=== PATIENT | female | born 1945 | race Caucasian/White ===

== ENCOUNTER → 2016-08-13 | Outpatient (CLI) | payer OTHER ==
[~2016-08-13] MED LIST: AMT50 PO; ASCO10003 PO; ASPI325T39 PO; CALC600T9 PO; CEPH500C2 PO; CHOL2000 PO; CYAN100020 PO; DICY1TAB25 PO; DIPH25CA65 PO; EAR GTTS OTB; ERGO1TAB12 PO; FERR325T5 PO; GABA-113 PO; IMD/2 PO; KFL/250 PO; KFLS0.51 PO; KFLS250100 PO; LACT1CAP6 PO; LEVO75TA5 PO; LORA-741 PO; METO25TA56 PO; METO50TA16 PO; METO50TA7 PO; MULT-506 PO; NIFE60TA57 PO; NITR-5 PO; OCTR100I IM; ONDA4TAB65 PO; OXYC15TA89 PO; OXYC1TAB3 PO; PRLSR20 PO; SERT-234 PO; SERT50TA PO; SNDI IM; VITAMIN D2 PO; benadryl PO
[2016-08-13 17:57] LABS: BASO % 0.5 %; BASO ABS # 0.04 K/uL (0-0.2); COMPLETE YES; EOS % 6.4 %; HEMATOCRIT 31.3 % (37-47); IG% 1.3 %; LYMPH % 17.8 %; LYMPH ABS # 1.51 K/uL (1.2-3.4); MEAN CELL VOLUME 92.6 fL (80-100); MEAN CORPUSCULAR HEMOGLOBIN 29.6 pg (25-34); MEAN CORPUSCULAR HGB CONC 31.9 g/dl (32-36); MEAN PLATELET VOLUME 9.2 fL (7.4-10.4); MONO % 8.3 %; NEUT % 65.7 %; PLATELET COUNT 225 K/uL (130-400); RED BLOOD COUNT 3.38 M/uL (4.2-5.4); WHITE BLOOD COUNT 8.46 K/uL (4.8-10.8)
== END | disposition home or self-care (01) ==
LOC: C.LAB 16:07
PROVIDERS: ATTEND Internal Medicine
DX: R53.83 Other fatigue (principal); R42 Dizziness and giddiness

== ENCOUNTER → 2016-09-08 | Outpatient (CLI) | payer OTHER ==
--- NOTE | 2016-09-08 20:33 | DIAGNOSTIC IMAGING REPORT ---
UPPER GI SERIES AND SMALL BOWEL FOLLOW-THROUGH TO INCLUDE THE COLON CLINICAL HISTORY: Persistent diarrhea, nausea, vomiting and cramping. History of colorectal cancer. COMPARISON STUDY: CT of the abdomen and pelvis August 30, 2014, bowel series April 20, 2015. FLUOROSCOPY TIME: 1.9 minutes. TECHNIQUE: An upper GI series was performed followed by small bowel follow-through. In addition, contrast was followed through the colon until reaching the descending end colostomy. FINDINGS: Esophageal motility was normal. No esophageal mass or stricture was identified. No hiatal hernia was identified. Moderate gastroesophageal reflux was elicited. Gastric fold pattern was normal. An IVC filter was incidentally noted. No reflux was elicited. Duodenum was unremarkable. The position of the ligament of Treitz was normal. Note was made of a diverticulum of the third portion of the duodenum. Several right renal calculi were noted on the video library assistant KUB. The caliber of the jejunum and ileum were normal. There was no evidence for a small bowel obstruction. Contrast reached the ascending colon in 145 minutes. A right-sided colonic anastomosis was noted. The colon is dilated at this level as shown on prior CT. There was no evidence for an obstruction. The majority of the small bowel appears to be present. Contrast reached the descending end colostomy 7 1/2 hours into the procedure. There is moderate colonic shortening due to prior surgery. IMPRESSION: 1. No evidence for a bowel obstruction. 2. Moderate gastroesophageal reflux. 3. Postsurgical findings involving the colon, as described above. Moderate shortening of the colon due to prior resection. Contrast reached the descending colostomy in 7 1/2 hours. 4. Majority of the small bowel appears to be present. Electronically signed by: Kodi Bowens M.D. 09/08/2016 8:32 PM Dictated Date/Time: 09/08/2016 4:28 PM
== END | disposition home or self-care (01) ==
LOC: C.RAD 08:11
PROVIDERS: ATTEND Internal Medicine
DX: R19.7 Diarrhea, unspecified (principal); K21.9 Gastro-esophageal reflux disease without esophagitis

== ENCOUNTER → 2016-09-13 | Outpatient (CLI) | payer OTHER | END | disposition home or self-care (01) | LOC: C.LAB 09:56 | PROVIDERS: ATTEND Internal Medicine | DX: D64.9 Anemia, unspecified (principal) ==

== ENCOUNTER → 2016-09-14 | Outpatient (CLI) | payer OTHER | END | disposition home or self-care (01) | LOC: C.LABSPEC 12:29 | PROVIDERS: ATTEND Internal Medicine | DX: N39.0 Urinary tract infection, site not specified (principal) ==

== ENCOUNTER → 2016-09-30 | Outpatient (CLI) | payer OTHER | END | disposition home or self-care (01) | LOC: C.LAB 09:52 | PROVIDERS: ATTEND Internal Medicine | DX: N39.0 Urinary tract infection, site not specified (principal) ==

== ENCOUNTER 2016-11-06 16:30 | Emergency (ER) | payer OTHER ==
[~2016-11-06] VITALS: Ht 161.3 cm; Wt 61.2 kg
[~2016-11-06 16:30] MED LIST changes: -CEPH500C2 PO; -CHOL2000 PO; -DIPH25CA65 PO; -EAR GTTS OTB; -ERGO1TAB12 PO; -KFL/250 PO; -KFLS0.51 PO; -LEVO75TA5 PO; -METO50TA16 PO; -METO50TA7 PO; -NITR-5 PO; -OXYC1TAB3 PO; -SERT-234 PO; -SNDI IM
[2016-11-06 16:34] VITALS: TEMP 36.5; Ht 161.3 cm; Wt 61.2 kg
--- NOTE | 2016-11-06 17:05 | EMERGENCY ROOM VISIT NOTE ---
History Report prepared by Natividad: Sarah Marcos Under the Supervision of: Dr. Deep Dewitt M.D. First contact with patient: 16:40 Chief Complaint: DIZZY Stated Complaint: DIZZY History of Present Illness The patient is a 70 year old female who presents to the Emergency Room with complaints of worsening dizziness starting [employer]. The patient states that the dizziness feels like pressure in her head and has been stumbling due to the dizziness but states it is not room spinning dizziness. She states has not taken any medications for it. The patient states that along with the dizziness she states that she has had right ear discomfort after showering. The patient states that she also has an ileal conduit and a colostomy bag and that it puts pressure on her abdomen and causes her to feel like she always needs to urinate. The patient states that she suffers from chronic UTI symptoms and is currently having rectal and vaginal discharge. She states that urinating is not painful but uncomfortable. She states that she has been having worsening chills but states that she does get fluids and that causes her to have chills, but states that she has had more chills than normal. The patient states that she is also having shooting abdominal pain but states that it is not new for her. She states that she has also been having worsening neuropathy in her legs bilaterally causing her to be unable to sleep and her PCP has given her oxycodone to take for the pain but states she has only taken 1 oxycodone in the last 6 weeks. The patient denies taking any blood thinners. 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 Review of Systems All systems have been listed, reviewed, and are negative other than those previously mentioned. Please see Additional Medical History Sheet. Past Medical & Surgical Medical Problems: (1) Acute renal failure (2) Anxiety (3) Appendectomy (4) Asthma (5) Back pain (6) cancer surgery (7) Carcinoid tumor of the cecum (8) Cardiac catheterization (9) Cholecystectomy (10) Chronic renal disease (11) Clostridium difficile colitis (12) Colectomy (13) Colorectal cancer (14) Colostomy (15) Dizziness (16) Dizziness (17) Dizziness (18) Esophagitis (19) HTN (hypertension) (20) Hyperlipidemia (21) Hypomagnesemia (22) Hypothyroidism (23) Hysterectomy (24) Ileal conduit (25) Orthostasis (26) Physical deconditioning (27) Pyelonephritis (28) Renal failure (29) Sepsis (30) SIRS (systemic inflammatory response syndrome) (31) Sprain, lumbosacral (32) UTI (lower urinary tract infection) (33) UTI (lower urinary tract infection) (34) UTI (urinary tract infection) (35) Weakness Family History Bowel disease MOTHER Cancer FH: heart disease FATHER Gallbladder disease Hypertension Social History Smoking Status: Never Smoker Alcohol Use: occasionally Drug Use: none Marital Status: Housing Status: lives with family Occupation Status: retired Current/Historical Medications Scheduled Amitriptyline Hcl (Elavil), 25 MG PO HS Ascorbic Acid (Vitamin C), 1 TAB PO QAM Aspirin (Aspirin Ec), 325 MG PO QAM Calcium Carbonate-Vitamin D (Calcium + D), 1 TAB PO QAM Cephalexin Monohydrate (Keflex Susp), 10 ML PO TID Cholecalciferol (Vitamin D3), Unknown Dose PO DAILY Cyanocobalamin (Vitamin B12), 1 TAB PO QAM Dicyclomine HCl (Dicyclomine HCl), 1 TAB PO TID Ferrous Sulfate (Ferrous Sulfate), 1 TAB PO QAM Gabapentin (Neurontin), 300 MG PO BID Gabapentin (Neurontin), 2 CAP PO QPM Lactobacillus (Probiotic), 2 CAP PO QAM Metoprolol Tartrate (Lopressor) (Lopressor), 25 MG PO BID Multivitamin (Multivitamin), 1 TAB PO QAM Nifedipine Ext Rel (Procardia Xl Ext Rel), 60 MG PO QPM Octreotide Acetate (Octreotide Acetate), 1 DOSE IM [id number] Omeprazole (Prilosec), 20 MG PO BID Oxycodone Hcl (Oxycontin), 1 TAB PO Q12 Sertraline (Zoloft), 100 MG PO QPM Scheduled PRN Loperamide Hcl (Imodium), 4 MG PO Q6H PRN for Diarrhea Lorazepam (Ativan), 0.5 MG PO TID PRN for Anxiety Ondansetron Hcl (Zofran), 4 MG PO PRN PRN for Nausea or Vomiting Allergies Coded Allergies: Ciprofloxacin (Verified Allergy, Intermediate, RASH, 11/06/16) Homatropine (Verified Allergy, Intermediate, RASH, 11/06/16) Hydrocodone (Verified Allergy, Intermediate, RASH, 11/06/16) Metronidazole (Verified Allergy, Intermediate, RASH, 11/06/16) Piperacillin (Verified Allergy, Intermediate, RASH, 11/06/16) Sulfa Antibiotics (Verified Allergy, Intermediate, RASH, 11/06/16) Tazobactam (Verified Allergy, Intermediate, RASH, 11/06/16) Vancomycin (Verified Allergy, Intermediate, HIVES, 11/06/16) Levofloxacin (Verified Allergy, Unknown, unknown, 11/06/16) Statins (Verified Allergy, Unknown, LIPITOR AND PRAVASTATIN, 11/06/16) Physical Exam Vital Signs Date Time Temp Pulse Resp B/P Pulse Ox O2 Delivery O2 Flow Rate FiO2 11/06/16 19:27 62 14 157/73 98 11/06/16 19:04 62 14 157/73 98 Room Air 11/06/16 17:23 95 Room Air 11/06/16 17:09 63 124/88 70 128/74 68 127/74 11/06/16 17:08 16 100 Room Air 11/06/16 17:03 59 11/06/16 16:34 36.5 69 16 114/73 98 Room Air Physical Exam GENERAL: Patient awake, alert, oriented x 3. Patient follows commands. Patient does not appear toxic. Patient is adequately hydrated and well- nourished. SKIN: No erythema, pallor, cyanosis or rash HEENT: Normal head, pupils equal, reactive to light and accommodation. Ears increase serum impaction bilaterally. Oral cavity and posterior pharynx appear normal. Neck: Without adenopathy, no neck vein distention. LUNGS: Clear to auscultation. No wheezes, no rales, no rhonchi. HEART: No murmurs. No gallops. No rubs ABDOMEN: No masses, no rebound, no hepatomegaly or splenomegaly. EXTREMITIES: No signs of trauma. No pedal or pretibial edema. No calf or thigh tenderness. NEUROLOGIC: Cranial nerves II-XII within normal limits. No gross motor sensory function deficits. Medical Decision & Procedures ER Provider Diagnostic Interpretation: X ray results are stated below per my interpretation and the radiologist's interpretation. CHEST 2 VIEWS ROUTINE HISTORY: dizzy lightheaded COMPARISON: Chest 04/22/2016. FINDINGS: The heart is normal in size. No pleural effusions. No pneumothorax. No focal lung consolidations to suggest pneumonia. No evidence for pulmonary edema. Right jugular Port-A-Cath terminates in the proximal SVC. There is an IVC filter noted. IMPRESSION: No significant change compared to the prior study. No acute process. Electronically signed by: Deshawn Alvarez M.D. 11/06/2016 5:49 PM Dictated Date/Time: 11/06/2016 5:47 PM Laboratory Results 11/06/16 17:09 Red Blood Count 3.31, Mean Corpuscular Volume 94.0, Mean Corpuscular Hemoglobin 29.9, Mean Corpuscular Hemoglobin Concent 31.8, Mean Platelet Volume 8.7, Neutrophils (%) (Auto) 63.7, Lymphocytes (%) (Auto) 22.5, Monocytes (%) (Auto) 6.7, Eosinophils (%) (Auto) 5.5, Basophils (%) (Auto) 0.6, Neutrophils # (Auto) 5.19, Lymphocytes # (Auto) 1.84, Monocytes # (Auto) 0.55, Eosinophils # (Auto) 0.45, Basophils # (Auto) 0.05 11/06/16 17:09 Test 11/06/16 17:09 11/06/16 17:20 White Blood Count 8.16 K/uL (4.8-10.8) Red Blood Count 3.31 M/uL (4.2-5.4) Hemoglobin 9.9 g/dL (12.0-16.0) Hematocrit 31.1 % (37-47) Mean Corpuscular Volume 94.0 fL (80-100) Mean Corpuscular Hemoglobin 29.9 pg (25-34) Mean Corpuscular Hemoglobin Concent 31.8 g/dl (32-36) Platelet Count 214 K/uL (130-400) Mean Platelet Volume 8.7 fL (7.4-10.4) Neutrophils (%) (Auto) 63.7 % Lymphocytes (%) (Auto) 22.5 % Monocytes (%) (Auto) 6.7 % Eosinophils (%) (Auto) 5.5 % Basophils (%) (Auto) 0.6 % Neutrophils # (Auto) 5.19 K/uL (1.4-6.5) Lymphocytes # (Auto) 1.84 K/uL (1.2-3.4) Monocytes # (Auto) 0.55 K/uL (0.11-0.59) Eosinophils # (Auto) 0.45 K/uL (0-0.5) Basophils # (Auto) 0.05 K/uL (0-0.2) RDW Standard Deviation 57.4 fL (36.4-46.3) RDW Coefficient of Variation 16.6 % (11.5-14.5) Immature Granulocyte % (Auto) 1.0 % Immature Granulocyte # (Auto) 0.08 K/uL (0.00-0.02) Anion Gap 9.0 mmol/L (3-11) Est Creatinine Clear Calc Drug Dose 19.0 ml/min Estimated GFR () 24.0 Estimated GFR (Non- 20.7 BUN/Creatinine Ratio 12.4 (10-20) Calcium Level 6.9 mg/dl (8.5-10.1) Total Bilirubin 0.2 mg/dl (0.2-1) Aspartate Amino Transf (AST/SGOT) 14 U/L (15-37) Alanine Aminotransferase (ALT/SGPT) 17 U/L (12-78) Alkaline Phosphatase 134 U/L (45-117) Troponin I < 0.015 ng/ml (0-0.045) Total Protein 6.3 gm/dl (6.4-8.2) Albumin 3.2 gm/dl (3.4-5.0) Globulin 3.1 gm/dl (2.5-4.0) Albumin/Globulin Ratio 1.0 (0.9-2) Urine Color YELLOW Urine Appearance TURBID (CLEAR) Urine pH 6.5 (4.5-7.5) Urine Specific [place] 1.010 (1.000-1.030) Urine Protein TRACE (NEG) Urine Glucose (UA) NEG (NEG) Urine Ketones NEG (NEG) Urine Occult Blood 1+ (NEG) Urine Nitrite NEG (NEG) Urine Bilirubin NEG (NEG) Urine Urobilinogen NEG (NEG) Urine Leukocyte Esterase LARGE (NEG) Urine WBC (Auto) >30 /hpf (0-5) Urine RBC (Auto) 5-10 /hpf (0-4) Urine Hyaline Casts (Auto) 1-5 /lpf (0-5) Urine Epithelial Cells (Auto) 0-5 /lpf (0-5) Urine Bacteria (Auto) 4+ (NEG) Laboratory results as stated above per my review. Medications Administered Medications (Trade) Dose Ordered Sig/Heather Route Start Time Stop Time Status Last Admin Dose Admin Heparin Sodium (Porcine) (Heparin 100 Unit/ml 5ml Flush) 5 ml STK-MED ONCE .ROUTE 11/06/16 19:15 11/06/16 19:16 DC 11/06/16 19:17 5 ML ECG Indication: other (dizziness) Rate (beats per minute): 61 Rhythm: normal sinus Findings: no acute ischemic change, no ectopy ED Course 1640: Past medical records reviewed. The patient was evaluated in room C4. A complete history and physical examination was performed. 1858: Upon reevaluation, the patient appeared to have improvement of her symptoms. I discussed today's findings with her and her . She verbalized agreement of the treatment plan. The nurse got the patient up and she was able to ambulate and states she feels well enough to go home. The patient was discharged home. Medical Decision Nurses notes reviewed. Medical history sheet reviewed. Differential diagnosis includes but is not limited to: diabetic neuropathy, metabolic disorder, Labyrinthitis, Vestibular Neuritis, benign positional vertigo, meniere's, orthostasis and dehydration . 70-year-old female with intermittent dizziness. Multiple labs, urinalysis, EKG were obtained. Please see above. The patient chronically has white cells and bacteria in her urine. The urinalysis obtained from a ileal conduit. Urine culture is pending. Patient also has a colostomy. Patient is chronically anemic. She also has renal insufficiency. These numbers do not appear to be significantly different. He will await culture results prior to treatment of the urine. The patient is not orthostatic and she had passed an ambulatory trial without difficulty. Impression Primary Impression: Dizziness Scribe Attestation The scribe's documentation has been prepared under my direction and personally reviewed by me in its entirety. I confirm that the note above accurately reflects all work, treatment, procedures, and medical decision making performed by me. Departure Information Dispostion Home / Self-Care Referrals Joe Ramsey M.D. (PCP) Forms HOME CARE DOCUMENTATION FORM, IMPORTANT VISIT INFORMATION Patient Instructions My [facility] Additional Instructions Continue all of your current medications as prescribed. Await results of your urine culture prior to any additional treatment
[2016-11-06 17:23] VITALS: O2SAT 95
[2016-11-06 17:23] LABS: BASO % 0.6 %; BASO ABS # 0.05 K/uL (0-0.2); COMPLETE YES; EOS % 5.5 %; HEMATOCRIT 31.1 % (37-47); LYMPH % 22.5 %; LYMPH ABS # 1.84 K/uL (1.2-3.4); MEAN CORPUSCULAR HEMOGLOBIN 29.9 pg (25-34); MEAN CORPUSCULAR HGB CONC 31.8 g/dl (32-36); MEAN PLATELET VOLUME 8.7 fL (7.4-10.4); MONO % 6.7 %; NEUT % 63.7 %; PLATELET COUNT 214 K/uL (130-400); RED BLOOD COUNT 3.31 M/uL (4.2-5.4); WHITE BLOOD COUNT 8.16 K/uL (4.8-10.8)
[2016-11-06] MEDS ORDERED: DIPH25CA65 PO (17:32)
[2016-11-06] MEDS ORDERED: SNDI IM (17:32)
[2016-11-06] MEDS ORDERED: ERGO1TAB12 PO (17:32)
[2016-11-06 17:34] LABS: URINE APPEARANCE TURBID (CLEAR); URINE BILIRUBIN NEG (NEG); URINE COLOR YELLOW; URINE EPITHELIAL CELL AUTO 0-5 /lpf (0-5); URINE NITRITE NEG (NEG); URINE PH 6.5 (4.5-7.5); UROBILINOGEN NEG (NEG); ZZURINE CULT IF INDIC CATH YES
[2016-11-06 17:35] LABS: MANUAL MICROSCOPIC REQUIRED? NO; REVIEW REQ? NO
[2016-11-06 17:40] LABS: ALT/SGPT 17 U/L (12-78); AST/SGOT 14 U/L (15-37); BLOOD UREA NITROGEN 28 mg/dl (7-18); BUN/CREATININE RATIO 12.4 (10-20); CALCIUM 6.9 mg/dl (8.5-10.1); CARBON DIOXIDE 21 mmol/L (21-32); CHLORIDE 112 mmol/L (98-107); GLUCOSE 118 mg/dl (70-99); POTASSIUM 5.1 mmol/L (3.5-5.1); SODIUM 142 mmol/L (136-145)
[2016-11-06 17:45] LABS: ALKALINE PHOSPHATASE 134 U/L (45-117)
[2016-11-06] MEDS ORDERED: SERT-234 PO (17:48)
[2016-11-06] MEDS ORDERED: CHOL2000 PO (17:48)
--- NOTE | 2016-11-06 17:50 | DIAGNOSTIC IMAGING REPORT ---
CHEST 2 VIEWS ROUTINE HISTORY: dizzy lightheaded COMPARISON: Chest 04/22/2016. FINDINGS: The heart is normal in size. No pleural effusions. No pneumothorax. No focal lung consolidations to suggest pneumonia. No evidence for pulmonary edema. Right jugular Port-A-Cath terminates in the proximal SVC. There is an IVC filter noted. IMPRESSION: No significant change compared to the prior study. No acute process. Electronically signed by: Deshawn Alvarez M.D. 11/06/2016 5:49 PM Dictated Date/Time: 11/06/2016 5:47 PM
[2016-11-06 19:27] VITALS: BP 157/73; PULSE 62; O2SAT 98
--- NOTE | 2016-11-08 13:05 | Pharmacy Progress Note ---
ED Pharmacist Culture FollowUp Date of Service: November 08, 2016. Patient was seen in the ER for c/o dizziness, R ear discomfort and "shooting" abdominal pain on 11/06/16. A urine cx was collected that day and today has finalized and is growing Klebsiella pneumoniae. The patient does have a h/o carcinoid tumor of cecum as well as h/o ileal conduit. UA from that day: turbid, > 30 WBC, 0-5 epis, large LE, 4+ bacteria, - Nitrate. She was not discharged w/ abx therapy. Given her h/o ileal conduit and h/o pyuria and bacteruria on multiple prior UA' s her case is complicated. She had c/o chronic urinary symptoms at her ER visit (uncomfortable urination). She also has multiple abx allergies should treatment be required. Could this be colonization vs infection? If treatment would be necessary a cephalosporin is a possible option (she has tolerated cephs in the past per medical record). Reviewed the case w/ Dr Robertson and the decision was made to contact her PCP with these cx results and discuss further need for action. I notified RN at Dr Alonso's office (this patient's PCP) of these culture results and she stated the cx would be printed for Dr Alonso to review and they would f/u with patient. No further action required at this time from ER standpoint.
[2016-11-29] MEDS ORDERED: EAR GTTS OTB (10:13)
[2016-12-07] MEDS ORDERED: OXYC1TAB3 PO (08:22)
[2017-01-06] MEDS ORDERED: LEVO75TA5 PO (10:11)
[2017-01-31] MEDS ORDERED: NITR-5 PO (10:08)
[2017-02-21] MEDS ORDERED: KFLS0.51 PO (09:59)
[2017-03-15] MEDS ORDERED: KFL/250 PO (10:03)
[2017-03-28] MEDS ORDERED: NITR-5 PO (09:57)
[2017-04-04] MEDS ORDERED: METO50TA16 PO (07:59)
[2017-04-04] MEDS ORDERED: CEPH500C2 PO (07:59)
[2017-04-07] MEDS ORDERED: METO50TA7 PO (10:26)
[2017-04-14] MEDS ORDERED: KFL/250 PO (10:04)
== END 2016-11-06 19:28 | disposition home or self-care (01) ==
LOC: C.EDB 16:32 → C.EDC 19:28
DX: R42 Dizziness and giddiness (principal); J45.909 Unspecified asthma, uncomplicated; F41.9 Anxiety disorder, unspecified; D3A.021 Benign carcinoid tumor of the cecum; N28.9 Disorder of kidney and ureter, unspecified; I10 Essential (primary) hypertension; E78.5 Hyperlipidemia, unspecified; E83.42 Hypomagnesemia; E03.9 Hypothyroidism, unspecified; R65.10 Systemic inflammatory response syndrome (SIRS) of non-infectious origin without acute organ dysfunction; Z82.49 Family history of ischemic heart disease and other diseases of the circulatory system; Z79.82 Long term (current) use of aspirin

== ENCOUNTER → 2016-11-23 | Outpatient (CLI) | payer OTHER ==
[~2016-11-23] MED LIST changes: +CEPH500C2 PO; +CHOL2000 PO; +EAR GTTS OTB; +KFL/250 PO; +KFLS0.51 PO; +LEVO75TA5 PO; +METO50TA16 PO; +METO50TA7 PO; +NITR-5 PO; -OCTR100I IM; +OXYC1TAB3 PO; +SERT-234 PO; -SERT50TA PO; +SNDI IM; -VITAMIN D2 PO; -benadryl PO
--- NOTE | 2016-11-23 14:01 | DIAGNOSTIC IMAGING REPORT ---
RIGHT HAND MIN 3 VIEWS CLINICAL HISTORY: RIGHT HAND PAIN Right pain COMPARISON: None. DISCUSSION: Considerable degenerative change of the distal interphalangeal joints. This is most prominent involving the second third and fifth distal interphalangeal joints. Mild degenerative change of the proximal interphalangeal joints as well as the osseous structures of the wrist. There is no evidence for soft tissue swelling. IMPRESSION: Considerable degenerative change primarily the distal interphalangeal joints. Electronically signed by: Martin Ledezma M.D. 11/23/2016 2:00 PM Dictated Date/Time: 11/23/2016 1:56 PM
== END | disposition home or self-care (01) ==
LOC: C.RDSM 14:00
PROVIDERS: ATTEND Physician Assistant
DX: M79.641 Pain in right hand (principal)

== ENCOUNTER → 2016-11-30 | Outpatient (CLI) | payer OTHER | END | disposition home or self-care (01) | LOC: C.LABSPEC 17:35 | PROVIDERS: ATTEND Internal Medicine | DX: N39.0 Urinary tract infection, site not specified (principal) ==

== ENCOUNTER → 2016-12-31 | Outpatient (CLI) | payer OTHER ==
[~2016-12-31] MED LIST changes: -OXYC15TA89 PO
[2016-12-31 18:10] LABS: ALKALINE PHOSPHATASE 164 U/L (45-117); ALT/SGPT 17 U/L (12-78); AST/SGOT 15 U/L (15-37); BLOOD UREA NITROGEN 30 mg/dl (7-18); BUN/CREATININE RATIO 11.8 (10-20); CALCIUM 7.4 mg/dl (8.5-10.1); CARBON DIOXIDE 19 mmol/L (21-32); CHLORIDE 112 mmol/L (98-107); GLUCOSE 100 mg/dl (70-99); MAGNESIUM 2.4 mg/dl (1.8-2.4); POTASSIUM 4.8 mmol/L (3.5-5.1); SODIUM 140 mmol/L (136-145)
[2016-12-31 18:25] LABS: HEMATOCRIT 31.8 % (37-47); MEAN CELL VOLUME 94.4 fL (80-100); MEAN CORPUSCULAR HGB CONC 31.8 g/dl (32-36); MEAN PLATELET VOLUME 9.2 fL (7.4-10.4); PLATELET COUNT 248 K/uL (130-400); RED BLOOD COUNT 3.37 M/uL (4.2-5.4); WHITE BLOOD COUNT 8.23 K/uL (4.8-10.8)
[2016-12-31 18:26] LABS: BASO % 0.4 %; BASO ABS # 0.03 K/uL (0-0.2); COMPLETE YES; EOS % 3.5 %; IG% 0.7 %; LYMPH % 16.5 %; LYMPH ABS # 1.36 K/uL (1.2-3.4); MONO % 9.1 %; NEUT % 69.8 %
== END | disposition home or self-care (01) ==
LOC: C.LABSPEC 14:15
PROVIDERS: ATTEND Internal Medicine
DX: R41.0 Disorientation, unspecified (principal); R19.7 Diarrhea, unspecified

== ENCOUNTER → 2017-01-06 | Outpatient (CLI) | payer OTHER | END | disposition home or self-care (01) | LOC: C.LAB 09:44 | PROVIDERS: ATTEND Internal Medicine | DX: N39.0 Urinary tract infection, site not specified (principal); N12 Tubulo-interstitial nephritis, not specified as acute or chronic; F41.9 Anxiety disorder, unspecified; Z79.82 Long term (current) use of aspirin; Z79.899 Other long term (current) drug therapy; E86.0 Dehydration; E87.2 Acidosis; D64.9 Anemia, unspecified; Z85.048 Personal history of other malignant neoplasm of rectum, rectosigmoid junction, and anus; G47.00 Insomnia, unspecified; Z83.79 Family history of other diseases of the digestive system; Z80.9 Family history of malignant neoplasm, unspecified; Z82.49 Family history of ischemic heart disease and other diseases of the circulatory system; R53.83 Other fatigue; E83.42 Hypomagnesemia; R19.7 Diarrhea, unspecified; N64.89 Other specified disorders of breast; R53.1 Weakness; E78.5 Hyperlipidemia, unspecified; E03.9 Hypothyroidism, unspecified; K90.0 Celiac disease; Z85.038 Personal history of other malignant neoplasm of large intestine; N18.9 Chronic kidney disease, unspecified; J45.909 Unspecified asthma, uncomplicated; I12.9 Hypertensive chronic kidney disease with stage 1 through stage 4 chronic kidney disease, or unspecified chronic kidney disease ==

== ENCOUNTER 2017-01-25 16:37 | Emergency (ER) | payer OTHER ==
[~2017-01-25] VITALS: Ht 160 cm; Wt 62.0 kg
[~2017-01-25 16:37] MED LIST changes: -CEPH500C2 PO; -KFL/250 PO; -KFLS0.51 PO; -KFLS250100 PO; -METO50TA16 PO; -METO50TA7 PO; -NITR-5 PO
[2017-01-25 16:40] VITALS: TEMP 36.5; Ht 160 cm; Wt 62.0 kg
[2017-01-25] MEDS ORDERED: SODIUM CHLORIDE 0.9% 1000ML 1,000 ML IV STA (16:59)
[2017-01-25] MEDS ORDERED: ONDANSETRON INJ 2 MG/ML 2 ML VIAL IV STA (17:23)
[2017-01-25] MEDS ORDERED: FENTANYL CITRATE INJ 50 MCG/1 ML 2 ML VIAL IV STA (17:23)
[2017-01-25 17:34] LABS: BASO % 0.8 %; BASO ABS # 0.06 K/uL (0-0.2); COMPLETE YES; EOS % 4.9 %; HEMATOCRIT 32.2 % (37-47); IG% 0.9 %; LYMPH % 19.2 %; LYMPH ABS # 1.44 K/uL (1.2-3.4); MEAN CELL VOLUME 94.2 fL (80-100); MEAN CORPUSCULAR HEMOGLOBIN 28.7 pg (25-34); MEAN CORPUSCULAR HGB CONC 30.4 g/dl (32-36); MONO % 9.1 %; NEUT % 65.1 %; PLATELET COUNT 235 K/uL (130-400); RED BLOOD COUNT 3.42 M/uL (4.2-5.4)
[2017-01-25 17:54] LABS: CALCIUM 7.3 mg/dl (8.5-10.1); CREATININE 2.5 mg/dl (0.60-1.20); POTASSIUM 5.1 mmol/L (3.5-5.1)
--- NOTE | 2017-01-25 18:08 | DIAGNOSTIC IMAGING REPORT ---
CT OF THE ABDOMEN AND PELVIS WITHOUT CONTRAST CLINICAL HISTORY: Left upper quadrant pain, nausea, history of pancreatitis, renal insufficiency. COMPARISON STUDY: CT of the abdomen and pelvis March 24, 2015, abdominal series April 20, 2015 and upper GI series and small bowel follow-through September 08, 2016. TECHNIQUE: Axial images of the abdomen and pelvis were obtained without IV contrast. Images were reviewed in the axial, sagittal, and coronal planes. FINDINGS: Evaluation of the abdomen and pelvis is suboptimal on this unenhanced exam. Mild biliary ductal dilatation is unchanged since earlier exams and likely related to prior cholecystectomy. An IVC filter is in place. Extensive postsurgical findings within the abdomen and pelvis are noted, including a cystectomy with ileal conduit. There is moderate right and severe left hydronephrosis which has increased since exam March 24, 2015 but has been shown on earlier studies. A 6 mm right renal calculus is noted. There is moderate right and marked left renal cortical thinning. There is no peripancreatic infiltration. Unenhanced images of the spleen, adrenal glands are unremarkable. There is pancreatic glandular atrophy. There is evidence for a left colon resection. There is a left lower quadrant descending colostomy. note is made of a moderate amount of poorly formed stool within the colon. Mild colonic distention is noted without evidence for an obstruction. Presacral infiltration is unchanged and likely postsurgical. No pneumatosis, free air or portal venous gas is present. There are no suspicious osseous lesions. A few minimally enlarged left inguinal lymph nodes are noted. These measure up to 1.1 cm in short axis diameter. IMPRESSION: 1. Extensive postsurgical findings within the abdomen and pelvis, including a left colon resection with descending colostomy. Moderate amount of poorly formed stool within the colon. Mild small and large bowel dilatation. No transition point identified to strongly suggest a bowel obstruction although a partial bowel obstruction would be difficult to exclude on this exam. 2. Status post cystectomy with ileal conduit. Moderate right and severe left hydronephrosis which is increased when compared to prior CT. This is nonspecific but may be related to the ileal conduit. 6 mm nonobstructing right renal calculus. No ureteral calculi. 3. Suboptimal evaluation of the abdomen and pelvis given the lack of IV and oral contrast. 4. A few mildly enlarged left inguinal lymph nodes. These are likely benign but a follow-up CT in 6 months to ensure stability is recommended. Electronically signed by: Kodi Bowens M.D. 01/25/2017 6:07 PM Dictated Date/Time: 01/25/2017 5:45 PM
[2017-01-25 19:04] LABS: URINE APPEARANCE CLOUDY (CLEAR); URINE BILIRUBIN NEG (NEG); URINE COLOR YELLOW; URINE EPITHELIAL CELL AUTO 0-5 /lpf (0-5); URINE NITRITE NEG (NEG); URINE PH 6.5 (4.5-7.5); URINE SPECIFIC GRAVITY 1.009 (1.000-1.030); UROBILINOGEN NEG (NEG); ZZURINE CULT IF INDIC CATH YES
[2017-01-25 19:07] LABS: MANUAL MICROSCOPIC REQUIRED? NO; REVIEW REQ? NO
--- NOTE | 2017-01-25 20:54 | EMERGENCY ROOM VISIT NOTE ---
History First contact with patient: 16:47 Chief Complaint: NAUSEA Stated Complaint: PAIN, NAUSEA, DIZZINESS Nursing Triage Summary: pt to the ED with c/o pain near her ostomy and nausea, and feels similar to previous pancreatic "attack" History of Present Illness The patient is a 71 year old female who presents to the Emergency Room with complaints of abdominal pain, nausea and dizziness which started today. The patient states that she has a history of a colostomy secondary to complications of colorectal cancer. She also has an ileal conduit and stoma. The patient states that she has been nauseous, dizzy, and has had pain in her left upper abdomen over the past day. The pain in the abdomen radiates into the back. She does have a history of pancreatitis and feels this may be similar. She has had a normal output of stool. She does report her urine looks slightly cloudy, but she does have a history of frequent urinary tract infections and finished a course of Keflex 2 days ago. The patient rates her overall discomfort a 7/10. She denies any fevers/chills, vomiting, blood in the stools, chest pain or shortness of breath. Review of Systems A complete 10 point review of systems was reviewed with the patient with pertinent positives and negatives as per history of present illness. All else were negative. Past Medical/Surgical History Medical Problems: (1) Acute renal failure (2) Anxiety (3) Appendectomy (4) Asthma (5) Back pain (6) cancer surgery (7) Carcinoid tumor of the cecum (8) Cardiac catheterization (9) Cholecystectomy (10) Chronic renal disease (11) Clostridium difficile colitis (12) Colectomy (13) Colorectal cancer (14) Colostomy (15) Dizziness (16) Dizziness (17) Dizziness (18) Esophagitis (19) HTN (hypertension) (20) Hyperlipidemia (21) Hypomagnesemia (22) Hypothyroidism (23) Hysterectomy (24) Ileal conduit (25) Orthostasis (26) Physical deconditioning (27) Pyelonephritis (28) Renal failure (29) Sepsis (30) SIRS (systemic inflammatory response syndrome) (31) Sprain, lumbosacral (32) UTI (lower urinary tract infection) (33) UTI (lower urinary tract infection) (34) UTI (urinary tract infection) (35) Weakness Family History Bowel disease MOTHER Cancer FH: heart disease FATHER Gallbladder disease Hypertension Social History Smoking Status: Never Smoker Alcohol Use: occasionally Drug Use: none Marital Status: Housing Status: lives with family Occupation Status: retired Current/Historical Medications Scheduled Amitriptyline Hcl (Elavil), 25 MG PO HS Ascorbic Acid (Vitamin C), 1 TAB PO QAM Aspirin (Aspirin Ec), 325 MG PO QAM Calcium Carbonate-Vitamin D (Calcium + D), 1 TAB PO QAM Cholecalciferol (Vitamin D3), Unknown Dose PO DAILY Cyanocobalamin (Vitamin B12), 1 TAB PO QAM Dicyclomine HCl (Dicyclomine HCl), 1 TAB PO TID Ferrous Sulfate (Ferrous Sulfate), 1 TAB PO QAM Gabapentin (Neurontin), 300 MG PO BID Gabapentin (Neurontin), 2 CAP PO QPM Lactobacillus (Probiotic), 1 CAP PO BID Levothyroxine Sodium (Levothyroxine Sodium), 1 TAB PO DAILY Metoprolol Tartrate (Lopressor) (Lopressor), 25 MG PO DAILY Multivitamin (Multivitamin), 1 TAB PO QAM Nifedipine Ext Rel (Procardia Xl Ext Rel), 60 MG PO QPM Octreotide Acetate (Octreotide Acetate), 1 DOSE IM [id number] Omeprazole (Prilosec), 20 MG PO BID Sertraline (Zoloft), 100 MG PO QPM Scheduled PRN Loperamide Hcl (Imodium), 4 MG PO Q6H PRN for Diarrhea Lorazepam (Ativan), 0.5 MG PO TID PRN for Anxiety Ondansetron Hcl (Zofran), 4 MG PO PRN PRN for Nausea or Vomiting Oxycodone Immediate Rel Tab (Roxicodone Ir), 5 MG PO Q4H PRN for Severe Pain Allergies Coded Allergies: Ciprofloxacin (Verified Allergy, Intermediate, RASH, 01/24/17) Homatropine (Verified Allergy, Intermediate, RASH, 01/24/17) Hydrocodone (Verified Allergy, Intermediate, RASH, 01/24/17) Metronidazole (Verified Allergy, Intermediate, RASH, 01/24/17) Piperacillin (Verified Allergy, Intermediate, RASH, 01/24/17) Sulfa Antibiotics (Verified Allergy, Intermediate, RASH, 01/24/17) Tazobactam (Verified Allergy, Intermediate, RASH, 01/24/17) Vancomycin (Verified Allergy, Intermediate, HIVES, 01/24/17) Levofloxacin (Verified Allergy, Unknown, unknown, 01/24/17) Statins (Verified Allergy, Unknown, LIPITOR AND PRAVASTATIN, 01/24/17) Physical Exam Vital Signs Date Time Temp Pulse Resp B/P (MAP) Pulse Ox O2 Delivery O2 Flow Rate FiO2 01/25/17 20:59 64 18 157/87 98 Room Air 01/25/17 19:00 62 18 124/66 99 Room Air 01/25/17 17:34 67 18 123/63 97 Room Air 01/25/17 16:40 36.5 74 18 117/68 97 Physical Exam VITALS: Vitals are noted on the nurse's note and reviewed by myself. Vital signs stable. GENERAL: This is a 71-year-old female, in no acute distress, nondiaphoretic, well-developed well-nourished. EARS: External auditory canals clear, tympanic membranes pearly petit without erythema or effusion bilaterally. EYES: Pupils equal round and reactive to light and accommodation. MOUTH: Mucous membranes moist. NECK: Supple without nuchal rigidity. HEART: Regular rate and rhythm without murmurs gallops or rubs. LUNGS: Clear to auscultation bilaterally without wheezes, rales or rhonchi. ABDOMEN: There is a colostomy bag present in the left upper quadrant. There is tenderness in the area surrounding the colostomy bag. There is no drainage or redness suggestive of infection. There is no guarding or rebound tenderness. NEURO: Patient was alert and oriented to person place and time. Medical Decision & Procedures ER Provider Diagnostic Interpretation: CT OF THE ABDOMEN AND PELVIS WITHOUT CONTRAST FINDINGS: Evaluation of the abdomen and pelvis is suboptimal on this unenhanced exam. Mild biliary ductal dilatation is unchanged since earlier exams and likely related to prior cholecystectomy. An IVC filter is in place. Extensive postsurgical findings within the abdomen and pelvis are noted, including a cystectomy with ileal conduit. There is moderate right and severe left hydronephrosis which has increased since exam March 24, 2015 but has been shown on earlier studies. A 6 mm right renal calculus is noted. There is moderate right and marked left renal cortical thinning. There is no peripancreatic infiltration. Unenhanced images of the spleen, adrenal glands are unremarkable. There is pancreatic glandular atrophy. There is evidence for a left colon resection. There is a left lower quadrant descending colostomy. note is made of a moderate amount of poorly formed stool within the colon. Mild colonic distention is noted without evidence for an obstruction. Presacral infiltration is unchanged and likely postsurgical. No pneumatosis, free air or portal venous gas is present. There are no suspicious osseous lesions. A few minimally enlarged left inguinal lymph nodes are noted. These measure up to 1.1 cm in short axis diameter. IMPRESSION: 1. Extensive postsurgical findings within the abdomen and pelvis, including a left colon resection with descending colostomy. Moderate amount of poorly formed stool within the colon. Mild small and large bowel dilatation. No transition point identified to strongly suggest a bowel obstruction although a partial bowel obstruction would be difficult to exclude on this exam. 2. Status post cystectomy with ileal conduit. Moderate right and severe left hydronephrosis which is increased when compared to prior CT. This is nonspecific but may be related to the ileal conduit. 6 mm nonobstructing right renal calculus. No ureteral calculi. 3. Suboptimal evaluation of the abdomen and pelvis given the lack of IV and oral contrast. 4. A few mildly enlarged left inguinal lymph nodes. These are likely benign but a follow-up CT in 6 months to ensure stability is recommended. Laboratory Results 01/25/17 17:16 Red Blood Count 3.42, Mean Corpuscular Volume 94.2, Mean Corpuscular Hemoglobin 28.7, Mean Corpuscular Hemoglobin Concent 30.4, Mean Platelet Volume 9.0, Neutrophils (%) (Auto) 65.1, Lymphocytes (%) (Auto) 19.2, Monocytes (%) (Auto) 9.1, Eosinophils (%) (Auto) 4.9, Basophils (%) (Auto) 0.8, Neutrophils # (Auto) 4.88, Lymphocytes # (Auto) 1.44, Monocytes # (Auto) 0.68, Eosinophils # (Auto) 0.37, Basophils # (Auto) 0.06 01/25/17 17:16 Test 01/25/17 17:16 01/25/17 18:56 White Blood Count 7.50 K/uL (4.8-10.8) Red Blood Count 3.42 M/uL (4.2-5.4) Hemoglobin 9.8 g/dL (12.0-16.0) Hematocrit 32.2 % (37-47) Mean Corpuscular Volume 94.2 fL (80-100) Mean Corpuscular Hemoglobin 28.7 pg (25-34) Mean Corpuscular Hemoglobin Concent 30.4 g/dl (32-36) Platelet Count 235 K/uL (130-400) Mean Platelet Volume 9.0 fL (7.4-10.4) Neutrophils (%) (Auto) 65.1 % Lymphocytes (%) (Auto) 19.2 % Monocytes (%) (Auto) 9.1 % Eosinophils (%) (Auto) 4.9 % Basophils (%) (Auto) 0.8 % Neutrophils # (Auto) 4.88 K/uL (1.4-6.5) Lymphocytes # (Auto) 1.44 K/uL (1.2-3.4) Monocytes # (Auto) 0.68 K/uL (0.11-0.59) Eosinophils # (Auto) 0.37 K/uL (0-0.5) Basophils # (Auto) 0.06 K/uL (0-0.2) RDW Standard Deviation 57.8 fL (36.4-46.3) RDW Coefficient of Variation 16.8 % (11.5-14.5) Immature Granulocyte % (Auto) 0.9 % Immature Granulocyte # (Auto) 0.07 K/uL (0.00-0.02) Anion Gap 7.0 mmol/L (3-11) Est Creatinine Clear Calc Drug Dose 16.8 ml/min Estimated GFR () 21.5 Estimated GFR (Non- 18.6 BUN/Creatinine Ratio 11.0 (10-20) Calcium Level 7.3 mg/dl (8.5-10.1) Total Bilirubin 0.2 mg/dl (0.2-1) Aspartate Amino Transf (AST/SGOT) 11 U/L (15-37) Alanine Aminotransferase (ALT/SGPT) 14 U/L (12-78) Alkaline Phosphatase 153 U/L (45-117) Total Protein 6.5 gm/dl (6.4-8.2) Albumin 3.3 gm/dl (3.4-5.0) Globulin 3.2 gm/dl (2.5-4.0) Albumin/Globulin Ratio 1.0 (0.9-2) Lipase 77 U/L (73-393) Urine Color YELLOW Urine Appearance CLOUDY (CLEAR) Urine pH 6.5 (4.5-7.5) Urine Specific Odonnell 1.009 (1.000-1.030) Urine Protein TRACE (NEG) Urine Glucose (UA) NEG (NEG) Urine Ketones NEG (NEG) Urine Occult Blood 1+ (NEG) Urine Nitrite NEG (NEG) Urine Bilirubin NEG (NEG) Urine Urobilinogen NEG (NEG) Urine Leukocyte Esterase LARGE (NEG) Urine WBC (Auto) >30 /hpf (0-5) Urine RBC (Auto) 0-4 /hpf (0-4) Urine Hyaline Casts (Auto) 0 /lpf (0-5) Urine Epithelial Cells (Auto) 0-5 /lpf (0-5) Urine Bacteria (Auto) 3+ (NEG) Medications Administered Medications (Trade) Dose Ordered Sig/Heather Route Start Time Stop Time Status Last Admin Dose Admin Sodium Chloride 1,000 ml @ 999 mls/hr Q1H1M STAT IV 01/25/17 16:59 01/25/17 17:59 DC 01/25/17 17:14 999 MLS/HR Fentanyl Citrate (Fentanyl Inj) 50 mcg NOW STAT IV 01/25/17 17:23 01/25/17 17:24 DC 01/25/17 17:30 50 MCG Ondansetron HCl (Zofran Inj) 4 mg NOW STAT IV 01/25/17 17:23 01/25/17 17:24 DC 01/25/17 17:29 4 MG Heparin Sodium (Porcine) (Heparin 100 Unit/ml 5ml Flush) 5 ml STK-MED ONCE .ROUTE 01/25/17 20:53 01/25/17 20:54 DC 01/25/17 20:55 5 ML ED Course The patient was evaluated as above. Labs were drawn and IV access was obtained. Patient was medicated with fentanyl and Zofran. CT of the abdomen and pelvis was performed and read by radiology as above. Case was discussed with Dr. Alonso. The patient will be discharged home. Discharge instructions were reviewed with the patient. The patient verbalized understanding of my assessment and treatment plan and was discharged home in good condition. Medical Decision Differential diagnosis includes bowel obstruction, pancreatitis, ostomy infection, ischemic colitis, urinary tract infection, among others. The patient is a 71-year-old female who presents today complaining of abdominal discomfort. Labs revealed no leukocytosis. Labs are otherwise at the patient' s baseline, with a stable anemia and elevated creatinine. Urinalysis did show 3 + bacteria, but given the patient's ileal conduit I do not feel this is very reliable and will await the culture results. CT showed no obvious acute findings, but could not fully rule out a partial small bowel obstruction. For this reason, case was discussed with the patient's primary care provider Dr. Alonso. We discussed the workup today and he felt that as long as the patient was feeling well, she could be discharged home to follow-up with him in the office tomorrow. I discussed this with the patient, and she did prefer to be discharged home. She was instructed to return here if she has any worsening or new/concerning symptoms. Based on the patient's presentation and work up, I feel the patient is stable for outpatient treatment. The patient was educated to return to the emergency department for any worsening of their current condition or new/concerning symptoms. She will follow up with her PCP. Medication reconciliation: I attest that I have personally reviewed the patient 's current medication list. Blood Pressure Screening: Patient was found to have a slightly elevated blood pressure due to circumstances. I do not believe that the patient requires hypertension monitoring. Impression Primary Impression: LUQ abdominal pain Departure Information Dispostion Home / Self-Care Condition GOOD Referrals Joe Ramsey M.D. (PCP) Forms HOME CARE DOCUMENTATION FORM, IMPORTANT VISIT INFORMATION Patient Instructions My [facility] Additional Instructions Follow-up with Dr. Bon Mckeon tomorrow for a recheck. Return to the emergency department with any fevers, vomiting, or any other worsening or new/concerning symptoms.
--- NOTE | 2017-01-25 20:57 | EMERGENCY ROOM VISIT NOTE ---
ED Visit Note First contact with patient: 16:47 The patient was seen and examined with Lily Cordova PA-C. I agree with the history, physical and findings. Please see the note for disposition and details. Patient is doing relatively well. She feels comfortable with going home and will contact her primary physician's office tomorrow. Lily contacted Dr. Alonso and he feels comfortable with the plan as well. Patient agrees to return to the emergency department if she worsens in any way. I gave my usual and customary discussion regarding this issue.
[2017-01-25 20:59] VITALS: BP 157/87; PULSE 64; O2SAT 98
--- NOTE | 2017-01-28 11:38 | Pharmacy Progress Note ---
ED Pharmacist Culture FollowUp Date of Service: Jan 28, 2017. Patient urine cx (cath urine specimen) from 01/25/17 is growing enterobacter cloacae > 100,000CFU/mL. The patient does have a h/o of ileal conduit and stoma. She does have a h/o frequent UTI's. She was not treated for UTI on day of presentation to ER as she was afebrile, no leukocytosis or neutrophilia were present, and there is a good possibility that the patient has asymptomatic bacteruria. She was to f/u with Dr Alonso after discharge. I did contact Dr Alonso's office today to notify of the urine cx findings. I faxed the culture results to the office ([phone]) per their request. No further action required at this from ER.
[2017-01-31] MEDS ORDERED: NITR-5 PO (10:08)
[2017-02-21] MEDS ORDERED: KFLS0.51 PO (09:59)
[2017-03-15] MEDS ORDERED: KFL/250 PO (10:03)
[2017-03-28] MEDS ORDERED: NITR-5 PO (09:57)
[2017-04-04] MEDS ORDERED: METO50TA16 PO (07:59)
[2017-04-04] MEDS ORDERED: CEPH500C2 PO (07:59)
[2017-04-07] MEDS ORDERED: METO50TA7 PO (10:26)
[2017-04-14] MEDS ORDERED: KFL/250 PO (10:04)
== END 2017-01-25 21:00 | disposition home or self-care (01) ==
LOC: C.EDB 16:39 → C.EDA 21:00
DX: R10.12 Left upper quadrant pain (principal); R11.0 Nausea; R42 Dizziness and giddiness; Z93.3 Colostomy status; Z93.2 Ileostomy status; Z85.048 Personal history of other malignant neoplasm of rectum, rectosigmoid junction, and anus; I10 Essential (primary) hypertension; E03.9 Hypothyroidism, unspecified; Z79.899 Other long term (current) drug therapy

== ENCOUNTER → 2017-02-14 | Outpatient (CLI) | payer OTHER ==
[~2017-02-14] MED LIST changes: +CEPH500C2 PO; -EAR GTTS OTB; +KFL/250 PO; +KFLS0.51 PO; +METO50TA16 PO; +METO50TA7 PO; +NITR-5 PO
== END | disposition home or self-care (01) ==
LOC: C.LABSPEC 17:30
PROVIDERS: ATTEND Internal Medicine
DX: N39.0 Urinary tract infection, site not specified (principal)

== ENCOUNTER 2017-03-30 04:33 | Inpatient (IN) | payer OTHER ==
[~2017-03-30] VITALS: Ht 160 cm; Wt 61.0 kg
[~2017-03-30 04:33] MED LIST changes: -CEPH500C2 PO; -KFL/250 PO; -KFLS0.51 PO; -METO50TA16 PO; -METO50TA7 PO
[2017-03-30] MEDS ORDERED: HYDROmorphone INJ 1 MG/ML SYR IV STA (04:44)
[2017-03-30] MEDS ORDERED: ONDANSETRON INJ 2 MG/ML 2 ML VIAL IV STA (04:44)
[2017-03-30] MEDS ORDERED: SODIUM CHLORIDE 0.9% 1000ML 1,000 ML IV STA (04:44)
[2017-03-30 05:07] LABS: BASO % 0.3 %; BASO ABS # 0.04 K/uL (0-0.2); COMPLETE YES; EOS % 2.5 %; HEMATOCRIT 35.2 % (37-47); IG% 0.7 %; LYMPH % 10.4 %; LYMPH ABS # 1.23 K/uL (1.2-3.4); MEAN CELL VOLUME 93.4 fL (80-100); MEAN CORPUSCULAR HEMOGLOBIN 28.6 pg (25-34); MEAN CORPUSCULAR HGB CONC 30.7 g/dl (32-36); MEAN PLATELET VOLUME 9.4 fL (7.4-10.4); MONO % 5.9 %; NEUT % 80.2 %; PLATELET COUNT 215 K/uL (130-400); RED BLOOD COUNT 3.77 M/uL (4.2-5.4); WHITE BLOOD COUNT 11.79 K/uL (4.8-10.8)
[2017-03-30] MEDS ORDERED: FENTANYL CITRATE INJ 50 MCG/1 ML 2 ML VIAL IV STA ×2 (05:13→05:54)
[2017-03-30 05:25] LABS: ALT/SGPT 13 U/L (12-78); AST/SGOT 14 U/L (15-37); BLOOD UREA NITROGEN 34 mg/dl (7-18); CALCIUM 7.1 mg/dl (8.5-10.1); CARBON DIOXIDE 21 mmol/L (21-32); CHLORIDE 111 mmol/L (98-107); GLUCOSE 120 mg/dl (70-99); POTASSIUM 4.4 mmol/L (3.5-5.1); SODIUM 140 mmol/L (136-145)
[2017-03-30 05:28] LABS: ALKALINE PHOSPHATASE 154 U/L (45-117)
[2017-03-30 05:35] LABS: URINE APPEARANCE CLOUDY (CLEAR); URINE BILIRUBIN NEG (NEG); URINE COLOR YELLOW; URINE NITRITE POS (NEG); URINE SPECIFIC GRAVITY 1.012 (1.000-1.030); UROBILINOGEN NEG (NEG); ZZUR CULT IF INDIC CLEAN CATCH YES
[2017-03-30 05:47] LABS: MANUAL MICROSCOPIC REQUIRED? NO; REVIEW REQ? NO
[2017-03-30] MEDS ORDERED: CEFEPIME IV 2,000 MG in DEXTROSE 5% 100ML 100 ML IV STA (06:26)
--- NOTE | 2017-03-30 06:41 | EMERGENCY ROOM VISIT NOTE ---
History Report prepared by Ayeibsoraya: Dany Blanca Under the Supervision of: Dr. Theo Grider M.D. First contact with patient: 04:41 Chief Complaint: ABDOMINAL PAIN Stated Complaint: ABD PAIN - COLOSTOMY BAG History of Present Illness The patient is a 71 year old female who presents to the Emergency Room with complaints of persistent diffuse abdominal pain beginning five hours ago. She has a history of pancreatitis and states that her current pain feels similar to her previous pancreatitis. She has a colostomy in place s/p cancer. The patient also complains of nausea. She denies any vomiting. Source of History: patient Onset: Five hours ago Position: abdomen (diffuse) Timing: other (persistent) Associated Symptoms: + nausea, No vomiting Review of Systems See HPI for pertinent positives & negatives. A total of 10 systems reviewed and were otherwise negative. Past Medical & Surgical Medical Problems: (1) Acute renal failure (2) Anxiety (3) Appendectomy (4) Asthma (5) Back pain (6) cancer surgery (7) Carcinoid tumor of the cecum (8) Cardiac catheterization (9) Cholecystectomy (10) Chronic renal disease (11) Clostridium difficile colitis (12) Colectomy (13) Colorectal cancer (14) Colostomy (15) Dizziness (16) Dizziness (17) Dizziness (18) Esophagitis (19) HTN (hypertension) (20) Hyperlipidemia (21) Hypomagnesemia (22) Hypothyroidism (23) Hysterectomy (24) Ileal conduit (25) Orthostasis (26) Physical deconditioning (27) Pyelonephritis (28) Renal failure (29) Sepsis (30) SIRS (systemic inflammatory response syndrome) (31) Sprain, lumbosacral (32) UTI (lower urinary tract infection) (33) UTI (lower urinary tract infection) (34) UTI (urinary tract infection) (35) Weakness Family History Bowel disease MOTHER Cancer FH: heart disease FATHER Gallbladder disease Hypertension Social History Smoking Status: Never Smoker Alcohol Use: occasionally Drug Use: none Marital Status: Housing Status: lives with family Occupation Status: retired Current/Historical Medications Scheduled Amitriptyline Hcl (Elavil), 25 MG PO HS Ascorbic Acid (Vitamin C), 1 TAB PO QAM Aspirin (Aspirin Ec), 325 MG PO QAM Calcium Carbonate-Vitamin D (Calcium + D), 1 TAB PO QAM Cholecalciferol (Vitamin D3), Unknown Dose PO DAILY Cyanocobalamin (Vitamin B12), 1 TAB PO QAM Dicyclomine HCl (Dicyclomine HCl), 1 TAB PO TID Ferrous Sulfate (Ferrous Sulfate), 1 TAB PO QAM Gabapentin (Neurontin), 300 MG PO BID Gabapentin (Neurontin), 2 CAP PO QPM Lactobacillus (Probiotic), 1 CAP PO BID Levothyroxine Sodium (Levothyroxine Sodium), 1 TAB PO DAILY Metoprolol Tartrate (Lopressor) (Lopressor), 25 MG PO DAILY Multivitamin (Multivitamin), 1 TAB PO QAM Nifedipine Ext Rel (Procardia Xl Ext Rel), 60 MG PO QPM Nitrofurantoin Monohyd Macrocr (Macrobid), 75 MG PO BID Nitrofurantoin Monohyd Macrocr (Macrobid), 100 MG PO DAILY Octreotide Acetate (Octreotide Acetate), 1 DOSE IM [id number] Omeprazole (Prilosec), 20 MG PO BID Sertraline (Zoloft), 100 MG PO QPM Scheduled PRN Loperamide Hcl (Imodium), 4 MG PO Q6H PRN for Diarrhea Lorazepam (Ativan), 0.5 MG PO TID PRN for Anxiety Ondansetron Hcl (Zofran), 4 MG PO PRN PRN for Nausea or Vomiting Oxycodone Immediate Rel Tab (Roxicodone Ir), 5 MG PO Q4H PRN for Severe Pain Allergies Coded Allergies: Ciprofloxacin (Verified Allergy, Intermediate, RASH, 03/28/17) Homatropine (Verified Allergy, Intermediate, RASH, 03/28/17) Hydrocodone (Verified Allergy, Intermediate, RASH, 03/28/17) Metronidazole (Verified Allergy, Intermediate, RASH, 03/28/17) Piperacillin (Verified Allergy, Intermediate, RASH, 03/28/17) Sulfa Antibiotics (Verified Allergy, Intermediate, RASH, 03/28/17) Tazobactam (Verified Allergy, Intermediate, RASH, 03/28/17) Vancomycin (Verified Allergy, Intermediate, HIVES, 03/28/17) Levofloxacin (Verified Allergy, Unknown, unknown, 03/28/17) Statins (Verified Allergy, Unknown, LIPITOR AND PRAVASTATIN, 03/28/17) Physical Exam Vital Signs Date Time Temp Pulse Resp B/P (MAP) Pulse Ox O2 Delivery O2 Flow Rate FiO2 03/30/17 05:44 76 18 167/85 96 Room Air 03/30/17 04:37 36.4 80 20 188/96 98 Room Air Physical Exam GENERAL: Patient is uncomfortable appearing and in moderate distress. Appears dehydrated. HEENT: No acute trauma, normocephalic atraumatic, mucous membranes moist, no nasal congestion, no scleral icterus. NECK: No stridor, no adenopathy, no meningismus, trachea is midline. LUNGS: No dyspnea. Clear to auscultation and equal bilaterally. No wheeze, no rhonchi. HEART: Regular rate and rhythm. No murmurs, rubs, gallops appreciated. ABDOMEN: Epigastric tenderness to palpation. Ostomy in lower abdomen with normal stool. Urostomy in the right lower abdomen. BACK: No midline tenderness, no CVA tenderness EXTREMITIES: Normal motion all extremities, no cyanosis, no edema. NEUROLOGIC: Alert and oriented, no acute motor or sensory deficits, no focal weakness, cranial nerves grossly intact. SKIN: No rash, no jaundice, no diaphoresis. Medical Decision & Procedures ER Provider Diagnostic Interpretation: See Stat-Rad Report: In short - moderate partial small bowel obstruction with reported bilateral hydroureteronephrosis. Laboratory Results 03/30/17 05:00 Red Blood Count 3.77, Mean Corpuscular Volume 93.4, Mean Corpuscular Hemoglobin 28.6, Mean Corpuscular Hemoglobin Concent 30.7, Mean Platelet Volume 9.4, Neutrophils (%) (Auto) 80.2, Lymphocytes (%) (Auto) 10.4, Monocytes (%) (Auto) 5.9, Eosinophils (%) (Auto) 2.5, Basophils (%) (Auto) 0.3, Neutrophils # (Auto) 9.44, Lymphocytes # (Auto) 1.23, Monocytes # (Auto) 0.70, Eosinophils # (Auto) 0.30, Basophils # (Auto) 0.04 03/30/17 05:00 Test 03/30/17 05:00 03/30/17 05:03 03/30/17 05:05 White Blood Count 11.79 K/uL (4.8-10.8) Red Blood Count 3.77 M/uL (4.2-5.4) Hemoglobin 10.8 g/dL (12.0-16.0) Hematocrit 35.2 % (37-47) Mean Corpuscular Volume 93.4 fL (80-100) Mean Corpuscular Hemoglobin 28.6 pg (25-34) Mean Corpuscular Hemoglobin Concent 30.7 g/dl (32-36) Platelet Count 215 K/uL (130-400) Mean Platelet Volume 9.4 fL (7.4-10.4) Neutrophils (%) (Auto) 80.2 % Lymphocytes (%) (Auto) 10.4 % Monocytes (%) (Auto) 5.9 % Eosinophils (%) (Auto) 2.5 % Basophils (%) (Auto) 0.3 % Neutrophils # (Auto) 9.44 K/uL (1.4-6.5) Lymphocytes # (Auto) 1.23 K/uL (1.2-3.4) Monocytes # (Auto) 0.70 K/uL (0.11-0.59) Eosinophils # (Auto) 0.30 K/uL (0-0.5) Basophils # (Auto) 0.04 K/uL (0-0.2) RDW Standard Deviation 56.3 fL (36.4-46.3) RDW Coefficient of Variation 16.6 % (11.5-14.5) Immature Granulocyte % (Auto) 0.7 % Immature Granulocyte # (Auto) 0.08 K/uL (0.00-0.02) Anion Gap 8.0 mmol/L (3-11) Est Creatinine Clear Calc Drug Dose 13.6 ml/min Estimated GFR () 16.6 Estimated GFR (Non- 14.3 BUN/Creatinine Ratio 11.0 (10-20) Calcium Level 7.1 mg/dl (8.5-10.1) Total Bilirubin 0.2 mg/dl (0.2-1) Direct Bilirubin < 0.1 mg/dl (0-0.2) Aspartate Amino Transf (AST/SGOT) 14 U/L (15-37) Alanine Aminotransferase (ALT/SGPT) 13 U/L (12-78) Alkaline Phosphatase 154 U/L (45-117) Total Protein 6.9 gm/dl (6.4-8.2) Albumin 3.4 gm/dl (3.4-5.0) Lipase 69 U/L (73-393) Bedside Lactic Acid Venous 1.84 mmol/L (0.90-1.70) Urine Color YELLOW Urine Appearance CLOUDY (CLEAR) Urine pH 6.0 (4.5-7.5) Urine Specific [place] 1.012 (1.000-1.030) Urine Protein TRACE (NEG) Urine Glucose (UA) NEG (NEG) Urine Ketones NEG (NEG) Urine Occult Blood TRACE (NEG) Urine Nitrite POS (NEG) Urine Bilirubin NEG (NEG) Urine Urobilinogen NEG (NEG) Urine Leukocyte Esterase LARGE (NEG) Urine WBC (Auto) >30 /hpf (0-5) Urine RBC (Auto) 5-10 /hpf (0-4) Urine Hyaline Casts (Auto) 1-5 /lpf (0-5) Urine Epithelial Cells (Auto) 5-10 /lpf (0-5) Urine Bacteria (Auto) 3+ (NEG) Laboratory results as reviewed by me. Medications Administered Medications (Trade) Dose Ordered Sig/Heather Route Start Time Stop Time Status Last Admin Dose Admin Sodium Chloride 1,000 ml @ 999 mls/hr Q1H1M STAT IV 03/30/17 04:44 03/30/17 05:44 DC 03/30/17 05:02 999 MLS/HR Hydromorphone HCl (Dilaudid Inj) 1 mg NOW STAT IV 03/30/17 04:44 03/30/17 04:46 DC 03/30/17 05:03 1 MG Ondansetron HCl (Zofran Inj) 4 mg NOW STAT IV 03/30/17 04:44 03/30/17 04:46 DC 03/30/17 05:03 4 MG Fentanyl Citrate (Fentanyl Inj) 100 mcg NOW STAT IV 03/30/17 05:13 03/30/17 05:14 DC 03/30/17 05:18 100 MCG Fentanyl Citrate (Fentanyl Inj) 50 mcg NOW STAT IV 03/30/17 05:54 03/30/17 05:55 DC 03/30/17 05:59 50 MCG Heparin Sodium (Porcine) (Heparin 100 Unit/ml 5ml Flush) 5 ml STK-MED ONCE .ROUTE 03/30/17 05:58 03/30/17 05:59 DC 03/30/17 06:04 5 ML Cefepime HCl 2000 mg/Dextrose 122.6 ml @ 200 mls/hr NOW STAT IV 03/30/17 06:26 03/30/17 07:02 DC 03/30/17 06:53 200 MLS/HR ED Course 0441: The patient was evaluated in room A3. A complete history and physical exam was performed. 0444: Ordered Zofran Inj 4 mg IV, Dilaudid Inj 1 mg IV, Sodium Chloride 1000 ml @ 999 mls/hr IV. Medical Decision Differential: Obstruction, Ischemia, Pancreatitis, Renal Colic, Bowel Obstruction, amongst other pathologies entertained. 71 yr old female with diffuse abdominal pain radiating to back. Long history of abdominal issues s/p extensive surgeries. Arrives quite uncomfortable and requiring multiple rounds IV narcotics to get pain under control, though to point where mild hypoxia requiring NC O2. Mild Lactic acid elevation with renal function stable, and other labs unremarkable. UA is consistent with infection that she is currently being treated for with macrobid. Given amount of pain I felt no choice but to do CT which reveals moderate partial SBO which I am not convinced of as similar to previous CT and there is no vomiting and there is normal amount stool in ostomy. Bilateral hydronephrosis which patient states is being monitored by physician in [place]. I reviewed case with Dr Bon Mckeon who will come evaluate patient further. Medication Reconcilliation Current Medication List: was personally reviewed by me Blood Pressure Screening Patient's blood pressure: Elevated blood pressure Blood pressure disposition: Referred to PCP Impression Primary Impression: Partial small bowel obstruction Additional Impressions: Intractable abdominal pain Urinary tract infection Scribe Attestation The scribe's documentation has been prepared under my direction and personally reviewed by me in its entirety. I confirm that the note above accurately reflects all work, treatment, procedures, and medical decision making performed by me. Departure Information Referrals Joe Ramsey M.D. (PCP) Patient Instructions [facility] Problem Qualifiers
--- NOTE | 2017-03-30 07:04 | DIAGNOSTIC IMAGING REPORT ---
ABD/PELVIS WITHOUT FOR STONE CT DOSE: 622.35 mGy.cm HISTORY: Pain obstruction TECHNIQUE: Multiaxial CT images of the abdomen and pelvis were performed without the use of intravenous and oral contrast according to the standard department stone protocol. A dose lowering technique was utilized adhering to the principles of ALARA. COMPARISON STUDY: 01/25/2017 FINDINGS: Mild dependent bibasilar atelectasis. Operative changes consistent with a prior cystectomy and ileal conduit, as well as descending colostomy are again noted. Bilateral hydronephrosis most likely a postoperative basis again is stable. Nonobstructing right renal calcification is unaltered. There is an inferior vena caval filter. No significant adenopathy at the current time. Small bowel is distended. Exact etiology is not entirely clear although adhesions would be the diagnosis of exclusion. There is no evidence for colonic distention. IMPRESSION: 1. Postoperative changes consistent with a descending colostomy as well as a prior ileal conduit. 2. Stable bilateral renal hydronephrosis presumably on a postoperative basis. This is stable from the prior study. 3. Nonobstructing right renal calcification unchanged. 4. Findings suggesting partial distal small bowel obstruction most likely on the basis of post procedural adhesions The above report was generated using voice recognition software. It may contain grammatical, syntax or spelling errors. Electronically signed by: Martin Ledezma M.D. 03/30/2017 7:03 AM Dictated Date/Time: 03/30/2017 6:56 AM
[2017-03-30 08:00] VITALS: O2SAT 99; Ht 160 cm; Wt 61.0 kg
[2017-03-30] MEDS: MoRPHine SULFATE 4 MG/ML 1 ML CARP\\VIAL IV PRN ×5 (08:04→19:11)
[2017-03-30 08:25] VITALS: BP 164/82; PULSE 74; TEMP 36.6; O2SAT 100
[2017-03-30] MEDS ORDERED: PNEUMOCOCCAL POLYSACCHARIDES 25 MCG/0.5 ML VIAL/SYR IM. ONE (09:30)
[2017-03-30] MEDS ORDERED: PNEUMOCOCCAL ADMINISTRATION CHARGE ONE (09:30)
[2017-03-30] MEDS: LEVOTHYROXINE 75 MCG TAB PO SCH (12:11)
[2017-03-30] MEDS: METOPROLOL TARTRATE 25 MG TAB PO SCH (12:11)
[2017-03-30] MEDS: SODIUM CHLORIDE 0.9% 1000ML 1,000 ML IV SCH ×2 (12:12→15:50)
[2017-03-30 14:53] VITALS: BP 195/79; PULSE 68; TEMP 36.5; O2SAT 100
[2017-03-30 16:21] VITALS: BP 182/78
[2017-03-30] MEDS: HydrALAZINE HCL 20 MG/ML VIAL IV. PRN (16:22)
[2017-03-30 16:35] VITALS: O2SAT 100
[2017-03-30 17:00] VITALS: BP 138/75
[2017-03-30 17:11] LABS: BASO % 0.2 %; BASO ABS # 0.02 K/uL (0-0.2); COMPLETE YES; EOS % 1.8 %; HEMATOCRIT 32.7 % (37-47); IG% 0.4 %; LYMPH % 10.5 %; LYMPH ABS # 0.94 K/uL (1.2-3.4); MEAN CELL VOLUME 93.4 fL (80-100); MEAN CORPUSCULAR HEMOGLOBIN 29.1 pg (25-34); MEAN CORPUSCULAR HGB CONC 31.2 g/dl (32-36); MEAN PLATELET VOLUME 9.1 fL (7.4-10.4); MONO % 6.6 %; NEUT % 80.5 %; PLATELET COUNT 183 K/uL (130-400); WHITE BLOOD COUNT 8.94 K/uL (4.8-10.8)
[2017-03-30] MEDS: ONDANSETRON INJ 8 MG in DEXTROSE 5% 50ML 50 ML IV PRN (17:19)
[2017-03-30 17:28] LABS: CREATININE 2.4 mg/dl (0.60-1.20); POTASSIUM 4.5 mmol/L (3.5-5.1)
[2017-03-30] MEDS: SERTRALINE HCL 100 MG TAB PO SCH (20:43)
--- NOTE | 2017-03-30 22:03 | History and Physical ---
History & Physical Date of Service Mar 30, 2017. History & Physical ADMISSION DATE: 03/30/2017 CHIEF COMPLAINT: 71-year-old female admitted through the emergency room with severe abdominal pain and suspected small bowel obstruction. PRESENT ILLNESS: Patient with a very complex medical history. Back in 1983 she was diagnosed with colon cancer. She underwent preoperative radiation therapy. She had a temporary colostomy which was subsequently reversed. She was having extensive diarrhea. She had multiple complications related to that. In 2011 she underwent surgery to have a colostomy done because of the problem with the diarrhea and subsequent complications. Unfortunately she had severe complications after her surgery. She had bowel perforation. Also she had accidental damage to her ureter. Postoperatively he multiple complications developed. She was septic. Eventually she was transferred to [facility]. She had extensive surgery. She ended up with her permanent colostomy. Also because of the urinary complications she required an ileal conduit. She has severe high output in her colostomy. She gets dehydrated very easy. For many years right now she has been getting IV fluid in the medical treatment unit up to 3 times a week. Now her schedule is twice a week with each trip to the medical treatment unit she received 2 L of sodium chloride 0.9% solution and also supplemental magnesium sulfate. Patient has had recurrent problem with recurrent urinary tract infections. One of the surgeries and the procedure that was done at [facility] who was in sensation no formal living in the bladder at full strength. Her urinary bladder is no longer functional. Unfortunately she continues to have recurrent urinary tract infections. Earlier this month she was referred to Dr. Malick Rosario with that [facility] in [facility]. Additional testing planned in the near future. Patient presented with severe lower abdominal pain. She had no fever. She has noted decrease in her colostomy output. No vomiting. Did not notice any blood in her colostomy. She was seen in the emergency room. CT scan of the abdomen and pelvis were done without contrast. Multiple m is noted but all of them seem to be chronic. She had dilated bowel loops. She also had bilateral hydronephrosis. Her urine if it was abnormal consistent with urinary tract infection. Patient was admitted for further treatment. PAST MEDICAL HISTORY: * appendectomy in 1956 * Cholecystectomy in 1968 * Hysterectomy in 1973 * In 1983 she was diagnosed with colon cancer. She received preoperative radiation. Had a temporary colostomy. Developed severe diarrhea. In 2011 she had a colostomy but that's when she developed the most serious complications which we are dealing with up to this point. * Chronic kidney disease stage III * Peripheral neuropathy etiology undetermined * Arterial hypertension SOCIAL HISTORY: * she is . Has 2 children. No smoking. Very rare alcoholic drink. About 2 cups of coffee per day. She is retired. 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 FAMILY HISTORY: her mother at age 59. She fell down and had a broken hip. Subsequently she had bowel resection. Not really sure why. She may have had cancer. her father age 53 of heart disease. She had 3 brothers all at age 56, 55 and 80 all of heart disease. ALLERGIES: her allergy list is quite extensive. It not really sure what is true allergy and what is intolerance. CURRENT MEDICATIONS: All as noted on her home medication list REVIEW OF SYSTEMS: she feels chronically tired. This has been very stressful for her. She has to come to the medical treatment unit twice a week for IV fluid administration. She has had recurrent problem with had a period recurrent problem with dizziness. No earache no sore throat. No neck pain. No chest pain no shortness of breath. She does have chronic abdominal pain at times very severe. Nausea at times. No vomiting. Chronically liquid stool in her colostomy. Recurrent urinary tract infections. Denies any back pain. She does have pain in her legs related to her neuropathy. PHYSICAL EXAMINATION: GENERAL : Well developed. Well nourished. No acute distress.chronically ill. Her weight is 61 kg, height 160.02 centimeters, BMI 23.8. VITAL SIGNS : Blood Pressure : 188/96, pulse 80, respiration 20, temperature 36.4, oxygen saturation 98% on room air. SKIN : Warm and dry. No rash. HEENT :She was glasses. Has upper dentures. No mucosal abnormalities. NECK : Supple. No adenopathy. No thyromegaly. No JVD. Normal carotid pulses. No carotid bruit. CHEST : Normal. She has been A-port in place HEART: Regular heart sounds without any murmur rub or gallop. PMI not displaced. LUNGS: Clear. Normal breath sounds. ABDOMEN: Diffuse tenderness. No guarding. No rebound. Positive bowel sounds. Colostomy in place. Ileal conduit in place. BACK: No spine or CVA tenderness. EXTREMITIES : No edema clubbing or cyanosis. complaining of tenderness in both lower legs and feet. Good peripheral pulses. NEUROLOGICAL EXAMINATION: She is alert and oriented. She does have peripheral neuropathy. LABORATORY TEST: WBC count 11,709 8, hemoglobin 10.8, hematocrit 35.2, platelet count 215,000. Sodium 140, potassium 4.4, chloride 111, CO2 21, BUN 34, creatinine 3.1, glucose 120, calcium 7.1, magnesium 2.2, total bilirubin 0.2, AST 14, ALT 13, alkaline phosphatase 154, total protein 6.9, albumin 3.4, lipase 69. Urinalysis showed evidence of urinary tract infection ASSESSMENT: * partial small bowel obstruction * Recurrent urinary tract infection * Permanent colostomy * Ileal conduit * chronic kidney disease * Arterial hypertension * Chronic diarrhea * Peripheral neuropathy * bilateral hydronephrosis * Chronic dilatation of the small bowel loops PLAN: patient was admitted to a medical bed. Resuscitation level I. Laboratory tests were ordered. She was started on IV fluids. IV Zofran. IV morphine sulfate. IV cefepime. Urine culture was sent. The findings on her CT scan of the abdomen and pelvis are more consistent with chronic changes. She was started on clear liquid diet. Conservative treatment. Will monitor her condition. Gradually increase her activity. Gradually advance her diet as tolerated.
[2017-03-31 00:01] VITALS: BP 133/74; PULSE 75; TEMP 37.1; O2SAT 96
[2017-03-31] MEDS: SODIUM CHLORIDE 0.9% 1000ML 1,000 ML IV SCH ×3 (00:35→15:40)
[2017-03-31] MEDS: MoRPHine SULFATE 4 MG/ML 1 ML CARP\\VIAL IV PRN ×2 (00:44→05:57)
[2017-03-31 05:45] LABS: BASO % 0.2 %; BASO ABS # 0.02 K/uL (0-0.2); COMPLETE YES; EOS % 1.4 %; HEMATOCRIT 33.9 % (37-47); IG% 0.5 %; LYMPH % 10.3 %; LYMPH ABS # 0.84 K/uL (1.2-3.4); MEAN CELL VOLUME 94.7 fL (80-100); MEAN CORPUSCULAR HEMOGLOBIN 28.2 pg (25-34); MEAN CORPUSCULAR HGB CONC 29.8 g/dl (32-36); NEUT % 79.6 %; PLATELET COUNT 197 K/uL (130-400); RED BLOOD COUNT 3.58 M/uL (4.2-5.4); WHITE BLOOD COUNT 8.13 K/uL (4.8-10.8)
[2017-03-31] MEDS: LEVOTHYROXINE 75 MCG TAB PO SCH (05:52)
[2017-03-31 06:15] LABS: BUN/CREATININE RATIO 12.6 (10-20); CALCIUM 6.8 mg/dl (8.5-10.1); CREATININE 2.3 mg/dl (0.60-1.20); POTASSIUM 4.7 mmol/L (3.5-5.1)
[2017-03-31 06:24] LABS: ALB/GLOB RATIO 0.9 (0.9-2)
[2017-03-31 07:18] VITALS: BP 133/71; PULSE 101; TEMP 37.3; O2SAT 94
[2017-03-31] MEDS: CEFEPIME IV 1,000 MG in DEXTROSE 5% 100ML 100 ML IV SCH (07:25)
--- NOTE | 2017-03-31 08:00 | Clinical Documentation Query ---
QUERY 1 OF [address] LASHANDA ANDERSEN, In your clinical opinion is this patient being managed for: ( ) UTI due to ileal conduit (x ) Not Agree ( ) Other explanation of clinical findings (Please Explain) ( ) Unable to determine (Please Define) ( ) Need to Discuss The medical record reflects the following clinical findings, treatment, and risk factors. Clinical Indicators: 71 yo female presenting with a partial bowel obstruction and UTI. Pt has an ileal conduit and a history of recurrent UTI's. Treatment: IV fluids, IV cefepime, UA cx is still pending Risk Factors: ileal conduit QUERY 2 OF 3 In your clinical opinion is this patient being managed for: ( x ) Acute kidney failure ( ) Not Agree ( ) Other explanation of clinical findings (Please Explain) ( ) Unable to determine (Please Define) ( ) Need to Discuss The medical record reflects the following clinical findings, treatment, and risk factors. Clinical Indicators: Presented with BUN 34, Cr 3.10. Pt has a known history for becoming easily dehydrated and routinely receives IV hydration in the [facility]. BUN/Cr has trended down to 29/2.30. Treatment:1L NSS bolus then continuous, monitor CMP Risk Factors: UTI, bowel obstruction, hx of colostomy/ileal conduit, dehydration QUERY 3 OF 3 In your clinical opinion is this patient being managed for: ( x ) Chronic kidney disease, stage 4 ( ) Chronic kidney disease, stage 5 ( ) Not Agree ( ) Other explanation of clinical findings (Please Explain) ( ) Unable to determine (Please Define) ( ) Need to Discuss The medical record reflects the following clinical findings, treatment, and risk factors. Clinical Indicators: H/P indicates pt with CKD. Review of historical GFR showed range of 13.3-20.7 Treatment: monitor PRP's/CMP's, treat acute episodes, chronic hydration therapy Risk Factors:age, HTN, chronic colostomy and ileal conduit, dehydration Documenting the stage of CKD will improve data integrity and will help clarify vague terms such as "renal insufficiency" or "chronic renal failure." The stages of CKD according to the [employer] are as follows: Stage I: GFR >90 Stage II: GFR 60-89 Stage III: GFR 30-59 Stage IV: GFR 15-29 Stage V: GFR <15 Please clarify and document your clinical opinion in the progress notes and discharge summary. Terms such as "probable", "suspected", "likely", "questionable", "possible", or "still to be ruled out" are acceptable. IF IN AGREEMENT, YOU MUST DOCUMENT ABOVE DIAGNOSTIC STATEMENT IN DAILY PROGRESS NOTES AND DISCHARGE SUMMARY. This document is not part of the patient's record. Thank You, Minerva Hoover, RN [phone]
[2017-03-31] MEDS: METOPROLOL TARTRATE 25 MG TAB PO SCH (09:16)
[2017-03-31 15:06] VITALS: BP 146/71; PULSE 80; TEMP 37.2; O2SAT 97
--- NOTE | 2017-03-31 17:59 | Progress Note ---
Progress Note Date of Service Mar 31, 2017. Progress Note 71-year-old female admitted through the emergency room with multiple problems including small bowel obstruction, urinary tract infection which has been recurring. She has a very complex surgical history. She has a colostomy and an ileal conduit. She is also treated for arterial hypertension, chronic kidney disease, chronic diarrhea, peripheral neuropathy, known bilateral hydronephrosis, requiring IV fluid administration in the medical treatment unit twice a week. She has no fever. No changes. Over the course of the day her condition improved. She had significant output in her colostomy. She still complains of abdominal pain but to a much lesser degree. She is not requiring pain medications as regularly. EXAMINATION : GENERAL: Well-developed. No distress VITAL SIGNS: Blood pressure 133/71, pulse 101, respirations 16, temperature 37.3 , oxygen saturation 94% on room air. SKIN: Warm and dry. No rash. HEENT: No mucosal abnormalities NECK: Nontender. No JVD. No adenopathy. HEART: Regular heart sounds with 2/6 systolic murmur LUNGS: Clear ABDOMEN: Soft slight tenderness in the left side of her abdomen. No guarding or rebound. BACK: No spinal tenderness EXTREMITIES: Decreased edema LABORATORY TESTS : WBC count 8130, hemoglobin 10.1, hematocrit 33.9, platelet count 1 97,000. Sodium 143, potassium 4.7, chloride 117, CO2 19, fever and 29, creatinine 2.3, glucose 106, calcium 6.8, magnesium 2.0, AST up to 309, AST up to 138, alkaline phosphatase increased to 320, total protein 5.6, albumin 2.7 Urine culture is growing gram-negative bacilli. Identification and sensitivity pending ASSESSMENT : * Partial small bowel obstruction * Chronic dehydration * Chronic diarrhea * Recurrent urinary tract infection * Bilateral hydronephrosis * Ileal conduit * Colostomy * Arterial hypertension * Abnormal liver enzymes PLAN : * As noted due to her output in her colostomy has markedly improved today. * Continue IV fluid * Continue IV cefepime * Decide on her antibiotic treatment based on her urine culture * Encouraged ambulation * We will monitor her liver chemistries. She has had a cholecystectomy in the past. Her CT scan of the abdomen which was done on admission did not really show any significant liver abnormalities.
[2017-03-31] MEDS: SERTRALINE HCL 100 MG TAB PO SCH (20:53)
[2017-03-31 23:57] VITALS: BP 182/81; PULSE 87; TEMP 37; O2SAT 96
[2017-04-01] VITALS (9 sets, daily range): BP systolic 144–193; BP diastolic 71–81; PULSE 76–93; TEMP 36.9–37.4; O2SAT 95–97
[2017-04-01] MEDS: HydrALAZINE HCL 20 MG/ML VIAL IV. PRN ×4 (00:05→21:50)
[2017-04-01] MEDS: ONDANSETRON INJ 8 MG in DEXTROSE 5% 50ML 50 ML IV PRN (00:51)
[2017-04-01] MEDS: LEVOTHYROXINE 75 MCG TAB PO SCH (05:34)
[2017-04-01] MEDS: CEFEPIME IV 1,000 MG in DEXTROSE 5% 100ML 100 ML IV SCH (06:18)
[2017-04-01 06:48] LABS: BASO % 0.2 %; BASO ABS # 0.02 K/uL (0-0.2); COMPLETE YES; EOS % 2.3 %; HEMATOCRIT 30.9 % (37-47); IG% 1.3 %; LYMPH % 9.8 %; LYMPH ABS # 0.82 K/uL (1.2-3.4); MEAN CELL VOLUME 94.2 fL (80-100); MEAN CORPUSCULAR HGB CONC 30.7 g/dl (32-36); MEAN PLATELET VOLUME 9.3 fL (7.4-10.4); MONO % 5.8 %; NEUT % 80.6 %; PLATELET COUNT 177 K/uL (130-400); RED BLOOD COUNT 3.28 M/uL (4.2-5.4); WHITE BLOOD COUNT 8.34 K/uL (4.8-10.8)
[2017-04-01 07:23] LABS: ALB/GLOB RATIO 0.9 (0.9-2); BUN/CREATININE RATIO 10.8 (10-20); CALCIUM 7.1 mg/dl (8.5-10.1); MAGNESIUM 1.7 mg/dl (1.8-2.4); POTASSIUM 3.7 mmol/L (3.5-5.1)
[2017-04-01] MEDS: SODIUM CHLORIDE 0.9% 1000ML 1,000 ML IV SCH ×4 (08:05→23:35)
[2017-04-01] MEDS: METOPROLOL TARTRATE 25 MG TAB PO SCH (08:06)
--- NOTE | 2017-04-01 16:36 | Progress Note ---
Progress Note Date of Service Apr 01, 2017. Progress Note 71-year-old female admitted with partial small bowel obstruction and recurrent urinary tract infection. She has had an extensive surgical history. Initially had surgery for colon cancer preceded by radiation therapy. Complication with radiation colitis. Subsequently attempt for colostomy. Multiple surgical complications. Bowel perforation. 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 Required multiple additional procedures. She does have a colostomy and an ileal conduit. Patient was admitted. Cultures were done. She was started on cefepime. Her condition is improving. She has had large output in her colostomy. She remains without any fever or any chills. No headache. No chest pain or shortness of breath. She does have chronic abdominal pain. No nausea no vomiting. She does have chronic liquid stool. Her urine culture did grow Klebsiella which is sensitive to cefepime. EXAMINATION: She is well-developed in no distress Vital signs: Blood pressure 156/71, pulse 93, respirations 16, temperature 37.2 , oxygen saturation 97% on room air Skin is warm and dry. No rash. HEENT: She was glasses. No mucosal abnormalities. Neck is supple without lymph node or thyroid enlargement. No JVD. Heart regular heart sounds. Lungs are clear. Abdomen is soft. Slight tenderness. No guarding no rebound. Functioning colostomy. Ileal conduit in place. Extremities: No edema clubbing or cyanosis. She does have peripheral neuropathy. LABORATORY TESTS: WBC count 8340, hemoglobin 9.5, hematocrit 30.9, platelet count 177,000. Sodium 146, potassium 3.7, chloride 119, CO2 18, BUN 22, creatinine 2.0, glucose 107, calcium 7.1, magnesium 1.7, total bilirubin 0.3, AST was 67 ALT 157 , alkaline phosphatase 420, total protein 5.6, albumin 2.6. ASSESSMENT: * Partial small bowel obstruction. Spontaneous resolution * Urinary tract infection * Chronic diarrhea * Chronic dehydration requiring administration of IV fluid in the medical treatment unit twice a week. * Arterial hypertension PLAN: * Will give her magnesium supplement * Continue IV fluid * Continue IV cefepime * Encourage ambulation * Advanced her diet
[2017-04-01] MEDS: MAGNESIUM SULFATE 1GM / D5W 1 GM in PREMIXED IN D5W 100 ML IV SCH ×2 (17:35→19:03)
[2017-04-01] MEDS ORDERED: DiphenhydrAMINE INJ 25 MG in SYRINGE 0 ML IV ONE (20:45)
[2017-04-01] MEDS ORDERED: DiphenhydrAMINE HCL 50 MG/ML VIAL IV STA (21:05)
[2017-04-01] MEDS: SERTRALINE HCL 100 MG TAB PO SCH (21:50)
[2017-04-02] VITALS (9 sets, daily range): BP systolic 147–195; BP diastolic 68–87; PULSE 74–120; TEMP 36.6–37.4; O2SAT 92–100
[2017-04-02] MEDS: MoRPHine SULFATE 4 MG/ML 1 ML CARP\\VIAL IV PRN ×2 (03:01→04:36)
[2017-04-02] MEDS: HydrALAZINE HCL 20 MG/ML VIAL IV. PRN ×3 (04:13→23:36)
[2017-04-02] MEDS ORDERED: NURSING VERBAL MED ORDER ONE (05:15)
[2017-04-02] MEDS ORDERED: LORAZEPAM INJ 0.5 MG in SYRINGE 0.75 ML IV STA (05:20)
[2017-04-02] MEDS ORDERED: MoRPHine SULFATE 2 MG/ML CARP IV STA (05:21)
[2017-04-02] MEDS: LEVOTHYROXINE 75 MCG TAB PO SCH (05:53)
[2017-04-02 06:28] LABS: BASO % 0.3 %; BASO ABS # 0.03 K/uL (0-0.2); COMPLETE YES; EOS % 2.1 %; HEMATOCRIT 31.2 % (37-47); IG% 0.5 %; LYMPH % 10.4 %; LYMPH ABS # 0.98 K/uL (1.2-3.4); MEAN CELL VOLUME 92.6 fL (80-100); MEAN CORPUSCULAR HEMOGLOBIN 29.7 pg (25-34); MEAN CORPUSCULAR HGB CONC 32.1 g/dl (32-36); MEAN PLATELET VOLUME 9.5 fL (7.4-10.4); MONO % 6.9 %; NEUT % 79.8 %; PLATELET COUNT 191 K/uL (130-400); RED BLOOD COUNT 3.37 M/uL (4.2-5.4); WHITE BLOOD COUNT 9.38 K/uL (4.8-10.8)
[2017-04-02] MEDS: CEFEPIME IV 1,000 MG in DEXTROSE 5% 100ML 100 ML IV SCH (06:46)
[2017-04-02 07:06] LABS: BUN/CREATININE RATIO 10.8 (10-20); CALCIUM 7.5 mg/dl (8.5-10.1); CREATININE 1.6 mg/dl (0.60-1.20); MAGNESIUM 2.2 mg/dl (1.8-2.4); POTASSIUM 3.2 mmol/L (3.5-5.1)
[2017-04-02 07:08] LABS: ALB/GLOB RATIO 0.9 (0.9-2)
[2017-04-02] MEDS: SODIUM CHLORIDE 0.9% 1000ML 1,000 ML IV SCH (08:08)
[2017-04-02] MEDS ORDERED: POTASSIUM CHLR 20 MEQ / WTR 20 MEQ in PREMIXED WATER 100 ML IV ONE (09:00)
--- NOTE | 2017-04-02 09:54 | DIAGNOSTIC IMAGING REPORT ---
HEAD CT NONCONTRAST CT DOSE: 537.48 mGy.cm HISTORY: MENTAL STATUS CHANGES TECHNIQUE: Multiaxial CT images of the head were performed without the use of intravenous contrast. Automated exposure control was utilized for this study. A dose lowering technique was utilized adhering to the principles of ALARA. Comparison: Head CT 04/22/2016. Findings: The paranasal sinuses and mastoid air cells are clear. The calvarium and skull base are intact. There is no mass, hematoma, midline shift, acute infarct. White matter hypodensity is nonspecific but suggestive of microvascular ischemic change. The ventricles and sulci demonstrate mild age-related involutional changes. Impression: No significant change compared to the prior study. No acute intracranial abnormality. Electronically signed by: Deshawn Alvarez M.D. 04/02/2017 9:52 AM Dictated Date/Time: 04/02/2017 9:47 AM
[2017-04-02] MEDS: SODIUM CHLOR 0.45% + 20MEQ KCL 1,000 ML IV SCH ×2 (10:05→19:07)
[2017-04-02] MEDS: METOPROLOL TARTRATE 25 MG TAB PO SCH (10:06)
[2017-04-02] MEDS ORDERED: ACETAMINOPHEN IV 650 MG in EMPTY BAG 0 ML IV PRN (10:30)
[2017-04-02] MEDS ORDERED: SODIUM CHLORIDE 0.65% NA SOLN 45 ML (OCEAN) PRN (11:00)
[2017-04-02] MEDS: POTASSIUM CHLR 10 MEQ / WTR 10 MEQ in PREMIXED WATER 100 ML IV SCH ×2 (11:09→12:30)
--- NOTE | 2017-04-02 18:03 | Progress Note ---
Progress Note Date of Service Apr 02, 2017. Progress Note 71-year-old female admitted with partial small bowel obstruction and recurrent urinary tract infection. 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 To alleviate the complications from her chronic diarrhea her colostomy was established but unfortunately that resulted in multiple surgical complications that required further interventions. She now has a permanent colostomy. She also has an ileal conduit. She has had problem with recurrent urinary tract infection documented on multiple locations. Patient was admitted. Cultures were done. She was started on cefepime. Her urine culture did grow Klebsiella. It is sensitive to cefepime. Her small bowel obstruction resolving spontaneously with conservative treatment. She has significant output through her colostomy. During the night last night she had a problem with itching all over. She was given IV Benadryl. Early this morning her blood pressure was elevated. She received IV hydralazine. She also was given one dose of lorazepam 0.5 mg intravenously. Subsequently the patient became quite lethargic. She was not responding. There was no evidence of any deficit. Because of her mental status changes a CT scan of the head was done without contrast. No abnormalities were noted. Suddenly her mental status improved. She was communicative. She was sitting in bed. Her family was at bedside. EXAMINATION: she is well developed. No distress.she is back to her mental status baseline. vital signs: Blood pressure 156/76, pulse 96, respiration 14, temperature 37.4, oxygen saturation 100% on 2 L oxygen by nasal cannula Skin is warm and dry. No rash HEENT no mucosal abnormalities Neck is supple without lymph node enlargement. No JVD. Heart regular heart sounds with 2/6 systolic murmur Lungs are clear Abdomen is soft. No significant tenderness. No guarding. Her colostomy is functional. No problem with her ileal conduit. Back no spinal tenderness Extremities no edema clubbing or cyanosis. Neurological examination: She is back to her baseline mental status which is normal. No evidence of any deficit. LABORATORY TESTS: WBC count 9380, hemoglobin 10, hematocrit 31.2, platelet count 191,000. sodium 145, potassium 3.2, chloride 116, CO2 19, BUN 17, creatinine 1.6, glucose 126, calcium 7.5, magnesium 2.2, total bilirubin 0.2, AST 61, ALT 108, alkaline phosphatase 343, total protein 5.8, albumin 2.8. CT scan of the head without contrast showed no evidence of any significant abnormalities ASSESSMENT: * partial small bowel obstruction * Recurrent urinary tract infection * Hypokalemia * Arterial hypertension * Mental status changes. Could be related to the combination of Benadryl and lorazepam. All are now resolved. PLAN: * potassium supplementation * I did change her IV fluid to 0.45% sodium chloride with 20 mEq of potassium chloride per liter * Discontinued her morphine * Discontinued her Benadryl * Would not administer Ambien and lorazepam * IV Tylenol for pain
[2017-04-02] MEDS: SERTRALINE HCL 100 MG TAB PO SCH (21:56)
[2017-04-03] VITALS (13 sets, daily range): BP systolic 150–204; BP diastolic 65–94; PULSE 70–99; TEMP 36.6–37.4; O2SAT 95–98
[2017-04-03] MEDS: SODIUM CHLOR 0.45% + 20MEQ KCL 1,000 ML IV SCH ×2 (04:58→14:48)
[2017-04-03 05:47] LABS: BASO % 0.4 %; BASO ABS # 0.03 K/uL (0-0.2); COMPLETE YES; EOS % 4.2 %; HEMATOCRIT 31.8 % (37-47); IG% 0.4 %; LYMPH % 17.2 %; LYMPH ABS # 1.24 K/uL (1.2-3.4); MEAN CELL VOLUME 94.1 fL (80-100); MEAN CORPUSCULAR HEMOGLOBIN 28.4 pg (25-34); MEAN CORPUSCULAR HGB CONC 30.2 g/dl (32-36); MEAN PLATELET VOLUME 9.4 fL (7.4-10.4); MONO % 7.5 %; NEUT % 70.3 %; PLATELET COUNT 209 K/uL (130-400); RED BLOOD COUNT 3.38 M/uL (4.2-5.4); WHITE BLOOD COUNT 7.22 K/uL (4.8-10.8)
[2017-04-03] MEDS: LEVOTHYROXINE 75 MCG TAB PO SCH (05:47)
[2017-04-03] MEDS: CEFEPIME IV 1,000 MG in DEXTROSE 5% 100ML 100 ML IV SCH (06:00)
[2017-04-03 06:21] LABS: ALB/GLOB RATIO 0.9 (0.9-2); BUN/CREATININE RATIO 9.4 (10-20); CALCIUM 7.8 mg/dl (8.5-10.1); CREATININE 1.7 mg/dl (0.60-1.20); MAGNESIUM 1.9 mg/dl (1.8-2.4); POTASSIUM 3.9 mmol/L (3.5-5.1)
[2017-04-03] MEDS: METOPROLOL TARTRATE 25 MG TAB PO SCH (07:49)
[2017-04-03] MEDS: HydrALAZINE HCL 20 MG/ML VIAL IV. PRN ×3 (09:13→18:58)
[2017-04-03] MEDS ORDERED: ALUMINUM/MAGNESIUM/SIMETH (MAALOX MAX) 30 ML UDC PO STA (09:25)
[2017-04-03] MEDS ORDERED: ALUMINUM/MAGNESIUM/SIMETH (MAALOX MAX) 30 ML UDC PO PRN (09:30)
--- NOTE | 2017-04-03 09:59 | Progress Note ---
Progress Note Date of Service Apr 03, 2017. Progress Note 71-year-old female admitted with multiple problems including: * Partial small bowel obstruction * Urinary tract infection * Chronic diarrhea * Chronic dehydration * Arterial hypertension * Complex surgical history. She has a colostomy and an ileal conduit Her small bowel obstruction resolved. She is having good output in her colostomy bag. Her urine culture grew Klebsiella. She is on IV cefepime. Yesterday morning she had an episode of altered mental status but these all resolved and she is back to her baseline. She did have a CT scan of the head which was completely unremarkable. Today she is complaining of recurrent itching. Mostly related to skin dryness. No rash noted. No headache or dizziness. No chest pain no shortness of breath. No abdominal pain. Complaining of nausea and heartburn. No vomiting. No pain in her back or extremities EXAMINATION : GENERAL: Well-developed. No distress. VITAL SIGNS: 183/78, pulse 99, respiration 18, temperature 37.2, oxygen saturation 96% on room air SKIN: No evidence of any rash HEENT: Wears glasses. NECK: Supple. Nontender. No JVD. HEART: Regular heart sounds. LUNGS: Clear. ABDOMEN: Soft nontender. Colostomy in place. Ileal conduit in place BACK: No tenderness EXTREMITIES: No edema clubbing or cyanosis LABORATORY TESTS : WBC count 7220, hemoglobin 9.6, hematocrit 31.8, platelet count 20 9000. Sodium 142, potassium 3.9, chloride 114, CO2 18, BUNs 16, creatinine 1.7, glucose 105, calcium 7.8, magnesium 1.9, total bilirubin 0.3, AST 27, AST 73, alkaline phosphatase 296, total protein 5.8, albumin 2.8. ASSESSMENT : * Partial small bowel obstruction * Recurrent urinary tract infection * Arterial hypertension * Colostomy * Ileal conduit PLAN : * Her metoprolol tartrate was increased * Procardia XL was added * Atarax for her itching * Mylanta for heartburn * Continue other medications * Encourage ambulation
[2017-04-03] MEDS ORDERED: NIFEdipine 30 MG CR TAB PO ONE (10:00)
[2017-04-03] MEDS ORDERED: METOPROLOL TARTRATE 50 MG TAB PO ONE (10:00)
[2017-04-03] MEDS: hydrOXYzine HCL 10 MG TAB PO PRN ×3 (10:46→18:55)
[2017-04-03] MEDS ORDERED: NURSING VERBAL MED ORDER ONE (12:00)
[2017-04-03] MEDS ORDERED: METHYLPREDNISOLONE 80 MG in SYRINGE 0 ML IV ONE (13:00)
[2017-04-03] MEDS: ONDANSETRON INJ 8 MG in DEXTROSE 5% 50ML 50 ML IV PRN (13:35)
[2017-04-03] MEDS ORDERED: LORAZEPAM 0.5 MG TAB SL STA (20:15)
[2017-04-03] MEDS ORDERED: DiphenhydrAMINE INJ 12.5 MG in SYRINGE 0 ML IV PRN (20:15)
[2017-04-03] MEDS ORDERED: LORAZEPAM 0.5 MG TAB SL PRN (20:15)
[2017-04-03] MEDS: SERTRALINE HCL 100 MG TAB PO SCH (20:43)
[2017-04-03] MEDS ORDERED: DiphenhydrAMINE HCL 50 MG/ML VIAL IV PRN (20:45)
[2017-04-03] MEDS: METHYLPREDNISOLONE IV 40 MG in SYRINGE 0 ML IV SCH (20:54)
[2017-04-03] MEDS: METOPROLOL TARTRATE 50 MG TAB PO SCH (21:18)
[2017-04-04] MEDS: SODIUM CHLOR 0.45% + 20MEQ KCL 1,000 ML IV SCH (00:48)
[2017-04-04] MEDS: METHYLPREDNISOLONE IV 40 MG in SYRINGE 0 ML IV SCH ×2 (02:41→08:43)
[2017-04-04 05:25] LABS: COMPLETE YES; HEMATOCRIT 31.1 % (37-47); IG% 0.2 %; LYMPH ABS # 0.48 K/uL (1.2-3.4); MEAN CORPUSCULAR HEMOGLOBIN 28.7 pg (25-34); MEAN CORPUSCULAR HGB CONC 31.2 g/dl (32-36); MEAN PLATELET VOLUME 9.6 fL (7.4-10.4); MONO % 0.8 %; PLATELET COUNT 211 K/uL (130-400); RED BLOOD COUNT 3.38 M/uL (4.2-5.4); WHITE BLOOD COUNT 4.81 K/uL (4.8-10.8)
[2017-04-04 05:51] LABS: BUN/CREATININE RATIO 12.9 (10-20); CALCIUM 8.1 mg/dl (8.5-10.1); CREATININE 1.5 mg/dl (0.60-1.20); MAGNESIUM 1.9 mg/dl (1.8-2.4); POTASSIUM 4.4 mmol/L (3.5-5.1)
[2017-04-04] MEDS: CEFEPIME IV 1,000 MG in DEXTROSE 5% 100ML 100 ML IV SCH (06:30)
[2017-04-04] MEDS: LEVOTHYROXINE 75 MCG TAB PO SCH (06:31)
[2017-04-04 07:12] VITALS: BP_SYST 189; BP_SYST 191; BP_DIAS 79; BP_DIAS 84; PULSE 85; TEMP 37.2; O2SAT 96
[2017-04-04] MEDS: METOPROLOL TARTRATE 50 MG TAB PO SCH (07:58)
[2017-04-04] MEDS ORDERED: CEPH500C2 PO (07:59)
[2017-04-04] MEDS ORDERED: METO50TA16 PO (07:59)
--- NOTE | 2017-04-04 08:02 | Discharge Instructions ---
Discharge Instructions Date of Service Apr 04, 2017. Admission Reason for Admission: Sbo, Uti Discharge Discharge Diagnosis / Problem: partial small bowel obstruction, recurrent urinary tract infection Discharge Goals Goal(s): Decrease discomfort, Improve function, Increase independence, Improve disease control, Improve nutritional status Activity Recommendations Activity Limitations: resume your previous activity . Instructions / Follow-Up Instructions / Follow-Up Dr Alonso in one week Continue IV fluid in [facility] as scheduled Current Hospital Diet Patient's current hospital diet: Regular Diet Discharge Diet Recommended Diet: Regular Diet Pending Studies Studies pending at discharge: no Medical Emergencies . Who to Call and When: Medical Emergencies: If at any time you feel your situation is an emergency, please call 911 immediately. . Non-Emergent Contact Non-Emergency issues call your: Primary Care Provider . . "Provider Documentation" section prepared by Joe Alonso. . VTE Core Measure Inpt VTE Proph given/why not?: Treatment not indicated
[2017-04-04] MEDS ORDERED: NIFEdipine 30 MG CR TAB PO SCH (09:00)
[2017-04-04 09:46] VITALS: BP 189/79; PULSE 85; TEMP 37.2; O2SAT 96
--- NOTE | 2017-04-04 21:10 | Progress Note ---
Progress Note Date of Service Apr 04, 2017. Progress Note 71-year-old female admitted with partial small bowel obstruction and recurrent urinary tract infection. Her urine culture did grow Klebsiella. She was treated with cefepime. She has multiple antibiotic allergies. Her small bowel obstruction resolved spontaneously. Patient has a very complex surgical history. She has had multiple interventions and complications. She does have a permanent colostomy and also an ileal conduit. She did not have any recurrent fever. Her blood pressure was frequently elevated during her hospitalization. She is very anxious. During her hospitalization she also had recurrent itching. But she had no rash. She denied any headache. No dizziness. No chest pain no shortness of breath. Her abdominal pain resolved. No nausea no vomiting. She does have chronic diarrhea. Denies any pain in her back or extremities. No ankle edema. EXAMINATION: GENERAL : Well developed. Well nourished. No acute distress. VITAL SIGNS : Blood Pressure : 189/79, pulse 85, respiration 18, temperature 37.2, oxygen saturation 96% on room air SKIN : Warm and dry. No rash. HEENT :No mucosal abnormalities NECK : Supple. No adenopathy. No thyromegaly. No JVD. HEART: Regular heart sounds LUNGS: Clear. Normal breath sounds. ABDOMEN: Soft nontender. No organomegaly or masses. Good bowel sounds.Colostomy in place. Ileal conduit in place. EXTREMITIES: No edema. LABORATORY TESTS: WBC count 4810, hemoglobin 9.7, hematocrit 31.1, platelet count 211,000. sodium 139, potassium 4.4, chloride 110, CO2 21, BUN 19, creatinine 1.5, glucose 131, calcium 8.1, magnesium 1.4, total bilirubin 0.4, AST 19, ALT 57, alkaline phosphatase 271, total protein 6.3, albumin 3.1. ASSESSMENT: * partial small bowel obstruction * Recurrent urinary tract infection * Arterial hypertension * Ileal conduit * Permanent colostomy * Chronic diarrhea * Chronic dehydration requiring administration of IV fluid twice a week * chronic kidney disease. Her creatinine has markedly improved with the hydration during her hospitalization. It is down to 1.5. PLAN: * she was switched to Keflex 250 mg 3 times a day * Continue oral medications * she was discharged today * Followup in the office in one week * Will monitor her blood pressure and adjust her medications * She does have a urology followup with Dr. Rosario for further evaluation of the bilateral hydronephrosis and recurrent urinary tract infections * She will continue receiving IV fluid in the medical treatment unit
[2017-04-07] MEDS ORDERED: METO50TA7 PO (10:26)
[2017-04-14] MEDS ORDERED: KFL/250 PO (10:04)
--- NOTE | 2017-04-17 17:34 | Discharge Summary ---
Discharge Summary Date of Service Apr 17, 2017. Discharge Summary ADMISSION DATE: 03/30/2017 DISCHARGE DATE: 04/04/2017 DISCHARGE DIAGNOSES: * partial small bowel obstruction * recurrent urinary tract infection * Bilateral hydronephrosis * Chronic kidney disease * Arterial hypertension * Chronic diarrhea * Chronic dehydration requiring administration of IV fluid twice a week in the medical treatment unit * Permanent colostomy * Ileal conduit * Peripheral neuropathy * Chronic dilatation of the small bowel * Transient mental status changes with spontaneous resolution DISCHARGE MEDICATIONS: * Cephalexin 250 mg 3 times a day for 15 days * Metoprolol tartrate 50 mg twice a day * Amitriptyline 25 mg daily at bedtime * Ascorbic acid 1000 mg daily * aspirin 325 mg daily * Calcium with vitamin D one tablet daily * vitamin D3 8 one capsule daily * B12 vitamin 1000 mcg daily * Dicyclomine 20 mg 3 times a day * Ferrous sulfate 325 mg daily * Gabapentin 600 mg in the evening and 300 mg twice a day * Probiotic one capsule twice a day * Levothyroxine 75 mcg daily * Imodium 2 mg she takes 2 capsules every 6 hours as needed * Lorazepam 0.5 mg 3 times a day as needed * Multivitamin one daily * Nifedipine extended release 60 mg daily * Omeprazole 20 mg twice daily * Zofran 4 mg as needed for nausea * Sertraline 100 mg daily * Oxycodone IR 5 mg every 4 hours as needed for severe pain * Octreotide acetate one injection every 3 weeks 71-year-old female admitted through the emergency room with severe abdominal pain and suspected partial small bowel obstruction. Patient with an extensive surgical history E. She has a permanent colostomy. Has an ileal conduit. She has chronic diarrhea. Chronic dilatation of her small intestine. Chronic dehydration. Requiring IV fluid administration twice a week in the medical treatment unit. She presented to the emergency room with severe abdominal pain. She had no fever. She noted decrease in her colostomy output. No vomiting. CT scan of the abdomen and pelvis done in the emergency room without contrast. She had evidence of bilateral hydronephrosis. She was also noted to have dilated bowel loops consistent with partial small bowel obstruction. Patient was admitted for further treatment. PAST MEDICAL HISTORY, SOCIAL HISTORY, FAMILY HISTORY: As noted on admission history and physical ALLERGIES:her allergy list is quite extensive as noted in her record. ADMISSION MEDICATIONS: As noted on the home medication list PHYSICAL EXAMINATION AND LABORATORY TESTS ARE NOTED ON ADMISSION HITORY AND PHYSICAL HOSPITAL COURSE: patient was admitted to a medical bed. Resuscitation level I. All her laboratory tests were ordered. started on IV fluid, IV Zofran, IV morphine sulfate. Urine culture was sent. She was started on cefepime. She was given a liquid diet. Patient continued to have abdominal pain. Required medication. She was tolerating a clear liquid diet. Her colostomy output started to increase. She was continued on IV fluid. Laboratory tests were monitored. Her renal function improved with hydration. Her creatinine came down gradually to 1.5. She does have chronic anemia related to her chronic illness and chronic kidney disease. On 04/02/2017 she presented with mental status changes. All her laboratory tests were unremarkable for any specific cause. CT scan of the head was done and showed no significant abnormality. She was back to her mental status normal level shortly after that episode without any residual consequences. Her condition improved. She was tolerating her diet which was progressed. She was ambulating. Her urine culture did grow Klebsiella pneumonia. Patient was discharged home. Medications as noted above. She is in the process of undergoing urological evaluation by Dr. Rosario in [place]. Will followup in the office in one week.
--- NOTE | 2017-04-19 12:42 | EDITING REQUIRED CODING QUERY ---
CODING QUERY To promote full compliance with coding requirements relating to patient care, provider participation is requested in all cases of health information coder uncertainty. Please assist us with the question(s) below: Coding Question(s): Please clarify below, in your clinical opinion. ( ) the recurring UTI is a complication of surgery or ileal conduit (x ) the recurring UTI is Not a complication of surgery or ileal conduit Physician's Response(s): Thank you Bobbi Johnson Principal Diagnosis: "_that condition established after study, to be chiefly responsible for occasioning the admission of the patient to the hospital for care." Co-Existing Principal Diagnosis: "_when two or more diagnoses equally meet the criteria for principal diagnosis as determined by the circumstances of admission, diagnostic work up, and/or therapy provided, and the Alphabetic Index, Tabular List, or another coding guideline does not provide sequencing direction, any one of the diagnoses may be sequenced first." "When the physician has documented what appears to be a current diagnosis in the body of the record, but has not included the diagnosis in the final diagnostic statement, the physician should be asked whether the diagnosis should be added." (Source [facility]oding [facility] 2 QTR90. p3-4)
== END 2017-04-04 10:11 | disposition home or self-care (01) | DRG 389 ==
LOC: C.EDB 04:34 → C.MSW 07:52 → EDBEDREQ 07:56 → ENRESERV 08:02
PROVIDERS: ADMIT Internal Medicine; ATTEND Internal Medicine
DX: K56.60 Unspecified intestinal obstruction (principal); N39.0 Urinary tract infection, site not specified; N13.30 Unspecified hydronephrosis; B96.1 Klebsiella pneumoniae [K. pneumoniae] as the cause of diseases classified elsewhere; K52.9 Noninfective gastroenteritis and colitis, unspecified; E87.6 Hypokalemia; E86.0 Dehydration; L29.9 Pruritus, unspecified; G62.9 Polyneuropathy, unspecified; J45.909 Unspecified asthma, uncomplicated; E03.9 Hypothyroidism, unspecified; F41.9 Anxiety disorder, unspecified; Z79.899 Other long term (current) drug therapy; Z79.82 Long term (current) use of aspirin; Z93.6 Other artificial openings of urinary tract status; Z93.3 Colostomy status; Z87.19 Personal history of other diseases of the digestive system; Z87.440 Personal history of urinary (tract) infections; Z85.030 Personal history of malignant carcinoid tumor of large intestine; Z82.49 Family history of ischemic heart disease and other diseases of the circulatory system; Z83.79 Family history of other diseases of the digestive system

== ENCOUNTER → 2017-07-26 | Outpatient (CLI) | payer OTHER ==
[~2017-07-26] MED LIST changes: +CEPH500C2 PO; -METO25TA56 PO; +METO50TA16 PO; +METO50TA7 PO; -NITR-5 PO
== END | disposition home or self-care (01) ==
LOC: C.LABSPEC 14:52
PROVIDERS: ATTEND Internal Medicine
DX: N39.0 Urinary tract infection, site not specified (principal)

== ENCOUNTER → 2017-08-11 | Outpatient (CLI) | payer OTHER ==
[~2017-08-11] MED LIST changes: -METO50TA7 PO
== END | disposition home or self-care (01) ==
LOC: C.LAB 10:57
PROVIDERS: ATTEND Internal Medicine
DX: N39.0 Urinary tract infection, site not specified (principal)

== ENCOUNTER 2017-09-26 10:28 | Emergency (ER) | payer OTHER ==
[~2017-09-26] VITALS: Ht 160 cm; Wt 62.0 kg
[~2017-09-26 10:28] MED LIST changes: -CEPH500C2 PO
[2017-09-26 10:30] VITALS: TEMP 36.6; Ht 160 cm; Wt 62.0 kg
[2017-09-26 11:57] LABS: BASO % 0.3 %; BASO ABS # 0.03 K/uL (0-0.2); EOS % 2.8 %; EOS ABS # 0.32 K/uL (0-0.5); HEMATOCRIT 27.9 % (37-47); HEMOGLOBIN 8.9 g/dL (12.0-16.0); IG# 0.13 K/uL (0.00-0.02); LYMPH % 8.3 %; LYMPH ABS # 0.95 K/uL (1.2-3.4); MEAN CELL VOLUME 91.5 fL (80-100); MEAN CORPUSCULAR HEMOGLOBIN 29.2 pg (25-34); MEAN CORPUSCULAR HGB CONC 31.9 g/dl (32-36); MEAN PLATELET VOLUME 9.1 fL (7.4-10.4); MONO % 8.3 %; MONO ABS # 0.95 K/uL (0.11-0.59); NEUT % 79.2 %; NEUT ABS # 9.01 K/uL (1.4-6.5); PLATELET COUNT 236 K/uL (130-400); RED CELL DISTRIBUTION WIDTH CV 17.2 % (11.5-14.5); RED CELL DISTRIBUTION WIDTH SD 57.2 fL (36.4-46.3); WHITE BLOOD COUNT 11.39 K/uL (4.8-10.8)
[2017-09-26 12:11] LABS: CALCIUM 7.2 mg/dl (8.5-10.1); CREATININE 2.97 mg/dl (0.60-1.20); POTASSIUM 4.4 mmol/L (3.5-5.1)
--- NOTE | 2017-09-26 12:28 | DIAGNOSTIC IMAGING REPORT ---
L VENOUS DOPP LOWER EXT UNILAT CLINICAL HISTORY: 71 years-old Female presenting with lle pain . TECHNIQUE: Real-time grayscale and color and spectral Doppler ultrasound imaging of the veins of the left lower extremity was performed. Compression and augmentation were also utilized. COMPARISON: 07/26/2006. FINDINGS: Left: Common femoral vein: Patent. Greater saphenous vein: Patent. Deep femoral vein: Patent. Femoral vein: Patent. Popliteal vein: Patent. Calf veins: Patent. Other: None. IMPRESSION: No evidence of deep venous thrombosis. Electronically signed by: Jose Ordonez M.D. 09/26/2017 12:27 PM Dictated Date/Time: 09/26/2017 12:26 PM
[2017-09-26] MEDS ORDERED: SODIUM CHLORIDE 0.9% 1000ML 2,000 ML IV STA (12:45)
[2017-09-26] MEDS ORDERED: MAGNESIUM SULFATE 1GM / D5W 1 GM BAG IV STA (12:52)
[2017-09-26] MEDS ORDERED: CEPH-571 PO (13:56)
[2017-09-26] MEDS ORDERED: CEPHALEXIN MONOHYDRATE 250 MG CAP PO ONE (14:00)
[2017-09-26 15:21] VITALS: BP 137/85; PULSE 76; O2SAT 96
--- NOTE | 2017-09-26 17:40 | EMERGENCY ROOM VISIT NOTE ---
History Report prepared by Natividad: Katy Lee Under the Supervision of: Dr. Layo Fox D.O. First contact with patient: 11:30 Chief Complaint: CARDIAC ASSESSMENT Stated Complaint: SWELLING IN LEFT FOOT, LEG PAIN Nursing Triage Summary: pt arrives [facility] pt reports I have a green field filter in on R side . but has noticed swelling and increased pain in LLE pt also reports pain in L Arm that radiates up into L neck denies increased sob or cp History of Present Illness The patient is a 71 year old female who presents to the Emergency Room with complaints of persistent LLE pain starting 3 days ago. She presented to the [facility] to received 2 L normal saline. As she normally does due to her high output from her ostomy. At that time she was referred up as she was having a report of slurred speech. Patient notes that when her mouth becomes very dry she has a difficult time talking. The agrees and notes that she had absolutely no slurred speech. She denied any weakness or numbness in any of her extremities. She also denied any chest pain or shortness of breath adamantly. She denies any other complaints including left arm pain as well. The patient noticed that the swelling in her left leg increased 3 days ago. She has noticed her leg is warm to touch. She reports some nausea. She denies any chest pain, SOB, vomiting, diarrhea, slurred speech, back pain, numbness, or weakness. The patient has an IVC filter. She is currently on aspirin, but no other blood thinners. The patient has a colostomy and ileal conduit. She had a stent placed in ileal conduit 4 days ago for a history of recurrent UTI. She has a history of peripheral neuropathy. Source of History: patient Onset: 3 days ago Position: leg (left) Quality: other (swelling, pain) Timing: other (persistent) Associated Symptoms: + nausea, No chest pain, No SOB, No vomiting, No back pain, No diarrhea, No weakness, No numbness Review of Systems See HPI for pertinent positives & negatives. A total of 10 systems reviewed and were otherwise negative. Past Medical & Surgical Medical Problems: (1) Acute renal failure (2) Anxiety (3) Appendectomy (4) Asthma (5) Back pain (6) cancer surgery (7) Carcinoid tumor of the cecum (8) Cardiac catheterization (9) Cholecystectomy (10) Chronic renal disease (11) Clostridium difficile colitis (12) Colectomy (13) Colorectal cancer (14) Colostomy (15) Dizziness (16) Dizziness (17) Dizziness (18) Esophagitis (19) HTN (hypertension) (20) Hyperlipidemia (21) Hypomagnesemia (22) Hypothyroidism (23) Hysterectomy (24) Ileal conduit (25) Orthostasis (26) Physical deconditioning (27) Pyelonephritis (28) Renal failure (29) SBO, UTI (30) Sepsis (31) SIRS (systemic inflammatory response syndrome) (32) Sprain, lumbosacral (33) UTI (lower urinary tract infection) (34) UTI (lower urinary tract infection) (35) UTI (urinary tract infection) (36) Weakness Family History Bowel disease MOTHER Cancer FH: heart disease FATHER Gallbladder disease Hypertension Social History Smoking Status: Never Smoker Alcohol Use: occasionally Drug Use: none Marital Status: Housing Status: lives with family Occupation Status: retired Current/Historical Medications Scheduled Amitriptyline Hcl (Elavil), 25 MG PO HS Ascorbic Acid (Vitamin C), 1,000 MG PO QAM Aspirin (Aspirin Ec), 325 MG PO QAM Calcium Carbonate-Vitamin D (Calcium + D), 1 TAB PO QAM Cephalexin (Keflex), 1 CAP PO TID Cholecalciferol (Vitamin D3), Unknown Dose PO DAILY Cyanocobalamin (Vitamin B12), 1 TAB PO QAM Dicyclomine HCl (Dicyclomine HCl), 20 MG PO TID Ferrous Sulfate (Ferrous Sulfate), 325 MG PO QAM Gabapentin (Neurontin), 300 MG PO BID Lactobacillus (Probiotic), 1 CAP PO BID Levothyroxine Sodium (Levothyroxine Sodium), 75 MCG PO DAILY Metoprolol Tartrate (Lopressor) (Lopressor), 50 MG PO BID Multivitamin (Multivitamin), 1 TAB PO QAM Nifedipine Ext Rel (Procardia Xl Ext Rel), 60 MG PO QPM Omeprazole (Prilosec), 20 MG PO BID Sertraline (Zoloft), 100 MG PO QPM Scheduled PRN Loperamide Hcl (Imodium), 4 MG PO Q6H PRN for Diarrhea Ondansetron Hcl (Zofran), 4 MG PO PRN PRN for Nausea or Vomiting Oxycodone Immediate Rel Tab (Roxicodone Ir), 5 MG PO Q4H PRN for Severe Pain Allergies Coded Allergies: Ciprofloxacin (Verified Allergy, Intermediate, RASH, 09/26/17) Homatropine (Verified Allergy, Intermediate, RASH, 09/26/17) Hydrocodone (Verified Allergy, Intermediate, RASH, 09/26/17) Metronidazole (Verified Allergy, Intermediate, RASH, 09/26/17) Piperacillin (Verified Allergy, Intermediate, RASH, 09/26/17) Sulfa Antibiotics (Verified Allergy, Intermediate, RASH, 09/26/17) Tazobactam (Verified Allergy, Intermediate, RASH, 09/26/17) Vancomycin (Verified Allergy, Intermediate, HIVES, 09/26/17) Levofloxacin (Verified Allergy, Unknown, unknown, 09/26/17) Nitrofurantoin (Unverified Allergy, Unknown, .., 09/26/17) Statins (Verified Allergy, Unknown, LIPITOR AND PRAVASTATIN, 09/26/17) Physical Exam Vital Signs Date Time Temp Pulse Resp B/P (MAP) Pulse Ox O2 Delivery O2 Flow Rate FiO2 09/26/17 15:21 76 14 137/85 96 Room Air 09/26/17 13:18 70 09/26/17 13:08 74 20 133/84 09/26/17 11:38 Room Air 09/26/17 11:03 72 09/26/17 10:30 36.6 76 18 145/79 95 Room Air Physical Exam GENERAL: Sitting up in bed, alert, well appearing, well nourished, no distress, non-toxic EYE EXAM: normal conjunctiva. PERRL and EOM's intact. OROPHARYNX: no exudate, no erythema, lips, buccal mucosa, and tongue normal and mucous membranes are moist NECK: supple, no nuchal rigidity, no adenopathy, non-tender LUNGS: Clear to auscultation. Normal chest wall mechanics HEART: no murmurs, S1 normal and S2 normal ABDOMEN: abdomen soft, non-tender, normo-active bowel sounds, no masses, no rebound or guarding. Ostomy in LLQ, urostomy in RLQ with yellow urine. BACK: Back is symmetrical on inspection and there is no deformity, no midline tenderness, no CVA tenderness. SKIN: no rashes and no bruising UPPER EXTREMITIES: upper extremities are grossly normal. LOWER EXTREMITIES: No pitting edema. Erythema on the left lateral foot. She has a small abrasion on the right medial foot just posterior to the ankle. NEURO EXAM: Normal sensorium, cranial nerves II-XII intact, normal speech, no weakness of arms, no weakness of legs. No drift. Finger to nose intact. Gross sensation intact. Medical Decision & Procedures ER Provider Diagnostic Interpretation: Radiology results as stated below per my review and the radiologist's interpretation: L VENOUS DOPP LOWER EXT UNILAT CLINICAL HISTORY: 71 years-old Female presenting with lle pain . TECHNIQUE: Real-time grayscale and color and spectral Doppler ultrasound imaging of the veins of the left lower extremity was performed. Compression and augmentation were also utilized. COMPARISON: 07/26/2006. FINDINGS: Left: Common femoral vein: Patent. Greater saphenous vein: Patent. Deep femoral vein: Patent. Femoral vein: Patent. Popliteal vein: Patent. Calf veins: Patent. Other: None. IMPRESSION: No evidence of deep venous thrombosis. Electronically signed by: Jose Ordonez M.D. 09/26/2017 12:27 PM Dictated Date/Time: 09/26/2017 12:26 PM Laboratory Results 09/26/17 11:20 Red Blood Count 3.05, Mean Corpuscular Volume 91.5, Mean Corpuscular Hemoglobin 29.2, Mean Corpuscular Hemoglobin Concent 31.9, Mean Platelet Volume 9.1, Neutrophils (%) (Auto) 79.2, Lymphocytes (%) (Auto) 8.3, Monocytes (%) (Auto) 8.3, Eosinophils (%) (Auto) 2.8, Basophils (%) (Auto) 0.3, Neutrophils # (Auto) 9.01, Lymphocytes # (Auto) 0.95, Monocytes # (Auto) 0.95, Eosinophils # (Auto) 0.32, Basophils # (Auto) 0.03 09/26/17 11:20 Test 09/26/17 11:20 White Blood Count 11.39 K/uL (4.8-10.8) Red Blood Count 3.05 M/uL (4.2-5.4) Hemoglobin 8.9 g/dL (12.0-16.0) Hematocrit 27.9 % (37-47) Mean Corpuscular Volume 91.5 fL (80-100) Mean Corpuscular Hemoglobin 29.2 pg (25-34) Mean Corpuscular Hemoglobin Concent 31.9 g/dl (32-36) Platelet Count 236 K/uL (130-400) Mean Platelet Volume 9.1 fL (7.4-10.4) Neutrophils (%) (Auto) 79.2 % Lymphocytes (%) (Auto) 8.3 % Monocytes (%) (Auto) 8.3 % Eosinophils (%) (Auto) 2.8 % Basophils (%) (Auto) 0.3 % Neutrophils # (Auto) 9.01 K/uL (1.4-6.5) Lymphocytes # (Auto) 0.95 K/uL (1.2-3.4) Monocytes # (Auto) 0.95 K/uL (0.11-0.59) Eosinophils # (Auto) 0.32 K/uL (0-0.5) Basophils # (Auto) 0.03 K/uL (0-0.2) RDW Standard Deviation 57.2 fL (36.4-46.3) RDW Coefficient of Variation 17.2 % (11.5-14.5) Immature Granulocyte % (Auto) 1.1 % Immature Granulocyte # (Auto) 0.13 K/uL (0.00-0.02) Echinocytes 1+ Prothrombin Time 10.7 SECONDS (9.0-12.0) Prothromb Time International Ratio 1.0 (0.9-1.1) Anion Gap 13.0 mmol/L (3-11) Est Creatinine Clear Calc Drug Dose 14.2 ml/min Estimated GFR () 17.5 Estimated GFR (Non- 15.1 BUN/Creatinine Ratio 13.3 (10-20) Calcium Level 7.2 mg/dl (8.5-10.1) Laboratory results per my review. Medications Administered Medications (Trade) Dose Ordered Sig/Heather Route Start Time Stop Time Status Last Admin Dose Admin Sodium Chloride 2,000 ml @ 999 mls/hr Q2H1M STAT IV 09/26/17 12:45 09/26/17 14:45 DC 09/26/17 13:05 999 MLS/HR Magnesium Sulfate (Magnesium Sulfate) 1 gm NOW STAT IV 09/26/17 12:52 09/26/17 12:53 DC 09/26/17 13:06 1 GM Cephalexin Monohydrate (Keflex Cap) 500 mg NOW ONCE PO 09/26/17 14:00 09/26/17 14:01 DC 09/26/17 14:09 500 MG ECG Per My Interpretation Indication: other (leg swelling) Rate (beats per minute): 73 Rhythm: sinus rhythm Findings: T-wave inversion (aVL), no ectopy, other (normal axis) Comparison ECG Date: 06-Nov-2016 Change: no significant change ED Course ED COURSE: Vital signs were reviewed and showed normal vitals. The patients medical record was reviewed The above diagnostic studies were performed and reviewed. ED treatments and interventions as stated above. 1133: The patient was evaluated in room C9. A complete history and physical examination was performed. 1245: NSS 2000 ml @ 999 mls/hr IV. 1250: I reevaluated the patient. I updated her on the results. She is getting fluids. 1252: Magnesium Sulfate 1 gm IV. 1352: Upon reevaluation, the patient is feeling fine. I discussed my findings with the patient and she understands and agrees with the treatment plan. Based on the patients age, coexisting illnesses, exam and lab findings the decision to treat as an outpatient was made. The patient remained stable while under my care. The patient appeared well at the time of discharge. 1400: Keflex Cap 500 mg PO. Medical Decision Differential diagnosis: Etiologies such as DVT, musculoskeletal, infection, joint effusion, trauma, lymphedema, idiopathic, CHF, as well as others were entertained. Patient is a 71-year-old female who presents the ER per report for possible slurred speech and a stroke. Patient adamantly denies this and notes that her speech intermittently gets dry due to dehydration. CBC shows a chronic anemia at 9. Mild leukocytosis at 11. BMP with a CO2 of 14 and creatinine 2.9. This is consistent with her previous bicarbs. She normally runs around 15. Creatinine is slightly above baseline at 2.5. Duplex of the left lower extremity was performed and unremarkable. No DVT. She does have a fair amount of erythema on her left lateral ankle. I discussed my findings with her PCP who knows her well. He is agreeable with following her up as an outpatient. Patient was placed on Keflex due to a likely cellulitis. EKG was unchanged from previous. Patient was updated at bedside. She had absolutely no other complaints and denied everything else. She was discharged to follow-up with PCP as an outpatient. Discussed with Pt concerning signs and symptoms to watch out for. Pt was instructed to follow up with their PCP and discussed with the patient their option to return to the ED at anytime for persistent or worsening symptoms. The appropriate anticipatory guidance and out-patient management, including indications for return to the emergency department, were explained at length to the patient and understood. Medication Reconcilliation Current Medication List: was personally reviewed by me Blood Pressure Screening Patient's blood pressure: Normal blood pressure Blood pressure disposition: Did not require urgent referral Impression Primary Impression: Dehydration Additional Impressions: Anemia CKD (chronic kidney disease) Scribe Attestation The scribe's documentation has been prepared under my direction and personally reviewed by me in its entirety. I confirm that the note above accurately reflects all work, treatment, procedures, and medical decision making performed by me. Departure Information Dispostion Home / Self-Care Prescriptions Cephalexin (KEFLEX) 500 Mg Cap 1 CAP PO TID for 10 Days, #30 CAP Prov: Layo Fox, DO 09/26/17 Referrals Joe Ramsey M.D. (PCP) Forms IMPORTANT VISIT INFORMATION Patient Instructions Cellulitis - [facility], Leg Low Back Pain Poss Causes, My [facility] Additional Instructions Please follow up with your primary care doctor with in the next 24 hours. Any worsening of your symptoms, please return to the ED immediately. This includes any fevers greater than 100.4, worsening pain, chest pain, shortness breath, persistent nausea, vomiting, unable to eat or drink, or any other concerning signs or symptoms from your standpoint. Please take antibiotics as prescribed. Please follow-up with your PCP in 24 hours. Problem Qualifiers Additional Impressions: Anemia Anemia type: unspecified type Qualified Codes: D64.9 - Anemia, unspecified CKD (chronic kidney disease) Chronic kidney disease stage: unspecified stage Qualified Codes: N18.9 - Chronic kidney disease, unspecified
== END 2017-09-26 15:35 | disposition home or self-care (01) ==
LOC: C.EDB 10:29 → C.EDC 15:35
DX: E86.0 Dehydration (principal); D64.9 Anemia, unspecified; N18.9 Chronic kidney disease, unspecified; D72.829 Elevated white blood cell count, unspecified; R11.0 Nausea; J45.909 Unspecified asthma, uncomplicated; I12.9 Hypertensive chronic kidney disease with stage 1 through stage 4 chronic kidney disease, or unspecified chronic kidney disease; E03.9 Hypothyroidism, unspecified; E78.5 Hyperlipidemia, unspecified; F41.9 Anxiety disorder, unspecified; Z93.3 Colostomy status; Z79.82 Long term (current) use of aspirin; Z88.8 Allergy status to other drugs, medicaments and biological substances; Z88.1 Allergy status to other antibiotic agents; Z88.2 Allergy status to sulfonamides; Z88.6 Allergy status to analgesic agent; Z83.79 Family history of other diseases of the digestive system; Z82.49 Family history of ischemic heart disease and other diseases of the circulatory system

== ENCOUNTER → 2017-10-05 | Outpatient (CLI) | payer OTHER ==
[~2017-10-05] MED LIST changes: +CEPH-571 PO; +ERGO500037 PO; +KFL/250 PO; -LORA-741 PO; -SNDI IM
--- NOTE | 2017-10-05 14:13 | DIAGNOSTIC IMAGING REPORT ---
L FOOT MIN 3 VIEWS CLINICAL HISTORY: LEFT FOOT PAIN COMPARISON: None. DISCUSSION: There is a Lisfranc subluxation at the level of the tarsometatarsal joints with lateral subluxation of the second metatarsal with respect to the middle cuneiform of approximate 6.7 mm. There is fragmentation and erosive change involving the first tarsal metatarsal joint. Arthritic changes are present the level the first metatarsal phalangeal joint. There are also suspected small erosions at the level of the third tarsometatarsal joint. There is marked joint space narrowing at the level the second metatarsal phalangeal joint There is dorsal soft tissue swelling. IMPRESSION: 1. 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 Erosive changes the level the first tarsal metatarsal joint with mild fragmentation. There is also a middle cuneiform erosion. 3. Joint space narrowing at the level of the first and second metatarsal phalangeal joints Electronically signed by: Memo Baig M.D. 10/05/2017 2:11 PM Dictated Date/Time: 10/05/2017 2:08 PM
== END | disposition home or self-care (01) ==
LOC: C.RDSM 13:52
PROVIDERS: ATTEND Physician Assistant
DX: R60.0 Localized edema (principal); L03.90 Cellulitis, unspecified; G57.90 Unspecified mononeuropathy of unspecified lower limb; M13.841 Other specified arthritis, right hand; M65.30 Trigger finger, unspecified finger

== ENCOUNTER → 2017-10-06 | Outpatient (CLI) | payer OTHER ==
[2017-10-06 11:32] LABS: BASO % 0.5 %; BASO ABS # 0.05 K/uL (0-0.2); EOS % 3.8 %; EOS ABS # 0.38 K/uL (0-0.5); HEMATOCRIT 30.5 % (37-47); HEMOGLOBIN 9.6 g/dL (12.0-16.0); IG# 0.13 K/uL (0.00-0.02); LYMPH % 10.3 %; LYMPH ABS # 1.02 K/uL (1.2-3.4); MEAN CORPUSCULAR HEMOGLOBIN 28.7 pg (25-34); MEAN CORPUSCULAR HGB CONC 31.5 g/dl (32-36); MEAN PLATELET VOLUME 8.7 fL (7.4-10.4); NEUT % 78.1 %; NEUT ABS # 7.74 K/uL (1.4-6.5); PLATELET COUNT 365 K/uL (130-400); RED CELL DISTRIBUTION WIDTH CV 17.2 % (11.5-14.5); RED CELL DISTRIBUTION WIDTH SD 57.2 fL (36.4-46.3); WHITE BLOOD COUNT 9.92 K/uL (4.8-10.8)
[2017-10-06 11:42] LABS: BLOOD UREA NITROGEN 29 mg/dl (7-18); CALCIUM 8.1 mg/dl (8.5-10.1); CARBON DIOXIDE 18 mmol/L (21-32); CREATININE 2.32 mg/dl (0.60-1.20); GLUCOSE 96 mg/dl (70-99); POTASSIUM 4.9 mmol/L (3.5-5.1); SODIUM 141 mmol/L (136-145)
== END | disposition home or self-care (01) ==
LOC: C.LAB 09:18
PROVIDERS: ATTEND Physician Assistant
DX: R60.0 Localized edema (principal); L03.90 Cellulitis, unspecified; G57.90 Unspecified mononeuropathy of unspecified lower limb; M13.841 Other specified arthritis, right hand; M65.30 Trigger finger, unspecified finger

== ENCOUNTER → 2017-10-10 | Outpatient (CLI) | payer OTHER ==
[~2017-10-10] MED LIST changes: -CEPH-571 PO
--- NOTE | 2017-10-10 19:35 | DIAGNOSTIC IMAGING REPORT ---
MRI OF THE LEFT FOREFOOT AND MIDFOOT WITHOUT CONTRAST CLINICAL HISTORY: Left foot edema, pain and cellulitis. Evaluate for neuropathic arthropathy. COMPARISON STUDY: Left foot radiograph October 05, 2017. TECHNIQUE: Utilizing a 1.5 Zora magnet and dedicated coil, multiplanar, multi echo imaging of the left midfoot and forefoot was performed without intravenous contrast. FINDINGS: A marker was placed along the dorsal aspect of the left first metatarsophalangeal joint. There is moderate joint space narrowing with osteophytosis and subchondral signal abnormality consistent with osteoarthritis. A second marker placed along the dorsal aspect of the tarsometatarsal joints. There is moderate subcutaneous edema. Note is made of lateral subluxation of the base of the second metatarsal with respect to the intermediate cuneiform as shown on radiographs. There is marked abnormality at the tarsometatarsal joints with associated marrow signal abnormality within the first through fifth metatarsals that extends to the distal shaft. There is also marrow signal abnormality within the cuneiform bones and the cuboid. Bone resorption is noted. There is moderate osteoarthritis of the tibiotalar joint which is partially imaged on this examination. There is moderate osteoarthritis of the left second metatarsophalangeal joint. IMPRESSION: 1. Markedly abnormal appearance of the tarsometatarsal joints with a Lisfranc subluxation at the level of the left second tarsometatarsal joint, significant marrow edema, bony resorption and joint destruction, as described above. The findings suggest a neuropathic arthropathy. Superimposed osteomyelitis cannot be excluded by MRI and correlation with clinical evidence for an infectious process is recommended. 2. 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 3. Moderate dorsal subcutaneous edema of the left midfoot. Electronically signed by: Kodi Bowens M.D. 10/10/2017 7:34 PM Dictated Date/Time: 10/10/2017 5:54 PM
== END | disposition home or self-care (01) ==
LOC: C.MRIBC 15:59
PROVIDERS: ATTEND Physician Assistant
DX: R60.0 Localized edema (principal); L03.90 Cellulitis, unspecified; G57.90 Unspecified mononeuropathy of unspecified lower limb; M13.841 Other specified arthritis, right hand; M65.30 Trigger finger, unspecified finger

== ENCOUNTER → 2017-11-02 | Outpatient (CLI) | payer OTHER | END | disposition home or self-care (01) | LOC: C.RDSM 10:23 | PROVIDERS: ATTEND Podiatrist | DX: M79.672 Pain in left foot (principal) ==

== ENCOUNTER 2017-12-03 16:56 | Emergency (ER) | payer OTHER ==
[~2017-12-03] VITALS: Ht 160 cm; Wt 63.1 kg
[~2017-12-03 16:56] MED LIST changes: -ERGO500037 PO; +VITAMIN D PO
[2017-12-03 17:00] VITALS: TEMP 36.3; Ht 160 cm; Wt 63.1 kg
[2017-12-03] MEDS ORDERED: hydrOXYzine HCL 25 MG TAB PO STA (17:14)
[2017-12-03] MEDS ORDERED: FAMOTIDINE 20 MG TAB PO ONE (17:15)
--- NOTE | 2017-12-03 17:27 | EMERGENCY ROOM VISIT NOTE ---
History Report prepared by Natividad: Zunilda Rojas Under the Supervision of: Dr. Alvino Teresa M.D. First contact with patient: 17:04 Chief Complaint: ALLERGIC REACTION Stated Complaint: REACTION TO MED History of Present Illness The patient is a 72 year old white female with a past medical history of an ileal conduit, anemia, anxiety, CKE, colorectal CA, S/P right colostomy, hypertension, and hyperlipidemia, who presents to the ED with a cc of an allergic reaction beginning last night. Positive rashes and itchiness. Negative shortness of breath, nausea, and vomiting. The patient reports that 2 days ago she had swelling below her ear so she went to see her PCP yesterday and was placed on Cephalexin. She states that she is allergic to many antibiotics and believes that she is having an allergic reaction to the Cephalexin. She denies any changes in lotions, perfumes, or trying new food. She also denies recent tick bites. Source of History: patient Onset: last night Position: other (generalized) Quality: other (allergic reaction ) Associated Symptoms: + rash, No SOB, No nausea, No vomiting Note: additional symptom: itchiness Review of Systems See HPI for pertinent positives and negatives. A total of ten systems were reviewed and were otherwise negative. Past Medical & Surgical Medical Problems: (1) Acute renal failure (2) Anxiety (3) Appendectomy (4) Asthma (5) Back pain (6) cancer surgery (7) Carcinoid tumor of the cecum (8) Cardiac catheterization (9) Cholecystectomy (10) Chronic renal disease (11) Clostridium difficile colitis (12) Colectomy (13) Colorectal cancer (14) Colostomy (15) Dizziness (16) Dizziness (17) Dizziness (18) Esophagitis (19) HTN (hypertension) (20) Hyperlipidemia (21) Hypomagnesemia (22) Hypothyroidism (23) Hysterectomy (24) Ileal conduit (25) Orthostasis (26) Physical deconditioning (27) Pyelonephritis (28) Renal failure (29) SBO, UTI (30) Sepsis (31) SIRS (systemic inflammatory response syndrome) (32) Sprain, lumbosacral (33) UTI (lower urinary tract infection) (34) UTI (lower urinary tract infection) (35) UTI (urinary tract infection) (36) Weakness Family History Bowel disease MOTHER Cancer FH: heart disease FATHER Gallbladder disease Hypertension Social History Smoking Status: Never Smoker Alcohol Use: occasionally Drug Use: none Marital Status: Housing Status: lives with family Occupation Status: retired Current/Historical Medications Scheduled Amitriptyline Hcl (Elavil), 25 MG PO HS Ascorbic Acid (Vitamin C), 1,000 MG PO QAM Aspirin (Aspirin Ec), 325 MG PO QAM Calcium Carbonate-Vitamin D (Calcium + D), 1 TAB PO QAM Cephalexin Monohydrate (Keflex), 250 MG PO BID Cholecalciferol (Vitamin D3), 6,000 UNITS PO DAILY Cyanocobalamin (Vitamin B12), 1 TAB PO QAM Dicyclomine HCl (Dicyclomine HCl), 20 MG PO TID Famotidine (Pepcid), 1 DOSE PO UD Ferrous Sulfate (Ferrous Sulfate), 325 MG PO QAM Gabapentin (Neurontin), 300 MG PO BID Levothyroxine Sodium (Levothyroxine Sodium), 75 MCG PO DAILY Metoprolol Tartrate (Lopressor) (Lopressor), 50 MG PO BID Multivitamin (Multivitamin), 1 TAB PO QAM Nifedipine Ext Rel (Procardia Xl Ext Rel), 60 MG PO QAM Omeprazole (Prilosec), 20 MG PO BID Prednisone (Prednisone), 50 MG PO DAILY Sertraline (Zoloft), 50 MG PO DAILY Scheduled PRN Loperamide Hcl (Imodium), 4 MG PO Q6H PRN for Diarrhea Lorazepam (Ativan), 0.5 MG PO TID PRN for PRN Ondansetron Hcl (Zofran), 4 MG PO PRN PRN for Nausea or Vomiting Oxycodone/Acetaminophen 5MG/325MG (Percocet 5MG/325MG), 1 TABLET PO Q12 PRN for Pain Allergies Coded Allergies: Ciprofloxacin (Verified Allergy, Intermediate, RASH, 12/03/17) Homatropine (Verified Allergy, Intermediate, RASH, 12/03/17) Hydrocodone (Verified Allergy, Intermediate, RASH, 12/03/17) Metronidazole (Verified Allergy, Intermediate, RASH, 12/03/17) Piperacillin (Verified Allergy, Intermediate, RASH, 12/03/17) Sulfa Antibiotics (Verified Allergy, Intermediate, RASH, 12/03/17) Tazobactam (Verified Allergy, Intermediate, RASH, 12/03/17) Vancomycin (Verified Allergy, Intermediate, HIVES, 12/03/17) Levofloxacin (Verified Allergy, Unknown, unknown, 12/03/17) Nitrofurantoin (Unverified Allergy, Unknown, .., 12/03/17) Statins (Verified Allergy, Unknown, LIPITOR AND PRAVASTATIN, 12/03/17) Cephalexin (Unverified Adverse Reaction, Severe, RASH,ITCHING,HIVES, ) Physical Exam Vital Signs Date Time Temp Pulse Resp B/P (MAP) Pulse Ox O2 Delivery O2 Flow Rate FiO2 12/03/17 18:23 69 20 120/61 99 Room Air 12/03/17 17:09 Room Air 12/03/17 17:00 36.3 70 20 136/77 97 Room Air Physical Exam GENERAL: Awake, alert, well-appearing, NAD HENT: Normocephalic, atraumatic. EYES: Normal conjunctiva. Sclera non-icteric. PERRL. No anisocoria. NECK: Supple. No nuchal rigidity. FROM. No stridor. RESPIRATORY: CTAB, no rhonchi, wheezing, crackles CARDIAC: RRR, no MRG ABDOMEN: Soft, NTND, BS+ Colostomy with brown stool on left abdomen and an ostomy with yellow urine in suprapubic area. MSK: No chest wall TTP, no LE edema. Left lower extremity had walking boot. NEURO: GCS 15, CN 2-12 intact, moves all 4s on command SKIN: Multiple areas of urticaria. Blanched and pruritic. No jaundice noted. Medical Decision & Procedures Medications Administered Medications (Trade) Dose Ordered Sig/Heather Route Start Time Stop Time Status Last Admin Dose Admin Famotidine (Pepcid Tab) 20 mg NOW ONCE PO 12/03/17 17:15 12/03/17 17:17 DC 12/03/17 17:22 20 MG Prednisone (PredniSONE TAB) 50 mg NOW STAT PO 12/03/17 17:14 12/03/17 17:17 DC 12/03/17 17:22 50 MG Hydroxyzine HCl (Vistaril Tab) 25 mg NOW STAT PO 12/03/17 17:14 12/03/17 17:17 DC 12/03/17 17:22 25 MG ED Course 170: The patient was evaluated in room A9B. A complete history and physical exam was performed. 1754: I reevaluated the patient and she is feeling better. Discussed discharge instructions: She verbalized understanding and agreement. The patient is ready for discharge. Medical Decision Nursing notes reviewed. Ancillary studies and prior records reviewed. The patient is a 72 year old white female with a past medical history of an ileal conduit, anemia, anxiety, CKE, colorectal CA, S/P right colostomy, hypertension, and hyperlipidemia, who presents to the ED with a cc of an allergic reaction beginning last night. Differential diagnosis: Etiologies such as allergic reaction, anaphylaxis, urticaria, Savage-Ariel syndrome, toxic epidermal necrolysis, erythema multiforme, cellulitis, as well as others were entertained. Patient was seen and evaluated the bedside. Patient was noting that she was taking some cephalexin and did develop a rash today. Patient did take one dose last evening. Patient denies any throat swelling, shortness of breath, wheezing , GI upset, diarrhea. On exam the patient is not stridulous and has a clear posterior pharynx. The patient does have some blanching erythema consistent with urticaria. Patient denies any other recent changes in diet, creams, detergents, or exposures. Patient also denies any recent tick bites. Patient was given some medications. Patient did feel improved. Patient's itching was mildly improved. She had been taking Keflex for some possible sialoadenitis. She states that it was much improved and she has been using hard candies and warm compresses. Patient was told she may try a second dose of the Keflex if she pre-medicates prior. However, if the patient has persistent or worsening symptoms she should stop this immediately. Patient was also told that she may consider just stopping the medication as her symptoms have hurt sialoadenitis have improved greatly and she could just continue the warm compresses as well as the hard candies. The patient was given further counseling instruction and other remedies to help with any skin itchiness. Patient was deemed suitable for outpatient follow-up and treatment at this time. Patient was given strict follow-up, discharge, and return precautions. All questions were answered. Patient was deemed suitable for outpatient follow- up at this time. Patient agreed with the plan of care and was safely discharged home. Medication Reconcilliation Current Medication List: was personally reviewed by me Blood Pressure Screening Patient's blood pressure: Normal blood pressure Impression Primary Impression: Urticaria Additional Impression: Allergic reaction Scribe Attestation The scribe's documentation has been prepared under my direction and personally reviewed by me in its entirety. I confirm that the note above accurately reflects all work, treatment, procedures, and medical decision making performed by me. Departure Information Dispostion Home / Self-Care Prescriptions Prednisone (PREDNISONE) 50 Mg Tab 50 MG PO DAILY for 4 Days, #4 TAB Prov: Alvino Teresa M.D. 12/03/17 Referrals No Doctor, Assigned (PCP) Forms HOME CARE DOCUMENTATION FORM, IMPORTANT VISIT INFORMATION Patient Instructions ED Allergic Reaction General Other, ED Urticaria, My [facility] Additional Instructions Please return to the emergency department if you have worsening or recurrent symptoms not amenable to at-home treatment. Please call for a follow-up appointment with her primary care physician. Please take your medications as prescribed. If you have other concerns and/or complaints please feel free to also call your primary care physician's office or return the ED for further evaluation, management, and treatment. Take your medications as prescribed. If taking an antibiotic consider taking a probiotic and/or eating yogurt, but at the least, please take with food as it can cause upset stomach. You may consider Benadryl or Cortaid cream. Please do not use the cortisone based cream for more than 2 days at a time as this may cause some skin thinning. You may also consider calamine lotion. You may also consider oatmeal baths. Please also consider only bathing once daily and making sure that your water is not very hot as washing too frequently and/or using very hot water may also cause some skin dryness and worsening itchiness. Please consider using creams as opposed to lotions as the lotions typically have alcohols which may also further worsen skin dryness and itchiness. Please take your steroids preferably in the morning and with food as they may cause some upset stomach and cause you to be very awake and alert. You have been examined and treated today on an emergency basis only. This is not a substitute for, or an effort to provide, complete comprehensive medical care. It is impossible to recognize and treat all injuries or illnesses in a single emergency department visit. It is therefore important that you follow up closely with [facility], your PCP, and/or your specialist(s). Call as soon as possible for an appointment. Thank you for your time and consideration. I look forward to speaking with you again soon. Please don't hesitate to call us if you have any questions. Problem Qualifiers
[2017-12-03] MEDS ORDERED: PRED50TA PO (18:06)
[2017-12-03] MEDS ORDERED: HYDR25CA PO (18:06)
[2017-12-03 18:23] VITALS: BP 120/61; PULSE 69; O2SAT 99
[2017-12-03] MEDS ORDERED: SERT50TA PO (18:26)
[2017-12-03] MEDS ORDERED: OXYC-57 PO (18:26)
[2017-12-03] MEDS ORDERED: LORA-741 PO (18:26)
[2017-12-03] MEDS ORDERED: CHOL1TAB12 PO (18:26)
[2017-12-03] MEDS ORDERED: FAMO20TA11 PO (18:26)
== END 2017-12-03 18:23 | disposition home or self-care (01) ==
LOC: C.EDB 16:58 → C.EDA 18:23
DX: L50.0 Allergic urticaria (principal); D64.9 Anemia, unspecified; F41.9 Anxiety disorder, unspecified; Z85.038 Personal history of other malignant neoplasm of large intestine; Z93.3 Colostomy status; E78.5 Hyperlipidemia, unspecified; J45.909 Unspecified asthma, uncomplicated; Z90.49 Acquired absence of other specified parts of digestive tract; N18.9 Chronic kidney disease, unspecified; I12.9 Hypertensive chronic kidney disease with stage 1 through stage 4 chronic kidney disease, or unspecified chronic kidney disease; E03.9 Hypothyroidism, unspecified; Z90.710 Acquired absence of both cervix and uterus; Z87.440 Personal history of urinary (tract) infections; Z80.9 Family history of malignant neoplasm, unspecified; Z82.49 Family history of ischemic heart disease and other diseases of the circulatory system; Z83.79 Family history of other diseases of the digestive system; Z79.82 Long term (current) use of aspirin; Z79.899 Other long term (current) drug therapy; Z88.1 Allergy status to other antibiotic agents; Z88.2 Allergy status to sulfonamides; Z88.8 Allergy status to other drugs, medicaments and biological substances

== ENCOUNTER 2018-01-25 11:32 | Inpatient (IN) | payer OTHER ==
[~2018-01-25] VITALS: Ht 160 cm; Wt 65.5 kg
[~2018-01-25 11:32] MED LIST changes: +CEFU1TAB36 PO; +CHOL1TAB12 PO; -CHOL2000 PO; +FAMO20TA11 PO; -KFL/250 PO; -LACT1CAP6 PO; +LORA-741 PO; +OXYC-57 PO; -OXYC1TAB3 PO; -SERT-234 PO; +SERT50TA PO; -VITAMIN D PO
[2018-01-25] MEDS ORDERED: ONDANSETRON INJ 2 MG/ML 2 ML VIAL IV STA (12:08)
[2018-01-25] MEDS ORDERED: SODIUM CHLORIDE 0.9% 1000ML 1,000 ML IV STA (12:08)
--- NOTE | 2018-01-25 12:38 | DIAGNOSTIC IMAGING REPORT ---
CHEST ONE VIEW PORTABLE CLINICAL HISTORY: EVALUATE ALTERED MENTAL STATUS/WEAKNESS COMPARISON STUDY: Chest radiograph November 06, 2016. FINDINGS: A right internal jugular [id number] remains in place. No pneumothorax or pleural effusion is noted. There is no consolidation. Minimal left basilar opacity favors atelectasis. Pulmonary vascularity is normal. Cardiomediastinal silhouette is unremarkable. IMPRESSION: No acute cardiopulmonary findings. Electronically signed by: Kodi Bowens M.D. 01/25/2018 12:36 PM Dictated Date/Time: 01/25/2018 12:35 PM
[2018-01-25 13:08] LABS: BASO % 0.5 %; BASO ABS # 0.04 K/uL (0-0.2); EOS % 4.1 %; EOS ABS # 0.33 K/uL (0-0.5); HEMATOCRIT 28.8 % (37-47); HEMOGLOBIN 9.1 g/dL (12.0-16.0); IG# 0.08 K/uL (0.00-0.02); LYMPH ABS # 0.96 K/uL (1.2-3.4); MEAN CELL VOLUME 91.4 fL (80-100); MEAN CORPUSCULAR HEMOGLOBIN 28.9 pg (25-34); MEAN CORPUSCULAR HGB CONC 31.6 g/dl (32-36); MEAN PLATELET VOLUME 8.8 fL (7.4-10.4); MONO ABS # 0.56 K/uL (0.11-0.59); NEUT % 75.4 %; NEUT ABS # 6.06 K/uL (1.4-6.5); PLATELET COUNT 208 K/uL (130-400); RED CELL DISTRIBUTION WIDTH CV 17.6 % (11.5-14.5); RED CELL DISTRIBUTION WIDTH SD 59.2 fL (36.4-46.3); WHITE BLOOD COUNT 8.03 K/uL (4.8-10.8)
[2018-01-25 13:36] LABS: ALBUMIN 2.8 gm/dl (3.4-5.0); ALKALINE PHOSPHATASE 114 U/L (45-117); ALT/SGPT 9 U/L (12-78); AST/SGOT 7 U/L (15-37); BLOOD UREA NITROGEN 36 mg/dl (7-18); CARBON DIOXIDE 12 mmol/L (21-32); CREATININE 2.37 mg/dl (0.60-1.20); GLUCOSE 200 mg/dl (70-99); LIPASE 283 U/L (73-393); POTASSIUM 4.5 mmol/L (3.5-5.1); SODIUM 142 mmol/L (136-145); TOTAL PROTEIN 5.9 gm/dl (6.4-8.2)
[2018-01-25] MEDS ORDERED: MISCCAP80 PO (13:56)
[2018-01-25] MEDS ORDERED: METO50TA16 PO (13:59)
[2018-01-25] MEDS ORDERED: ACET-1256 PO (14:00)
[2018-01-25] MEDS ORDERED: ERTAPENEM 1 GM ADDVIAL IV ONE (14:45)
--- NOTE | 2018-01-25 14:54 | EMERGENCY ROOM VISIT NOTE ---
History Report prepared by Natividad: Dona Velez Under the Supervision of: Dr. Gustavo Guerrero D.O. First contact with patient: 11:56 Chief Complaint: DIZZY Stated Complaint: DIZZY, WEAK, URINE IS RUST COLORED History of Present Illness The patient is a 72 year old female who presents to the Emergency Room with complaints of worsening dizziness starting a week ago. The patient states that she has ongoing UTIs. She states that she has stents placed to prevent infections. She reports that she is on Cefuroxime prescribed by Dr. Estelle Cohn. She states that she has been on it for 6 days, but did not take it this morning. She notes that today she still has hematuria and her urine is rust colored. She currently rates her pain as a 3/10 in severity. The patient complains of fatigue, weakness, vaginal discharge, nausea, and abdominal pain. She notes that she feels bloated. The patient denies vomiting, chest pain and shortness of breath. Source of History: patient Onset: a week ago Symptom Intensity: 3/10 Quality: other (dizziness) Timing: worsening Associated Symptoms: + nausea, + abdominal pain, + urinary symptoms ( hematuria, rust colored urine), + fatigue, No chest pain, No SOB, No vomiting Note: The patient complains of vaginal discharge. Review of Systems See HPI for pertinent positives & negatives. A total of 10 systems reviewed and were otherwise negative. Past Medical & Surgical Medical Problems: (1) Acute renal failure (2) Anxiety (3) Appendectomy (4) Asthma (5) Back pain (6) cancer surgery (7) Carcinoid tumor of the cecum (8) Cardiac catheterization (9) Cholecystectomy (10) Chronic renal disease (11) Clostridium difficile colitis (12) Colectomy (13) Colorectal cancer (14) Colostomy (15) Dizziness (16) Dizziness (17) Dizziness (18) Esophagitis (19) History of colon cancer (20) HTN (hypertension) (21) Hyperlipidemia (22) Hypomagnesemia (23) Hypothyroidism (24) Hysterectomy (25) Ileal conduit (26) Ileostomy present (27) Orthostasis (28) Physical deconditioning (29) Pyelonephritis (30) Renal failure (31) SBO, UTI (32) Sepsis (33) SIRS (systemic inflammatory response syndrome) (34) Sprain, lumbosacral (35) UTI (lower urinary tract infection) (36) UTI (lower urinary tract infection) (37) UTI (urinary tract infection) (38) Weakness Surgical Problems: (1) H/O: hysterectomy (2) History of cholecystectomy (3) S/P appendectomy Family History Bowel disease MOTHER Cancer FH: heart disease FATHER Gallbladder disease Hypertension Social History Smoking Status: Never Smoker Alcohol Use: occasionally Drug Use: none Marital Status: Housing Status: lives with family Occupation Status: retired Current/Historical Medications Scheduled Acetaminophen (Tylenol), 1,000 MG PO Q6H Amitriptyline Hcl (Elavil), 25 MG PO HS Ascorbic Acid (Vitamin C), 1,000 MG PO QAM Aspirin (Aspirin Ec), 325 MG PO QAM Calcium Carbonate-Vitamin D (Calcium + D), 1 TAB PO QAM Cefuroxime Axetil (Cefuroxime Axetil), 1 TAB PO BID Cholecalciferol (Vitamin D3), 6,000 UNITS PO DAILY Cyanocobalamin (Vitamin B12), 1 TAB PO QAM Dicyclomine HCl (Dicyclomine HCl), 20 MG PO TID Ferrous Sulfate (Ferrous Sulfate), 325 MG PO QAM Gabapentin (Neurontin), 300 MG PO BID Levothyroxine Sodium (Levothyroxine Sodium), 75 MCG PO QAM Metoprolol Tartrate (Lopressor) (Lopressor), 50 MG PO BID Multivitamin (Multivitamin), 1 TAB PO QAM Nifedipine Ext Rel (Procardia Xl Ext Rel), 60 MG PO QAM Omeprazole (Prilosec), 20 MG PO BID Probiotic Product (Probiotic), 1 CAP PO BID Sertraline (Zoloft), 50 MG PO QAM Scheduled PRN Loperamide Hcl (Imodium), 4 MG PO Q6H PRN for Diarrhea Lorazepam (Ativan), 0.5 MG PO TID PRN for PRN Oxycodone/Acetaminophen 5MG/325MG (Percocet 5MG/325MG), 1 TABLET PO Q12 PRN for Pain Allergies Coded Allergies: Ciprofloxacin (Verified Allergy, Intermediate, RASH, 01/25/18) Homatropine (Verified Allergy, Intermediate, RASH, 01/25/18) Hydrocodone (Verified Allergy, Intermediate, RASH, 01/25/18) Metronidazole (Verified Allergy, Intermediate, RASH, 01/25/18) Piperacillin (Verified Allergy, Intermediate, RASH, 01/25/18) Sulfa Antibiotics (Verified Allergy, Intermediate, RASH, 01/25/18) Tazobactam (Verified Allergy, Intermediate, RASH, 01/25/18) Vancomycin (Verified Allergy, Intermediate, HIVES, 01/25/18) Levofloxacin (Verified Allergy, Unknown, unknown, 01/25/18) Nitrofurantoin (Verified Allergy, Unknown, .., 01/25/18) Statins (Verified Allergy, Unknown, LIPITOR AND PRAVASTATIN, 01/25/18) Cephalexin (Verified Adverse Reaction, Severe, RASH,ITCHING,HIVES, 01/25/18 ) Physical Exam Vital Signs Date Time Temp Pulse Resp B/P (MAP) Pulse Ox O2 Delivery O2 Flow Rate FiO2 01/25/18 15:24 66 178/71 100 Room Air 01/25/18 13:53 65 12 147/67 99 Room Air 01/25/18 12:29 Room Air 01/25/18 12:29 Room Air 01/25/18 12:13 70 01/25/18 11:49 36.4 70 20 141/66 99 Room Air Physical Exam GENERAL: Patient is awake, alert, and in no acute distress. Patient is resting comfortably and showing no signs of anxiety EYES: The conjunctivae are clear. The pupils are round and reactive. EARS, NOSE, MOUTH AND THROAT: The nose is without any evidence of any deformity. Mucous membranes are moist. Tongue is midline NECK: The neck is nontender and supple. RESPIRATORY: Normal respiratory effort is noted. There is no evidence of wheezing rhonchi or rales to auscultation. CARDIOVASCULAR: Regular rate and rhythm noted. Possible murmur suggested on auscultation. GASTROINTESTINAL: The abdomen is mildly distended, but soft. No guarding or rigidity appreciated. Urine bag noted in the RLQ which appears to have clear urine. There was an ostomy bag in the LLQ with liquid brown stool. MUSCULOSKELETAL/EXTREMITIES: There is no evidence of gross deformity. Full range of motion is noted in the hips and shoulders. SKIN: There is no obvious evidence of any rash. There are no petechiae, pallor or cyanosis noted. NEUROLOGIC: Patient is awake alert and oriented x3. Medical Decision & Procedures ER Provider Diagnostic Interpretation: Radiology results as stated below per my review and radiologist interpretation: CHEST ONE VIEW PORTABLE CLINICAL HISTORY: EVALUATE ALTERED MENTAL STATUS/WEAKNESS COMPARISON STUDY: Chest radiograph November 06, 2016. FINDINGS: A right internal jugular [id number] remains in place. No pneumothorax or pleural effusion is noted. There is no consolidation. Minimal left basilar opacity favors atelectasis. Pulmonary vascularity is normal. Cardiomediastinal silhouette is unremarkable. IMPRESSION: No acute cardiopulmonary findings. Electronically signed by: Kodi Bowens M.D. 01/25/2018 12:36 PM Dictated Date/Time: 01/25/2018 12:35 PM Laboratory Results 01/25/18 12:50 Red Blood Count 3.15, Mean Corpuscular Volume 91.4, Mean Corpuscular Hemoglobin 28.9, Mean Corpuscular Hemoglobin Concent 31.6, Mean Platelet Volume 8.8, Neutrophils (%) (Auto) 75.4, Lymphocytes (%) (Auto) 12.0, Monocytes (%) (Auto) 7.0, Eosinophils (%) (Auto) 4.1, Basophils (%) (Auto) 0.5, Neutrophils # (Auto) 6.06, Lymphocytes # (Auto) 0.96, Monocytes # (Auto) 0.56, Eosinophils # (Auto) 0.33, Basophils # (Auto) 0.04 01/25/18 12:50 Test 01/25/18 12:50 01/25/18 13:00 White Blood Count 8.03 K/uL (4.8-10.8) Red Blood Count 3.15 M/uL (4.2-5.4) Hemoglobin 9.1 g/dL (12.0-16.0) Hematocrit 28.8 % (37-47) Mean Corpuscular Volume 91.4 fL (80-100) Mean Corpuscular Hemoglobin 28.9 pg (25-34) Mean Corpuscular Hemoglobin Concent 31.6 g/dl (32-36) Platelet Count 208 K/uL (130-400) Mean Platelet Volume 8.8 fL (7.4-10.4) Neutrophils (%) (Auto) 75.4 % Lymphocytes (%) (Auto) 12.0 % Monocytes (%) (Auto) 7.0 % Eosinophils (%) (Auto) 4.1 % Basophils (%) (Auto) 0.5 % Neutrophils # (Auto) 6.06 K/uL (1.4-6.5) Lymphocytes # (Auto) 0.96 K/uL (1.2-3.4) Monocytes # (Auto) 0.56 K/uL (0.11-0.59) Eosinophils # (Auto) 0.33 K/uL (0-0.5) Basophils # (Auto) 0.04 K/uL (0-0.2) RDW Standard Deviation 59.2 fL (36.4-46.3) RDW Coefficient of Variation 17.6 % (11.5-14.5) Immature Granulocyte % (Auto) 1.0 % Immature Granulocyte # (Auto) 0.08 K/uL (0.00-0.02) Prothrombin Time 10.2 SECONDS (9.0-12.0) Prothromb Time International Ratio 1.0 (0.9-1.1) Activated Partial Thromboplast Time 46.0 SECONDS (21.0-31.0) Partial Thromboplastin Ratio 1.8 Anion Gap 10.0 mmol/L (3-11) Est Creatinine Clear Calc Drug Dose 19.0 ml/min Estimated GFR () 22.8 Estimated GFR (Non- 19.7 BUN/Creatinine Ratio 15.1 (10-20) Calcium Level 7.0 mg/dl (8.5-10.1) Magnesium Level 2.2 mg/dl (1.8-2.4) Total Bilirubin 0.2 mg/dl (0.2-1) Direct Bilirubin < 0.1 mg/dl (0-0.2) Aspartate Amino Transf (AST/SGOT) 7 U/L (15-37) Alanine Aminotransferase (ALT/SGPT) 9 U/L (12-78) Alkaline Phosphatase 114 U/L (45-117) Total Creatine Kinase 33 U/L (26-192) Creatine Kinase MB 2.0 ng/ml (0.5-3.6) Creatine Kinase MB Ratio 6.1 (0-3.0) Troponin I < 0.015 ng/ml (0-0.045) Total Protein 5.9 gm/dl (6.4-8.2) Albumin 2.8 gm/dl (3.4-5.0) Lipase 283 U/L (73-393) Thyroid Stimulating Hormone (TSH) 2.650 uIu/ml (0.300-4.500) Urine Color ORANGE Urine Appearance TURBID (CLEAR) Urine pH 6.5 (4.5-7.5) Urine Specific [place] 1.013 (1.000-1.030) Urine Protein 2+ (NEG) Urine Glucose (UA) NEG (NEG) Urine Ketones NEG (NEG) Urine Occult Blood 3+ (NEG) Urine Nitrite POS (NEG) Urine Bilirubin NEG (NEG) Urine Urobilinogen NEG (NEG) Urine Leukocyte Esterase LARGE (NEG) Urine WBC (Auto) >30 /hpf (0-5) Urine RBC (Auto) >30 /hpf (0-4) Urine Hyaline Casts (Auto) 0 /lpf (0-5) Urine Epithelial Cells (Auto) 5-10 /lpf (0-5) Urine Bacteria (Auto) 3+ (NEG) Urine Yeast (Auto) (NONE PRSENT) Laboratory results per my review. Medications Administered Medications (Trade) Dose Ordered Sig/Heather Route Start Time Stop Time Status Last Admin Dose Admin Ondansetron HCl (Zofran Inj) 4 mg NOW STAT IV 01/25/18 12:08 01/25/18 12:11 DC 01/25/18 13:48 4 MG Sodium Chloride 1,000 ml @ 999 mls/hr Q1H1M STAT IV 01/25/18 12:08 01/25/18 13:08 DC 01/25/18 13:47 999 MLS/HR Ertapenem (Invanz Iv) 1 gm ONE ONCE IV 01/25/18 14:45 01/25/18 14:46 DC 01/25/18 15:18 1 GM Ertapenem 1 gm/ Sodium Chloride 50 ml @ 100 mls/hr UD IV 01/25/18 15:00 01/25/18 17:07 DC 01/25/18 15:18 100 MLS/HR Sodium Chloride 1,000 ml @ 75 mls/hr [id number] IV 01/25/18 16:00 02/24/18 15:59 01/25/18 17:10 75 MLS/HR ECG Per My Interpretation Indication: weakness Rate (beats per minute): 65 Findings: no ectopy, other (hilateral T wave abnormalities noted) Comparison ECG Date: 09/26/2017 Change: no significant change ED Course 1206: The patient was evaluated in room A10. A complete history and physical examination were performed. 1208: Ordered NSS 1000 ml @ 999 mls/hr IV, Zofran Inj 4 mg IV. 1432: I reevaluated the patient and she is resting comfortably. I discussed the results and treatment plan with her. She verbalized agreement of the treatment plan. 1434: I discussed the patient's case with Dr. Ugo SALAZAR Hospitalist. The patient will be evaluated for further management. 1445: Ordered Invanz Iv 1 gm IV. 1500: Ordered Ertapenem 1 gm/ Sodium Chloride 50 ml @ 1000 mls/hr IV. Medical Decision Differential diagnosis: Etiologies such as metabolic, infection, hypo/hyperglycemia, electrolyte abnormalities, cardiac sources, intracerebral event, toxicologic, neurologic, as well as others were entertained. Nursing notes reviewed. Additional history is obtained from the patient's significant other. Patient's previous urine cultures were reviewed. The patient is a 72-year-old female with extensive past medical history including multidrug-resistant urinary tract infection as well as multiple drug allergies. The patient was taking an antibiotic for the last 6 days but she appears to be getting worse with her symptoms. Urinalysis did reveal signs of urinary tract infection. The patient was started on IV and a biotics. She was also treated with IV Zofran and IV fluids. I discussed her case with the on- call [facility] hospitalist. They have agreed to evaluate patient in the emergency department for further management and disposition. Medication Reconcilliation Current Medication List: was personally reviewed by me Blood Pressure Screening Patient's blood pressure: Elevated blood pressure Will be further monitored by the hospitalist. Consults Time Called: 1430 Consulting Physician: Dr. Ugo SALAZAR Hospitalist Returned Call: 1434 I discussed the patient's case with Dr. Ugo SALAZAR Hospitalist. The patient will be evaluated for further management. Impression Primary Impression: Weakness Additional Impressions: UTI (urinary tract infection) CKD (chronic kidney disease) Metabolic acidosis Scribe Attestation The scribe's documentation has been prepared under my direction and personally reviewed by me in its entirety. I confirm that the note above accurately reflects all work, treatment, procedures, and medical decision making performed by me. Departure Information Dispostion Being Evaluated By Hospitalist Patient Instructions My [facility] Problem Qualifiers Additional Impressions: UTI (urinary tract infection) Urinary tract infection type: site unspecified Hematuria presence: with hematuria Qualified Codes: N39.0 - Urinary tract infection, site not specified ; R31.9 - Hematuria, unspecified CKD (chronic kidney disease) Chronic kidney disease stage: unspecified stage Qualified Codes: N18.9 - Chronic kidney disease, unspecified
[2018-01-25] MEDS ORDERED: ERTAPENEM IV 1 GM in SODIUM CHLOR 0.9% AD-VAN 50ML IV SCH (15:00)
[2018-01-25] MEDS ORDERED: LOPERAMIDE HCL 2 MG CAP PO PRN (16:00)
[2018-01-25] MEDS ORDERED: MAGNESIUM HYDROXIDE SUSP 30 ML UDC PO PRN (16:00)
[2018-01-25] MEDS ORDERED: ONDANSETRON INJ 2 MG/ML 2 ML VIAL IV PRN (16:00)
[2018-01-25] MEDS ORDERED: ACETAMINOPHEN 325 MG TAB PO PRN (16:00)
--- NOTE | 2018-01-25 16:14 | History and Physical ---
History & Physical Date & Time of Service: Jan 25, 2018 at 16:05 Chief Complaint: Dizzy, Weak, Urine Is Rust Colored Primary Care Physician: Joe Ramsey M.D. History of Present Illness Source: patient 72 y/o F c/o UTI not responding to PO abx. Pt has a long standing hx of UTI and many drug allergies. She was dx with UTI as an outpt 6d ago and started on a cephalosporin. She has been taking it as prescribed, but continues to feel worse and her urine is not clearing. She is getting more fatigued, sleeping about 18 hrs a day. Her appetite is low and with decreased PO intake. She has had nausea, but no emesis. She is lightheaded and weak. 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 Pt denies fever, SOB, chest pain, abd pain, c/d, LE pain or swelling. Past Medical/Surgical History HTN Hyperlipidemia CKD with baseline cr 2.8-3.0 Hypothyroid Cecal cancer, s/p resection and permanent ostomy B/L ileostomy with stents Hx of SBO Peripheral neuropathy Depression/anxiety Tendon deterioration of LLE Family History Family history was reviewed; no changes noted. Father and brothers x3: OR Social History Smoking Status: Never Smoker Alcohol Use: occasionally (a few drinks per month) Drug Use: none Marital Status: Housing status: lives with family Occupational Status: retired Immunizations History of Influenza Vaccine: Unknown History of Tetanus Vaccine?: Unknown History of Pneumococcal: Yes Pneumococcal Date: Mar 13, 2006 History of Hepatitis B Vaccine: Unknown Allergies Coded Allergies: Ciprofloxacin (Verified Allergy, Intermediate, RASH, 01/25/18) Homatropine (Verified Allergy, Intermediate, RASH, 01/25/18) Hydrocodone (Verified Allergy, Intermediate, RASH, 01/25/18) Metronidazole (Verified Allergy, Intermediate, RASH, 01/25/18) Piperacillin (Verified Allergy, Intermediate, RASH, 01/25/18) Sulfa Antibiotics (Verified Allergy, Intermediate, RASH, 01/25/18) Tazobactam (Verified Allergy, Intermediate, RASH, 01/25/18) Vancomycin (Verified Allergy, Intermediate, HIVES, 01/25/18) Levofloxacin (Verified Allergy, Unknown, unknown, 01/25/18) Nitrofurantoin (Verified Allergy, Unknown, .., 01/25/18) Statins (Verified Allergy, Unknown, LIPITOR AND PRAVASTATIN, 01/25/18) Cephalexin (Verified Adverse Reaction, Severe, RASH,ITCHING,HIVES, 01/25/18 ) Home Medications Scheduled Acetaminophen (Tylenol), 1,000 MG PO Q6H Amitriptyline Hcl (Elavil), 25 MG PO HS Ascorbic Acid (Vitamin C), 1,000 MG PO QAM Aspirin (Aspirin Ec), 325 MG PO QAM Calcium Carbonate-Vitamin D (Calcium + D), 1 TAB PO QAM Cefuroxime Axetil (Cefuroxime Axetil), 1 TAB PO BID Cholecalciferol (Vitamin D3), 6,000 UNITS PO DAILY Cyanocobalamin (Vitamin B12), 1 TAB PO QAM Dicyclomine HCl (Dicyclomine HCl), 20 MG PO TID Ferrous Sulfate (Ferrous Sulfate), 325 MG PO QAM Gabapentin (Neurontin), 300 MG PO BID Levothyroxine Sodium (Levothyroxine Sodium), 75 MCG PO QAM Metoprolol Tartrate (Lopressor) (Lopressor), 50 MG PO BID Multivitamin (Multivitamin), 1 TAB PO QAM Nifedipine Ext Rel (Procardia Xl Ext Rel), 60 MG PO QAM Omeprazole (Prilosec), 20 MG PO BID Probiotic Product (Probiotic), 1 CAP PO BID Sertraline (Zoloft), 50 MG PO QAM Scheduled PRN Loperamide Hcl (Imodium), 4 MG PO Q6H PRN for Diarrhea Lorazepam (Ativan), 0.5 MG PO TID PRN for PRN Oxycodone/Acetaminophen 5MG/325MG (Percocet 5MG/325MG), 1 TABLET PO Q12 PRN for Pain Review of Systems Pertinent positives and negatives reviewed in HPI--all others negative Physical Exam Vital Signs Date Time Temp Pulse Resp B/P (MAP) Pulse Ox O2 Delivery O2 Flow Rate FiO2 01/25/18 15:24 66 178/71 100 Room Air 01/25/18 13:53 65 12 147/67 99 Room Air 01/25/18 12:29 Room Air 01/25/18 12:29 Room Air 01/25/18 12:13 70 01/25/18 11:49 36.4 70 20 141/66 99 Room Air General Appearance: WD/WN, no apparent distress Head: normocephalic, atraumatic Eyes: normal inspection, sclerae normal Respiratory/Chest: normal breath sounds, no respiratory distress Cardiovascular: regular rate, rhythm, no edema Abdomen/GI: non tender, soft Extremities/Musculoskelatal: no calf tenderness, no pedal edema Neurologic/Psych: alert, normal mood/affect, oriented x 3 Skin: normal color, warm/dry Diagnostics Laboratory Results Results Past 24 Hours Test 01/25/18 12:25 01/25/18 12:50 01/25/18 13:00 Range/Units Creatine Kinase MB Ratio 6.1 0-3.0 White Blood Count 8.03 4.8-10.8 K/uL Red Blood Count 3.15 4.2-5.4 M/uL Hemoglobin 9.1 12.0-16.0 g/dL Hematocrit 28.8 37-47 % Mean Corpuscular Volume 91.4 80-100 fL Mean Corpuscular Hemoglobin 28.9 25-34 pg Mean Corpuscular Hemoglobin Concent 31.6 32-36 g/dl Platelet Count 208 130-400 K/uL Mean Platelet Volume 8.8 7.4-10.4 fL Neutrophils (%) (Auto) 75.4 % Lymphocytes (%) (Auto) 12.0 % Monocytes (%) (Auto) 7.0 % Eosinophils (%) (Auto) 4.1 % Basophils (%) (Auto) 0.5 % Neutrophils # (Auto) 6.06 1.4-6.5 K/uL Lymphocytes # (Auto) 0.96 1.2-3.4 K/uL Monocytes # (Auto) 0.56 0.11-0.59 K/uL Eosinophils # (Auto) 0.33 0-0.5 K/uL Basophils # (Auto) 0.04 0-0.2 K/uL RDW Standard Deviation 59.2 36.4-46.3 fL RDW Coefficient of Variation 17.6 11.5-14.5 % Immature Granulocyte % (Auto) 1.0 % Immature Granulocyte # (Auto) 0.08 0.00-0.02 K/uL Prothrombin Time 10.2 9.0-12.0 SECONDS Prothromb Time International Ratio 1.0 0.9-1.1 Activated Partial Thromboplast Time 46.0 21.0-31.0 SECONDS Partial Thromboplastin Ratio 1.8 Sodium Level 142 136-145 mmol/L Potassium Level 4.5 3.5-5.1 mmol/L Chloride Level 120 98-107 mmol/L Carbon Dioxide Level 12 21-32 mmol/L Anion Gap 10.0 3-11 mmol/L Blood Urea Nitrogen 36 7-18 mg/dl Creatinine 2.37 0.60-1.20 mg/dl Est Creatinine Clear Calc Drug Dose 19.0 ml/min Estimated GFR () 22.8 Estimated GFR (Non- 19.7 BUN/Creatinine Ratio 15.1 10-20 Random Glucose 200 70-99 mg/dl Calcium Level 7.0 8.5-10.1 mg/dl Magnesium Level 2.2 1.8-2.4 mg/dl Total Bilirubin 0.2 0.2-1 mg/dl Direct Bilirubin < 0.1 0-0.2 mg/dl Aspartate Amino Transf (AST/SGOT) 7 15-37 U/L Alanine Aminotransferase (ALT/SGPT) 9 12-78 U/L Alkaline Phosphatase 114 45-117 U/L Total Creatine Kinase 33 26-192 U/L Creatine Kinase MB 2.0 0.5-3.6 ng/ml Troponin I < 0.015 0-0.045 ng/ml Total Protein 5.9 6.4-8.2 gm/dl Albumin 2.8 3.4-5.0 gm/dl Lipase 283 73-393 U/L Thyroid Stimulating Hormone (TSH) 2.650 0.300-4.500 uIu/ml Urine Color ORANGE Urine Appearance TURBID CLEAR Urine pH 6.5 4.5-7.5 Urine Specific [place] 1.013 1.000-1.030 Urine Protein 2+ NEG Urine Glucose (UA) NEG NEG Urine Ketones NEG NEG Urine Occult Blood 3+ NEG Urine Nitrite POS NEG Urine Bilirubin NEG NEG Urine Urobilinogen NEG NEG Urine Leukocyte Esterase LARGE NEG Urine WBC (Auto) >30 0-5 /hpf Urine RBC (Auto) >30 0-4 /hpf Urine Hyaline Casts (Auto) 0 0-5 /lpf Urine Epithelial Cells (Auto) 5-10 0-5 /lpf Urine Bacteria (Auto) 3+ NEG Urine Yeast (Auto) NONE PRSENT Microbiology Results 01/25/18 Urine Culture, Received Pending Diagnostic Radiology CXR neg for acute Impression Assessment and Plan 72 y/o F who was admitted on 01/25 with UTI UTI: failed outpt abx with hx of same ED discussed abx options with pharmacy given allergies and resistance patterns, ertapenem started in the ED, will continue UA noted, cx pending Will need assistance from CM for outpt administration Pt comes 2x/week for IVF, so is possible able to come to [facility] for this HTN: stable, continue home meds CKD IV: Baseline cr is 2.8-3.0, stable Peripheral neuropathy/anxiety/depression/hypothyroid/hyperlipidemia: continue home meds Cecal cancer: ostomy, ileostomy stable Hx of SBO: last admission for this 04/2017, no abd pain CAD prevention: aspirin 325mg Other: Full cardiac code, DNI Heparin for DVT proph AHA diet Resuscitation Status VTE Prophylaxis Will order VTE Prophylaxis: Yes
[2018-01-25] MEDS: SODIUM CHLORIDE 0.9% 1000ML 1,000 ML IV SCH (17:10)
[2018-01-25 17:21] VITALS: BP 158/69; PULSE 68; TEMP 36.5; Ht 160 cm; Wt 65.5 kg
[2018-01-25] MEDS ORDERED: PNEUMOCOCCAL POLYSACCHARIDES 25 MCG/0.5 ML VIAL/SYR IM. ONE (19:30)
[2018-01-25] MEDS ORDERED: PNEUMOCOCCAL ADMINISTRATION CHARGE ONE (19:30)
[2018-01-25] MEDS ORDERED: NURSING VERBAL MED ORDER ONE (19:45)
[2018-01-25] MEDS: DICYCLOMINE HCL 20 MG TAB PO SCH (20:56)
[2018-01-25] MEDS: GABAPENTIN 300 MG CAP PO SCH (20:57)
[2018-01-25] MEDS: METOPROLOL TARTRATE 50 MG TAB PO SCH (20:57)
[2018-01-25] MEDS: LACTOBACILLUS ACIDOPHILUS (FLORANEX) TAB PO SCH (20:57)
[2018-01-25] MEDS: PANTOprazole SOD 40 MG TAB PO SCH (20:58)
[2018-01-25] MEDS: AMITRIPTYLINE HCL 25 MG TAB PO SCH (20:58)
[2018-01-25] MEDS: ACETAMINOPHEN 500 MG TAB PO SCH (20:59)
[2018-01-25] MEDS: HEPARIN SOD 5000 UNIT/0.5 ML CARP SQ SCH (21:00)
[2018-01-25] MEDS: [UNRECOGNIZED DRUG - OTHER] PO PRN (21:01)
[2018-01-25 23:48] VITALS: BP 149/76; PULSE 68; TEMP 36.6; O2SAT 97
[2018-01-26] MEDS: SODIUM CHLORIDE 0.9% 1000ML 1,000 ML IV SCH ×2 (05:21→19:39)
[2018-01-26 05:51] LABS: HEMATOCRIT 31.6 % (37-47); HEMOGLOBIN 9.8 g/dL (12.0-16.0); MEAN CELL VOLUME 92.1 fL (80-100); MEAN CORPUSCULAR HEMOGLOBIN 28.6 pg (25-34); MEAN PLATELET VOLUME 8.8 fL (7.4-10.4); PLATELET COUNT 215 K/uL (130-400); RED CELL DISTRIBUTION WIDTH CV 17.8 % (11.5-14.5); RED CELL DISTRIBUTION WIDTH SD 60.7 fL (36.4-46.3); WHITE BLOOD COUNT 8.65 K/uL (4.8-10.8)
[2018-01-26] MEDS: HEPARIN SOD 5000 UNIT/0.5 ML CARP SQ SCH ×3 (06:00→20:28)
[2018-01-26] MEDS: LEVOTHYROXINE 75 MCG TAB PO SCH (06:18)
[2018-01-26] MEDS: ACETAMINOPHEN 500 MG TAB PO SCH ×4 (06:18→20:31)
[2018-01-26 06:32] LABS: CALCIUM 7.7 mg/dl (8.5-10.1); CREATININE 2.16 mg/dl (0.60-1.20); POTASSIUM 4.3 mmol/L (3.5-5.1)
[2018-01-26] MEDS: ASCORBIC ACID 500 MG TAB PO SCH (08:29)
[2018-01-26] MEDS: PANTOprazole SOD 40 MG TAB PO SCH ×2 (08:29→20:31)
[2018-01-26 08:30] VITALS: BP 148/81; PULSE 74; TEMP 36.3; O2SAT 99
[2018-01-26] MEDS: METOPROLOL TARTRATE 50 MG TAB PO SCH ×2 (08:30→20:32)
[2018-01-26] MEDS: SERTRALINE HCL 50 MG TAB PO SCH (08:30)
[2018-01-26] MEDS: DICYCLOMINE HCL 20 MG TAB PO SCH ×3 (08:30→20:30)
[2018-01-26] MEDS: LACTOBACILLUS ACIDOPHILUS (FLORANEX) TAB PO SCH ×2 (08:30→20:31)
[2018-01-26] MEDS: GABAPENTIN 300 MG CAP PO SCH ×2 (08:30→20:31)
[2018-01-26] MEDS: CHOLECALCIFEROL 1000 INTER.UNIT TAB PO SCH (08:31)
[2018-01-26] MEDS: CALCIUM 600MG + VIT D 400 IU TAB PO SCH (08:31)
[2018-01-26] MEDS: NIFEdipine 30 MG CR TAB PO SCH (08:31)
[2018-01-26] MEDS: MULTIVITAMIN TAB PO SCH (08:31)
[2018-01-26] MEDS: ASPIRIN 325 MG ECTAB PO SCH (08:32)
[2018-01-26] MEDS: FERROUS SULFATE 325 MG TAB PO SCH (08:32)
[2018-01-26] MEDS: CYANOCOBALAMIN 500 MCG TAB (VIT B-12) PO SCH (08:32)
[2018-01-26 15:26] VITALS: BP 144/73; PULSE 72; TEMP 36.3; O2SAT 100
[2018-01-26] MEDS: ERTAPENEM IV 1,000 MG in SODIUM CHLORIDE 0.9% 50ML 50 ML IV SCH (15:39)
[2018-01-26 16:00] VITALS: O2SAT 100
--- NOTE | 2018-01-26 19:44 | Hospitalist Progress Note ---
Hospitalist Progress Note Date of Service Jan 26, 2018. Subjective Pt evaluation today including: conversation w/ patient, conversation w/ family , physical exam, lab review Patient still feeling very fatigued. States that she is tired of living her life this way with recurrent infections. Her last change out of her renal stent was in November of this year. Constitutional: No fever Respiratory: No shortness of breath Cardiovascular: No chest pain Abdomen: + pain (Mild above her colostomy bag) Musculoskeletal: + problem reported (Currently has a left Charcot foot and is supposed to be wearing a boot with ambulation and nonweightbearing) All Other Systems: Reviewed and Negative Objective Vital Signs Date Time Temp Pulse Resp B/P (MAP) Pulse Ox O2 Delivery O2 Flow Rate FiO2 01/26/18 16:00 100 Room Air 01/26/18 15:26 36.3 72 20 144/73 (96) 100 Room Air 01/26/18 09:30 Room Air 01/26/18 08:30 36.3 74 20 148/81 (103) 99 01/26/18 00:46 Room Air 01/25/18 23:48 36.6 68 20 149/76 (100) 97 Room Air Physical Exam General Appearance: WD/WN, no apparent distress Eyes: normal inspection, sclerae normal ENT: hearing grossly normal Neck: trachea midline Respiratory/Chest: lungs clear, normal breath sounds, no respiratory distress, no accessory muscle use Cardiovascular: regular rate, rhythm, no edema, no gallop, no murmur Abdomen: normal bowel sounds, non tender, soft, + pertinent finding (Colostomy bag in place with green stool, right lower quadrant with ileal conduit bag with stent in place with clear yellow urine) Extremities: no pedal edema, no calf tenderness, + pertinent finding (Left foot with midfoot deformity and swelling, no erythema) Neurologic/Psychiatric: no motor/sensory deficits, alert, normal mood/affect, oriented x 3 Skin: normal color, warm/dry, no rash Laboratory Results Last 24 Hours Test 01/26/18 05:40 01/26/18 12:20 White Blood Count 8.65 K/uL Red Blood Count 3.43 M/uL Hemoglobin 9.8 g/dL Hematocrit 31.6 % Mean Corpuscular Volume 92.1 fL Mean Corpuscular Hemoglobin 28.6 pg Mean Corpuscular Hemoglobin Concent 31.0 g/dl RDW Standard Deviation 60.7 fL RDW Coefficient of Variation 17.8 % Platelet Count 215 K/uL Mean Platelet Volume 8.8 fL Sodium Level 145 mmol/L Potassium Level 4.3 mmol/L Chloride Level 122 mmol/L Carbon Dioxide Level 14 mmol/L Anion Gap 9.0 mmol/L Blood Urea Nitrogen 33 mg/dl Creatinine 2.16 mg/dl Est Creatinine Clear Calc Drug Dose 21.1 ml/min Estimated GFR () 25.5 Estimated GFR (Non- 22.0 BUN/Creatinine Ratio 15.3 Random Glucose 93 mg/dl Calcium Level 7.7 mg/dl Urine Color YELLOW Urine Appearance CLEAR Urine pH 7.0 Urine Specific [place] 1.011 Urine Protein 1+ Urine Glucose (UA) NEG Urine Ketones NEG Urine Occult Blood 1+ Urine Nitrite NEG Urine Bilirubin NEG Urine Urobilinogen NEG Urine Leukocyte Esterase LARGE Urine WBC (Auto) >30 /hpf Urine RBC (Auto) 5-10 /hpf Urine Hyaline Casts (Auto) 1-5 /lpf Urine Epithelial Cells (Auto) 0-5 /lpf Urine Bacteria (Auto) NEG Assessment and Plan This patient is a 72 y/o female with history of recurrent UTIs with an ileal conduit after ureteral injury years ago during colectomy, CKD stage IV, HTN, colon cancer status post colostomy and with short gut syndrome, peripheral neuropathy, left Charcot foot, anxiety with depression, hypothyroidism, hyperlipidemia, who was admitted on 01/25 with UTI. UTI: failed outpt abx with hx of same. Urine culture from 01/20 with E. coli resistant to ampicillin and Unasyn, intermediate to cefazolin and nitrofurantoin. Urine culture here with mixed organisms but had Roberto been on antibiotics at home. Likely poor absorption due to short gut syndrome and partially treated UTI. She has numerous allergies to antibiotics -Continue ertapenem 1 g IV every 24 hours-today day #2-we will treat for at least 7 days -Consult infectious disease for further opinion on length of treatment and choice of antibiotic -After this infection is cleared, she will need to go have her stent changed out in the right kidney as this helps prevent recurrent infections-she has this done at [facility] with interventional radiology Will need assistance from CM for outpt administration Pt comes 2x/week for IVF hydration at the [facility], so is possible able to come to [facility] for this HTN: stable, continue home meds of metoprolol and nifedipine CKD IV: Baseline cr is 2.8-3.0, creatinine now down to 2.16 after IV fluids -Avoid nephrotoxins -Renally dose medications -Okay to DC IV fluids -Follow BMP Chronic non-anion gap metabolic acidosis-possibly due to GI losses of bicarbonate from short gut syndrome. Frequently requires IV magnesium and IV fluids at the [facility]. Baseline bicarbonate is around 12-14 which is where she is at now -Follow BMP Peripheral neuropathy/left Charcot foot-wearing boot on the left -Continue gabapentin and oxycodone as needed for pain Anxiety/depression-stable -Continue home sertraline and amitriptyline Hypothyroidism-TSH here is normal at 2.65 -Continue home levothyroxine Hyperlipidemia: continue home meds History of colon cancer: Status post colostomy and with short gut syndrome -Continue all vitamin and mineral supplementation Hx of SBO: last admission for this 04/2017, no abd pain CAD prevention: aspirin 325mg Prophylaxis-SQ heparin Disposition-remain on medical floor until feeling improved and then can discharged home with outpatient IV antibiotics
[2018-01-26] MEDS: AMITRIPTYLINE HCL 25 MG TAB PO SCH (20:31)
[2018-01-26] MEDS: [UNRECOGNIZED DRUG - OTHER] PO PRN (20:32)
[2018-01-26 23:16] VITALS: BP 150/76; PULSE 87; TEMP 36.5; O2SAT 95
[2018-01-27] VITALS: O2SAT 100
--- NOTE | 2018-01-27 03:22 | Medical Consult ---
Consultation Date of Consultation: Jan 27, 2018. Attending Physician: Katerin Salguero MD Reason for Consultation: Recurrent UTI, ileal conduit History of Present Illness 72-year-old female well known to the Infectious Disease service, with history of multiple recurrent urinary tract infections in the setting of ileal conduit and ureteral stenting. Approximately 1 week ago, patient was diagnosed with urinary tract infection after presenting with weakness and fatigue with nausea consistent with prior episodes, was treated with oral cephalosporin for positive culture for E coli, but symptoms progressively worsened prompting hospitalization for IV antibiotics. Patient has a history of short-gut syndrome , and worry is that patient not absorbing oral antibiotics appropriately. Patient now started on IV ertapenem. No reported fevers, patient without evidence of sepsis. Past Medical/Surgical History Medical Problems: (1) Allergic reaction Status: Acute (2) Cellulitis Status: Acute (3) Chronic diarrhea Status: Acute (4) CKD (chronic kidney disease) Status: Acute (5) Failure of outpatient treatment Status: Acute (6) Hyperglycemia Status: Acute (7) Intractable abdominal pain Status: Acute (8) Leg pain Status: Acute (9) Metabolic acidosis Status: Acute (10) Metabolic acidosis Status: Acute (11) Near syncope Status: Acute (12) Orthostatic hypotension Status: Acute (13) Partial small bowel obstruction Status: Acute (14) Urinary tract infection Status: Acute (15) Urinary tract infection Status: Acute (16) Urinary tract infection Status: Acute (17) Urticaria Status: Acute (18) UTI (urinary tract infection) Status: Chronic (19) Weakness Status: Acute (20) Weakness Status: Chronic (21) Weakness Status: Acute Medical Problems: (1) Acute renal failure (2) Anxiety (3) Appendectomy (4) Asthma (5) Back pain (6) cancer surgery (7) Carcinoid tumor of the cecum (8) Cardiac catheterization (9) Cholecystectomy (10) Chronic renal disease (11) Clostridium difficile colitis (12) Colectomy (13) Colorectal cancer (14) Colostomy (15) Dizziness (16) Dizziness (17) Dizziness (18) Esophagitis (19) History of colon cancer (20) HTN (hypertension) (21) Hyperlipidemia (22) Hypomagnesemia (23) Hypothyroidism (24) Hysterectomy (25) Ileal conduit (26) Ileostomy present (27) Orthostasis (28) Physical deconditioning (29) Pyelonephritis (30) Renal failure (31) SBO, UTI (32) Sepsis (33) SIRS (systemic inflammatory response syndrome) (34) Sprain, lumbosacral (35) UTI (lower urinary tract infection) (36) UTI (lower urinary tract infection) (37) UTI (urinary tract infection) (38) Weakness Surgical Problems: (1) H/O: hysterectomy (2) History of cholecystectomy (3) S/P appendectomy Family History Bowel disease MOTHER Cancer FH: heart disease FATHER Gallbladder disease Hypertension Social History Smoking Status: Never Smoker Alcohol Use: occasionally (a few drinks per month) Drug Use: none Marital Status: Housing Status: lives with family Occupation Status: retired Allergies Coded Allergies: Ciprofloxacin (Verified Allergy, Intermediate, RASH, 01/25/18) Homatropine (Verified Allergy, Intermediate, RASH, 01/25/18) Hydrocodone (Verified Allergy, Intermediate, RASH, 01/25/18) Metronidazole (Verified Allergy, Intermediate, RASH, 01/25/18) Piperacillin (Verified Allergy, Intermediate, RASH, 01/25/18) Sulfa Antibiotics (Verified Allergy, Intermediate, RASH, 01/25/18) Tazobactam (Verified Allergy, Intermediate, RASH, 01/25/18) Vancomycin (Verified Allergy, Intermediate, HIVES, 01/25/18) Levofloxacin (Verified Allergy, Unknown, unknown, 01/25/18) Nitrofurantoin (Verified Allergy, Unknown, .., 01/25/18) Statins (Verified Allergy, Unknown, LIPITOR AND PRAVASTATIN, 01/25/18) Cephalexin (Verified Adverse Reaction, Severe, RASH,ITCHING,HIVES, 01/25/18 ) Current Inpatient Medications Current Inpatient Medications Medications (Trade) Dose Ordered Sig/Heather Route Start Time Stop Time Status Last Admin Dose Admin Heparin Sodium (Porcine) (Heparin Sq 5000 Unit/0.5ml) 5,000 unit Q8H SQ 01/25/18 22:00 02/24/18 15:59 Acetaminophen (Tylenol Tab) 650 mg Q4H PRN PO 01/25/18 16:00 02/24/18 15:59 Magnesium Hydroxide (Milk Of Magnesia Susp) 30 ml Q6H PRN PO 01/25/18 16:00 02/24/18 15:59 Ondansetron HCl (Zofran Inj) 4 mg Q6H PRN IV 7/18/18 16:00 02/24/18 15:59 Acetaminophen (Tylenol Tab) 1,000 mg Q8 PO 01/25/18 22:00 02/24/18 21:59 01/26/18 20:31 1,000 MG Amitriptyline HCl (Elavil Tab) 25 mg HS PO 01/25/18 21:00 02/24/18 20:59 01/26/18 20:31 25 MG Aspirin (Ecotrin Tab) 325 mg QAM PO 01/26/18 08:00 02/25/18 08:59 01/26/18 08:32 325 MG Dicyclomine HCl (Bentyl Tab) 20 mg TID PO 01/25/18 20:00 02/24/18 20:59 01/26/18 20:30 20 MG Ferrous Sulfate (Feosol Tab) 325 mg QAM PO 01/26/18 08:00 02/25/18 08:59 01/26/18 08:32 325 MG Gabapentin (Neurontin Cap) 300 mg BID PO 01/25/18 20:00 02/24/18 20:59 01/26/18 20:31 300 MG Levothyroxine Sodium (Synthroid Tab) 75 mcg DAILYBB PO 01/26/18 06:30 02/25/18 06:59 01/26/18 06:18 75 MCG Loperamide HCl (Imodium Cap) 4 mg Q6H PRN PO 01/25/18 16:00 02/24/18 15:59 Lorazepam (Ativan Tab) 0.5 mg TID PRN PO 01/25/18 16:00 02/24/18 15:59 Metoprolol Tartrate (Lopressor Tab) 50 mg BID PO 01/25/18 20:00 02/24/18 20:59 01/26/18 20:32 50 MG Multivitamins (Multivitamin Tab) 1 tab QAM PO 01/26/18 08:00 02/25/18 08:59 01/26/18 08:31 1 TAB Nifedipine (Procardia Xl Tab) 60 mg QAM PO 01/26/18 08:00 02/25/18 08:59 01/26/18 08:31 60 MG Oxycodone/ Acetaminophen (Percocet 5-325mg Tab) 1 tab Q12 PRN PO 01/25/18 16:00 02/08/18 15:59 Sertraline HCl (Zoloft Tab) 50 mg QAM PO 01/26/18 08:00 02/25/18 08:59 01/26/18 08:30 50 MG Ascorbic Acid (Vitamin C Tab) 1,000 mg QAM PO 01/26/18 08:00 02/25/18 08:59 01/26/18 08:29 1,000 MG Calcium/Vitamin D (Caltrate Plus Tab) 1 tab QAM PO 01/26/18 08:00 02/25/18 08:59 01/26/18 08:31 1 TAB Cholecalciferol (Vitamin D Tab) 6,000 inter.unit DAILY PO 01/26/18 08:00 02/25/18 08:59 01/26/18 08:31 6,000 INTER.UNIT Cyanocobalamin (Vitamin B-12 Tab) 1,000 mcg QAM PO 01/26/18 08:00 02/25/18 08:59 01/26/18 08:32 1,000 MCG Pantoprazole Sodium (Protonix Tab) 40 mg BID PO 01/25/18 20:00 02/24/18 20:59 01/26/18 20:31 40 MG Lactobacillus Acidophilus (Floranex Tab) 1 tab BID PO 01/25/18 20:00 02/24/18 20:59 01/26/18 20:31 1 TAB Ertapenem 1000 mg/ Sodium Chloride 60 ml @ 120 mls/hr Q24H IV 01/26/18 15:00 02/03/18 15:29 01/26/18 15:39 120 MLS/HR Non-Formulary Medication (Non-Formulary Patient'S Own Med) 2 ea PRN PRN PO 01/25/18 19:45 02/24/18 19:44 01/26/18 20:32 2 EA Heparin Sodium (Porcine) (Heparin 100 Unit/ml 5ml Flush) 5 ml PRN PRN IV 01/26/18 01:30 02/25/18 01:29 Review of Systems All systems were reviewed and are negative except as per HPI Physical Exam Date Time Temp Pulse Resp B/P (MAP) Pulse Ox O2 Delivery O2 Flow Rate FiO2 01/26/18 23:16 36.5 87 20 150/76 (100) 95 Room Air 01/26/18 16:00 100 Room Air 01/26/18 15:26 36.3 72 20 144/73 (96) 100 Room Air 01/26/18 09:30 Room Air 01/26/18 08:30 36.3 74 20 148/81 (103) 99 General Appearance: WD/WN, no apparent distress Head: normocephalic, atraumatic Eyes: normal inspection, EOMI, sclerae normal ENT: normal ENT inspection, hearing grossly normal, pharynx normal Neck: supple, no adenopathy, thyroid normal, trachea midline Respiratory/Chest: chest non-tender, lungs clear, normal breath sounds, no respiratory distress Cardiovascular: regular rate, rhythm, no gallop, no murmur Abdomen/GI: normal bowel sounds, non tender, soft, no organomegaly, + pertinent finding (Ostomy and ileal conduit sites appear clean) Back: normal inspection, no CVA tenderness Extremities/Musculoskelatal: normal inspection, no calf tenderness, normal capillary refill, non-tender Neurologic/Psych: alert, oriented x 3 Skin: normal color, warm/dry, no rash Lymphatic: no adenopathy Laboratory Results Date/Time Source Procedure Growth Status 01/26/18 21:15 Urine,Catheterized Urine Culture Pending Received Last 24 Hours Test 01/26/18 05:40 01/26/18 12:20 White Blood Count 8.65 K/uL Red Blood Count 3.43 M/uL Hemoglobin 9.8 g/dL Hematocrit 31.6 % Mean Corpuscular Volume 92.1 fL Mean Corpuscular Hemoglobin 28.6 pg Mean Corpuscular Hemoglobin Concent 31.0 g/dl RDW Standard Deviation 60.7 fL RDW Coefficient of Variation 17.8 % Platelet Count 215 K/uL Mean Platelet Volume 8.8 fL Sodium Level 145 mmol/L Potassium Level 4.3 mmol/L Chloride Level 122 mmol/L Carbon Dioxide Level 14 mmol/L Anion Gap 9.0 mmol/L Blood Urea Nitrogen 33 mg/dl Creatinine 2.16 mg/dl Est Creatinine Clear Calc Drug Dose 21.1 ml/min Estimated GFR () 25.5 Estimated GFR (Non- 22.0 BUN/Creatinine Ratio 15.3 Random Glucose 93 mg/dl Calcium Level 7.7 mg/dl Urine Color YELLOW Urine Appearance CLEAR Urine pH 7.0 Urine Specific [place] 1.011 Urine Protein 1+ Urine Glucose (UA) NEG Urine Ketones NEG Urine Occult Blood 1+ Urine Nitrite NEG Urine Bilirubin NEG Urine Urobilinogen NEG Urine Leukocyte Esterase LARGE Urine WBC (Auto) >30 /hpf Urine RBC (Auto) 5-10 /hpf Urine Hyaline Casts (Auto) 1-5 /lpf Urine Epithelial Cells (Auto) 0-5 /lpf Urine Bacteria (Auto) NEG [~ rep ct add3]] CHEST ONE VIEW PORTABLE CLINICAL HISTORY: EVALUATE ALTERED MENTAL STATUS/WEAKNESS COMPARISON STUDY: Chest radiograph November 06, 2016. FINDINGS: A right internal jugular [id number] remains in place. No pneumothorax or pleural effusion is noted. There is no consolidation. Minimal left basilar opacity favors atelectasis. Pulmonary vascularity is normal. Cardiomediastinal silhouette is unremarkable. IMPRESSION: No acute cardiopulmonary findings. Electronically signed by: Kodi Bowens M.D. 01/25/2018 12:36 PM Dictated Date/Time: 01/25/2018 12:35 PM The status of this report is Signed. Draft = Not yet reviewed or approved by Radiologist. Signed = Reviewed and approved by Radiologist. <AttendingPhy></AttendingPhy> <FamilyPhy></FamilyPhy> <PrimaryPhy></PrimaryPhy> <UnitNumber>[id number]</UnitNumber> <VisitNumber>[id number]</VisitNumber> < PatientName>DYAN GRAYSON</PatientName> <DateOfBirth>1945</DateOfBirth > <Location>[facility]</Location> <ServiceDate>01/25/18</ServiceDate> <MNE>ESINDI</ MNE> <OrderingPhy>Gustavo Guerrero D.O.</OrderingPhy> <OrderingPhyMNE>f rep ord dr ulloa</OrderingPhyMNE> <DictatingPhyMNE>f rep dict dr ulloa</DictatingPhyMNE > <CCListMNE>f rep ct mne</CCListMNE> <AdmittingPhyMNE>f pt admit dr ulloa</ AdmittingPhyMNE> <AttendingPhyMNE>f pt attend dr ulloa</AttendingPhyMNE> <ConsultingPhyMNE>f pt consult dr ulloa</ConsultingPhyMNE> <FamilyPhyMNE>f pt fam dr ulloa</FamilyPhyMNE> <OtherPhyMNE>f pt other Assessment & Plan 72-year-old female with recurrent urinary tract infection in the setting of ureteral stenting and ileal conduit with culture positive for E coli. Given problem with oral antibiotics, agree with the use of IV ertapenem and would recommend 7 day course of therapy. Will follow.
[2018-01-27] MEDS: HEPARIN SOD 5000 UNIT/0.5 ML CARP SQ SCH ×3 (06:00→21:33)
[2018-01-27] MEDS: ACETAMINOPHEN 500 MG TAB PO SCH ×3 (06:07→21:32)
[2018-01-27] MEDS: LEVOTHYROXINE 75 MCG TAB PO SCH (06:07)
[2018-01-27 06:12] LABS: BASO % 0.5 %; BASO ABS # 0.04 K/uL (0-0.2); EOS % 7.5 %; EOS ABS # 0.64 K/uL (0-0.5); HEMATOCRIT 31.9 % (37-47); HEMOGLOBIN 9.9 g/dL (12.0-16.0); IG# 0.06 K/uL (0.00-0.02); LYMPH % 13.2 %; LYMPH ABS # 1.12 K/uL (1.2-3.4); MEAN CELL VOLUME 92.5 fL (80-100); MEAN CORPUSCULAR HEMOGLOBIN 28.7 pg (25-34); MEAN PLATELET VOLUME 8.7 fL (7.4-10.4); MONO % 8.2 %; NEUT % 69.9 %; NEUT ABS # 5.94 K/uL (1.4-6.5); PLATELET COUNT 219 K/uL (130-400); RED CELL DISTRIBUTION WIDTH CV 17.9 % (11.5-14.5); RED CELL DISTRIBUTION WIDTH SD 60.1 fL (36.4-46.3)
[2018-01-27 06:43] LABS: CALCIUM 7.6 mg/dl (8.5-10.1); CREATININE 2.08 mg/dl (0.60-1.20); POTASSIUM 4.2 mmol/L (3.5-5.1)
[2018-01-27 07:24] VITALS: BP 127/78; PULSE 71; TEMP 36.4; O2SAT 99
[2018-01-27] MEDS: LACTOBACILLUS ACIDOPHILUS (FLORANEX) TAB PO SCH ×2 (09:28→19:41)
[2018-01-27] MEDS: METOPROLOL TARTRATE 50 MG TAB PO SCH ×2 (09:28→19:41)
[2018-01-27] MEDS: ASPIRIN 325 MG ECTAB PO SCH (09:28)
[2018-01-27] MEDS: PANTOprazole SOD 40 MG TAB PO SCH ×2 (09:29→19:41)
[2018-01-27] MEDS: ASCORBIC ACID 500 MG TAB PO SCH (09:29)
[2018-01-27] MEDS: CALCIUM 600MG + VIT D 400 IU TAB PO SCH (09:29)
[2018-01-27] MEDS: SERTRALINE HCL 50 MG TAB PO SCH (09:29)
[2018-01-27] MEDS: CHOLECALCIFEROL 1000 INTER.UNIT TAB PO SCH (09:29)
[2018-01-27] MEDS: FERROUS SULFATE 325 MG TAB PO SCH (09:30)
[2018-01-27] MEDS: CYANOCOBALAMIN 500 MCG TAB (VIT B-12) PO SCH (09:31)
[2018-01-27] MEDS: NIFEdipine 30 MG CR TAB PO SCH (09:31)
[2018-01-27] MEDS: GABAPENTIN 300 MG CAP PO SCH ×2 (09:32→19:41)
[2018-01-27] MEDS: DICYCLOMINE HCL 20 MG TAB PO SCH ×3 (09:32→19:41)
[2018-01-27] MEDS: MULTIVITAMIN TAB PO SCH (09:32)
[2018-01-27] MEDS: ERTAPENEM IV 1,000 MG in SODIUM CHLORIDE 0.9% 50ML 50 ML IV SCH (14:45)
--- NOTE | 2018-01-27 14:50 | Hospitalist Progress Note ---
Hospitalist Progress Note Date of Service Jan 27, 2018. Subjective Pt evaluation today including: conversation w/ patient Patient feeling slightly improved today, but still very fatigued, low appetite. Remains afebrile here. Urine remains clear. She reports that interventional radiology at [place] always gives her preoperative antibiotics prior to stent change out. She ambulated around the halls today the walking boot on her left foot, it is difficult-she was a little short of breath with this. Constitutional: No fever Respiratory: + dyspnea on exertion Cardiovascular: No chest pain All Other Systems: Reviewed and Negative Objective Vital Signs Date Time Temp Pulse Resp B/P (MAP) Pulse Ox O2 Delivery O2 Flow Rate FiO2 01/27/18 09:30 Room Air 01/27/18 07:24 36.4 71 18 127/78 (94) 99 01/27/18 00:00 100 Room Air 01/26/18 23:16 36.5 87 20 150/76 (100) 95 Room Air 01/26/18 16:00 100 Room Air 01/26/18 15:26 36.3 72 20 144/73 (96) 100 Room Air Physical Exam General Appearance: WD/WN, no apparent distress Eyes: normal inspection, sclerae normal ENT: hearing grossly normal, pharynx normal Neck: trachea midline Respiratory/Chest: lungs clear, normal breath sounds, no respiratory distress, no accessory muscle use Cardiovascular: regular rate, rhythm, no edema, + systolic murmur Abdomen: normal bowel sounds, non tender, soft, + pertinent finding (Ostomy bag in place with green stool; right lower quadrant with ileal conduit bag in place with clear yellow urine) Extremities: no pedal edema, no calf tenderness Neurologic/Psychiatric: alert, normal mood/affect, oriented x 3 Skin: normal color, warm/dry, no rash Laboratory Results Last 24 Hours Test 01/27/18 05:38 White Blood Count 8.50 K/uL Red Blood Count 3.45 M/uL Hemoglobin 9.9 g/dL Hematocrit 31.9 % Mean Corpuscular Volume 92.5 fL Mean Corpuscular Hemoglobin 28.7 pg Mean Corpuscular Hemoglobin Concent 31.0 g/dl Platelet Count 219 K/uL Mean Platelet Volume 8.7 fL Neutrophils (%) (Auto) 69.9 % Lymphocytes (%) (Auto) 13.2 % Monocytes (%) (Auto) 8.2 % Eosinophils (%) (Auto) 7.5 % Basophils (%) (Auto) 0.5 % Neutrophils # (Auto) 5.94 K/uL Lymphocytes # (Auto) 1.12 K/uL Monocytes # (Auto) 0.70 K/uL Eosinophils # (Auto) 0.64 K/uL Basophils # (Auto) 0.04 K/uL RDW Standard Deviation 60.1 fL RDW Coefficient of Variation 17.9 % Immature Granulocyte % (Auto) 0.7 % Immature Granulocyte # (Auto) 0.06 K/uL Sodium Level 145 mmol/L Potassium Level 4.2 mmol/L Chloride Level 120 mmol/L Carbon Dioxide Level 16 mmol/L Anion Gap 9.0 mmol/L Blood Urea Nitrogen 32 mg/dl Creatinine 2.08 mg/dl Est Creatinine Clear Calc Drug Dose 21.9 ml/min Estimated GFR () 26.7 Estimated GFR (Non- 23.0 BUN/Creatinine Ratio 15.4 Random Glucose 99 mg/dl Calcium Level 7.6 mg/dl Magnesium Level 1.9 mg/dl Assessment and Plan This patient is a 72 y/o female with history of recurrent UTIs with an ileal conduit after ureteral injury years ago during colectomy, CKD stage IV, HTN, colon cancer status post colostomy and with short gut syndrome, peripheral neuropathy, left Charcot foot, anxiety with depression, hypothyroidism, hyperlipidemia, who was admitted on 01/25 with UTI. UTI: failed outpt abx with hx of same. Urine culture from 01/20 with E. coli resistant to ampicillin and Unasyn, intermediate to cefazolin and nitrofurantoin. Urine culture here with mixed organisms but had already been on antibiotics at home. Likely poor absorption due to short gut syndrome and partially treated UTI. She has numerous allergies to antibiotics -Continue ertapenem 1 g IV every 24 hours-today day #3-we will treat for at least 7 days -Consult infectious disease for further opinion on length of treatment and choice of antibiotic-Dr. Moran agrees with the length of treatment -After this infection is cleared, she will need to go have her stent changed out in the right kidney as this helps prevent recurrent infections-she has this done at [facility] with interventional radiology and receives preoperative antibiotics routinely for this Will need assistance from CM for outpt administration-in the works Pt comes 2x/week for [facility], so is possible able to come to [facility] for IV antibiotics HTN: stable, continue home meds of metoprolol and nifedipine CKD IV: Baseline cr is 2.8-3.0, creatinine now down to 2.08 after IV fluids which have since been discontinued -Avoid nephrotoxins -Renally dose medications -Follow BMP Chronic normocytic anemia-likely of chronic renal disease. Iron studies from last year confirmed anemia of chronic disease -She is at her baseline around 9-10 -Could consider erythropoietin in the future -She follows with nephrology Chronic non-anion gap metabolic acidosis-possibly due to GI losses of bicarbonate from short gut syndrome. Frequently requires IV magnesium and IV fluids at the [facility]. Baseline bicarbonate is around 12-14-today she is at 16 -Follow BMP Peripheral neuropathy/left Charcot foot-wearing boot on the left -Continue gabapentin and oxycodone as needed for pain Anxiety/depression-stable -Continue home sertraline and amitriptyline Hypothyroidism-TSH here is normal at 2.65 -Continue home levothyroxine Hyperlipidemia: continue home meds History of colon cancer: Status post colostomy and with short gut syndrome -Continue all vitamin and mineral supplementation Hx of SBO: last admission for this 04/2017, no abd pain CAD prevention: aspirin 325mg Prophylaxis-SQ heparin Disposition-remain on medical floor until feeling improved and then can discharged home with outpatient IV antibiotics-likely in 1-2 days
[2018-01-27 16:00] VITALS: O2SAT 99
[2018-01-27 19:38] VITALS: BP 114/71; PULSE 74
[2018-01-27] MEDS: AMITRIPTYLINE HCL 25 MG TAB PO SCH (21:31)
[2018-01-27] MEDS: OXYCODONE/ACETAMINOPHEN 5-325 TAB PO PRN (21:32)
[2018-01-27 23:45] VITALS: BP 129/73; PULSE 73; TEMP 36.4; O2SAT 98
[2018-01-28] VITALS: O2SAT 100
[2018-01-28] MEDS: HEPARIN SOD 5000 UNIT/0.5 ML CARP SQ SCH ×3 (06:00→22:00)
[2018-01-28] MEDS: ACETAMINOPHEN 500 MG TAB PO SCH ×3 (06:00→22:15)
[2018-01-28] MEDS: LEVOTHYROXINE 75 MCG TAB PO SCH (06:14)
[2018-01-28 06:29] LABS: CALCIUM 7.7 mg/dl (8.5-10.1); CREATININE 2.4 mg/dl (0.60-1.20); POTASSIUM 4.3 mmol/L (3.5-5.1)
[2018-01-28 07:00] VITALS: BP 136/89; PULSE 84; TEMP 36.2; O2SAT 98
[2018-01-28] MEDS: FERROUS SULFATE 325 MG TAB PO SCH (08:14)
[2018-01-28] MEDS: CALCIUM 600MG + VIT D 400 IU TAB PO SCH (08:14)
[2018-01-28] MEDS: LACTOBACILLUS ACIDOPHILUS (FLORANEX) TAB PO SCH ×2 (08:14→20:31)
[2018-01-28] MEDS: DICYCLOMINE HCL 20 MG TAB PO SCH ×3 (08:14→20:31)
[2018-01-28] MEDS: MULTIVITAMIN TAB PO SCH (08:14)
[2018-01-28] MEDS: METOPROLOL TARTRATE 50 MG TAB PO SCH ×2 (08:14→20:32)
[2018-01-28] MEDS: GABAPENTIN 300 MG CAP PO SCH ×2 (08:14→20:31)
[2018-01-28] MEDS: CHOLECALCIFEROL 1000 INTER.UNIT TAB PO SCH (08:15)
[2018-01-28] MEDS: CYANOCOBALAMIN 500 MCG TAB (VIT B-12) PO SCH (08:15)
[2018-01-28] MEDS: PANTOprazole SOD 40 MG TAB PO SCH ×2 (08:15→20:31)
[2018-01-28] MEDS: ASCORBIC ACID 500 MG TAB PO SCH (08:15)
[2018-01-28] MEDS: SERTRALINE HCL 50 MG TAB PO SCH (08:15)
[2018-01-28] MEDS: NIFEdipine 30 MG CR TAB PO SCH (08:15)
[2018-01-28] MEDS ORDERED: SUCRALFATE 1 GM/10 ML UDC PO ONE (11:28)
[2018-01-28] MEDS: D5W AND 1/2NSS 1,000 ML IV SCH (12:02)
[2018-01-28] MEDS ORDERED: DAPTOmycin IV 390 MG in SODIUM CHLORIDE 0.9% 50ML 50 ML IV ONE (13:46)
[2018-01-28] MEDS: ERTAPENEM IV 1,000 MG in SODIUM CHLORIDE 0.9% 50ML 50 ML IV SCH (14:04)
[2018-01-28] MEDS ORDERED: DAPTOmycin IV 325 MG in SYRINGE 0 ML IV ONE (14:30)
[2018-01-28 15:07] VITALS: BP 168/90; PULSE 75; TEMP 36.3; O2SAT 100
[2018-01-28] MEDS: SUCRALFATE 1 GM/10 ML UDC PO SCH ×2 (16:25→20:30)
[2018-01-28 20:28] VITALS: BP 137/74; PULSE 78
[2018-01-28] MEDS: AMITRIPTYLINE HCL 25 MG TAB PO SCH (20:30)
[2018-01-28] MEDS: [UNRECOGNIZED DRUG - OTHER] PO PRN (20:57)
[2018-01-28 23:16] VITALS: BP 150/81; PULSE 79; TEMP 36.4; O2SAT 99
[2018-01-29] MEDS: D5W AND 1/2NSS 1,000 ML IV SCH ×2 (02:01→14:18)
[2018-01-29] MEDS: HEPARIN SOD 5000 UNIT/0.5 ML CARP SQ SCH ×3 (06:00→21:47)
--- NOTE | 2018-01-29 06:07 | Progress Note ---
Subjective Date of Service: Jan 28, 2018. Subjective Pt evaluation today including: conversation w/ patient, physical exam, chart review, lab review, review of inpatient medication list Pain: abdomen PO Intake: very poor despite several days of IV antibiotic therapy she continues with poor appetite, fatigue, abdominal discomfort and simply not feeling well she is concerned by the appearance of the urine in the ileal conduit collection bag she is also concerned by the darkness of the stool in her ileostomy she is trying to drink fluids but admits having a hard time doing so she reports she typically does not have abdominal discomfort with her UTIs Problem List Medical Problems: (1) Allergic reaction Status: Acute (2) Cellulitis Status: Acute (3) Chronic diarrhea Status: Acute (4) CKD (chronic kidney disease) Status: Acute (5) Failure of outpatient treatment Status: Acute (6) Hyperglycemia Status: Acute (7) Intractable abdominal pain Status: Acute (8) Leg pain Status: Acute (9) Metabolic acidosis Status: Acute (10) Metabolic acidosis Status: Acute (11) Near syncope Status: Acute (12) Orthostatic hypotension Status: Acute (13) Partial small bowel obstruction Status: Acute (14) Urinary tract infection Status: Acute (15) Urinary tract infection Status: Acute (16) Urinary tract infection Status: Acute (17) Urticaria Status: Acute (18) UTI (urinary tract infection) Status: Chronic (19) Weakness Status: Acute (20) Weakness Status: Chronic (21) Weakness Status: Acute Review of Systems Constitutional: No fever Respiratory: No shortness of breath Cardiac: No chest pain Abdomen: No nausea, No vomiting Objective Vital Signs Date Time Temp Pulse Resp B/P (MAP) Pulse Ox O2 Delivery O2 Flow Rate FiO2 01/28/18 09:58 Room Air 01/28/18 07:00 36.2 84 20 136/89 (105) 98 Room Air 01/28/18 00:00 100 Room Air 01/27/18 23:45 36.4 73 20 129/73 (91) 98 Room Air 01/27/18 20:00 Room Air 01/27/18 19:38 74 114/71 (85) 01/27/18 16:00 99 Room Air Physical Exam General Appearance: no apparent distress, + pertinent finding (looks sickly, tired; prior to coming in the room she was snoring severely) ENT: + pertinent finding (MM pasty) Neck: no JVD Respiratory/Chest: lungs clear, no respiratory distress, no accessory muscle use Cardiovascular: regular rate, rhythm, no gallop, no murmur Abdomen: normal bowel sounds, soft, no organomegaly, + tenderness (epigastric region), + pertinent finding (ileostomy in place - dark stool present, liquid; ileal conduit in place with sediment in the urine collection bag but no hematuria or purulence) Extremities: no pedal edema Neurologic/Psychiatric: alert, oriented x 3 Laboratory Results Last 24 Hours Test 01/28/18 05:35 Sodium Level 142 mmol/L Potassium Level 4.3 mmol/L Chloride Level 119 mmol/L Carbon Dioxide Level 14 mmol/L Anion Gap 9.0 mmol/L Blood Urea Nitrogen 31 mg/dl Creatinine 2.40 mg/dl Est Creatinine Clear Calc Drug Dose 19.0 ml/min Estimated GFR () 22.5 Estimated GFR (Non- 19.4 BUN/Creatinine Ratio 13.1 Random Glucose 95 mg/dl Calcium Level 7.7 mg/dl Magnesium Level 1.9 mg/dl Assessment and Plan 72yo female - 1. complicated e.coli UTI (has ileal conduit with use of a ureteral stent) - day #4/7 ertapenem. 2. ongoing fatigue, abd discomfort, anorexia - if #1 was the cause of these symptoms she should be much better. Later on in the day the repeat urine culture was growing enterococcus. In light of her abnormal anatomy and symptoms I elected to place her on daptomycin IV. Follow this 2nd urine culture carefully. 3. dark stool, abd pain - stool sent for fecal occult and was negative. Added carafate in addition to her twice daily PPI. RE-eval in am. 4. CKD stage 4 - creatinine slightly worse today, likely from poor oral intake , and thus elected to restart IV fluids. 5. 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 Should we consider chronic bicarbonate therapy? Consider nephrology consult to ask this question. 6. chronically elevated PTT - consider holding heparin and performing mixing study. 7. HTN: stable, continue home meds of metoprolol and nifedipine 8. Chronic normocytic anemia - likely of chronic renal disease. Iron studies from last year confirmed anemia of chronic disease Baseline around 9-10 9. Peripheral neuropathy/left Charcot foot - noted. 10. DVT proph - heparin SC. 11. hypothyroidism - compensated; cont synthroid as is; most recent TSH wnl. 12. History of colon cancer - with short gut syndrome Continue all vitamin and mineral supplementation request PT, OT evals due to weakness & deconditioning Continued [facility] stay due to: inadequate po fluid intake, multiple IV medications needed Discharge planning: home with home health
[2018-01-29] MEDS: ACETAMINOPHEN 500 MG TAB PO SCH ×3 (06:29→21:47)
[2018-01-29] MEDS: SUCRALFATE 1 GM/10 ML UDC PO SCH ×4 (06:29→20:18)
[2018-01-29] MEDS: LEVOTHYROXINE 75 MCG TAB PO SCH (06:29)
[2018-01-29 07:19] VITALS: BP 146/72; PULSE 81; TEMP 36.4; O2SAT 99
[2018-01-29 07:19] LABS: BASO % 0.3 %; BASO ABS # 0.03 K/uL (0-0.2); EOS % 6.5 %; HEMATOCRIT 32.6 % (37-47); HEMOGLOBIN 10.2 g/dL (12.0-16.0); IG# 0.06 K/uL (0.00-0.02); LYMPH % 8.4 %; MEAN CELL VOLUME 91.6 fL (80-100); MEAN CORPUSCULAR HEMOGLOBIN 28.7 pg (25-34); MEAN CORPUSCULAR HGB CONC 31.3 g/dl (32-36); MEAN PLATELET VOLUME 8.8 fL (7.4-10.4); MONO % 7.3 %; MONO ABS # 0.79 K/uL (0.11-0.59); NEUT % 76.9 %; NEUT ABS # 8.28 K/uL (1.4-6.5); PLATELET COUNT 207 K/uL (130-400); RED CELL DISTRIBUTION WIDTH CV 17.9 % (11.5-14.5); RED CELL DISTRIBUTION WIDTH SD 60.3 fL (36.4-46.3); WHITE BLOOD COUNT 10.76 K/uL (4.8-10.8)
[2018-01-29 07:48] LABS: CREATININE 2.15 mg/dl (0.60-1.20); POTASSIUM 3.9 mmol/L (3.5-5.1)
[2018-01-29] MEDS ORDERED: DAPTOmycin IV 390 MG in SODIUM CHLORIDE 0.9% 50ML 50 ML IV SCH (08:00)
[2018-01-29] MEDS: FERROUS SULFATE 325 MG TAB PO SCH (08:28)
[2018-01-29] MEDS: CALCIUM 600MG + VIT D 400 IU TAB PO SCH (08:28)
[2018-01-29] MEDS: LACTOBACILLUS ACIDOPHILUS (FLORANEX) TAB PO SCH ×2 (08:28→20:15)
[2018-01-29] MEDS: DICYCLOMINE HCL 20 MG TAB PO SCH ×3 (08:28→20:15)
[2018-01-29] MEDS: GABAPENTIN 300 MG CAP PO SCH ×2 (08:29→20:16)
[2018-01-29] MEDS: ASCORBIC ACID 500 MG TAB PO SCH (08:29)
[2018-01-29] MEDS: MULTIVITAMIN TAB PO SCH (08:29)
[2018-01-29] MEDS: PANTOprazole SOD 40 MG TAB PO SCH ×2 (08:29→20:16)
[2018-01-29] MEDS: SERTRALINE HCL 50 MG TAB PO SCH (08:29)
[2018-01-29] MEDS: NIFEdipine 30 MG CR TAB PO SCH (08:29)
[2018-01-29] MEDS: METOPROLOL TARTRATE 50 MG TAB PO SCH ×2 (08:29→20:17)
[2018-01-29] MEDS: CYANOCOBALAMIN 500 MCG TAB (VIT B-12) PO SCH (08:29)
[2018-01-29] MEDS: CHOLECALCIFEROL 1000 INTER.UNIT TAB PO SCH (08:30)
[2018-01-29] MEDS ORDERED: SODIUM BICARBONATE 650 MG TAB PO ONE (10:15)
--- NOTE | 2018-01-29 11:31 | Progress Note ---
Subjective Date of Service: Jan 29, 2018. Subjective Pt evaluation today including: conversation w/ patient, conversation w/ family ( at bedside ), physical exam, chart review, lab review, conversation w/ outreach consultant (nephrology), review of inpatient medication list Pain: epigastric, upper abdominal PO Intake: very poor patient tearful this am at bedside continues with poor PO intake, abd discomfort in the upper abdomen - although it is better stool output via ostomy is same as usual main complaint today is that of fatigue "just no energy" admits to ongoing depression and follows with psychiatry Problem List Medical Problems: (1) Allergic reaction Status: Acute (2) Cellulitis Status: Acute (3) Chronic diarrhea Status: Acute (4) CKD (chronic kidney disease) Status: Acute (5) Failure of outpatient treatment Status: Acute (6) Hyperglycemia Status: Acute (7) Intractable abdominal pain Status: Acute (8) Leg pain Status: Acute (9) Metabolic acidosis Status: Acute (10) Metabolic acidosis Status: Acute (11) Near syncope Status: Acute (12) Orthostatic hypotension Status: Acute (13) Partial small bowel obstruction Status: Acute (14) Urinary tract infection Status: Acute (15) Urinary tract infection Status: Acute (16) Urinary tract infection Status: Acute (17) Urticaria Status: Acute (18) UTI (urinary tract infection) Status: Chronic (19) Weakness Status: Acute (20) Weakness Status: Chronic (21) Weakness Status: Acute Review of Systems Constitutional: No fever, No chills Respiratory: No cough, No shortness of breath Cardiac: No chest pain Abdomen: + pain, No nausea, No vomiting Objective Vital Signs Date Time Temp Pulse Resp B/P (MAP) Pulse Ox O2 Delivery O2 Flow Rate FiO2 01/29/18 09:31 Room Air 01/29/18 07:19 36.4 81 20 146/72 (96) 99 01/29/18 00:00 Room Air 01/28/18 23:16 36.4 79 20 150/81 (104) 99 Room Air 01/28/18 20:28 78 137/74 (95) 01/28/18 16:00 Room Air 01/28/18 15:07 36.3 75 20 168/90 (116) 100 Physical Exam General Appearance: no apparent distress, + pertinent finding (looks ill, weak) ENT: + pertinent finding (MM dry) Neck: no JVD Respiratory/Chest: lungs clear, no respiratory distress, no accessory muscle use Cardiovascular: regular rate, rhythm, no gallop, no murmur Abdomen: normal bowel sounds, soft, no organomegaly, + tenderness (epigastric region & RUQ - very mild), + pertinent finding (ileal conduit with visible stent present; colostomy in place with dark stool in bag) Neurologic/Psychiatric: alert, oriented x 3, + depressed affect Laboratory Results Last 24 Hours Test 01/28/18 12:08 01/29/18 06:58 Stool Occult Blood NEGATIVE White Blood Count 10.76 K/uL Red Blood Count 3.56 M/uL Hemoglobin 10.2 g/dL Hematocrit 32.6 % Mean Corpuscular Volume 91.6 fL Mean Corpuscular Hemoglobin 28.7 pg Mean Corpuscular Hemoglobin Concent 31.3 g/dl Platelet Count 207 K/uL Mean Platelet Volume 8.8 fL Neutrophils (%) (Auto) 76.9 % Lymphocytes (%) (Auto) 8.4 % Monocytes (%) (Auto) 7.3 % Eosinophils (%) (Auto) 6.5 % Basophils (%) (Auto) 0.3 % Neutrophils # (Auto) 8.28 K/uL Lymphocytes # (Auto) 0.90 K/uL Monocytes # (Auto) 0.79 K/uL Eosinophils # (Auto) 0.70 K/uL Basophils # (Auto) 0.03 K/uL RDW Standard Deviation 60.3 fL RDW Coefficient of Variation 17.9 % Immature Granulocyte % (Auto) 0.6 % Immature Granulocyte # (Auto) 0.06 K/uL Sodium Level 140 mmol/L Potassium Level 3.9 mmol/L Chloride Level 115 mmol/L Carbon Dioxide Level 14 mmol/L Anion Gap 10.0 mmol/L Blood Urea Nitrogen 29 mg/dl Creatinine 2.15 mg/dl Est Creatinine Clear Calc Drug Dose 21.2 ml/min Estimated GFR () 25.7 Estimated GFR (Non- 22.1 BUN/Creatinine Ratio 13.6 Random Glucose 112 mg/dl Calcium Level 8.0 mg/dl Assessment and Plan 72yo female - 1. complicated e.coli UTI (has ileal conduit with use of a ureteral stent) - day #5/7 ertapenem. Previous 2 urine cultures since the urine cx with e. coli are negative. Normal WBC count. NO fevers. I am concerned she has something else going on making her feel ill - see below. Yesterday her most recent urine cx was growing enterococcus - that pathogen disappeared from the final report today. ???. will d/c daptomycin. 2. ongoing fatigue, abd discomfort, anorexia - again if #1 was the cause of these symptoms she should be much better as she has had 5+ days of appropriate IV abx therapy. Check LFTs. Check lipase. Check cortisol level. No real improvement with adding carafate to her PPI. Stool was heme negative from the colostomy bag. Plan for CT abd/pelvis - oral contrast only - to r/o any other intra-abdominal pathology. If we don't find anything else on CT or labs - consider transfer to [place] for ureteral stent exchange?? 3. dark stool, abd pain - stool sent for fecal occult and was negative. Added carafate in addition to her twice daily PPI. Could she have small bowel bacterial overgrowth giving her the color change and other symptoms? 4. CKD stage 4 - creatinine slightly improved today s/p IV fluids. Cont the fluids due to lackluster PO intake. Nephrology to see as well. 5. 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 Should we consider chronic bicarbonate therapy? I have asked Dr. Renteria to see from nephrology. Her chronic acidosis could be contributing to her constitutional symptoms. 6. chronically elevated PTT - consider holding heparin and performing mixing study. 7. HTN: stable, continue home meds of metoprolol and nifedipine 8. Chronic normocytic anemia - likely of chronic renal disease. Iron studies from last year confirmed anemia of chronic disease Baseline around 9-10. B12/folate/TSH also normal. 9. Peripheral neuropathy/left Charcot foot - noted. 10. DVT proph - heparin SC. 11. hypothyroidism - compensated; cont synthroid as is; most recent TSH wnl. 12. History of colon cancer with colostomy in place - with short gut syndrome Continue all vitamin and mineral supplementation PT, OT evals pending Continued [facility] stay due to: inadequate po fluid intake, multiple IV medications needed Discharge planning: uncertain
[2018-01-29 12:38] LABS: ALBUMIN 2.7 gm/dl (3.4-5.0); ALKALINE PHOSPHATASE 215 U/L (45-117); ALT/SGPT 36 U/L (12-78); AST/SGOT 27 U/L (15-37); LIPASE 1660 U/L (73-393)
--- NOTE | 2018-01-29 13:40 | Nephrology Consultation ---
Nephrology Consultation Date & Providers Date of Consultation: Jan 29, 2018. Primary Care Provider: Joe Ramsey M.D. Referring Provider: Reason for Consultation Metabolic acidosis History of Present Illness Anita Law is a 72-year-old female who was seen and evaluated this afternoon for evaluation of metabolic acidosis. The patient has CKD IV. She followed in the nephrology clinic with Dr. Mckeon. The most recent clinic visit was in September of 2016. CKD has been complicated by multiple episodes of YESENIA related to dehydration. Anita has high ostomy output. Rectal cancer was diagnosed greater than 20 years-old. The patient underwent radiation and resection. Surgery was subsequently complicated by multiple episodes of SBO. A left sided colostomy is in place. 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 Surgery was performed by Dr. Mesa at [facility]. High ostomy output has been managed with octreotide and scheduled IVF infusions. Anita also follows in the ID clinic for a history of recurrent UTI. She has persistent bilateral hydronephrosis and an indwelling ureteral stent. Medical history is also notable for chronic anemia and a history of iron deficiency. She is hypoalbuminemic. Kidney function has been relatively stable for at least the past year. Metabolic acidosis has been chronic. Anita was admitted to [facility] with generalized weakness and fatigue. She was admitted with UTI not responding to PO antibiotics. She is now being treated with ertapenem. She has been afebrile. She is struggling with some persistent abdominal discomfort. Appetite is decreased. Anita describes some persistent nausea. She notes that she generally does not feel well. She is frustrated and discouraged. Past Medical/Surgical History Medical: CKD IV, BL creatinine 2.2-3.0 mg/dL Chronic bilateral hydronephrosis Recurrent UTI History of rectal cancer Multiple SBO History of colovesical fistula History of colectomy History of cystectomy Colostomy Ileal conduit High ostomy output Chronic anemia Hypertension Hypothyroidism Peripheral neuropathy Depression/anxiety DJD/OA Surgical: Colon resection, colostomy, cystectomy, ileal conduit, ureteral stent, IVC filter placement Allergies Coded Allergies: Ciprofloxacin (Verified Allergy, Intermediate, RASH, 01/25/18) Homatropine (Verified Allergy, Intermediate, RASH, 01/25/18) Hydrocodone (Verified Allergy, Intermediate, RASH, 01/25/18) Metronidazole (Verified Allergy, Intermediate, RASH, 01/25/18) Piperacillin (Verified Allergy, Intermediate, RASH, 01/25/18) Sulfa Antibiotics (Verified Allergy, Intermediate, RASH, 01/25/18) Tazobactam (Verified Allergy, Intermediate, RASH, 01/25/18) Vancomycin (Verified Allergy, Intermediate, HIVES, 01/25/18) Levofloxacin (Verified Allergy, Unknown, unknown, 01/25/18) Nitrofurantoin (Verified Allergy, Unknown, .., 01/25/18) Statins (Verified Allergy, Unknown, LIPITOR AND PRAVASTATIN, 01/25/18) Cephalexin (Verified Adverse Reaction, Severe, RASH,ITCHING,HIVES, 01/25/18 ) Inpatient Medications Current Inpatient Medications Medications (Trade) Dose Ordered Sig/Heather Route Start Time Stop Time Status Last Admin Dose Admin Heparin Sodium (Porcine) (Heparin Sq 5000 Unit/0.5ml) 5,000 unit Q8H SQ 01/25/18 22:00 02/24/18 15:59 Acetaminophen (Tylenol Tab) 650 mg Q4H PRN PO 01/25/18 16:00 02/24/18 15:59 Magnesium Hydroxide (Milk Of Magnesia Susp) 30 ml Q6H PRN PO 01/25/18 16:00 02/24/18 15:59 Ondansetron HCl (Zofran Inj) 4 mg Q6H PRN IV 01/25/18 16:00 02/24/18 15:59 01/29/18 12:56 4 MG Acetaminophen (Tylenol Tab) 1,000 mg Q8 PO 01/25/18 22:00 02/24/18 21:59 01/29/18 06:29 1,000 MG Amitriptyline HCl (Elavil Tab) 25 mg HS PO 01/25/18 21:00 02/24/18 20:59 01/28/18 20:30 25 MG Dicyclomine HCl (Bentyl Tab) 20 mg TID PO 01/25/18 20:00 02/24/18 20:59 01/29/18 12:56 20 MG Ferrous Sulfate (Feosol Tab) 325 mg QAM PO 01/26/18 08:00 02/25/18 08:59 01/29/18 08:28 325 MG Gabapentin (Neurontin Cap) 300 mg BID PO 01/25/18 20:00 02/24/18 20:59 01/29/18 08:29 300 MG Levothyroxine Sodium (Synthroid Tab) 75 mcg DAILYBB PO 01/26/18 06:30 02/25/18 06:59 01/29/18 06:29 75 MCG Loperamide HCl (Imodium Cap) 4 mg Q6H PRN PO 01/25/18 16:00 02/24/18 15:59 Lorazepam (Ativan Tab) 0.5 mg TID PRN PO 01/25/18 16:00 02/24/18 15:59 Metoprolol Tartrate (Lopressor Tab) 50 mg BID PO 01/25/18 20:00 02/24/18 20:59 01/29/18 08:29 50 MG Multivitamins (Multivitamin Tab) 1 tab QAM PO 01/26/18 08:00 02/25/18 08:59 01/29/18 08:29 1 TAB Nifedipine (Procardia Xl Tab) 60 mg QAM PO 01/26/18 08:00 02/25/18 08:59 01/29/18 08:29 60 MG Oxycodone/ Acetaminophen (Percocet 5-325mg Tab) 1 tab Q12 PRN PO 01/25/18 16:00 02/08/18 15:59 01/27/18 21:32 1 TAB Sertraline HCl (Zoloft Tab) 50 mg QAM PO 01/26/18 08:00 02/25/18 08:59 01/29/18 08:29 50 MG Ascorbic Acid (Vitamin C Tab) 1,000 mg QAM PO 01/26/18 08:00 02/25/18 08:59 01/29/18 08:29 1,000 MG Calcium/Vitamin D (Caltrate Plus Tab) 1 tab QAM PO 01/26/18 08:00 02/25/18 08:59 01/29/18 08:28 1 TAB Cholecalciferol (Vitamin D Tab) 6,000 inter.unit DAILY PO 01/26/18 08:00 02/25/18 08:59 01/29/18 08:30 6,000 INTER.UNIT Cyanocobalamin (Vitamin B-12 Tab) 1,000 mcg QAM PO 01/26/18 08:00 02/25/18 08:59 01/29/18 08:29 1,000 MCG Pantoprazole Sodium (Protonix Tab) 40 mg BID PO 01/25/18 20:00 02/24/18 20:59 01/29/18 08:29 40 MG Lactobacillus Acidophilus (Floranex Tab) 1 tab BID PO 01/25/18 20:00 02/24/18 20:59 01/29/18 08:28 1 TAB Ertapenem 1000 mg/ Sodium Chloride 60 ml @ 120 mls/hr Q24H IV 01/26/18 15:00 02/03/18 15:29 01/28/18 14:04 120 MLS/HR Non-Formulary Medication (Non-Formulary Patient'S Own Med) 2 ea PRN PRN PO 01/25/18 19:45 02/24/18 19:44 01/28/18 20:57 2 EA Heparin Sodium (Porcine) (Heparin 100 Unit/ml 5ml Flush) 5 ml PRN PRN IV 01/26/18 01:30 02/25/18 01:29 01/28/18 05:36 5 ML Sucralfate (Carafate Susp) 1 gm ACHS PO 01/28/18 16:30 02/27/18 16:29 01/29/18 12:55 1 GM Dextrose/Sodium Chloride 1,000 ml @ 75 mls/hr [id number] IV 01/28/18 11:30 02/27/18 11:29 01/29/18 02:01 75 MLS/HR Sodium Bicarbonate (Sodium Bicarbonate Tab) 1,300 mg BID PO 01/29/18 20:00 02/28/18 19:59 Family History Bowel disease MOTHER Cancer FH: heart disease FATHER Gallbladder disease Hypertension Social History Smoking Status: Never Smoker Alcohol Use: occasionally (a few drinks per month) Drug Use: none Marital Status: Housing Status: lives with family Occupation: retired Review of Systems A complete review of systems was performed. Pertinent positives are noted above. All other systems are negative. Physical Exam Date Time Temp Pulse Resp B/P (MAP) Pulse Ox O2 Delivery O2 Flow Rate FiO2 01/29/18 09:31 Room Air 01/29/18 07:19 36.4 81 20 146/72 (96) 99 01/29/18 00:00 Room Air 01/28/18 23:16 36.4 79 20 150/81 (104) 99 Room Air 01/28/18 20:28 78 137/74 (95) 01/28/18 16:00 Room Air 01/28/18 15:07 36.3 75 20 168/90 (116) 100 General Appearance: no apparent distress, + thin Head: normocephalic, atraumatic Eyes: normal inspection, sclerae normal ENT: normal ENT inspection, + pertinent finding (oral mucosa dry) Neck: supple, no adenopathy Respiratory/Chest: lungs clear, no respiratory distress, no accessory muscle use Cardiovascular: regular rate, rhythm, no gallop Abdomen/GI: soft, + pertinent finding (colostomy with watery brown stool in bag , urostomy intact) Back: no CVA tenderness Extremities/Musculoskelatal: normal inspection, no pedal edema Neurologic/Psych: alert, normal mood/affect Laboratory Results Last 24 Hours Test 01/29/18 06:58 01/29/18 11:48 White Blood Count 10.76 K/uL Red Blood Count 3.56 M/uL Hemoglobin 10.2 g/dL Hematocrit 32.6 % Mean Corpuscular Volume 91.6 fL Mean Corpuscular Hemoglobin 28.7 pg Mean Corpuscular Hemoglobin Concent 31.3 g/dl Platelet Count 207 K/uL Mean Platelet Volume 8.8 fL Neutrophils (%) (Auto) 76.9 % Lymphocytes (%) (Auto) 8.4 % Monocytes (%) (Auto) 7.3 % Eosinophils (%) (Auto) 6.5 % Basophils (%) (Auto) 0.3 % Neutrophils # (Auto) 8.28 K/uL Lymphocytes # (Auto) 0.90 K/uL Monocytes # (Auto) 0.79 K/uL Eosinophils # (Auto) 0.70 K/uL Basophils # (Auto) 0.03 K/uL RDW Standard Deviation 60.3 fL RDW Coefficient of Variation 17.9 % Immature Granulocyte % (Auto) 0.6 % Immature Granulocyte # (Auto) 0.06 K/uL Sodium Level 140 mmol/L Potassium Level 3.9 mmol/L Chloride Level 115 mmol/L Carbon Dioxide Level 14 mmol/L Anion Gap 10.0 mmol/L Blood Urea Nitrogen 29 mg/dl Creatinine 2.15 mg/dl Est Creatinine Clear Calc Drug Dose 21.2 ml/min Estimated GFR () 25.7 Estimated GFR (Non- 22.1 BUN/Creatinine Ratio 13.6 Random Glucose 112 mg/dl Calcium Level 8.0 mg/dl Total Bilirubin 0.4 mg/dl Direct Bilirubin < 0.1 mg/dl Aspartate Amino Transf (AST/SGOT) 27 U/L Alanine Aminotransferase (ALT/SGPT) 36 U/L Alkaline Phosphatase 215 U/L Total Protein 6.0 gm/dl Albumin 2.7 gm/dl Lipase 1660 U/L Procalcitonin 0.12 ng/ml Random Cortisol 10.17 mcg/dl Impression (1) CKD (chronic kidney disease), stage IV (2) Metabolic acidosis (3) Colostomy complication (4) Anemia Anita is a 72-year-old female with a history of rectal cancer and a colovesical fistula resulting in colostomy and ileal conduit. She has advanced chronic kidney disease. She has high output from her colostomy. Anita has a chronic predominately non-anion gap metabolic acidosis related to bicarbonate losses and CKD. She is being treated for a recurrent UTI. Oral HCO3 replacement would be considered appropriate at this time. I discussed options with the patient. Metabolic profile is otherwise appropriate. We will start with NaHCO3 1300 mg BID and continue to monitor. She also has a chronic anemia which is likely multifactorial but likely at least in part related to renal dysfunction. Iron studies have been request. EPO held at this time.
[2018-01-29] MEDS: ERTAPENEM IV 1,000 MG in SODIUM CHLORIDE 0.9% 50ML 50 ML IV SCH (14:18)
[2018-01-29 14:54] VITALS: BP 156/84; PULSE 71; TEMP 35.4; O2SAT 100
--- NOTE | 2018-01-29 15:31 | DIAGNOSTIC IMAGING REPORT ---
ABDOMEN AND PELVIS CT WITH ORAL CONTRAST CT DOSE: 895.70 mGycm HISTORY: h/o colectomy, h/o ileal conduit with ureteral stent TECHNIQUE: Multiaxial CT images of the abdomen and pelvis were performed following the use of oral contrast. A dose lowering technique was utilized adhering to the principles of ALARA. COMPARISON STUDY: Abdomen and pelvis CT 03/30/2017. FINDINGS: Mild interstitial thickening at the lung bases, unchanged. No fractures within the visualized osseous structures. No hepatic or splenic masses. The adrenal glands are unremarkable. Prior cholecystectomy. Moderate intra and extra hepatic bile duct dilatation remains unchanged. There is been interval mild of peripancreatic inflammatory change. This is consistent with acute pancreatitis. No loculated fluid collections identified on this noncontrast study. There are few scattered punctate calcifications within the pancreas consistent with superimposed chronic pancreatitis. An IVC filter is in good position. There is a 1 cm stone within the right kidney. Bilateral renal atrophy, left greater than right. Severe bilateral hydroureteronephrosis is again noted. This has progressed on the left despite the presence of a left ureteral stent which extends through the ileal conduit and into the ostomy bag. There again noted postoperative changes consistent with cystectomy with ileal conduit. There is also a descending colostomy. No small bowel dilatation at this time. This has resolved. Therefore, no evidence for bowel obstruction. There are few small bowel diverticula. Urothelial thickening and periureteral fat stranding within the proximal left ureter. This has progressed. No retroperitoneal lymphadenopathy. Presacral soft tissue thickening and focal gas collection remains unchanged. The gas/measures 3.3 cm. This could represent the residual rectum or postoperative change. Small of gas within the vagina is also unchanged. IMPRESSION: 1. Interval development of acute pancreatitis. 2. Severe bilateral hydronephrosis is again noted. This has progressed on the left despite the presence of a left ureteral stent which appears to be in good position. Mild urothelial thickening and periureteral fat stranding at the proximal left ureter. This favors an infectious process. 3. Additional postoperative changes as described above. 4. Interval resolution of the dilated loops of small bowel seen on the prior studies. No evidence for bowel obstruction. Electronically signed by: Deshawn Alvarez M.D. 01/29/2018 3:30 PM Dictated Date/Time: 01/29/2018 3:16 PM
[2018-01-29] MEDS: POTASSIUM CHLORIDE INJ 20 MEQ in D5W AND LACTATED RINGERS 1,000 ML IV SCH (17:10)
[2018-01-29 20:14] VITALS: BP 153/82; PULSE 77; O2SAT 100
[2018-01-29] MEDS: AMITRIPTYLINE HCL 25 MG TAB PO SCH (20:16)
[2018-01-29] MEDS: SODIUM BICARBONATE 650 MG TAB PO SCH (20:18)
[2018-01-30 00:36] VITALS: BP 118/72; PULSE 70; TEMP 36.5; O2SAT 99
[2018-01-30] MEDS: POTASSIUM CHLORIDE INJ 20 MEQ in D5W AND LACTATED RINGERS 1,000 ML IV SCH ×2 (01:00→08:27)
[2018-01-30] MEDS: HEPARIN SOD 5000 UNIT/0.5 ML CARP SQ SCH ×3 (05:52→20:49)
[2018-01-30] MEDS: ACETAMINOPHEN 500 MG TAB PO SCH ×3 (05:52→20:54)
[2018-01-30] MEDS: LEVOTHYROXINE 75 MCG TAB PO SCH (05:52)
[2018-01-30] MEDS: SUCRALFATE 1 GM/10 ML UDC PO SCH ×4 (05:52→20:46)
[2018-01-30 06:27] LABS: HEMATOCRIT 31.2 % (37-47); HEMOGLOBIN 9.6 g/dL (12.0-16.0); MEAN CELL VOLUME 92.3 fL (80-100); MEAN CORPUSCULAR HEMOGLOBIN 28.4 pg (25-34); MEAN CORPUSCULAR HGB CONC 30.8 g/dl (32-36); MEAN PLATELET VOLUME 9.2 fL (7.4-10.4); PLATELET COUNT 222 K/uL (130-400); RED CELL DISTRIBUTION WIDTH CV 17.9 % (11.5-14.5); RED CELL DISTRIBUTION WIDTH SD 60.4 fL (36.4-46.3); WHITE BLOOD COUNT 9.53 K/uL (4.8-10.8)
[2018-01-30 07:08] LABS: ALBUMIN 2.6 gm/dl (3.4-5.0); ALKALINE PHOSPHATASE 190 U/L (45-117); ALT/SGPT 28 U/L (12-78); AST/SGOT 16 U/L (15-37); BLOOD UREA NITROGEN 24 mg/dl (7-18); CALCIUM 7.7 mg/dl (8.5-10.1); CARBON DIOXIDE 15 mmol/L (21-32); CREATININE 1.99 mg/dl (0.60-1.20); GLUCOSE 106 mg/dl (70-99); LIPASE 1025 U/L (73-393); PHOSPHORUS 3.9 mg/dl (2.5-4.9); SODIUM 143 mmol/L (136-145); TOTAL PROTEIN 5.6 gm/dl (6.4-8.2); TRANSFERRIN 175 mg/dl (200-360)
[2018-01-30 07:41] VITALS: BP 135/73; PULSE 74; TEMP 36.6; O2SAT 98
[2018-01-30] MEDS: LACTOBACILLUS ACIDOPHILUS (FLORANEX) TAB PO SCH ×2 (08:25→20:49)
[2018-01-30] MEDS: METOPROLOL TARTRATE 50 MG TAB PO SCH ×2 (08:25→20:47)
[2018-01-30] MEDS: FERROUS SULFATE 325 MG TAB PO SCH (08:25)
[2018-01-30] MEDS: CALCIUM 600MG + VIT D 400 IU TAB PO SCH (08:25)
[2018-01-30] MEDS: MULTIVITAMIN TAB PO SCH (08:25)
[2018-01-30] MEDS: DICYCLOMINE HCL 20 MG TAB PO SCH ×3 (08:25→20:48)
[2018-01-30] MEDS: GABAPENTIN 300 MG CAP PO SCH ×2 (08:26→20:49)
[2018-01-30] MEDS: PANTOprazole SOD 40 MG TAB PO SCH ×2 (08:26→20:50)
[2018-01-30] MEDS: CYANOCOBALAMIN 500 MCG TAB (VIT B-12) PO SCH (08:26)
[2018-01-30] MEDS: SODIUM BICARBONATE 650 MG TAB PO SCH ×2 (08:26→20:48)
[2018-01-30] MEDS: ASCORBIC ACID 500 MG TAB PO SCH (08:26)
[2018-01-30] MEDS: SERTRALINE HCL 50 MG TAB PO SCH (08:26)
[2018-01-30] MEDS: NIFEdipine 30 MG CR TAB PO SCH (08:26)
[2018-01-30] MEDS: CHOLECALCIFEROL 1000 INTER.UNIT TAB PO SCH (08:27)
[2018-01-30] MEDS: LORAZEPAM 0.5 MG TAB PO PRN (09:09)
--- NOTE | 2018-01-30 10:54 | DIAGNOSTIC IMAGING REPORT ---
MRCP CLINICAL HISTORY: Acute pancreatitis. COMPARISON STUDY: MRCP November 05, [address] of the abdomen and pelvis January 29, 2018. TECHNIQUE: Utilizing a 1.5 Zora magnet and dedicated coil, multiplanar, multi echo imaging of the abdomen was performed without intravenous contrast. FINDINGS: Moderate intra and extrahepatic biliary ductal dilatation is similar to MRCP of October 28, 2013. This is likely related to previous cholecystectomy. No common bile duct calculi are identified. Course and caliber of the main pancreatic duct is normal. Artifact from IVC filter is noted. There is mild peripancreatic infiltration and fluid. No peripancreatic fluid collection is present. Left hydronephrosis persists. Right hydronephrosis has improved since CT of January 29, 2018. A left lower quadrant descending colostomy is noted. There is no abdominal lymphadenopathy. IMPRESSION: 1. No common bile duct calculi identified. 2. No change in moderate biliary ductal dilatation since MRCP of November 05, 2013 which is likely related to prior cholecystectomy. 3. Mild peripancreatic infiltration and fluid consistent with acute pancreatitis. 4. Significant interval improvement in right hydronephrosis since CT of January 29, 2018. Persistent but slightly improved left hydronephrosis. Electronically signed by: Kodi Bowens M.D. 01/30/2018 10:53 AM Dictated Date/Time: 01/30/2018 10:19 AM
--- NOTE | 2018-01-30 12:37 | PROGRESS NOTE ---
DATE: 01/30/2018 SUBJECTIVE: Mrs. Law was admitted with yet another bout of urinary tract infections and abdominal discomfort. She is now on antibiotics. She also has had abdominal pain. She is n.p.o. because of suspected pancreatitis based on her significantly elevated serum amylase level. Additionally, she shows evidence once again a significant prerenal azotemia, although she has improved with volume expansion. Mrs. Law's history is one of carbohydrate intolerance, hypertension, hypothyroidism, hypercholesterolemia, and depression. In 1983, she had a rectal carcinoma that was treated with a local resection followed by radiation therapy. Her radiation therapy unfortunately was complicated by radiation proctitis. Since that time, she has had recurring episodes of small bowel obstructions and recurrent urinary tract infections. In 2011, she was found to have anal fissures and an active proctitis, again presumed to be secondary to her previous irradiation. She underwent a laparotomy when she was found to have a small bowel obstruction. She underwent a small bowel resection with an anastomosis. She also was found to have a bladder fistula that was repaired. At that time, she had a colostomy and a cystostomy. Postoperatively, on CT scan, she was found to have multiple intra-abdominal fluid collections. She was transferred to the [facility]. Her workup at [place] showed evidence that she had a transected left ureter. Bilateral nephrostomy tubes were placed. Subsequently, she underwent an ileal loop. Since that time, she has had a significant increase in her colostomy output which led to problems of volume depletion. She has been receiving IV fluids on a regular basis since that time in varying degrees. She has also been bothered by recurrent urinary tract infections. I was involved in her care for a few years. We were able to slow her ostomy output significantly with the use of octreotide, which she was receiving on a monthly basis. That significantly reduced her necessity for IV fluids. However, she continued to have recurrent urinary tract infections. She made the decision not to return for further octreotide injections. Since that time, she appears to have had an increase in her ostomy output. Additionally, she has continued to be treated for recurrent urinary tract infections. All of this has resulted in episodes of prerenal azotemia. Because of recurrent urinary tract infections and evidence of hydronephrosis about 3 months ago, she had bilateral ureteral stents placed by Dr. Malick Rosario in [place]. Dr. Rosario has been her urologist since 2011. He did her original ileal loop. She said that with the presence of the stents, she has had fewer symptoms of urinary tract infections at least until the current admission. She was now admitted with symptoms of another urinary tract infection. She has had a poor appetite and diminished oral intake. She has had nausea but no vomiting. She has been weak and lightheaded. Since admission, she has received IV fluids and bicarbonate. Her BUN and creatinine have been improving. She is not currently having any shaking chills or fevers. OBJECTIVE: GENERAL: On physical exam when seen by me this morning, she appeared to be fairly comfortable, but obviously chronically ill. VITAL SIGNS: Her blood pressure 135/73 with a pulse of 74 and regular. Respiratory rate is 18, her pulse ox 98% on room air. She is afebrile. SKIN: Shows a slightly sallow complexion. She does not appear to be particularly pale. She has multiple scars from prior abdominal surgeries as well as a scar from an apparent tracheostomy. Her skin turgor is somewhat diminished. She has no rash or infiltrative skin disease. LYMPHATICS: Show no palpable lymphadenopathy. HEAD: Normal. EYES: Grossly normal. The ocular fundi were not examined. EARS, NOSE, MOUTH AND THROAT: Unremarkable except for very dry oral mucous membranes. NECK: Supple. There is no jugular venous distention, carotid bruit, or thyromegaly. CHEST: Clear to auscultation. CARDIAC: Shows a regular rhythm. S1 and S2 are normal. I hear no murmur or gallop. ABDOMEN: Shows the colostomy with a watery stool in the bag. She has an urostomy in place as well. EXTREMITIES: Show no cyanosis, clubbing or peripheral edema. Peripheral pulses are diminished but intact. Examination of her back shows no CVA tenderness. NEUROLOGIC: Unremarkable. PERTINENT LABORATORY WORK: From today shows a white count of 9530. Differential was not done. Her hemoglobin 9.6, hematocrit 31.2. Red cell indices appear relatively normal. Her platelet count is 222,000. Her clinical chemistries from today show a sodium of 143 mmol/L, potassium 4.0 mmol/L, chloride is 117 mmol/L, and CO2 content 15 mmol/L. Her anion gap is reported at 11, but she does have hypoalbuminemia, which would increase her anion gap to about 14. Her BUN is 24, creatinine 1.99. Her random blood sugar 106. Her serum calcium is 7.7, but would correct to about 8.7 or more. Her phosphate 3.9. Her serum iron is 15. Her transferrin saturation is 6%. Her ferritin is 39.5. Her AST is 16. Her ALT is 28. Her alkaline phosphatase 190, total protein 5.6, albumin 2.6. Triglycerides 303. Her lipase 1025. ASSESSMENT: Mrs. Law is a 72-year-old woman with multiple complications of rectal cancer and its treatment. Although she fortunately has no evidence of recurrent tumor, she does have multiple complications resulting from therapy, most notably her radiation proctitis and associated abnormalities. 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 She has an ileal conduit in place. She is currently on ertapenem for her infection. Her BUN and creatinine have improved with hydration. RECOMMENDATIONS: 1. Continue with her IV fluids and the rate can be increased. At this time, I would recommend half normal saline with 1 amp of bicarbonate at a rate of about 125 mL an hour. 2. Continue with her antibiotics. 3. Would arrange with Dr. Rosario to arrange for stent replacements while she remains on antibiotics. 4. Since she did well previously on octreotide, I would recommend we resume that. This can be started with injections as an inpatient, starting with a 50 mcg twice daily to see if that will help with her ostomy output. As an outpatient, we can resume giving her monthly injections of a long-acting octreotide. 5. Rather than proceed with erythropoietin at the current time, I would give her IV iron to see if that can correct her anemia. She does report having some degree of bloody rectal discharge. No other immediate recommendations. I will follow her with you.
[2018-01-30] MEDS: [UNRECOGNIZED DRUG - OTHER] PO PRN (14:17)
[2018-01-30] MEDS: ERTAPENEM IV 1,000 MG in SODIUM CHLORIDE 0.9% 50ML 50 ML IV SCH (14:18)
[2018-01-30] MEDS ORDERED: DAPTOmycin IV 325 MG in SYRINGE 0 ML IV SCH (15:00)
[2018-01-30 15:02] VITALS: BP 133/75; PULSE 76; TEMP 36.5; O2SAT 98
[2018-01-30] MEDS: AMITRIPTYLINE HCL 25 MG TAB PO SCH (20:49)
--- NOTE | 2018-01-30 22:04 | Infectious Disease Progress Nt ---
Progress Note Date of Service Jan 30, 2018. 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 Patient has been found to have acute pancreatitis, which is recurrent for her. Complaining of abdominal pain. Remains afebrile. Urine culture with multiple organisms. All Other Systems: Reviewed and Negative Medications Current Inpatient Medications Medications (Trade) Dose Ordered Sig/Heather Route Start Time Stop Time Status Last Admin Dose Admin Heparin Sodium (Porcine) (Heparin Sq 5000 Unit/0.5ml) 5,000 unit Q8H SQ 01/25/18 22:00 02/24/18 15:59 Acetaminophen (Tylenol Tab) 650 mg Q4H PRN PO 01/25/18 16:00 02/24/18 15:59 Future Hold Magnesium Hydroxide (Milk Of Magnesia Susp) 30 ml Q6H PRN PO 01/25/18 16:00 02/24/18 15:59 Ondansetron HCl (Zofran Inj) 4 mg Q6H PRN IV 01/25/18 16:00 02/24/18 15:59 01/29/18 12:56 4 MG Acetaminophen (Tylenol Tab) 1,000 mg Q8 PO 01/25/18 22:00 02/24/18 21:59 01/30/18 20:54 1,000 MG Amitriptyline HCl (Elavil Tab) 25 mg HS PO 01/25/18 21:00 02/24/18 20:59 01/30/18 20:49 25 MG Dicyclomine HCl (Bentyl Tab) 20 mg TID PO 01/25/18 20:00 02/24/18 20:59 01/30/18 20:48 20 MG Ferrous Sulfate (Feosol Tab) 325 mg QAM PO 01/26/18 08:00 02/25/18 08:59 01/30/18 08:25 325 MG Gabapentin (Neurontin Cap) 300 mg BID PO 01/25/18 20:00 02/24/18 20:59 01/30/18 20:49 300 MG Levothyroxine Sodium (Synthroid Tab) 75 mcg DAILYBB PO 01/26/18 06:30 02/25/18 06:59 01/30/18 05:52 75 MCG Loperamide HCl (Imodium Cap) 4 mg Q6H PRN PO 01/25/18 16:00 02/24/18 15:59 Lorazepam (Ativan Tab) 0.5 mg TID PRN PO 01/25/18 16:00 02/24/18 15:59 01/30/18 09:09 0.5 MG Metoprolol Tartrate (Lopressor Tab) 50 mg BID PO 01/25/18 20:00 02/24/18 20:59 01/30/18 20:47 50 MG Multivitamins (Multivitamin Tab) 1 tab QAM PO 01/26/18 08:00 02/25/18 08:59 01/30/18 08:25 1 TAB Nifedipine (Procardia Xl Tab) 60 mg QAM PO 01/26/18 08:00 02/25/18 08:59 01/30/18 08:26 60 MG Oxycodone/ Acetaminophen (Percocet 5-325mg Tab) 1 tab Q12 PRN PO 01/25/18 16:00 02/08/18 15:59 01/27/18 21:32 1 TAB Sertraline HCl (Zoloft Tab) 50 mg QAM PO 01/26/18 08:00 02/25/18 08:59 01/30/18 08:26 50 MG Ascorbic Acid (Vitamin C Tab) 1,000 mg QAM PO 01/26/18 08:00 02/25/18 08:59 01/30/18 08:26 1,000 MG Calcium/Vitamin D (Caltrate Plus Tab) 1 tab QAM PO 01/26/18 08:00 02/25/18 08:59 01/30/18 08:25 1 TAB Cholecalciferol (Vitamin D Tab) 6,000 inter.unit DAILY PO 01/26/18 08:00 02/25/18 08:59 01/30/18 08:27 6,000 INTER.UNIT Cyanocobalamin (Vitamin B-12 Tab) 1,000 mcg QAM PO 01/26/18 08:00 02/25/18 08:59 01/30/18 08:26 1,000 MCG Pantoprazole Sodium (Protonix Tab) 40 mg BID PO 01/25/18 20:00 02/24/18 20:59 01/30/18 20:50 40 MG Lactobacillus Acidophilus (Floranex Tab) 1 tab BID PO 01/25/18 20:00 02/24/18 20:59 01/30/18 20:49 1 TAB Ertapenem 1000 mg/ Sodium Chloride 60 ml @ 120 mls/hr Q24H IV 01/26/18 15:00 01/31/18 15:29 01/30/18 14:18 120 MLS/HR Non-Formulary Medication (Non-Formulary Patient'S Own Med) 2 ea PRN PRN PO 01/25/18 19:45 02/24/18 19:44 01/30/18 14:17 2 EA Heparin Sodium (Porcine) (Heparin 100 Unit/ml 5ml Flush) 5 ml PRN PRN IV 01/26/18 01:30 02/25/18 01:29 01/30/18 09:18 5 ML Sucralfate (Carafate Susp) 1 gm ACHS PO 01/28/18 16:30 02/27/18 16:29 01/30/18 20:46 1 GM Sodium Bicarbonate (Sodium Bicarbonate Tab) 1,300 mg BID PO 01/29/18 20:00 02/28/18 19:59 01/30/18 20:48 1,300 MG Potassium Chloride 20 meq/ Dextrose/Lactated Ringer's 1,010 ml @ 75 mls/hr [id number] IV 01/29/18 16:30 02/28/18 16:29 01/30/18 08:27 75 MLS/HR Objective Vital Signs Date Time Temp Pulse Resp B/P (MAP) Pulse Ox O2 Delivery O2 Flow Rate FiO2 01/30/18 16:10 Room Air 01/30/18 15:02 36.5 76 18 133/75 (94) 98 Room Air 01/30/18 10:04 Room Air 01/30/18 07:41 36.6 74 18 135/73 (93) 98 Room Air 01/30/18 00:36 36.5 70 20 118/72 (87) 99 Room Air Physical Exam General Appearance: WD/WN, no apparent distress Eyes: normal inspection, EOMI, sclerae normal ENT: normal ENT inspection, hearing grossly normal, pharynx normal Neck: supple, no adenopathy, thyroid normal, trachea midline Respiratory/Chest: chest non-tender, lungs clear, normal breath sounds, no respiratory distress Cardiovascular: regular rate, rhythm, no gallop, no murmur Abdomen: normal bowel sounds, soft, no organomegaly, + tenderness Extremities: non-tender, no calf tenderness Neurologic/Psychiatric: alert, oriented x 3 Skin: normal color, warm/dry, no rash Lymphatic: no adenopathy Laboratory Results RUN DATE: 01/29/18 [facility] LAB PAGE 1 RUN TIME: 955 Specimen Inquiry PATIENT: DYAN GRAYSON LOC: [facility] U # : [id number] AGE/SX: 72/F ROOM: [facility] REG : 01/25/[address]: Cecilio Isaac MD : 1945 BED: 1 DIS : STATUS: ADM IN TLOC: SPEC #: [id number] VALE: 01/26/18 STATUS: COMP REQ #: [id number] RECD: 01/26/[address]: Katerin Salguero MD SOURCE: URINE CATH ENTR: 01/26/18-[address] [facility] [address]: Joe Ramsey M.D. [facility]: Gary Moran MD, Jessica A. 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 PRESSA/1951. Spoke to EDWIN Mayorga, she is going to check with the doctor and have him reorder this as a CC culture or collect a cath specimen, PRESSA/1999. Has Specimen Been Obtained/Collected? Y floor, spoke to Tierra, PRESSA/2118. Procedure Result Verified Site URINE CULTURE Final 01/29/18-955 THREE TYPES OF ORGANISMS PRESENT, ALL LOW COUNTS PROBABLE SKIN WILLIAM. NO FURTHER IDENTIFICATIONS OR SENSITIVITIES TO FOLLOW. Last 24 Hours Test 01/30/18 05:38 White Blood Count 9.53 K/uL Red Blood Count 3.38 M/uL Hemoglobin 9.6 g/dL Hematocrit 31.2 % Mean Corpuscular Volume 92.3 fL Mean Corpuscular Hemoglobin 28.4 pg Mean Corpuscular Hemoglobin Concent 30.8 g/dl RDW Standard Deviation 60.4 fL RDW Coefficient of Variation 17.9 % Platelet Count 222 K/uL Mean Platelet Volume 9.2 fL Sodium Level 143 mmol/L Potassium Level 4.0 mmol/L Chloride Level 117 mmol/L Carbon Dioxide Level 15 mmol/L Anion Gap 11.0 mmol/L Blood Urea Nitrogen 24 mg/dl Creatinine 1.99 mg/dl Est Creatinine Clear Calc Drug Dose 22.9 ml/min Estimated GFR () 28.2 Estimated GFR (Non- 24.3 BUN/Creatinine Ratio 12.1 Random Glucose 106 mg/dl Calcium Level 7.7 mg/dl Phosphorus Level 3.9 mg/dl Iron Level 15 mcg/dl Transferrin 175 mg/dl Transferrin % Saturation 6 % Ferritin 39.5 ng/ml Total Bilirubin 0.2 mg/dl Direct Bilirubin < 0.1 mg/dl Aspartate Amino Transf (AST/SGOT) 16 U/L Alanine Aminotransferase (ALT/SGPT) 28 U/L Alkaline Phosphatase 190 U/L Total Protein 5.6 gm/dl Albumin 2.6 gm/dl Triglycerides Level 303 mg/dl Lipase 1025 U/L Patient Name: DYAN GRAYSON Unit Number: [id number] Dictated: 01/29/181515 Transcribed: 01/29/181515 [facility] Printed Date/Time: [~ rep prt dt]/[~ rep prt tm] [~ rep ct labl] - [~ rep ct ivnm] [facility] [place] [address] Dictated: 01/29/181515 Transcribed: 01/29/181515 [facility] Printed Date/Time: [~ rep prt dt]/[~ rep prt tm] [~ rep ct labl] - [~ rep ct ivnm] [~ rep ct add3]] ABDOMEN AND PELVIS CT WITH ORAL CONTRAST CT DOSE: 895.70 mGycm HISTORY: h/o colectomy, h/o ileal conduit with ureteral stent TECHNIQUE: Multiaxial CT images of the abdomen and pelvis were performed following the use of oral contrast. A dose lowering technique was utilized adhering to the principles of ALA. COMPARISON STUDY: Abdomen and pelvis CT 03/30/2017. FINDINGS: Mild interstitial thickening at the lung bases, unchanged. No fractures within the visualized osseous structures. No hepatic or splenic masses. The adrenal glands are unremarkable. Prior cholecystectomy. Moderate intra and extra hepatic bile duct dilatation remains unchanged. There is been interval mild of peripancreatic inflammatory change. This is consistent with acute pancreatitis. No loculated fluid collections identified on this noncontrast study. There are few scattered punctate calcifications within the pancreas consistent with superimposed chronic pancreatitis. An IVC filter is in good position. There is a 1 cm stone within the right kidney. Bilateral renal atrophy, left greater than right. Severe bilateral hydroureteronephrosis is again noted. This has progressed on the left despite the presence of a left ureteral stent which extends through the ileal conduit and into the ostomy bag. There again noted postoperative changes consistent with cystectomy with ileal conduit. There is also a descending colostomy. No small bowel dilatation at this time. This has resolved. Therefore, no evidence for bowel obstruction. There are few small bowel diverticula. Urothelial thickening and periureteral fat stranding within the proximal left ureter. This has progressed. No retroperitoneal lymphadenopathy. Presacral soft tissue thickening and focal gas collection remains unchanged. The gas/measures 3.3 cm. This could represent the residual rectum or postoperative change. Small of gas within the vagina is also unchanged. IMPRESSION: 1. Interval development of acute pancreatitis. 2. Severe bilateral hydronephrosis is again noted. This has progressed on the left despite the presence of a left ureteral stent which appears to be in good position. Mild urothelial thickening and periureteral fat stranding at the proximal left ureter. This favors an infectious process. 3. Additional postoperative changes as described above. 4. Interval resolution of the dilated loops of small bowel seen on the prior studies. No evidence for bowel obstruction. Electronically signed by: Deshawn Alvarez M.D. 01/29/2018 3:30 PM Dictated Date/Time: 01/29/2018 3:16 PM The status of this report is Signed. Draft = Not yet reviewed or approved by Radiologist. Signed = Reviewed and approved by Radiologist. <AttendingPhy>Cecilio Isaac MD</AttendingPhy> <FamilyPhy>Malick Rosario M.D.</FamilyPhy> <PrimaryPhy>Joe Ramsey M.D.</PrimaryPhy> <UnitNumber> [id number]</UnitNumber> <VisitNumber>[id number]</VisitNumber> <PatientName> DYAN GRAYSON</PatientName> <DateOfBirth>1945</DateOfBirth> <Location> C.4[facility]</Location> <ServiceDate>01/25/18</ServiceDate> <MNE>ESINDI</MNE> < OrderingPhy>Cecilio Isaac MD</OrderingPhy> <OrderingPhyMNE>f rep ord dr ulloa< /OrderingPhyMNE> <DictatingPhyMNE>f rep dict dr ulloa</DictatingPhyMNE> <CCListMNE >f rep ct mne</CCListMNE> <AdmittingPhyMNE>f pt admit dr ulloa</AdmittingPhyMNE> < AttendingPhyMNE>f pt attend dr ulloa</AttendingPhyMNE> <ConsultingPhyMNE>f pt consult dr ulloa</ConsultingPhyMNE> <FamilyPhyMNE>f pt fam dr ulloa</FamilyPhyMNE> <OtherPhyMNE>f pt other dr ulloa</OtherPhyMNE> < PrimaryPhyMNE>f pt prim care dr ulloa</PrimaryPhyMNE> <ReferringPhyMNE>f pt referring dr ulloa</ReferringPhyMNE> Assessment and Plan 72-year-old female with recurrent pancreatitis as well as probable urinary tract infection and pyelonephritis. Patient to continue on IV antibiotics, to consider changing of ureteral stents. Will discuss with all involved. Will follow.
[2018-01-30 23:12] VITALS: BP 135/75; PULSE 70; TEMP 36.3; O2SAT 96
[2018-01-31] MEDS: POTASSIUM CHLORIDE INJ 20 MEQ in D5W AND LACTATED RINGERS 1,000 ML IV SCH (00:12)
--- NOTE | 2018-01-31 00:13 | Progress Note ---
Subjective Date of Service: Jan 30, 2018. Subjective Pt evaluation today including: conversation w/ patient, conversation w/ family (daughter at bedside), physical exam, chart review, lab review, review of studies (MRCP), review of inpatient medication list Pain: abd pain improved PO Intake: npo patient feels "a little better" today no nausea no emesis pain improved no dyspnea asks about ice chips urine more clear Problem List Medical Problems: (1) Allergic reaction Status: Acute (2) Cellulitis Status: Acute (3) Chronic diarrhea Status: Acute (4) CKD (chronic kidney disease) Status: Acute (5) Failure of outpatient treatment Status: Acute (6) Hyperglycemia Status: Acute (7) Intractable abdominal pain Status: Acute (8) Leg pain Status: Acute (9) Metabolic acidosis Status: Acute (10) Metabolic acidosis Status: Acute (11) Near syncope Status: Acute (12) Orthostatic hypotension Status: Acute (13) Partial small bowel obstruction Status: Acute (14) Urinary tract infection Status: Acute (15) Urinary tract infection Status: Acute (16) Urinary tract infection Status: Acute (17) Urticaria Status: Acute (18) UTI (urinary tract infection) Status: Chronic (19) Weakness Status: Acute (20) Weakness Status: Chronic (21) Weakness Status: Acute Review of Systems Constitutional: + fatigue, No fever Respiratory: No shortness of breath Cardiac: No chest pain, No orthopnea Abdomen: + see HPI, + pain Objective Vital Signs Date Time Temp Pulse Resp B/P (MAP) Pulse Ox O2 Delivery O2 Flow Rate FiO2 01/30/18 16:10 Room Air 01/30/18 15:02 36.5 76 18 133/75 (94) 98 Room Air 01/30/18 10:04 Room Air 01/30/18 07:41 36.6 74 18 135/73 (93) 98 Room Air 01/30/18 00:36 36.5 70 20 118/72 (87) 99 Room Air Physical Exam General Appearance: no apparent distress, + pertinent finding (looks tired but nontoxic) ENT: + pertinent finding (MM more moist today) Neck: no JVD Respiratory/Chest: lungs clear, no respiratory distress, no accessory muscle use Cardiovascular: regular rate, rhythm, no gallop, no JVD, no murmur Abdomen: normal bowel sounds, soft, no organomegaly, + tenderness (very mild epigastric region), + pertinent finding (colostomy with bag in place, dark stool ; ileal conduit with clear urine) Extremities: no pedal edema Neurologic/Psychiatric: alert, oriented x 3, + depressed affect Skin: + pallor Laboratory Results Last 24 Hours Test 01/30/18 05:38 White Blood Count 9.53 K/uL Red Blood Count 3.38 M/uL Hemoglobin 9.6 g/dL Hematocrit 31.2 % Mean Corpuscular Volume 92.3 fL Mean Corpuscular Hemoglobin 28.4 pg Mean Corpuscular Hemoglobin Concent 30.8 g/dl RDW Standard Deviation 60.4 fL RDW Coefficient of Variation 17.9 % Platelet Count 222 K/uL Mean Platelet Volume 9.2 fL Sodium Level 143 mmol/L Potassium Level 4.0 mmol/L Chloride Level 117 mmol/L Carbon Dioxide Level 15 mmol/L Anion Gap 11.0 mmol/L Blood Urea Nitrogen 24 mg/dl Creatinine 1.99 mg/dl Est Creatinine Clear Calc Drug Dose 22.9 ml/min Estimated GFR () 28.2 Estimated GFR (Non- 24.3 BUN/Creatinine Ratio 12.1 Random Glucose 106 mg/dl Calcium Level 7.7 mg/dl Phosphorus Level 3.9 mg/dl Iron Level 15 mcg/dl Transferrin 175 mg/dl Transferrin % Saturation 6 % Ferritin 39.5 ng/ml Total Bilirubin 0.2 mg/dl Direct Bilirubin < 0.1 mg/dl Aspartate Amino Transf (AST/SGOT) 16 U/L Alanine Aminotransferase (ALT/SGPT) 28 U/L Alkaline Phosphatase 190 U/L Total Protein 5.6 gm/dl Albumin 2.6 gm/dl Triglycerides Level 303 mg/dl Lipase 1025 U/L Assessment and Plan 72yo female - 1. complicated e.coli UTI (has ileal conduit with use of a ureteral stent) - day #6/7 ertapenem. Previous 2 urine cultures since the urine cx with e. coli are negative. Normal WBC count. NO fevers. 2. acute pancreatitis - improved. Continue LR fluids. Allow clear liquids. Lipase in am. Cause?? This episode occurred AFTER admission. MRCP without CBD stone. I spoke with pharmacy - rare case reports of ertapenem causing pancreatitis. Triglycerides mildly high at 300 but unlikely to have caused this. Had another episode of pancreatitis a few years ago and CT showed calcifications in the pancreas consistent with a chronic component of pancreatitis. Consider pancreatic enzyme replacement once eating again. Consider GI consult for any other recommendations. 3. CKD stage 4 - creatinine slightly improved again today; appreciate nephrology consultation. BMP am. 4. 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 Her chronic acidosis could be contributing to her constitutional symptoms. Sodium bicarbonate therapy added. Agree we should find ways to minimize her dumping with anti-motility agents, trial of pancrease, octreotide, etc. 5. chronically elevated PTT - recheck in am and if still prolonged then mixing study. 6. HTN: stable, continue home meds of metoprolol and nifedipine 7. Chronic normocytic anemia - iron studies c/w iron deficiency. Probably has element of chronic kidney disease anemia. b12/folate/tsh wnl. consider IV Fe while hospitalized. 8. Peripheral neuropathy/left Charcot foot - noted. 9. DVT proph - heparin SC. 10. hypothyroidism - compensated; cont synthroid as is; most recent TSH wnl. 11. History of colon cancer with colostomy in place and short gut syndrome Continue all vitamin and mineral supplementation see discussion above re: anti-motility agents, pancrease, etc. 12. ureteral stent in place - needs exchange at [facility] in the very near future. PT, OT raya completed - unclear if she will need rehab vs home with home therapy daughter updated today at bedside Continued [facility] stay due to: inadequate po fluid intake, ambulation difficulties , multiple IV medications needed, other (acute pancreatitis ) Discharge planning: uncertain
[2018-01-31] MEDS: HEPARIN SOD 5000 UNIT/0.5 ML CARP SQ SCH ×3 (05:44→20:53)
[2018-01-31] MEDS: LEVOTHYROXINE 75 MCG TAB PO SCH (06:29)
[2018-01-31] MEDS: ACETAMINOPHEN 500 MG TAB PO SCH ×3 (06:30→20:53)
[2018-01-31] MEDS: SUCRALFATE 1 GM/10 ML UDC PO SCH ×4 (06:30→20:54)
[2018-01-31 06:39] LABS: PTT PATIENT 32.8 SECONDS (21.0-31.0)
[2018-01-31 06:59] LABS: CALCIUM 7.9 mg/dl (8.5-10.1); CREATININE 1.84 mg/dl (0.60-1.20); POTASSIUM 4.1 mmol/L (3.5-5.1)
[2018-01-31 07:40] VITALS: BP 147/76; PULSE 84; TEMP 36.4; O2SAT 97
[2018-01-31] MEDS: GABAPENTIN 300 MG CAP PO SCH ×2 (08:52→20:50)
[2018-01-31] MEDS: CHOLECALCIFEROL 1000 INTER.UNIT TAB PO SCH (08:52)
[2018-01-31] MEDS: CYANOCOBALAMIN 500 MCG TAB (VIT B-12) PO SCH (08:52)
[2018-01-31] MEDS: CALCIUM 600MG + VIT D 400 IU TAB PO SCH (08:53)
[2018-01-31] MEDS: DICYCLOMINE HCL 20 MG TAB PO SCH ×3 (08:53→20:50)
[2018-01-31] MEDS: SODIUM BICARBONATE 650 MG TAB PO SCH ×2 (08:53→20:52)
[2018-01-31] MEDS: FERROUS SULFATE 325 MG TAB PO SCH (08:54)
[2018-01-31] MEDS: PANTOprazole SOD 40 MG TAB PO SCH ×2 (08:54→20:51)
[2018-01-31] MEDS: NIFEdipine 30 MG CR TAB PO SCH (08:54)
[2018-01-31] MEDS: SERTRALINE HCL 50 MG TAB PO SCH (08:54)
[2018-01-31] MEDS: LACTOBACILLUS ACIDOPHILUS (FLORANEX) TAB PO SCH ×2 (08:54→20:50)
[2018-01-31] MEDS: MULTIVITAMIN TAB PO SCH (08:54)
[2018-01-31] MEDS: ASCORBIC ACID 500 MG TAB PO SCH (08:55)
[2018-01-31] MEDS: METOPROLOL TARTRATE 50 MG TAB PO SCH ×2 (08:55→20:54)
--- NOTE | 2018-01-31 11:40 | PROGRESS NOTE ---
DATE: 01/31/2018 SUBJECTIVE: Ms. Law says that she is feeling slightly better. Her appetite seems to be slightly improved. Her mouth is not quite as dry. She is still somewhat thirsty. She denies having any abdominal pain. She has no other specific symptoms or problems. She denies being short of breath. OBJECTIVE: GENERAL: On physical exam when seen Ms. Law appears as a chronically ill woman who was in no distress when seen. VITAL SIGNS: Her temperature is 36.4, her blood pressure 147/76, her pulse 84 and regular, respiratory rate 18, her pulse ox 96-98% on room air. SKIN: Shows slightly diminished skin turgor. Her complexion is slightly sallow. She has multiple scars and ostomies from prior surgical procedures. She has no rash. LYMPHATICS: Show no palpable adenopathy. HEAD: Normal. EYES: Grossly normal. There is no conjunctival icterus. EARS, NOSE, MOUTH, AND THROAT: Unremarkable. Oral mucous membranes are moist. NECK: Supple. She has no jugular venous distention. I hear no carotid bruit and there is no thyromegaly. CHEST: Shows a few crackles at the left base. It is otherwise clear to auscultation. CARDIAC: Shows a regular rhythm. S1 and S2 are normal. I hear no murmur or gallop. ABDOMEN: Shows active bowel sounds. She has a colostomy with watery stool in the bag. An ileal loop is also present. Her urine appears clear. EXTREMITIES: Show no cyanosis, clubbing, or peripheral edema. Peripheral pulses are diminished, but present. Examination of her back shows no CVA tenderness. NEUROLOGIC: Shows no lateralizing changes. LABORATORY: Pertinent laboratory work shows a sodium of 146 mmol/L, potassium 4.1 mmol/L, chloride is 119 mmol/L, and CO2 content 18 mmol/L. Her BUN is down to 21, creatinine down to 1.84. Her serum calcium is 7.9. Her lipase is down to 584. ASSESSMENT: State of hydration is improved. She is hypernatremic at the current time, which may drive her thirst. She has a non-anion gap type acidosis. RECOMMENDATIONS: Discussed with Dr. Isaac about her iron deficiency. We agree that IV iron would be helpful for her. Additionally, we should check her B12 and folic acid levels. We also agree that to slow her ostomy output, it may be beneficial to resume octreotide initially in a relatively low dose of 50 mcg subQ q. 12 hours. We will see if that can slow her ostomy output. We need to make sure that she gets her urinary stent change. She should remain on antibiotics until that time. No other immediate recommendations for now.
[2018-01-31] MEDS: OCTREOTIDE ACETATE 100 MCG/ML VIAL SQ SCH ×2 (12:32→20:59)
[2018-01-31] MEDS: DEXTROSE 5% IV SCH (12:55)
[2018-01-31] MEDS: SODIUM BICARBONATE IV SCH (12:55)
[2018-01-31] MEDS: ERTAPENEM IV 1,000 MG in SODIUM CHLORIDE 0.9% 50ML 50 ML IV SCH (14:35)
[2018-01-31] MEDS ORDERED: IRON SUCROSE INJ 100 MG in SODIUM CHLORIDE 0.9% 100ML 100 ML IV SCH (15:00)
--- NOTE | 2018-01-31 19:33 | Progress Note ---
Subjective Date of Service: Jan 31, 2018. Subjective Pt evaluation today including: conversation w/ patient, conversation w/ family ( at bedside ), physical exam, chart review, lab review, conversation w/ professional benefits sales consultant (nephrology), review of inpatient medication list Pain: abdominal pain much improved PO Intake: tolerating clears pt overall feels better walking the hallways this afternoon I attempted to call her urologist, Dr. Malick Rosario - [phone] - evon message - awaiting call back. no nausea no emesis no new complaints Problem List Medical Problems: (1) Allergic reaction Status: Acute (2) Cellulitis Status: Acute (3) Chronic diarrhea Status: Acute (4) CKD (chronic kidney disease) Status: Acute (5) Failure of outpatient treatment Status: Acute (6) Hyperglycemia Status: Acute (7) Intractable abdominal pain Status: Acute (8) Leg pain Status: Acute (9) Metabolic acidosis Status: Acute (10) Metabolic acidosis Status: Acute (11) Near syncope Status: Acute (12) Orthostatic hypotension Status: Acute (13) Partial small bowel obstruction Status: Acute (14) Urinary tract infection Status: Acute (15) Urinary tract infection Status: Acute (16) Urinary tract infection Status: Acute (17) Urticaria Status: Acute (18) UTI (urinary tract infection) Status: Chronic (19) Weakness Status: Acute (20) Weakness Status: Chronic (21) Weakness Status: Acute Review of Systems Constitutional: No fever, No chills Respiratory: No shortness of breath, No dyspnea on exertion Cardiac: No chest pain Abdomen: No nausea, No vomiting Objective Vital Signs Date Time Temp Pulse Resp B/P (MAP) Pulse Ox O2 Delivery O2 Flow Rate FiO2 01/31/18 08:50 Room Air 01/31/18 07:40 36.4 84 18 147/76 (99) 97 01/31/18 00:00 Room Air 01/30/18 23:12 36.3 70 19 135/75 (95) 96 Room Air 01/30/18 16:10 Room Air 01/30/18 15:02 36.5 76 18 133/75 (94) 98 Room Air Physical Exam General Appearance: no apparent distress, + pertinent finding (looks better today) ENT: + pertinent finding (MM more moist today) Neck: no JVD Respiratory/Chest: lungs clear, no respiratory distress, no accessory muscle use Cardiovascular: regular rate, rhythm, no gallop, no murmur Abdomen: normal bowel sounds, non tender, soft, no organomegaly, + pertinent finding (ileal conduit in place; urine is clear; colostomy in place with bag - stool not as dark) Extremities: no pedal edema Neurologic/Psychiatric: alert, oriented x 3 Skin: + pallor Laboratory Results Last 24 Hours Test 01/31/18 06:06 Activated Partial Thromboplast Time 32.8 SECONDS Partial Thromboplastin Ratio 1.3 Sodium Level 146 mmol/L Potassium Level 4.1 mmol/L Chloride Level 119 mmol/L Carbon Dioxide Level 18 mmol/L Anion Gap 9.0 mmol/L Blood Urea Nitrogen 21 mg/dl Creatinine 1.84 mg/dl Est Creatinine Clear Calc Drug Dose 24.8 ml/min Estimated GFR () 31.0 Estimated GFR (Non- 26.7 BUN/Creatinine Ratio 11.5 Random Glucose 99 mg/dl Calcium Level 7.9 mg/dl Lipase 584 U/L Assessment and Plan 72yo female - 1. complicated e.coli UTI (has ileal conduit with use of a ureteral stent) - day #7ertapenem. Previous 2 urine cultures since the urine cx with e. coli are negative. Normal WBC count. NO fevers. Improved. There is discussion about leaving her on IV antibiotics until her ureteral stent can be exchanged. 2. acute pancreatitis - improved clinically and lab-lopez. Advance diet to full liquids. Cause?? This episode occurred AFTER admission. MRCP without CBD stone. I spoke with pharmacy - rare case reports of ertapenem causing pancreatitis. Triglycerides mildly high at 300 but unlikely to have caused this. Had another episode of pancreatitis a few years ago and CT showed calcifications in the pancreas consistent with a chronic component of pancreatitis. Consider pancreatic enzyme replacement once eating again. Lipase and lfts in am. 3. CKD stage 4 - creatinine again improved; appreciate nephrology consultation. BMP am. 4. 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 Sodium bicarbonate therapy added. Agree we should find ways to minimize her dumping with anti-motility agents, trial of pancrease, octreotide, etc. 5. chronically elevated PTT - recheck essentially normal. 6. HTN: stable, continue home meds of metoprolol and nifedipine 7. Chronic normocytic anemia - iron studies c/w iron deficiency. Probably has element of chronic kidney disease anemia. b12/tsh wnl. Ordered venofer 100mg IV x 1 today. Check folic acid level am. 8. Peripheral neuropathy/left Charcot foot - noted. 9. DVT proph - heparin SC. 10. hypothyroidism - compensated; cont synthroid as is; most recent TSH wnl. 11. History of colon cancer with colostomy in place and short gut syndrome Continue all vitamin and mineral supplementation see discussion above re: anti-motility agents, pancrease, etc. 12. ureteral stent in place - needs exchange at [facility] in the very near future. Left message for Dr. Rosario, urology, in [place] in [place]; awaiting call back. 13. hypernatremia - stop current LR fluids; change to D5W with 1 amp bicarb - run at 75cc/hr. BMP am. PT, OT raya completed - can return home updated at bedside today progressing Continued [facility] stay due to: inadequate po fluid intake, ambulation difficulties , multiple IV medications needed, other (acute pancreatitis ) Discharge planning: home with home health
--- NOTE | 2018-01-31 20:22 | Infectious Disease Progress Nt ---
Progress Note Date of Service Jan 31, 2018. Subjective Pt evaluation today including: conversation w/ patient, conversation w/ family , physical exam, chart review, lab review, review of studies, conversation w/ literacy consultant, review of inpatient medication list Patient feeling better, abdominal pain improved. Remains afebrile. Lipase down to 580+ this morning. All Other Systems: Reviewed and Negative Medications Current Inpatient Medications Medications (Trade) Dose Ordered Sig/Heather Route Start Time Stop Time Status Last Admin Dose Admin Heparin Sodium (Porcine) (Heparin Sq 5000 Unit/0.5ml) 5,000 unit Q8H SQ 01/25/18 22:00 02/24/18 15:59 Acetaminophen (Tylenol Tab) 650 mg Q4H PRN PO 01/25/18 16:00 02/24/18 15:59 Future Hold Magnesium Hydroxide (Milk Of Magnesia Susp) 30 ml Q6H PRN PO 01/25/18 16:00 02/24/18 15:59 Ondansetron HCl (Zofran Inj) 4 mg Q6H PRN IV 01/25/18 16:00 02/24/18 15:59 01/29/18 12:56 4 MG Acetaminophen (Tylenol Tab) 1,000 mg Q8 PO 01/25/18 22:00 02/24/18 21:59 01/31/18 12:31 1,000 MG Amitriptyline HCl (Elavil Tab) 25 mg HS PO 01/25/18 21:00 02/24/18 20:59 01/30/18 20:49 25 MG Dicyclomine HCl (Bentyl Tab) 20 mg TID PO 01/25/18 20:00 02/24/18 20:59 01/31/18 12:29 20 MG Ferrous Sulfate (Feosol Tab) 325 mg QAM PO 01/26/18 08:00 02/25/18 08:59 01/31/18 08:54 325 MG Gabapentin (Neurontin Cap) 300 mg BID PO 01/25/18 20:00 02/24/18 20:59 01/31/18 08:52 300 MG Levothyroxine Sodium (Synthroid Tab) 75 mcg DAILYBB PO 01/26/18 06:30 02/25/18 06:59 01/31/18 06:29 75 MCG Loperamide HCl (Imodium Cap) 4 mg Q6H PRN PO 01/25/18 16:00 02/24/18 15:59 Lorazepam (Ativan Tab) 0.5 mg TID PRN PO 01/25/18 16:00 02/24/18 15:59 01/30/18 09:09 0.5 MG Metoprolol Tartrate (Lopressor Tab) 50 mg BID PO 01/25/18 20:00 02/24/18 20:59 01/31/18 08:55 50 MG Multivitamins (Multivitamin Tab) 1 tab QAM PO 01/26/18 08:00 02/25/18 08:59 01/31/18 08:54 1 TAB Nifedipine (Procardia Xl Tab) 60 mg QAM PO 01/26/18 08:00 02/25/18 08:59 01/31/18 08:54 60 MG Oxycodone/ Acetaminophen (Percocet 5-325mg Tab) 1 tab Q12 PRN PO 01/25/18 16:00 02/08/18 15:59 01/27/18 21:32 1 TAB Sertraline HCl (Zoloft Tab) 50 mg QAM PO 01/26/18 08:00 02/25/18 08:59 01/31/18 08:54 50 MG Ascorbic Acid (Vitamin C Tab) 1,000 mg QAM PO 01/26/18 08:00 02/25/18 08:59 01/31/18 08:55 1,000 MG Calcium/Vitamin D (Caltrate Plus Tab) 1 tab QAM PO 01/26/18 08:00 02/25/18 08:59 01/31/18 08:53 1 TAB Cholecalciferol (Vitamin D Tab) 6,000 inter.unit DAILY PO 01/26/18 08:00 02/25/18 08:59 01/31/18 08:52 6,000 INTER.UNIT Cyanocobalamin (Vitamin B-12 Tab) 1,000 mcg QAM PO 01/26/18 08:00 02/25/18 08:59 01/31/18 08:52 1,000 MCG Pantoprazole Sodium (Protonix Tab) 40 mg BID PO 01/25/18 20:00 02/24/18 20:59 01/31/18 08:54 40 MG Lactobacillus Acidophilus (Floranex Tab) 1 tab BID PO 01/25/18 20:00 8/17/18 20:59 01/31/18 08:54 1 TAB Ertapenem 1000 mg/ Sodium Chloride 60 ml @ 120 mls/hr Q24H IV 01/26/18 15:00 02/04/18 14:59 01/31/18 14:35 120 MLS/HR Non-Formulary Medication (Non-Formulary Patient'S Own Med) 2 ea PRN PRN PO 01/25/18 19:45 02/24/18 19:44 01/30/18 14:17 2 EA Heparin Sodium (Porcine) (Heparin 100 Unit/ml 5ml Flush) 5 ml PRN PRN IV 01/26/18 01:30 02/25/18 01:29 01/30/18 09:18 5 ML Sucralfate (Carafate Susp) 1 gm ACHS PO 01/28/18 16:30 02/27/18 16:29 01/31/18 15:49 1 GM Sodium Bicarbonate (Sodium Bicarbonate Tab) 1,300 mg BID PO 01/29/18 20:00 02/28/18 19:59 01/31/18 08:53 1,300 MG Octreotide Acetate (Sandostatin Inj) 100 mcg Q8H SQ 01/31/18 12:00 03/02/18 11:59 01/31/18 12:32 100 MCG Sodium Bicarbonate 50 meq/Dextrose 1,050 ml @ 75 mls/hr Q14H IV 01/31/18 12:15 03/02/18 12:14 01/31/18 12:55 75 MLS/HR Objective Vital Signs Date Time Temp Pulse Resp B/P (MAP) Pulse Ox O2 Delivery O2 Flow Rate FiO2 01/31/18 16:10 Room Air 01/31/18 08:50 Room Air 01/31/18 07:40 36.4 84 18 147/76 (99) 97 01/31/18 00:00 Room Air 01/30/18 23:12 36.3 70 19 135/75 (95) 96 Room Air Physical Exam General Appearance: WD/WN, no apparent distress Eyes: normal inspection, EOMI, sclerae normal ENT: normal ENT inspection, pharynx normal Neck: supple, no adenopathy, thyroid normal, trachea midline Respiratory/Chest: chest non-tender, lungs clear, normal breath sounds, no respiratory distress Cardiovascular: regular rate, rhythm, no gallop, no murmur Abdomen: normal bowel sounds, soft, no organomegaly, + tenderness Extremities: non-tender, no calf tenderness Neurologic/Psychiatric: alert, oriented x 3 Skin: normal color, warm/dry, no rash Lymphatic: no adenopathy Laboratory Results Last 24 Hours Test 01/31/18 06:06 Activated Partial Thromboplast Time 32.8 SECONDS Partial Thromboplastin Ratio 1.3 Sodium Level 146 mmol/L Potassium Level 4.1 mmol/L Chloride Level 119 mmol/L Carbon Dioxide Level 18 mmol/L Anion Gap 9.0 mmol/L Blood Urea Nitrogen 21 mg/dl Creatinine 1.84 mg/dl Est Creatinine Clear Calc Drug Dose 24.8 ml/min Estimated GFR () 31.0 Estimated GFR (Non- 26.7 BUN/Creatinine Ratio 11.5 Random Glucose 99 mg/dl Calcium Level 7.9 mg/dl Lipase 584 U/L Assessment and Plan 72-year-old female with recurrent pancreatitis as well as possible upper tract urinary infection with indwelling stent. Patient should continue IV antibiotics for now, await decision regarding stent replacement. Will follow.
[2018-01-31] MEDS: AMITRIPTYLINE HCL 25 MG TAB PO SCH (20:50)
[2018-01-31] MEDS ORDERED: TRAMADOL HCL 50 MG TAB PO STA (22:49)
[2018-01-31 23:30] VITALS: BP 135/76; PULSE 79; TEMP 36.6; O2SAT 98
[2018-02-01] MEDS ORDERED: NURSING VERBAL MED ORDER ONE (04:45)
[2018-02-01] MEDS: SUCRALFATE 1 GM/10 ML UDC PO SCH (05:04)
[2018-02-01] MEDS: LEVOTHYROXINE 75 MCG TAB PO SCH (05:04)
[2018-02-01] MEDS: HEPARIN SOD 5000 UNIT/0.5 ML CARP SQ SCH ×3 (05:04→20:58)
[2018-02-01] MEDS: SODIUM BICARBONATE IV SCH (05:05)
[2018-02-01] MEDS: DEXTROSE 5% IV SCH (05:05)
[2018-02-01] MEDS: OCTREOTIDE ACETATE 100 MCG/ML VIAL SQ SCH ×3 (05:16→20:59)
[2018-02-01] MEDS: ACETAMINOPHEN 500 MG TAB PO SCH ×3 (05:17→21:00)
[2018-02-01 06:51] LABS: ALBUMIN 2.5 gm/dl (3.4-5.0); CALCIUM 7.5 mg/dl (8.5-10.1); CREATININE 1.85 mg/dl (0.60-1.20); POTASSIUM 3.8 mmol/L (3.5-5.1); TOTAL PROTEIN 5.5 gm/dl (6.4-8.2)
[2018-02-01 07:22] VITALS: BP 147/76; PULSE 86; TEMP 36.6; O2SAT 98
[2018-02-01 08:45] VITALS: O2SAT 98
[2018-02-01] MEDS: FERROUS SULFATE 325 MG TAB PO SCH (08:54)
[2018-02-01] MEDS: MULTIVITAMIN TAB PO SCH (08:54)
[2018-02-01] MEDS: GABAPENTIN 300 MG CAP PO SCH ×2 (08:54→20:59)
[2018-02-01] MEDS: NIFEdipine 30 MG CR TAB PO SCH (08:54)
[2018-02-01] MEDS: LACTOBACILLUS ACIDOPHILUS (FLORANEX) TAB PO SCH ×2 (08:55→20:59)
[2018-02-01] MEDS: CALCIUM 600MG + VIT D 400 IU TAB PO SCH (08:55)
[2018-02-01] MEDS: CHOLECALCIFEROL 1000 INTER.UNIT TAB PO SCH (08:55)
[2018-02-01] MEDS: SERTRALINE HCL 50 MG TAB PO SCH (08:55)
[2018-02-01] MEDS: DICYCLOMINE HCL 20 MG TAB PO SCH ×3 (08:55→20:59)
[2018-02-01] MEDS: PANTOprazole SOD 40 MG TAB PO SCH ×2 (08:55→20:59)
[2018-02-01] MEDS: ASCORBIC ACID 500 MG TAB PO SCH (08:56)
[2018-02-01] MEDS: SODIUM BICARBONATE 650 MG TAB PO SCH ×2 (08:56→20:59)
[2018-02-01] MEDS: METOPROLOL TARTRATE 50 MG TAB PO SCH ×2 (08:57→20:59)
[2018-02-01] MEDS: CYANOCOBALAMIN 500 MCG TAB (VIT B-12) PO SCH (09:19)
[2018-02-01] MEDS ORDERED: PANCREAZE (LIPASE 10,500U) CAP PO PRN (12:45)
--- NOTE | 2018-02-01 13:29 | PROGRESS NOTE ---
DATE: 02/01/2018 RENAL PROGRESS NOTE SUBJECTIVE: Mrs. Law says that she is feeling somewhat better today. She denies having any significant abdominal pain. She is taking liquids. She denies any nausea or vomiting. She says that she continues to have a relatively high ostomy output. She has noted a small amount of discharge around her urinary tube. She said that that appears to be "infected." She is uncertain as to whether or not her ostomy output has decreased since she was started on octreotide. In general, however, she is feeling better. OBJECTIVE: GENERAL: On physical exam Mrs. Law appears as a chronically ill woman of about her stated age of 72. VITAL SIGNS: She is afebrile (36.6), her blood pressure 147/76, her pulse 86 and regular, respiratory rate 16, her pulse ox is 98% on room air. SKIN: Shows slightly reduced skin turgor. She has no rash or infiltrative skin disease. She has the ostomies previously recognized. Her complexion is slightly sallow. LYMPHATICS: Show no palpable adenopathy. HEAD: Normal. EYES: Grossly normal. She has no conjunctival icterus. EARS, NOSE, MOUTH AND THROAT: Unremarkable. Oral mucous membranes are moist. NECK: Supple. She has no jugular venous distention. There is no carotid bruit or thyromegaly. CHEST: Clear to auscultation. I hear no wheezes, rales or rhonchi. CARDIAC: Shows a regular rhythm. I hear no murmur or gallop. ABDOMEN: Shows active bowel sounds. She has the colostomy with liquid brown stool in it. She also has an ileal loop. Her urine is relatively clear. EXTREMITIES: Show no cyanosis, clubbing or peripheral edema. Peripheral pulses are diminished but present. She has no CVA tenderness. NEUROLOGIC: Shows no lateralizing changes. PERTINENT LABORATORY WORK: From today shows a sodium of 141 mmol/L, potassium 3.8 mmol/L, chloride is 112 mmol/L, and CO2 content 21 mmol/L. Her BUN is 19, her creatinine 1.85, which is stable. Her serum calcium is 7.5. Her total bilirubin is 0.4. Her AST is 18, her ALT is 20 and her alkaline phosphatase 207. Her total protein is 5.5 and her albumin 2.5. Her lipase is down to 256. Her serum folate is 23.44. A vitamin B12 was apparently not drawn. ASSESSMENT: Symptomatically, Mrs. Law appears to be somewhat improved. Her electrolytes are gradually normalizing with the current IV fluids and I would certainly continue them. Hopefully, as she remains asymptomatic, she will tolerate more food/nutrition. RECOMMENDATIONS: No changes in the current regimen. She will need to be scheduled soon to see Dr. Rosario, her urologist in [place] to probably change her urinary stents. I would continue with her octreotide. We will make arrangements for her to receive outpatient longacting octreotide as she had before. I will continue to follow her with you.
[2018-02-01] MEDS: ERTAPENEM IV 1,000 MG in SODIUM CHLORIDE 0.9% 50ML 50 ML IV SCH (13:55)
[2018-02-01 15:44] VITALS: BP 135/77; PULSE 73; TEMP 36.6; O2SAT 96
[2018-02-01] MEDS: PANCREAZE (LIPASE 10,500U) CAP PO SCH (17:03)
[2018-02-01] MEDS: AMITRIPTYLINE HCL 25 MG TAB PO SCH (20:59)
[2018-02-01] MEDS: LORAZEPAM 0.5 MG TAB PO PRN (23:14)
[2018-02-01 23:51] VITALS: BP 126/73; PULSE 79; TEMP 36.7; O2SAT 95
[2018-02-02] MEDS: OXYCODONE/ACETAMINOPHEN 5-325 TAB PO PRN (00:36)
--- NOTE | 2018-02-02 04:57 | Progress Note ---
Subjective Date of Service: Feb 01, 2018. Subjective Pt evaluation today including: conversation w/ patient, conversation w/ family (), physical exam, chart review, lab review, conversation w/ sales and service consultant ( spoke with Dr. Rosario's office (urology) in [place]) Pain: abd pain resolved PO Intake: improved, tolerating full liquids no events overnight except for right lower back pain/hip pain when she had ambulated to the toilet; pain was brief and self-resolved ambulating the hallways otherwise no dyspnea no chest pain no nausea/emesis stool in colostomy bag - output is reasonable, no excessive output Problem List Medical Problems: (1) Allergic reaction Status: Acute (2) Cellulitis Status: Acute (3) Chronic diarrhea Status: Acute (4) CKD (chronic kidney disease) Status: Acute (5) Failure of outpatient treatment Status: Acute (6) Hyperglycemia Status: Acute (7) Intractable abdominal pain Status: Acute (8) Leg pain Status: Acute (9) Metabolic acidosis Status: Acute (10) Metabolic acidosis Status: Acute (11) Near syncope Status: Acute (12) Orthostatic hypotension Status: Acute (13) Partial small bowel obstruction Status: Acute (14) Urinary tract infection Status: Acute (15) Urinary tract infection Status: Acute (16) Urinary tract infection Status: Acute (17) Urticaria Status: Acute (18) UTI (urinary tract infection) Status: Chronic (19) Weakness Status: Acute (20) Weakness Status: Chronic (21) Weakness Status: Acute Review of Systems Constitutional: No fever, No chills, No fatigue Respiratory: No cough Cardiac: No chest pain Abdomen: No pain Objective Vital Signs Date Time Temp Pulse Resp B/P (MAP) Pulse Ox O2 Delivery O2 Flow Rate FiO2 02/01/18 16:30 Room Air 02/01/18 15:44 36.6 73 18 135/77 (96) 96 Room Air 02/01/18 08:45 98 Room Air 02/01/18 07:22 36.6 86 16 147/76 (99) 98 02/01/18 00:00 Room Air 01/31/18 23:30 36.6 79 20 135/76 (95) 98 Room Air Physical Exam General Appearance: no apparent distress, + pertinent finding (looks really good today) ENT: pharynx normal (MMM, no thrush) Neck: no JVD Respiratory/Chest: lungs clear, no respiratory distress, no accessory muscle use Cardiovascular: regular rate, rhythm, no gallop, no murmur Abdomen: normal bowel sounds, non tender, soft, no organomegaly, + pertinent finding (urostomy/ileal conduit with clear urine; ureteral stent in position; colostomy bag with normal appearing stool ) Extremities: no pedal edema Neurologic/Psychiatric: alert, oriented x 3 Laboratory Results Last 24 Hours Test 02/01/18 06:03 02/01/18 15:19 Sodium Level 141 mmol/L Potassium Level 3.8 mmol/L Chloride Level 112 mmol/L Carbon Dioxide Level 21 mmol/L Anion Gap 8.0 mmol/L Blood Urea Nitrogen 19 mg/dl Creatinine 1.85 mg/dl Est Creatinine Clear Calc Drug Dose 24.6 ml/min Estimated GFR () 30.8 Estimated GFR (Non- 26.5 BUN/Creatinine Ratio 10.3 Random Glucose 115 mg/dl Calcium Level 7.5 mg/dl Total Bilirubin 0.4 mg/dl Aspartate Amino Transf (AST/SGOT) 18 U/L Alanine Aminotransferase (ALT/SGPT) 20 U/L Alkaline Phosphatase 207 U/L Total Protein 5.5 gm/dl Albumin 2.5 gm/dl Globulin 3.0 gm/dl Albumin/Globulin Ratio 0.8 Lipase 256 U/L Folate 23.44 ng/mL Vitamin B12 Level > 2000 pg/mL Assessment and Plan 72yo female - 1. complicated e.coli UTI (has ileal conduit with use of a ureteral stent) - day #8 ertapenem. Previous 2 urine cultures since the urine cx with e. coli are negative. Plan is for continued daily IV ertapenem until stent is exchanged by interventional radiology at [facility] in [place]. 2. acute pancreatitis - resolved. Advance diet to low fat. Cause?? This episode occurred AFTER admission. MRCP without CBD stone. I spoke with pharmacy - rare case reports of ertapenem causing pancreatitis. Triglycerides mildly high at 300 but unlikely to have caused this. Had another episode of pancreatitis a few years ago and CT showed calcifications in the pancreas consistent with a chronic component of pancreatitis. LFTs have remained stable (minimal elevation in alk phos - significance uncertain). Given the chronic pancreatitis findings on CT I am adding creon TID w/ meals and snacks as some of her dumping could be pancreatic insufficiency. 3. CKD stage 4 - creatinine again improved; appreciate nephrology consultation. BMP am. 4. 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 Sodium bicarbonate therapy added. Agree we should find ways to minimize her dumping with anti-motility agents as well as octreotid. Dr. Mckeon trying to arrange extended release octreotide as outpatient. 5. chronically elevated PTT - recheck essentially normal. 6. HTN: stable, continue home meds of metoprolol and nifedipine 7. Chronic normocytic anemia - iron studies c/w iron deficiency. Probably has element of chronic kidney disease anemia as well. b12/tsh/folate wnl. s/p venofer 100mg IV x 1 and tolerated such. 8. Peripheral neuropathy/left Charcot foot - noted. Continue protective boot w / ambulation. 9. DVT proph - heparin SC. 10. hypothyroidism - compensated; cont synthroid as is; most recent TSH wnl. 11. History of colon cancer with colostomy in place and short gut syndrome Continue all vitamin and mineral supplementation see discussion above re: anti-motility agents, pancrease, etc. 12. ureteral stent in place - needs exchange at [facility]. Spoke with Dr. Rosario's office in [place] today - they are trying to arrange IR exchange; awaiting appt date/time. 13. hypernatremia - resolved. 14. low bicarbonate/chronic nonanion gap acidosis - resolved. Since we are now on full diet will stop all fluids. PT, OT evals completed - can return home updated at bedside today progressing nicely and can likely d/c home tomorrow w/ IV ertapenem Continued [facility] stay due to: multiple IV medications needed, other (acute pancreatitis ) Discharge planning: home with home health
[2018-02-02] MEDS: HEPARIN SOD 5000 UNIT/0.5 ML CARP SQ SCH ×2 (05:40→14:41)
[2018-02-02] MEDS: ACETAMINOPHEN 500 MG TAB PO SCH ×2 (05:41→14:42)
[2018-02-02] MEDS: LEVOTHYROXINE 75 MCG TAB PO SCH (05:41)
[2018-02-02] MEDS: OCTREOTIDE ACETATE 100 MCG/ML VIAL SQ SCH ×2 (05:41→12:04)
[2018-02-02 06:37] LABS: CREATININE 1.83 mg/dl (0.60-1.20)
[2018-02-02 06:38] LABS: CALCIUM 7.3 mg/dl (8.5-10.1); POTASSIUM 3.4 mmol/L (3.5-5.1)
[2018-02-02 07:27] VITALS: BP 139/75; PULSE 78; TEMP 36.6; O2SAT 97
[2018-02-02] MEDS: PANTOprazole SOD 40 MG TAB PO SCH (07:58)
[2018-02-02] MEDS: NIFEdipine 30 MG CR TAB PO SCH (07:58)
[2018-02-02] MEDS: MULTIVITAMIN TAB PO SCH (07:58)
[2018-02-02] MEDS: PANCREAZE (LIPASE 10,500U) CAP PO SCH ×2 (07:59→12:00)
[2018-02-02] MEDS: LACTOBACILLUS ACIDOPHILUS (FLORANEX) TAB PO SCH (07:59)
[2018-02-02] MEDS: SODIUM BICARBONATE 650 MG TAB PO SCH (07:59)
[2018-02-02] MEDS: CHOLECALCIFEROL 1000 INTER.UNIT TAB PO SCH (07:59)
[2018-02-02] MEDS: FERROUS SULFATE 325 MG TAB PO SCH (08:00)
[2018-02-02] MEDS: DICYCLOMINE HCL 20 MG TAB PO SCH ×2 (08:00→14:42)
[2018-02-02] MEDS: GABAPENTIN 300 MG CAP PO SCH (08:00)
[2018-02-02] MEDS: METOPROLOL TARTRATE 50 MG TAB PO SCH (08:00)
[2018-02-02] MEDS ORDERED: POTASSIUM CHLR 20 MEQ / WTR 20 MEQ IV ONE (08:00)
[2018-02-02] MEDS: SERTRALINE HCL 50 MG TAB PO SCH (08:00)
[2018-02-02] MEDS: CYANOCOBALAMIN 500 MCG TAB (VIT B-12) PO SCH (08:01)
[2018-02-02] MEDS: CALCIUM 600MG + VIT D 400 IU TAB PO SCH (08:01)
[2018-02-02] MEDS: ASCORBIC ACID 500 MG TAB PO SCH (08:01)
[2018-02-02] MEDS: MAGNESIUM SULFATE 1GM / D5W 100 ML IV SCH ×2 (08:14→12:00)
[2018-02-02 08:25] VITALS: O2SAT 97
--- NOTE | 2018-02-02 11:02 | PROGRESS NOTE ---
DATE: 02/02/2018 SUBJECTIVE: Mrs. Law says she is feeling significantly better. She has noticed a decrease in her ostomy output although is concerned because the appearance is green, which is unusual for her. She has had no problems with shaking chills or fevers. She denies abdominal pain and denies flank pain. OBJECTIVE: GENERAL: On physical exam at the current time, she appears relatively well. VITAL SIGNS: She is afebrile (36.6), her blood pressure is 139/75, her pulse is 78 and regular, respiratory rate 18, her pulse oximetry is 95%-97% on room air. SKIN: Shows normal skin turgor. She has no rash or infiltrative skin disease. She has scars from prior surgical procedures including her ostomies in the abdomen. She has an A-port beneath the distal right clavicle. LYMPHATICS: Show no palpable adenopathy. HEENT: Her head is normal. Eyes are grossly normal. There is no conjunctival icterus. Ears, nose, mouth, and throat are unremarkable. Oral mucous membranes are moist. NECK: Supple. There is no jugular venous distention. She has no carotid bruit or thyromegaly. RESPIRATORY: Her chest is clear to auscultation. There are no wheezes, rales, or rhonchi. CARDIAC: Exam shows a regular rhythm. S1 and S2 are normal. I hear no murmur or gallop. GASTROINTESTINAL: Her abdomen shows active bowel sounds. She has some green-brown liquid stool present. Her urine appears relatively clear coming from her loop catheter. There is no CVA tenderness. MUSCULOSKELETAL: Extremities show no cyanosis, clubbing, or peripheral edema. Peripheral pulses are diminished but present. NEUROLOGIC: Exam shows no lateralizing changes. LABORATORY DATA: Pertinent laboratory work from today shows a sodium of 144 mmol/L, potassium 3.4 mmol/L, chloride is 111 mmol/L, and CO2 content 25 mmol/L. Her BUN is 19, creatinine is stable at 1.83. Her serum calcium is 7.3, her magnesium 1.5. Her vitamin B12 was greater than 2000. ASSESSMENT: Mrs. Law seems considerably better. She appears to be responding to her octreotide. Her ostomy output is down. She now seems to be well hydrated. Her renal function has leveled off with a creatinine of about 1.8. She already has a scheduled appointment with Dr. Rosario to change her stents. That was scheduled for 10/10/2017, but he is attempting to have that moved up at [facility]. If she is to be discharged today, she will be getting ertapenem IV at home on a daily basis. Would also recommend that she take sodium bicarbonate 1.2 g (two 600 mg pills) 3 times a day at least for now. I am making the arrangements at our office to get a long acting octreotide available. Previously she was getting about 30 mg every 2-3 weeks. We will have that reinstituted. Hopefully, we can have that available for her by tomorrow. No other immediate recommendations. I will follow her as an outpatient and pay attention to her anemia and make sure that she completes the course of IV iron.
[2018-02-02] MEDS ORDERED: PANC6000 PO (14:00)
[2018-02-02] MEDS ORDERED: POTA10TA PO (14:00)
[2018-02-02] MEDS ORDERED: ERTA1INJ IV (14:00)
[2018-02-02] MEDS ORDERED: ACET-1256 PO (14:00)
[2018-02-02] MEDS ORDERED: SODI650T8 PO (14:00)
--- NOTE | 2018-02-02 14:10 | Discharge Instructions ---
Discharge Instructions Date of Service Feb 02, 2018. Admission Reason for Admission: UTI Discharge Discharge Diagnosis / Problem: Urinary tract infection & acute pancreatitis Discharge Goals Goal(s): Improve disease control, Learn about illness, Diagnostic testing, Therapeutic intervention Activity Recommendations Activity Limitations: resume your previous activity (as tolerated ) . Instructions / Follow-Up Instructions / Follow-Up From Dr. Isaac - 1. Urinary tract infection - please take a 7-day course of IV ertapenem via your port starting TOMORROW, 02/03/18, at the [facility] Treatment [facility] at [facility]. 2. Ureteral stent - please see [facility] in [place] on February 09 for the stent exchange. They will be contacting you with the exact time of the procedure. Please remain off ASPIRIN, MOTRIN, IBUPROFEN, NAPROSYN, ALEVE at this time to avoid bleeding during the procedure. Please contact Dr. Rosario's office with any questions. 3. Possible chronic pancreatitis (in this condition the pancreas doesn't work as well as previous which can lead to worsening of diarrhea) - please start creon (synthetic pancreatic enzymes) -- 2 capsules with breakfast, 2 with lunch , and 2 with dinner. 4. The exact cause of your acute pancreatitis was not found. You had no evidence of gallstones, excessively high triglycerides, etc. Your MRI of the gall bladder ducts was also normal. 5. Diet - please follow a LOW FAT DIET for the next 5-7 days as you recover from your episode of acute pancreatitis. After that time frame you can eat more foods containing higher amounts of fat. Would also suggest a low fiber diet to prevent dumping from your colostomy. 6. Dr. Mckeon's office will be working on getting you the extended-release octreotide. 7. Low bicarbonate / acid-base problem - please take sodium bicarbonate 2 tablets twice a day or as directed by Dr. Mckeon. 8. Please take a potassium supplement 10meq once a day starting today. 9. Follow-up - * see Dr. Bon Mckeon as scheduled this coming week * see [facility] in [place] on February 09 * see Dr. Mckeon within 1 week * highly recommend following up with Dr. Alejandro Vigil with [facility] due to your chronic GI issues * I have included his office address and phone number for you 10. Return to [facility] if - * you have fever over 100.5 degrees * you have recurrent or worsening abdominal pain * you develop severe fatigue or lethargy * you have concerns about your ileal conduit or colostomy * any other concerns Current Hospital Diet Patient's current hospital diet: Low Fat Diet, Low Fiber Diet Discharge Diet Recommended Diet: Low Fiber Diet, Low Fat Diet Procedures Procedures Performed: 1. CAT scan of the abdomen and pelvis showing pancreatitis. There were also calcium deposits in the pancreas suggesting chronic pancreatitis. 2. MRI of the gall bladder ducts - no evidence of any gallstones; MRI showed pancreatitis as well. Pending Studies Studies pending at discharge: no Laboratory Results Lipid Panel Test 01/30/18 05:38 Range/Units Triglycerides Level 303 H 0-150 mg/dl Medical Emergencies . Who to Call and When: Medical Emergencies: If at any time you feel your situation is an emergency, please call 911 immediately. . Non-Emergent Contact Non-Emergency issues call your: Primary Care Provider, Urologist Call Non-Emergent contact if: temperature is above 100.5, your pain is not controlled, your pain is worsening, your pain is unusual for you, your pain is concerning you, you have any medication questions . . "Provider Documentation" section prepared by Cecilio Isaac. .
[2018-02-02 14:13] VITALS: BP 139/75; PULSE 78; TEMP 36.6; O2SAT 97
[2018-02-02] MEDS: ERTAPENEM IV 1,000 MG in SODIUM CHLORIDE 0.9% 50ML 50 ML IV SCH (14:41)
[2018-02-02 15:19] VITALS: PULSE 77; TEMP 36.7; O2SAT 93
[2018-02-02] MEDS ORDERED: OXYC-57 PO (16:49)
--- NOTE | 2018-02-05 06:45 | Discharge Summary ---
Discharge Summary Date of Service Feb 05, 2018. Discharge Summary Admission Date: Jan 25, 2018 at 16:04 Discharge Date: Feb 02, 2018 Discharge Disposition: Home Principal Diagnosis: e. coli UTI, complicated Problems/Secondary Diagnoses: 1. acute pancreatitis - etiology uncertain 2. chronic pancreatitis with possible chronic pancreatic insufficiency 3. colostomy status 4. ileal conduit with ureteral stent in place 5. CKD stage 4 6. hypomagnesemia and hypokalemia 7. acute kidney injury - resolved 8. chronic non-anion gap metabolic acidosis 2nd to GI wasting 9. short gut syndrome 10. HTN 11. hyperlipidemia 12. hypothyroidism 13. 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 history of small bowel obstruction 15. anxiety and depression 16. peripheral neuropathy 17. charcot foot, left 18. hypernatremia - resolved 19. iron deficiency anemia s/p venofer infusion Immunizations: Have You Had Influenza Vaccine: Unknown History of Tetanus Vaccine?: Unknown History of Pneumococcal: Yes Pneumococcal Date: Mar 13, 2006 History of Hepatitis B Vaccine: Unknown Procedures: 1. CT abd/pelvis - FINDINGS: Mild interstitial thickening at the lung bases, unchanged. No fractures within the visualized osseous structures. No hepatic or splenic masses. The adrenal glands are unremarkable. Prior cholecystectomy. Moderate intra and extra hepatic bile duct dilatation remains unchanged. There is been interval mild of peripancreatic inflammatory change. This is consistent with acute pancreatitis. No loculated fluid collections identified on this noncontrast study. There are few scattered punctate calcifications within the pancreas consistent with superimposed chronic pancreatitis. An IVC filter is in good position. There is a 1 cm stone within the right kidney. Bilateral renal atrophy, left greater than right. Severe bilateral hydroureteronephrosis is again noted. This has progressed on the left despite the presence of a left ureteral stent which extends through the ileal conduit and into the ostomy bag. There again noted postoperative changes consistent with cystectomy with ileal conduit. There is also a descending colostomy. No small bowel dilatation at this time. This has resolved. Therefore, no evidence for bowel obstruction. There are few small bowel diverticula. Urothelial thickening and periureteral fat stranding within the proximal left ureter. This has progressed. No retroperitoneal lymphadenopathy. Presacral soft tissue thickening and focal gas collection remains unchanged. The gas/measures 3.3 cm. This could represent the residual rectum or postoperative change. Small of gas within the vagina is also unchanged. IMPRESSION: 1. Interval development of acute pancreatitis. 2. Severe bilateral hydronephrosis is again noted. This has progressed on the left despite the presence of a left ureteral stent which appears to be in good position. Mild urothelial thickening and periureteral fat stranding at the proximal left ureter. This favors an infectious process. 3. Additional postoperative changes as described above. 4. Interval resolution of the dilated loops of small bowel seen on the prior studies. No evidence for bowel obstruction. 2. MRCP - IMPRESSION: 1. No common bile duct calculi identified. 2. No change in moderate biliary ductal dilatation since MRCP of November 05, 2013 which is likely related to prior cholecystectomy. 3. Mild peripancreatic infiltration and fluid consistent with acute pancreatitis. 4. Significant interval improvement in right hydronephrosis since CT of January 29, 2018. Persistent but slightly improved left hydronephrosis. Consultations: 1. infectious disease - Gary Moran MD 2. nephrology - Cecilio Mckeon MD 3. PT, OT Medication Reconciliation New Medications: Ertapenem Sodium (Invanz) 1 Gm Inj 1 GM IV DAILY for 7 Days, #7 VIAL 0 Refills start 02/03/18 Pancrelipase (Lipase-Protease- (Creon) 1 Cap Cap 2 CAP PO TIDM, #180 CAP 1 Refill Potassium Chloride (K-Tabs) 10 Meq Tab 10 MEQ PO DAILY, #30 TABS 2 Refills Sodium Bicarbonate (Sodium Bicarbonate) 650 Mg Tab 1300 MG PO BID, #120 TAB 1 Refill Changed Medications: Acetaminophen (Tylenol) 500 Mg Tab 1000 MG PO Q8H, #1 TAB 0 Refills (Changed from: Q6H; Refills: ) maximum 3000mg in 24 hours Oxycodone/Acetaminophen 5MG/325MG (Percocet 5MG/325MG) Tab 1 TABLET PO Q12H PRN for Pain, #15 TAB 0 Refills (Changed from: Q12; Refills: ; Removed Instructions) Continued Medications: Amitriptyline Hcl (Elavil) 50 Mg Tab 25 MG PO HS Ascorbic Acid (Vitamin C) 1,000 Mg Tab 1000 MG PO QAM Calcium Carbonate-Vitamin D (Calcium + D) 1 Tab Tab 1 TAB PO QAM Cholecalciferol (Vitamin D3) 3,000 Unit Tab 6000 UNITS PO DAILY Cyanocobalamin (Vitamin B12) 1,000 Mcg Tab 1 TAB PO QAM Dicyclomine HCl (Dicyclomine HCl) 20 Mg Tab 20 MG PO TID Ferrous Sulfate (Ferrous Sulfate) 325 Mg Tab 325 MG PO QAM Gabapentin (Neurontin) 300 Mg Cap 300 MG PO BID Levothyroxine Sodium (Levothyroxine Sodium) 75 Mcg Tab 75 MCG PO QAM Loperamide Hcl (Imodium) 2 Mg Cap 4 MG PO Q6H PRN for Diarrhea Lorazepam (Ativan) 0.5 Mg Tab 0.5 MG PO TID PRN for PRN Metoprolol Tartrate (Lopressor) (Lopressor) 50 Mg Tab 50 MG PO BID Multivitamin (Multivitamin) Tab 1 TAB PO QAM Nifedipine Ext Rel (Procardia Xl Ext Rel) 60 Mg Tabcr 60 MG PO QAM Omeprazole (Prilosec) 20 Mg Capcr 20 MG PO BID Probiotic Product (Probiotic) 1 Cap Cap 1 CAP PO BID Sertraline (Zoloft) 50 Mg Tab 50 MG PO QAM Discontinued Medications: Aspirin (Aspirin Ec) 325 Mg Tab 325 MG PO QAM Cefuroxime Axetil (Cefuroxime Axetil) 500 Mg Tab 1 TAB PO BID STARTED ON 01/20/18 Referrals At Discharge Follow up Referrals: [facility] Referral - Please Call For Appointment with Alejandro Vigil M.D. Discharge Exam Physical Exam: General Appearance: no apparent distress ENT: pharynx normal Neck: no JVD Respiratory/Chest: lungs clear, no respiratory distress, no accessory muscle use Cardiovascular: regular rate, rhythm, no gallop, no murmur, normal peripheral pulses Abdomen / GI: normal bowel sounds, non tender, soft, no organomegaly, + pertinent finding (colostomy bag in place with liquid stool; ileal conduit present with clear yellow urine; ureteral stent is visible through the conduit ) Extremities: no pedal edema Neurologic/Psychiatric: alert, oriented x 3, + depressed affect Skin: no rash, + pertinent finding (port, upper chest, clean ) Hospital Course HISTORY OF PRESENT ILLNESS: 72 y/o F c/o UTI not responding to PO abx. Pt has a long standing hx of UTI and many drug allergies. She was dx with UTI as an outpt 6d ago and started on a cephalosporin. She has been taking it as prescribed, but continues to feel worse and her urine is not clearing. She is getting more fatigued, sleeping about 18 hrs a day. Her appetite is low and with decreased PO intake. She has had nausea, but no emesis. She is lightheaded and weak. 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 Pt denies fever, SOB, chest pain, abd pain, c/d, LE pain or swelling. HOSPITAL COURSE: The patient's complicated e.coli UTI (has ileal conduit with use of a ureteral stent) was treated with IV ertapenem her entire stay. This antibiotic was chosen due to her numerous antibiotic allergies and the sensitivity pattern the e. coli had. She had 2 additional urine cultures that remained negative during this hospitalization. It was felt that her ureteral stent was likely infected and therefore she will remain on IV ertapenem until her stent is exchanged by interventional radiology at [facility] in [place] on February 09. She will receive the IV ertapenem at the Medical Treatment Unit at [facility] daily starting February 03. Several days into her hospitalization, despite adequate treatment of the UTI, the patient continued to have anorexia and fatigue. She also reported epigastric abdominal pain. Lipase level was found to be about [address] abdomen & pelvis showed findings consistent with acute pancreatitis. Of note - her lipase level HAD BEEN NORMAL at time of admission on January 25. The CT also showed calcifications in the pancreas consistent with chronic pancreatitis. The patient was treated with bowel rest, additional IV fluids, and supportive care. Her lipase ultimately normalized. She was restarted on clears and advanced to low fat diet without difficulties over the next few days. The exact cause of the acute pancreatitis was uncertain. MRCP failed to show a CBD stone or other pathology. LFTs were largely stable. She does not drink alcohol. Triglycerides were only 300. The episode seemed to have started AFTER admission and thus it is possible that her IV ertapenem could have caused the event (there are case reports in the literature linking acute pancreatitis to ertapenem). Given the chronic pancreatitis findings on CT as well as her severe dumping through her colostomy we added creon capsules TID with meals. Due to her chronic non-anion gap metabolic acidosis she was seen in consult by nephrology. Oral odium bicarbonate therapy was added and she also received IV bicarbonate in her IV fluids. With time her serum bicarbonate level improved from about 12 to [address] Mckeon had suggested addition of octreotide to help with her short gut syndrome/dumping and this was employed during her stay. Dr. Mckeon plans to investigate extended-release octreotide in the outpatient setting. The patient has chronic anemia and iron studies were consistent with iron deficiency. She received IV venofer (iron) and tolerated such without difficulty. B12/ folate levels were normal. Dr. Mckeon plans to give additional IV venofer in the future. At time of hospital discharge the patient has scheduled ureteral stent exchange at [facility] on February 09. Dr. Malick Rosario, urology, has coordinated this procedure. Lastly, a review of the EMR shows that the patient's creatinine has been in the 2.5 to 3 range for the last year. With IV hydration the patient's creatinine improved to 1.8 by the time of hospital discharge. Total Time Spent: Greater than 30 minutes This includes examination of the patient, discharge planning, medication reconciliation, and communication with other providers. Discharge Instructions Please refer to the electronic Patient Visit Report (Discharge Instructions) for additional information. Follow-Up 1. ureteral stent exchange - [facility] - February 09 2. IV antibiotic therapy - [facility] - February [address] Mckeon within [address] Bon Mckeon on TuesdayFebruary 07 at 2:30 pm 5. the patient was strongly encouraged to establish care with a local GI physician to manage her complicated GI issues; she was given Dr. Alejandro Vigil's contact information and asked to arrange a consultation with him Additional Copies To Joe Ramsey M.D.; Cecilio Mckeon M.D.; Malick Rosario M.D.; Alejandro Vigil M.D.
[2018-02-07] MEDS ORDERED: ASPI325T39 PO (10:38)
--- NOTE | 2018-02-08 09:19 | EDITING REQUIRED CODING QUERY ---
CODING QUERY To promote full compliance with coding requirements relating to patient care, provider participation is requested in all cases of silviculture forester uncertainty. Please assist us with the question(s) below: Coding Question(s): Patient with ureteral conduit with ureteral stent admitted with UTI/complicated. Patient to follow up with another acute care facility for exchange of ureteral stent. Please document, if known or suspected - the etiology of the UTI. Thank you. Abraham Kilpatrick [facility] Physician's Response(s): This is a tough question to answer. Just having abnormal anatomy in this woman's case lends itself to developing UTI (ie - having the ileal conduit). And, having the ureteral stent also lends itself to UTI. Both issues can equally cause UTI. I would say "complicated UTI due to ileal conduit status and ureteral stent status." Principal Diagnosis: "_that condition established after study, to be chiefly responsible for occasioning the admission of the patient to the hospital for care." Co-Existing Principal Diagnosis: "_when two or more diagnoses equally meet the criteria for principal diagnosis as determined by the circumstances of admission, diagnostic work up, and/or therapy provided, and the Alphabetic Index, Tabular List, or another coding guideline does not provide sequencing direction, any one of the diagnoses may be sequenced first." "When the physician has documented what appears to be a current diagnosis in the body of the record, but has not included the diagnosis in the final diagnostic statement, the physician should be asked whether the diagnosis should be added." (Source [facility]oding [facility] 2 QTR90. p3-4)
== END 2018-02-02 17:05 | disposition home or self-care (01) | DRG 698 ==
LOC: C.EDB 11:33 → UNDOADMIN 16:04 → C.4E 16:04 → EDBEDREQ 16:08 → ENRESERV 16:19
PROVIDERS: ADMIT Family Medicine; ATTEND Internal Medicine
DX: T83.592A Infection and inflammatory reaction due to indwelling ureteral stent, initial encounter (principal); N39.0 Urinary tract infection, site not specified; K85.90 Acute pancreatitis without necrosis or infection, unspecified; E87.2 Acidosis; K86.1 Other chronic pancreatitis; Z87.440 Personal history of urinary (tract) infections; Z85.030 Personal history of malignant carcinoid tumor of large intestine; I12.9 Hypertensive chronic kidney disease with stage 1 through stage 4 chronic kidney disease, or unspecified chronic kidney disease; E87.0 Hyperosmolality and hypernatremia; N17.9 Acute kidney failure, unspecified; N18.4 Chronic kidney disease, stage 4 (severe); Z82.49 Family history of ischemic heart disease and other diseases of the circulatory system; Z88.1 Allergy status to other antibiotic agents; Z88.2 Allergy status to sulfonamides; N13.30 Unspecified hydronephrosis; Z88.8 Allergy status to other drugs, medicaments and biological substances; K91.2 Postsurgical malabsorption, not elsewhere classified; Z93.3 Colostomy status; G62.9 Polyneuropathy, unspecified; F41.8 Other specified anxiety disorders; B96.20 Unspecified Escherichia coli [E. coli] as the cause of diseases classified elsewhere; E87.6 Hypokalemia; E83.42 Hypomagnesemia; Y73.2 Prosthetic and other implants, materials and accessory gastroenterology and urology devices associated with adverse incidents; M14.672 Charcot's joint, left ankle and foot; Y92.019 Unspecified place in single-family (private) house as the place of occurrence of the external cause; E03.9 Hypothyroidism, unspecified

== ENCOUNTER 2018-07-15 15:40 | Inpatient (IN) ==
[2018-07-15] MEDS ORDERED: DiphenhydrAMINE HCL 50 MG/ML VIAL IV STA (16:11)
[2018-07-15] MEDS ORDERED: SODIUM CHLORIDE 0.9% 1000ML 1,000 ML IV STA (16:11)
[2018-07-15] MEDS ORDERED: DEXAMETHASONE **PF** INJ 10 MG/ML VIAL IV ONE (16:11)
--- NOTE | 2018-07-15 16:12 | Emergency Department Note ---
Entered by Kim Kwon acting as a scribe for Joe Dc MD History of Present Illness General Chief complaint: Allergic Reaction Stated complaint: DIZZY, ITCHING, WELTS Time Seen by Provider: 07/15/18 16:04 History of Present Illness Maximum Pain Intensity: 0 Home Medications Home Medications Medication Instructions Recorded Confirmed Type acetaminophen [Tylenol Extra 500 mg PO Q6H PRN 05/09/18 07/13/18 History Strength] amitriptyline 25 mg PO HS 05/09/18 07/13/18 History ascorbic acid (vitamin C) [Vitamin 1 g PO QAM 05/09/18 07/13/18 History C] calcium carbonate-vitamin D3 1 tab PO BID 05/09/18 07/13/18 History [Calcium 500 + D (D3)] cholecalciferol (vitamin D3) 5,000 unit PO QAM 05/09/18 07/13/18 History cyanocobalamin (vitamin B-12) 4,000 mcg PO QAM 05/09/18 07/13/18 History dicyclomine 20 mg PO TID 05/09/18 07/13/18 History gabapentin 300 mg PO BID 05/09/18 07/13/18 History levothyroxine 75 mcg PO QAM 05/09/18 07/13/18 History loperamide 2 mg PO Q3H PRN 05/09/18 07/13/18 History lorazepam 0.5 mg PO TID PRN 05/09/18 07/13/18 History metoprolol tartrate 50 mg PO BID 05/09/18 07/13/18 History multivitamin 1 cap PO QAM 05/09/18 07/13/18 History nifedipine 60 mg PO QAM 05/09/18 07/13/18 History omeprazole 20 mg PO BID 05/09/18 07/13/18 History oxycodone-acetaminophen 1 tab PO Q6H PRN 05/09/18 07/13/18 History potassium chloride 10 meq PO QAM 05/09/18 07/13/18 History sodium bicarbonate 650 mg PO BID 05/09/18 07/13/18 History aspirin [Hanna Aspirin] 325 mg PO QAM 05/15/18 07/13/18 History escitalopram oxalate 5 mg PO QAM 05/22/18 07/13/18 History Allergies Allergy/AdvReac Type Severity Reaction Status Date / Time cephalexin Allergy Intermediate RASH,ITCHIN Verified 07/13/18 09:54 G,HIVES Cipro Allergy Intermediate RASH Verified 03/02/18 10:07 ciprofloxacin Allergy Intermediate RASH Verified 07/13/18 09:54 homatropine Allergy Intermediate RASH Verified 07/13/18 09:54 hydrocodone Allergy Intermediate RASH Verified 07/13/18 09:54 metronidazole Allergy Intermediate RASH Verified 07/13/18 09:54 piperacillin Allergy Intermediate RASH Verified 07/13/18 09:54 Sulfa (Sulfonamide Allergy Intermediate RASH Verified 07/13/18 09:54 Antibiotics) tazobactam Allergy Intermediate RASH Verified 07/13/18 09:54 vancomycin Allergy Intermediate HIVES Verified 07/13/18 09:54 levofloxacin Allergy Unknown unknown Verified 07/13/18 09:54 nitrofurantoin Allergy Unknown .. Verified 07/13/18 09:54 Czkumyb-Wpc-Qul Reductase Allergy Unknown LIPITOR Verified 07/13/18 09:54 Inhibitor AND PRAVASTATIN doxycycline Allergy Rash Verified 07/13/18 09:54 Past Med/Surg History Social History Current Living Situation: Spouse Feels Safe at Home: Yes Smoking Status: Never smoker Second Hand Exposure: No Hx Alcohol Use: Yes Alcohol type: beer and hard liquor Alcohol Intake Frequency : holidays/special occasions only Hx Substance Use: No Beliefs That Will Affect Care: None Preferred Language: Bangladeshi Review of Systems See HPI for pertinent positives & negatives. and A total of 10 systems reviewed and were otherwise negative Physical Exam Vital Signs Vital Signs - 24 hr 07/15/18 15:42 Temperature 97.3 F L Temperature Source Oral Sepsis Recent Fever Within 48 Hours No Sepsis New/Unexplained Change in Mental Status No Sepsis Action Taken by Nursing No Action Required Pulse Rate 61 Respiratory Rate 16 Blood Pressure 107/62 Blood Pressure Mean 77 Pulse Oximetry 97 GENERAL: Awake, alert, well-appearing, in no distress HENT: Normocephalic, atraumatic. Oropharynx unremarkable. EYES: Normal conjunctiva. Sclera non-icteric. NECK: Supple. No nuchal rigidity. FROM. No masses. RESPIRATORY: Clear to auscultation. No wheezes. No rales. Normal respiratory effort. CARDIAC: Normal rate. Normal rhythm. No murmurs. No rubs. Extremities warm and well perfused. Pulses equal. No JVD. GI: Soft, non-distended. No tenderness to palpation. No rebound or guarding. No masses. RECTAL: Deferred. MUSCULOSKELETAL: Atraumatic. Chest examination reveals no tenderness. The back is symmetrical on inspection without obvious abnormality. There is no CVA tenderness to palpation. No joint edema. LOWER EXTREMITIES: Calves are equal size bilaterally and non-tender. No edema. No discoloration. NEURO: Normal sensorium. No sensory or motor deficits noted. Course 1610: Past medical records reviewed. The patient was evaluated in room A03, and a complete history and physical examination were performed. Medical Decision Making Differential Diagnosis . Medical Records Attestation: I reviewed the patient's medical records. Home Medications Current Medication List: was personally reviewed by me Laboratory Data Attestation: I reviewed the patient's lab results. Imaging Data Radiologist's Impression: Radiology results as stated below per my review and the radiologist's interpretation: Blood Pressure Blood Pressure Findings: Normal blood pressure Discharge Plan Visit Data Chief Complaint: Allergic Reaction Stated Complaint: DIZZY, ITCHING, WELTS Other Complaint: Dizziness ED Provider: Joe Dc Prescriptions Prescriptions: No Action ascorbic acid (vitamin C) [Vitamin C] 1,000 mg Tablet 1 g PO QAM RF: 0 potassium chloride 10 mEq Capsule, Extended Release 10 meq PO QAM RF: 0 loperamide 2 mg Capsule 2 mg PO Q3H PRN (Reason: Diarrhea) RF: 0 acetaminophen [Tylenol Extra Strength] 500 mg Tablet 500 mg PO Q6H PRN (Reason: Pain) RF: 0 oxycodone-acetaminophen 5-325 mg Tablet 1 tab PO Q6H PRN (Reason: Pain) RF: 0 amitriptyline 25 mg Tablet 25 mg PO HS RF: 0 lorazepam 0.5 mg Tablet 0.5 mg PO TID PRN (Reason: Anxiety) RF: 0 dicyclomine 20 mg Tablet 20 mg PO TID RF: 0 sodium bicarbonate 650 mg Tablet 650 mg PO BID RF: 0 metoprolol tartrate 50 mg Tablet 50 mg PO BID RF: 0 gabapentin 300 mg Capsule 300 mg PO BID RF: 0 nifedipine 60 mg Tablet Extended Release 60 mg PO QAM RF: 0 multivitamin Capsule 1 cap PO QAM RF: 0 calcium carbonate-vitamin D3 [Calcium 500 + D (D3)] 500 mg(1,250mg) -125 unit Tablet 1 tab PO BID RF: 0 omeprazole 20 mg Tablet,Delayed Release (Dr/Ec) 20 mg PO BID RF: 0 cholecalciferol (vitamin D3) 3,000 unit Tablet 5,000 unit PO QAM RF: 0 levothyroxine 75 mcg Capsule 75 mcg PO QAM RF: 0 cyanocobalamin (vitamin B-12) 5,000 mcg Tablet, Ir And Er, Biphasic 4,000 mcg PO QAM RF: 0 aspirin [Hanna Aspirin] 325 mg Tablet 325 mg PO QAM RF: 0 escitalopram oxalate 5 mg Tablet 5 mg PO QAM RF: 0
--- NOTE | 2018-07-15 16:42 | Emergency Department Note ---
Entered by Beverley Rico acting as a scribe for History of Present Illness General Chief complaint: Allergic Reaction Stated complaint: DIZZY, ITCHING, WELTS Time Seen by Provider: 07/15/18 16:04 Source: patient Mode of arrival: ambulatory Limitations: no limitations History of Present Illness Provider complaint: allergic reaction Onset (ago): day(s) (yesterday) Location: lower extremity Pain Consistency: + other (episode) Maximum Pain Intensity: 0 Quality: + other (allergic reaction) Associated symptoms: + other (itchiness, dizzy) Treatments prior to arrival: other (allergy med) The patient is a 72 year old female who presents to the Emergency Room with complaints of an allergic reaction that began yesterday. The patient reports that she was recently prescribed Cephalexin and has since had episodes of dizziness as well as itchiness in her arms and legs. She states that she took a prescribed allergy medication earlier today. The patient denies a history of diabetes but notes she has a history of neuropathy. Home Medications Home Medications Medication Instructions Recorded Confirmed Type acetaminophen [Tylenol Extra 500 mg PO Q6H PRN 05/09/18 07/15/18 History Strength] amitriptyline 25 mg PO HS 05/09/18 07/15/18 History ascorbic acid (vitamin C) [Vitamin 1 g PO QAM 05/09/18 07/15/18 History C] calcium carbonate-vitamin D3 1 tab PO BID 05/09/18 07/15/18 History [Calcium 500 + D (D3)] cholecalciferol (vitamin D3) 5,000 unit PO QAM 05/09/18 07/15/18 History cyanocobalamin (vitamin B-12) 4,000 mcg PO QAM 05/09/18 07/15/18 History dicyclomine 20 mg PO TID 05/09/18 07/15/18 History gabapentin 300 mg PO BID 05/09/18 07/15/18 History levothyroxine 75 mcg PO QAM 05/09/18 07/15/18 History loperamide 2 mg PO Q3H PRN 05/09/18 07/15/18 History lorazepam 0.5 mg PO TID PRN 05/09/18 07/15/18 History metoprolol tartrate 50 mg PO BID 05/09/18 07/15/18 History multivitamin 1 cap PO QAM 05/09/18 07/15/18 History nifedipine 60 mg PO QAM 05/09/18 07/15/18 History omeprazole 20 mg PO BID 05/09/18 07/15/18 History oxycodone-acetaminophen 1 tab PO Q6H PRN 05/09/18 07/15/18 History potassium chloride 10 meq PO QAM 05/09/18 07/15/18 History sodium bicarbonate 650 mg PO BID 05/09/18 07/15/18 History aspirin [Hanna Aspirin] 325 mg PO QAM 05/15/18 07/15/18 History escitalopram oxalate 5 mg PO QAM 05/22/18 07/15/18 History Allergies Allergy/AdvReac Type Severity Reaction Status Date / Time cephalexin Allergy Intermediate RASH,ITCHIN Verified 07/15/18 17:02 G,HIVES Cipro Allergy Intermediate RASH Verified 03/02/18 10:07 ciprofloxacin Allergy Intermediate RASH Verified 07/15/18 17:02 homatropine Allergy Intermediate RASH Verified 07/15/18 17:02 hydrocodone Allergy Intermediate RASH Verified 07/15/18 17:02 metronidazole Allergy Intermediate RASH Verified 07/15/18 17:02 piperacillin Allergy Intermediate RASH Verified 07/15/18 17:02 Sulfa (Sulfonamide Allergy Intermediate RASH Verified 07/15/18 17:02 Antibiotics) tazobactam Allergy Intermediate RASH Verified 07/15/18 17:02 vancomycin Allergy Intermediate HIVES Verified 07/15/18 17:02 levofloxacin Allergy Unknown unknown Verified 07/15/18 17:02 nitrofurantoin Allergy Unknown .. Verified 07/15/18 17:02 Ogmmsap-Avs-Goe Reductase Allergy Unknown LIPITOR Verified 07/15/18 17:02 Inhibitor AND PRAVASTATIN doxycycline Allergy Rash Verified 07/15/18 17:02 Past Med/Surg History Medical History Short gut syndrome (Chronic) Colostomy (Chronic 07/01/12) HTN (hypertension) (Chronic) Ileostomy present (Chronic) Physical deconditioning (Chronic) Back pain (Chronic) Esophagitis (Chronic 07/01/12) Anemia (Chronic) CKD (chronic kidney disease), stage IV (Chronic) Colon cancer (Acute) 36 years ago - colectomy with colostomy, hyperbaric treatments, radiation Recurrent UTI (Chronic) Dilated bile duct (Chronic) Ischemic colitis (Acute) Hx of tooth extraction (Acute) Charcot's joint of foot left foot Chronic kidney disease STAGE 4, PT STATES MONITORED Nickie filter in place POSSIBLE DIAGNOSIS OF P.E. IN PAST Hypertension Hypothyroidism Neuropathy of both feet Sleep apnea DOES NOT WEAR MACHINE Surgical History H/O: hysterectomy (Chronic) History of cholecystectomy (Chronic) S/P appendectomy (Chronic) History of renal stent (Acute) H/O colostomy (Acute) Hx of cardiac cath (Acute) 2002 History of cholecystectomy (Acute) History of appendectomy (Acute) History of breast biopsy BENIGN History of colectomy RESULTED IN "NICKING OF BOWEL", S/P REPAIR AND ILLEO-CONDUIT PLACEMENT History of herniorrhaphy Ventral hernia repair History of hysterectomy History of ileal conduit S/T COMPLICATIONS OF BOWEL SURGERY Port-A-Cath in place Family History Other FHx: heart disease Family history of high blood pressure Short gut syndrome Social History Current Living Situation: Spouse Feels Safe at Home: Yes Smoking Status: Never smoker Second Hand Exposure: No Hx Alcohol Use: Yes Alcohol type: beer and hard liquor Alcohol Intake Frequency : holidays/special occasions only Hx Substance Use: No Beliefs That Will Affect Care: None Preferred Language: Swazi Review of Systems See HPI for pertinent positives & negatives. and A total of 10 systems reviewed and were otherwise negative Physical Exam Vital Signs Vital Signs - 24 hr 07/15/18 15:42 07/15/18 16:53 Temperature 36.3 C L Temperature Source Oral Sepsis Recent Fever Within 48 Hours No Sepsis New/Unexplained Change in Mental Status No Sepsis Action Taken by Nursing No Action Required Pulse Rate 61 Pulse Rate [Apical] 60 Pulse Rhythm [Apical] Regular Pulse Strength [Apical] Normal Respiratory Rate 16 18 Respiratory Effort / Characteristics Non-Labored Spontaneous Respiratory Depth Normal Respiratory Pattern Regular Blood Pressure 107/62 Blood Pressure [Right Arm] 106/55 L Blood Pressure Mean 77 Blood Pressure Mean [Right Arm] 72 Blood Pressure Position [Right Arm] Lying Pulse Oximetry 97 99 Oxygen Delivery Method Room Air GENERAL: Patient is in no acute distress. HEENT: No acute trauma, normocephalic atraumatic, mucous membranes dry, no nasal congestion, no scleral icterus. No uvular edema. NECK: No stridor, no adenopathy, no meningismus, trachea is midline. LUNGS: Clear to auscultation bilaterally, no wheeze, no rhonchi, breath sounds equal. HEART: Without murmurs gallops or rubs, regular rate and rhythm. ABDOMEN: Soft, nontender, bowel sounds positive, no hernias, no peritonitis. There is a urostomy and colostomy noted. EXTREMITIES: No cyanosis or edema, full range of motion of all the joints without pain or difficulty, no signs for acute trauma. NEUROLOGIC: Oriented x 3, no acute motor or sensory deficits, no focal weakness. SKIN: Scattered erythematous raised lesions to lower extremities, no warmth, no drainage, patch of dry slightly erythematous skin to the medial left ankle, no warmth or surrounding erythema. Course 160: Past medical records reviewed. The patient was evaluated in room A3, and a complete history and physical examination were performed. I checked on the patient. Her vital signs were stable, she felt poorly as if something was wrong inside. She felt she may have a UTI. She seemed agitated. No respiratory issue or dyspnea or wheezing. Lab work and imaging was ordered. The case signed out to Dr. Lu at the change of shift Administered Medications Ranitidine HCl 50 mg/ Dextrose 102 mls @ 200 mls/hr IV Q8H YUNI Stop: 08/14/18 16:14 Last Infusion: 07/15/18 17:19 Dose: 0 mls/hr Admin: 07/15/18 16:48 Dose: 200 mls/hr Discontinued Medications Dexamethasone Sodium Phosphate (Decadron Pf) 10 mg IV NOW ONE Stop: 07/15/18 16:12 Last Admin: 07/15/18 16:48 Dose: 10 mg Diphenhydramine HCl (Benadryl) 25 mg IV NOW STA Stop: 07/15/18 16:12 Last Admin: 07/15/18 16:42 Dose: 25 mg Sodium Chloride (Nss 1000ml) 1,000 mls @ 999 mls/hr IV .Q1H1M STA Stop: 07/15/18 17:11 Last Infusion: 07/15/18 17:49 Dose: 0 mls/hr Admin: 07/15/18 16:48 Dose: 999 mls/hr Sodium Chloride (Nss) 500 mls @ 999 mls/hr IV .Q31M STA Stop: 07/15/18 17:53 Last Admin: 07/15/18 17:44 Dose: 999 mls/hr Lorazepam (Ativan) 0.5 mg in 1 mls @ 1 mls/min IV NOW STA Stop: 07/15/18 17:28 Last Admin: 07/15/18 17:42 Dose: 1 mls/min Ondansetron HCl (Zofran) 4 mg IV NOW STA Stop: 07/15/18 17:28 Last Admin: 07/15/18 17:42 Dose: 4 mg Medical Decision Making Differential Diagnosis Differential Diagnosis includes: dehydration, allergic reaction, anaphylaxis, uvular edema, cellulitis, hives, UTI, pyelonephrits, hydronephrosis. Medical Records Attestation: I reviewed the patient's medical records. Home Medications Current Medication List: was personally reviewed by me Laboratory Data Attestation: I reviewed the patient's lab results. Result diagrams: 07/15/18 17:40 07/15/18 17:40 Lab Results 07/15/18 Range/Units 17:40 WBC 6.42 (4.8-10.8) K/uL RBC 3.07 L (4.2-5.4) M/uL Hgb 9.1 L (12.0-16.0) g/dL Hct 29.5 L (37-47) % MCV 96.1 (80-100) fL MCH 29.6 (25-34) pg MCHC 30.8 L (32-36) g/dL RDW Std Deviation 57.1 H (36.4-46.3) fL RDW Coeff of Ethan 16.3 H (11.5-14.5) % Plt Count 202 (130-400) K/uL MPV 9.5 (7.4-10.4) fL Immature Gran % (Auto) 0.9 % Neut % (Auto) 61.2 % Lymph % (Auto) 25.1 % Island % (Auto) 7.0 % Eos % (Auto) 5.3 % Baso % (Auto) 0.5 % Immature Gran # (Auto) 0.06 H (0.00-0.02) K/uL Neut # (Auto) 3.93 (1.4-6.5) K/uL Lymph # (Auto) 1.61 (1.2-3.4) K/uL Island # (Auto) 0.45 (0.11-0.59) K/uL Eos # (Auto) 0.34 (0-0.5) K/uL Baso # (Auto) 0.03 (0-0.2) K/uL Blood Pressure Blood Pressure Findings: Normal blood pressure Blood Pressure Disposition: did not require urgent referral MDM Narrative There is no leukocytosis. The patient is anemic but this is baseline. Chemistry profile and urinalysis is pending. Abdominal and pelvis CT is pending. The patient presented with complaints of itching and an allergic reaction. She did have some hives on her lower extremities. There was no uvular edema, there was no wheezing or respiratory distress. She was not hypoxic. The patient had her port accessed. She received IV saline, IV Decadron, IV Benadryl and IV Zantac. She received some additional IV saline and a dose of IV Ativan. When I went back to reassess the patient, she was feeling unwell. She was now afraid she had another UTI. She was concerned about something "internally" wrong within her abdomen--she felt pressure in the abdomen. Because she was feeling worse, I did elect for further workup--lab work and imaging was ordered. A urinalysis was ordered. The case has been assumed by Dr. Lu at the change of shift, please see his notes for the final disposition/plan and the results of the remaining studies. Impression & Plan Allergic reaction, Abdominal pain, Hives, Acute dehydration Discharge Plan Visit Data Chief Complaint: Allergic Reaction Stated Complaint: DIZZY, ITCHING, WELTS Other Complaint: Dizziness ED Provider: Scottie Rowell Discharge Problem: Allergic reaction, Abdominal pain, Hives, Acute dehydration Patient Disposition: Still a Patient Forms Stand Alone Forms: [employer] Prescriptions Prescriptions: No Action ascorbic acid (vitamin C) [Vitamin C] 1,000 mg Tablet 1 g PO QAM RF: 0 potassium chloride 10 mEq Capsule, Extended Release 10 meq PO QAM RF: 0 loperamide 2 mg Capsule 2 mg PO Q3H PRN (Reason: Diarrhea) RF: 0 acetaminophen [Tylenol Extra Strength] 500 mg Tablet 500 mg PO Q6H PRN (Reason: Pain) RF: 0 oxycodone-acetaminophen 5-325 mg Tablet 1 tab PO Q6H PRN (Reason: Pain) RF: 0 amitriptyline 25 mg Tablet 25 mg PO HS RF: 0 lorazepam 0.5 mg Tablet 0.5 mg PO TID PRN (Reason: Anxiety) RF: 0 dicyclomine 20 mg Tablet 20 mg PO TID RF: 0 sodium bicarbonate 650 mg Tablet 650 mg PO BID RF: 0 metoprolol tartrate 50 mg Tablet 50 mg PO BID RF: 0 gabapentin 300 mg Capsule 300 mg PO BID RF: 0 nifedipine 60 mg Tablet Extended Release 60 mg PO QAM RF: 0 multivitamin Capsule 1 cap PO QAM RF: 0 calcium carbonate-vitamin D3 [Calcium 500 + D (D3)] 500 mg(1,250mg) -125 unit Tablet 1 tab PO BID RF: 0 omeprazole 20 mg Tablet,Delayed Release (Dr/Ec) 20 mg PO BID RF: 0 cholecalciferol (vitamin D3) 3,000 unit Tablet 5,000 unit PO QAM RF: 0 levothyroxine 75 mcg Capsule 75 mcg PO QAM RF: 0 cyanocobalamin (vitamin B-12) 5,000 mcg Tablet, Ir And Er, Biphasic 4,000 mcg PO QAM RF: 0 aspirin [Hanna Aspirin] 325 mg Tablet 325 mg PO QAM RF: 0 escitalopram oxalate 5 mg Tablet 5 mg PO QAM RF: 0 Referrals Referrals: Joe Alonso MD [Primary Care Provider] - The scribe's documentation has been prepared under my direction and personally reviewed by me in its entirety. I confirm that the note above accurately reflects all work, treatment, procedures, and medical decision making performed by me.
[2018-07-15] MEDS ORDERED: SODIUM CHLORIDE 0.9% 500 ML IV STA (17:23)
[2018-07-15] MEDS ORDERED: LORazepam 0.5 MG/1 ML VIAL IV STA ×2 (17:27→18:26)
[2018-07-15] MEDS ORDERED: ONDANSETRON INJ 2 MG/ML 2 ML VIAL IV STA (17:27)
[2018-07-15 18:02] LABS: Basophils # (auto) 0.03 K/uL (0-0.2); Basophils % (auto) 0.5 %; Eosinophils # (auto) 0.34 K/uL (0-0.5); Eosinophils % (auto) 5.3 %; Hematocrit (blood only) 29.5 % (37-47); Hemoglobin 9.1 g/dL (12.0-16.0); Immature Granulocytes # (auto) 0.06 K/uL (0.00-0.02); Immature Granulocytes % (auto) 0.9 %; Lymphocytes # (auto) 1.61 K/uL (1.2-3.4); Lymphocytes % (auto) 25.1 %; Mean Corpuscular Hgb Conc 30.8 g/dL (32-36); Mean Corpuscular Volume 96.1 fL (80-100); Mean Platelet Volume 9.5 fL (7.4-10.4); Monocytes # (auto) 0.45 K/uL (0.11-0.59); Neutrophils # (auto) 3.93 K/uL (1.4-6.5); Neutrophils % (auto) 61.2 %; Platelet Count 202 K/uL (130-400); RDW Coefficient of Variation 16.3 % (11.5-14.5); RDW Standard Deviation 57.1 fL (36.4-46.3); Red Blood Count 3.07 M/uL (4.2-5.4); White Blood Count 6.42 K/uL (4.8-10.8)
[2018-07-15 18:13] LABS: Alanine Aminotransferase 14 U/L (12-78); Albumin Level 2.6 gm/dl (3.4-5.0); Aspartate Aminotransferase 9 U/L (15-37); Blood Urea Nitrogen 23 mg/dl (7-18); Calcium 6.7 mg/dl (8.5-10.1); Carbon Dioxide 21 mmol/L (21-32); Chloride 116 mmol/L (98-107); Est GFR (African American) 24.2; Est GFR (Non-African American) 20.8; Glucose 139 mg/dl (70-99); Potassium 5.8 mmol/L (3.5-5.1); Sodium 142 mmol/L (136-145)
[2018-07-15 18:16] LABS: Albumin Globulin Ratio 0.9 (0.9-2); Alkaline Phosphatase 107 U/L (45-117); Bilirubin,Total 0.2 mg/dl (0.2-1); Globulin 2.9 gm/dl (2.5-4.0); Total Protein 5.6 gm/dl (6.4-8.2)
--- NOTE | 2018-07-15 18:37 | CT Scan Report ---
CT abd pelvis wo con CT DOSE: 321.45 mGy.cm HISTORY: Pain poss pyelonephritis TECHNIQUE: Multiaxial CT images of the abdomen and pelvis were performed without contrast. A dose lo wering technique was utilized adhering to the principles of ALARA. COMPARISON STUDY: 04/28/2018 FINDINGS: Similar study overall compared to the prior exam. Lung bases are clear. Overall configurati on of liver spleen and pancreas are grossly unremarkable. Patient is status post colectomy and left-sided ileostomy. There is a distended small bowel loop prox imal to the ostomy site from the prior exam. This potentially may relate to adhesions. The presacral soft tissue and air present described on [address] studies appears similar. There are no secondary signs of free air within the abdomen or peritoneum. There are findings of chronic right renal hydronephrosis. There is a nonobstructing 8 mm right renal calcification unchanged. There is a left ureteral stent terminating in a right-sided diverting urostomy. This is unchanged. Th ere again is noted to be a small amount of left and to lesser extent right perinephric fat stranding. IMPRESSION: 1. Similar study compared to the prior exam. 2. Operative changes consistent with prior colectomy, as well as several diversion procedures as desc ribed. 3. Similar small bowel obstructive change with an area of small bowel narrowing at and are slightly p roximal to the left ostomy site. 4. Trace perinephric fat stranding on the left and to lesser extent right which may indicate a compon ent of pyelonephritis. The above report was generated using voice recognition software. It may contain grammatical, syntax or spelling errors. Electronically signed by: Martin Ledezma M.D. 07/15/2018 6:36 PM
[2018-07-15 18:49] LABS: Appearance Urine Turbid (Clear); Bacteria Urine Automated Negative (Negative); Bilirubin Urine Negative (Negative); Color Urine Yellow; Epithelial Cell Urine Auto 20-30 /lpf (0-5); Glucose Urine UA Negative (Negative); Ketones Urine Negative (Negative); Leukocyte Esterase Urine 3+ (Negative); Nitrite Urine Positive (Negative); Protein Urine 2+ (Negative); Specific Gravity Urine 1.011 (1.000-1.030); Urobilinogen Urine Negative (Negative); WBC Urine Automated >30 /hpf (0-5); pH Urine 6.5 (4.5-7.5)
[2018-07-15 19:39] LABS: iSTAT Hemoglobin 9.2 g/dl (12.0-16.0); iSTAT Ionized Calcium 1.02 mmol/l (1.12-1.32)
[2018-07-15 20:04] LABS: BUN Creatinine Ratio 10.9 (10-20); Blood Urea Nitrogen 23 mg/dl (7-18); Calcium 6.9 mg/dl (8.5-10.1); Carbon Dioxide 23 mmol/L (21-32); Chloride 118 mmol/L (98-107); Est GFR (African American) 25.8; Est GFR (Non-African American) 22.3; Glucose 105 mg/dl (70-99); Magnesium 1.9 mg/dl (1.8-2.4); Sodium 142 mmol/L (136-145)
[2018-07-15 20:09] LABS: Troponin I < 0.015 ng/ml (0-0.045)
[2018-07-15] MEDS ORDERED: CALCIUM GLUCONATE 10% 2,000 MG in SODIUM CHLORIDE 0.9% 50 ML IV STA (21:16)
[2018-07-15] MEDS ORDERED: DEXTROSE 50% 50 ML SYRINGE IV STA (21:16)
[2018-07-15] MEDS ORDERED: SODIUM POLYSTYRENE SULFONATE 15G/60ML SUSP PO STA (21:16)
[2018-07-15] MEDS ORDERED: INSULIN HUMAN REGULAR PER UNIT 10 UNITS in SYRINGE 9.9 ML IV STA (21:16)
[2018-07-15] MEDS ORDERED: CALCIUM GLUCONATE 10% 10 ML VIAL IV ONE (21:21)
[2018-07-15] MEDS ORDERED: NovoLIN-R INSULIN PER UNIT CHARGE ONE (21:22)
--- NOTE | 2018-07-15 23:36 | History & Physical Report ---
Date of Service July 15, 2018 Assessment & Plan (1) Allergic reaction: 72-year-old female was admitted on 15 July 2018 for hyperkalemia. She initially presented to the ED with concerns for allergic reaction. Allergic reaction: Possibly to Keflex. She does have a listed allergy for the same. Presently has no obvious rash or edema in her legs. No noted difficulty breathing, speaking or swallowing, or acute abdominal symptoms. - Treated in ED with Benadryl and Decadron. Symptoms improving. Monitor for now. Hyperkalemia: Admit K 5.8, up to 6.0 after IVF. Brief record review notes consistent K in low 5s. She is on home potassium (? Hx hypokalemia) and bicarbonate supplementation (? Chronic non-gap met acidosis). She has had some increased dietary indiscretion. Also has noticed a darker skin, so question of an aldosterone issue. BP 120/57. Sodium is normal. Mg 1.9. PMH CKD stage IV with admit Cr 2.14, actually better than recent comparisons, as well as ureteral stents. - EKG NSR 65, normal intervals, normal T waves. TnI negative. In ED, was treated with insulin and dextrose, calcium gluconate, and Kayexalate. - Holding her home potassium, sodium bicarb, and multivitamin. - Recommended against continued use of quinine / tonic water. - Ordered urine electrolytes, and serum aldosterone levels. - Admit to telemetry. Will check BMP, Mg, and EKG in the morning. Increased urinary frequency: Some recent increased frequency without pain. PMH recurrent UTIs. On admit, UA positive for protein, nitrite, WBC and RBC. Multiple epis as well. CT a/p noncon made brief mention of imaging suggestive of pyelonephritis. Patient has no flank pain, is afebrile, and no blood leukocytosis. PMH hydronephrosis and urinary stents. - ED sent UCx. Patient is allergic to multiple antibiotic drug classes. ? Most recently on ertapenem. - Will await culture results before considering new antibiotic. Left breast mass: Patient has concern for the same over the past couple weeks. Will need very near term evaluation. Ongoing medical issues: - Short gut syndrome related to colon cancer (prior radiation without chemo) and colectomy (with colostomy and ileostomy): At home is on Bentyl, loperamide. Continue here. - Hypertension: At home is on aspirin, metoprolol, and nifedipine. Continue here. - Hypothyroidism: At home is on thyroxine. Continue here. - Esophagitis: At home is on omeprazole. Continue here. - Anemia: Admit Hb 9.1. Recent comparisons in the 9s. No evidence of active bleeding. - Bilateral foot neuropathy: Denies history of diabetes. Admit blood sugar 105. At home is on amitriptyline, gabapentin, Tylenol, and rare as needed Percocet. Continue here. - Depression / Anxiety: At home is on citalopram scheduled and lorazepam as needed. Continue here. --- Has displayed some depressive symptoms. Would benefit from close monitoring. - Obstructive sleep apnea: Does not use CPAP at home. - IVC filter: Per patient placed around 2001. - Left Charcot foot. - Back pain. Code status: Full code. Diet: Regular but start with low potassium. DVT prophy: Lovenox. PT/OT: Deferred. Disbo: Admit to telemetry. (2) Hyperkalemia: (3) Increased urinary frequency: (4) History of renal stent: (5) Recurrent UTI: (6) CKD (chronic kidney disease), stage IV: (7) Left breast mass: (8) Colorectal cancer: (9) Colostomy: (10) Ileostomy present: (11) Short gut syndrome: (12) HTN (hypertension): (13) Hypothyroid: (14) Esophagitis: (15) Anemia: (16) Neuropathy of both feet: (17) Depression with anxiety: (18) Obstructive sleep apnea: History of Present Illness Primary Care Provider: Joe Alonso MD 72-year-old female initially presented to the emergency department with a concern for an allergic reaction on her legs. We discussed the following issues : - Patient says around she noticed a right ankle rash/swelling. She says she called her doctor's office, spoke to a nurse in the phone, and was prescribed a trial of Keflex. She says she has been on Keflex before but believes she may have had an allergic reaction consistent of both legs being "covered in welts" with pruritus. She tried some topical lotions without relief , so she presents here for care. - Patient says she has allergies to multiple different antibiotics. Apparently she is followed by Dr. Moran of infectious disease as an outpatient, last routine visit a couple weeks ago. She says she has been on Keflex before. -When asked why her potassium may be high, patient says over the past 5 or so days she has had "a craving of protein". She says she is increased her ham, pizano, and eggbeater intake. Notes concurrent increased appetite during this time except for today. She denies a previous history of similar protein cravings. - Patient says she is on a potassium supplement as well as sodium bicarb at home regularly. She does not know why. She says she takes it "because doctors prescribe it to me". Patient's mentions that the patient started taking tonic water (quinine ) in hopes of helping with some restless leg symptoms. She started taking this on a near daily basis a week ago and has taken 3-4 doses total. - When asked about potential urinary symptoms, patient says that over the past couple days the urine has "just gone through me". She denies any new dysuria, hematuria, or abdominal pains. As a side note, the patient's wants someone to know that the patient discovered a left breast lump "a couple weeks ago". The patient herself seems reluctant to talk about this but says she has a history of a mammogram perhaps 5 -6 years ago. This one may have been normal, however she has had needle biopsies in the left breast before. - As a final note, the patient volunteered that at times she seems she does not have the full will to live anymore given her chronic medical issues. However, she says she would like to see one of her family members get next year. Past medical history includes colon cancer 30+ years ago status post radiation, follow on colectomy with colostomy and ileostomy, short gut syndrome, hypertension, hypothyroidism, esophagitis, anemia, bilateral foot neuropathy, depression, anxiety, IVC filter, obstructive sleep apnea, left Charcot foot, back pain, anal fissures, small bowel obstruction, recurrent urinary tract infections, hydronephrosis, acute pancreatitis Past surgical history includes hysterectomy, cholecystectomy, appendectomy, renal stent, colon resection and colostomy, breast biopsy, ventral hernia repair , Port-A-Cath, colostomy and ileostomy, ureteral stents, repaired bladder fistula. Social history includes number smoking and rare alcohol on holidays. Lives at home with . Allergies Allergy/AdvReac Type Severity Reaction Status Date / Time cephalexin Allergy Intermediate RASH,ITCHIN Verified 07/15/18 17:02 G,HIVES Cipro Allergy Intermediate RASH Verified 03/02/18 10:07 ciprofloxacin Allergy Intermediate RASH Verified 07/15/18 17:02 homatropine Allergy Intermediate RASH Verified 07/15/18 17:02 hydrocodone Allergy Intermediate RASH Verified 07/15/18 17:02 metronidazole Allergy Intermediate RASH Verified 07/15/18 17:02 piperacillin Allergy Intermediate RASH Verified 07/15/18 17:02 Sulfa (Sulfonamide Allergy Intermediate RASH Verified 07/15/18 17:02 Antibiotics) tazobactam Allergy Intermediate RASH Verified 07/15/18 17:02 vancomycin Allergy Intermediate HIVES Verified 07/15/18 17:02 levofloxacin Allergy Unknown unknown Verified 07/15/18 17:02 nitrofurantoin Allergy Unknown .. Verified 07/15/18 17:02 Obldkrj-Evu-Kpq Reductase Allergy Unknown LIPITOR Verified 07/15/18 17:02 Inhibitor AND PRAVASTATIN doxycycline Allergy Rash Verified 07/15/18 17:02 Home Medications Home Medications Medication Instructions Recorded Confirmed Type acetaminophen [Tylenol Extra 500 mg PO Q6H PRN 05/09/18 07/15/18 History Strength] amitriptyline 25 mg PO HS 05/09/18 07/15/18 History ascorbic acid (vitamin C) [Vitamin 1 g PO QAM 05/09/18 07/15/18 History C] calcium carbonate-vitamin D3 1 tab PO BID 05/09/18 07/15/18 History [Calcium 500 + D (D3)] cholecalciferol (vitamin D3) 5,000 unit PO QAM 05/09/18 07/15/18 History cyanocobalamin (vitamin B-12) 4,000 mcg PO QAM 05/09/18 07/15/18 History dicyclomine 20 mg PO TID 05/09/18 07/15/18 History gabapentin 300 mg PO BID 05/09/18 07/15/18 History levothyroxine 75 mcg PO QAM 05/09/18 07/15/18 History loperamide 2 mg PO Q3H PRN 05/09/18 07/15/18 History lorazepam 0.5 mg PO TID PRN 05/09/18 07/15/18 History metoprolol tartrate 50 mg PO BID 05/09/18 07/15/18 History multivitamin 1 cap PO QAM 05/09/18 07/15/18 History nifedipine 60 mg PO QAM 05/09/18 07/15/18 History omeprazole 20 mg PO BID 05/09/18 07/15/18 History oxycodone-acetaminophen 1 tab PO Q6H PRN 05/09/18 07/15/18 History potassium chloride 10 meq PO QAM 05/09/18 07/15/18 History sodium bicarbonate 650 mg PO BID 05/09/18 07/15/18 History aspirin [Hanna Aspirin] 325 mg PO QAM 05/15/18 07/15/18 History escitalopram oxalate 5 mg PO QAM 05/22/18 07/15/18 History Past Med/Surg History Medical History Short gut syndrome (Chronic) Colostomy (Chronic 07/01/12) HTN (hypertension) (Chronic) Ileostomy present (Chronic) Physical deconditioning (Chronic) Back pain (Chronic) Esophagitis (Chronic 07/01/12) Anemia (Chronic) CKD (chronic kidney disease), stage IV (Chronic) Colon cancer (Acute) 36 years ago - colectomy with colostomy, hyperbaric treatments, radiation Recurrent UTI (Chronic) Dilated bile duct (Chronic) Ischemic colitis (Acute) Hx of tooth extraction (Acute) Charcot's joint of foot left foot Chronic kidney disease STAGE 4, PT STATES MONITORED [place] filter in place POSSIBLE DIAGNOSIS OF P.E. IN PAST Hypertension Hypothyroidism Neuropathy of both feet Sleep apnea DOES NOT WEAR MACHINE Surgical History H/O: hysterectomy (Chronic) History of cholecystectomy (Chronic) S/P appendectomy (Chronic) History of renal stent (Acute) H/O colostomy (Acute) Hx of cardiac cath (Acute) 2001 History of cholecystectomy (Acute) History of appendectomy (Acute) History of breast biopsy BENIGN History of colectomy RESULTED IN "NICKING OF BOWEL", S/P REPAIR AND ILLEO-CONDUIT PLACEMENT History of herniorrhaphy Ventral hernia repair History of hysterectomy History of ileal conduit S/T COMPLICATIONS OF BOWEL SURGERY Port-A-Cath in place Family History Other FHx: heart disease Family history of high blood pressure Short gut syndrome Social History Current Living Situation: Spouse Feels Safe at Home: Yes Smoking Status: Never smoker Second Hand Exposure: No Hx Alcohol Use: Yes Alcohol type: beer and hard liquor Alcohol Intake Frequency : holidays/special occasions only Hx Substance Use: No Beliefs That Will Affect Care: None Preferred Language: Arabic Review of Systems Constitutional: Denies fevers, chills, focal weakness Eyes: Denies any visual loss or diplopia ENT: Denies any ear/nose/throat pain or difficulty speaking or swallowing Respiratory: Denies any dyspnea, cough, hemoptysis Cardiovascular: Denies any chest pain. Gastrointestinal: Denies any abdominal pain, nausea or vomiting Musculoskeletal: Denies any acute extremity pains, myalgias, or focal weakness Skin: See HPI. Neuro: Denies any headache, acute focal weakness or numbness, or difficulties with speech or swallow. Psych: Denies any recent depression or anxiety Endocrine: Positive darker skin and increased urinary frequency. Physical Exam 2 Vital Signs (Past 24 Hours): Last Vital Signs Temp 36.3 C L 07/15/18 15:42 Pulse 83 07/15/18 23:04 Resp 18 07/15/18 23:04 BP 123/64 07/15/18 23:04 Pulse Ox 91 07/15/18 23:04 Physical Exam: GENERAL: Awake, alert, well-appearing, in no acute distress HENT: Normocephalic, atraumatic. Oropharynx unremarkable. EYES: Normal conjunctiva. Sclera non-icteric. NECK: Inspection normal. Non-tender. Supple and full ROM. No nuchal rigidity. CARDIAC: +S1S2 RRR, no murmurs. RESPIRATORY: Clear to auscultation. No wheezes or rales. Normal respiratory effort. GI: +BS, soft, non-distended. No tenderness to palpation. No rebound or guarding. No appreciable masses. EXTREMITIES: No pedal edema or calf tenderness. Moving all extremities naturally and easily. NEURO: No gross neuro deficits. Skin: Patient says her overall arm and leg pigment is darker than normal. Some chronic skin changes in her distal bilateral lower extremities. No obvious hives, erythema, or edema suggestive of an ongoing allergic reaction. Lines: Chest mediport accessed. Results & Data Laboratory Results 07/15/18 07/15/18 07/15/18 Range/Units 19:29 19:24 18:30 WBC (4.8-10.8) K/uL RBC (4.2-5.4) M/uL Hgb (12.0-16.0) g/dL POC Hgb 9.2 L (12.0-16.0) g/dl Hct (37-47) % POC Hct 27 L (37-47) % MCV (80-100) fL MCH (25-34) pg MCHC (32-36) g/dL RDW Std Deviation (36.4-46.3) fL RDW Coeff of Ethan (11.5-14.5) % Plt Count (130-400) K/uL MPV (7.4-10.4) fL Immature Gran % (Auto) % Neut % (Auto) % Lymph % (Auto) % [place] % (Auto) % Eos % (Auto) % Baso % (Auto) % Immature Gran # (Auto) (0.00-0.02) K/uL Neut # (Auto) (1.4-6.5) K/uL Lymph # (Auto) (1.2-3.4) K/uL [place] # (Auto) (0.11-0.59) K/uL Eos # (Auto) (0-0.5) K/uL Baso # (Auto) (0-0.2) K/uL POC Sodium 143 (135-144) mEq/L Sodium 142 (136-145) mmol/L POC Potassium 6.0 H (3.3-5.0) mEq/L Potassium 6.0 H (3.5-5.1) mmol/L POC Chloride 115 H (101-112) mEq/L Chloride 118 H (98-107) mmol/L Carbon Dioxide 23 (21-32) mmol/L POC Total CO2 19 L (24-31) mEq/l Anion Gap 1.0 L (3-11) POC Anion Gap 16.0 (16-25) mmol/L POC BUN 21 H (7-18) mg/dl BUN 23 H (7-18) mg/dl Creatinine 2.14 H (0.6-1.2) mg/dl POC Creatinine 2.3 H (0.6-1.3) mg/dl Est Cr Clr Drug Dosing Not Reportable Est GFR ( Amer) 25.8 Est GFR (Non-Af Amer) 22.3 BUN/Creatinine Ratio 10.9 (10-20) Glucose 105 H (70-99) mg/dl POC Glucose (other) 106 H (70-99) mg/dl Calcium 6.9 L (8.5-10.1) mg/dl POC Ioniz Calcium Tito 1.02 L (1.12-1.32) mmol/l Phosphorus 5.0 H (2.5-4.9) mg/dl Magnesium 1.9 (1.8-2.4) mg/dl Total Bilirubin (0.2-1) mg/dl AST (15-37) U/L ALT (12-78) U/L Alkaline Phosphatase (45-117) U/L Troponin I < 0.015 (0-0.045) ng/ml Total Protein (6.4-8.2) gm/dl Albumin (3.4-5.0) gm/dl Globulin (2.5-4.0) gm/dl Albumin/Globulin Ratio (0.9-2) Urine Color Yellow Urine Appearance Turbid H (Clear) Urine pH 6.5 (4.5-7.5) Ur Specific [place] 1.011 (1.000-1.030) Urine Protein 2+ H (Negative) Urine Glucose (UA) Negative (Negative) Urine Ketones Negative (Negative) Urine Blood 2+ H (Negative) Urine Nitrite Positive H (Negative) Urine Bilirubin Negative (Negative) Urine Urobilinogen Negative (Negative) Ur Leukocyte Esterase 3+ H (Negative) Urine WBC (Auto) >30 H (0-5) /hpf Urine RBC (Auto) 5-10 H (0-4) /hpf U Hyaline Cast (Auto) 1-5 (0-5) /lpf U Epithel Cells (Auto) 20-30 H (0-5) /lpf Urine Bacteria (Auto) Negative (Negative) Urine Yeast Not Reportable 07/15/18 07/15/18 Range/Units 17:40 17:40 WBC 6.42 (4.8-10.8) K/uL RBC 3.07 L (4.2-5.4) M/uL Hgb 9.1 L (12.0-16.0) g/dL POC Hgb (12.0-16.0) g/dl Hct 29.5 L (37-47) % POC Hct (37-47) % MCV 96.1 (80-100) fL MCH 29.6 (25-34) pg MCHC 30.8 L (32-36) g/dL RDW Std Deviation 57.1 H (36.4-46.3) fL RDW Coeff of Ethan 16.3 H (11.5-14.5) % Plt Count 202 (130-400) K/uL MPV 9.5 (7.4-10.4) fL Immature Gran % (Auto) 0.9 % Neut % (Auto) 61.2 % Lymph % (Auto) 25.1 % [place]ann[place] % (Auto) 7.0 % Eos % (Auto) 5.3 % Baso % (Auto) 0.5 % Immature Gran # (Auto) 0.06 H (0.00-0.02) K/uL Neut # (Auto) 3.93 (1.4-6.5) K/uL Lymph # (Auto) 1.61 (1.2-3.4) K/uL [place] # (Auto) 0.45 (0.11-0.59) K/uL Eos # (Auto) 0.34 (0-0.5) K/uL Baso # (Auto) 0.03 (0-0.2) K/uL POC Sodium (135-144) mEq/L Sodium 142 (136-145) mmol/L POC Potassium (3.3-5.0) mEq/L Potassium 5.8 H (3.5-5.1) mmol/L POC Chloride (101-112) mEq/L Chloride 116 H (98-107) mmol/L Carbon Dioxide 21 (21-32) mmol/L POC Total CO2 (24-31) mEq/l Anion Gap 5.0 (3-11) POC Anion Gap (16-25) mmol/L POC BUN (7-18) mg/dl BUN 23 H (7-18) mg/dl Creatinine 2.26 H (0.6-1.2) mg/dl POC Creatinine (0.6-1.3) mg/dl Est Cr Clr Drug Dosing Not Reportable Est GFR ( Amer) 24.2 Est GFR (Non-Af Amer) 20.8 BUN/Creatinine Ratio 10.0 (10-20) Glucose 139 H (70-99) mg/dl POC Glucose (other) (70-99) mg/dl Calcium 6.7 L (8.5-10.1) mg/dl POC Ioniz Calcium Tito (1.12-1.32) mmol/l Phosphorus (2.5-4.9) mg/dl Magnesium (1.8-2.4) mg/dl Total Bilirubin 0.2 (0.2-1) mg/dl AST 9 L (15-37) U/L ALT 14 (12-78) U/L Alkaline Phosphatase 107 (45-117) U/L Troponin I (0-0.045) ng/ml Total Protein 5.6 L (6.4-8.2) gm/dl Albumin 2.6 L (3.4-5.0) gm/dl Globulin 2.9 (2.5-4.0) gm/dl Albumin/Globulin Ratio 0.9 (0.9-2) Urine Color Urine Appearance (Clear) Urine pH (4.5-7.5) Ur Specific [place] (1.000-1.030) Urine Protein (Negative) Urine Glucose (UA) (Negative) Urine Ketones (Negative) Urine Blood (Negative) Urine Nitrite (Negative) Urine Bilirubin (Negative) Urine Urobilinogen (Negative) Ur Leukocyte Esterase (Negative) Urine WBC (Auto) (0-5) /hpf Urine RBC (Auto) (0-4) /hpf U Hyaline Cast (Auto) (0-5) /lpf U Epithel Cells (Auto) (0-5) /lpf Urine Bacteria (Auto) (Negative) Urine Yeast Diagnostic Findings CT abd pelvis wo con 1. Similar study compared to the prior exam. 2. Operative changes consistent with prior colectomy, as well as several diversion procedures as described. 3. Similar small bowel obstructive change with an area of small bowel narrowing at and are slightly proximal to the left ostomy site. 4. Trace perinephric fat stranding on the left and to lesser extent right which may indicate a component of pyelonephritis. Code Status & VTE Plan Code Status Full code VTE Prophylaxis Plan VTE Prophylaxis will be ordered: Yes Supervising Physician Co-Signing Physician Notes Pt seen/examined in conjunction with resident Trang OTT. Orders and plan of admission formulated with resident. 72 y/o F, distant Hx colon CA - colectomy with colostomy and ileostomy, short gut syndrome, hypertension, hypothyroidism, anemia, LE neuropathy, depression/ anxiety, JOSE ELIAS - untreated, SBOs, chronic UTIs - UA is always (+), hydronephrosis and ureteral stenting. She was prescribed Keflex for what she thought might be cellulitis developing on her L ankle. She developed hives an pruritis and presented to the ER. She also describes feeling generally ill as an additional reason she came to the ER, however, she could not provide specifics. Labs were obtained and a K of 5.8 was noted. She was treated with IVF in the ER. Her repeat K returned at 6.0 after 1.5 L. This was confirmed on repeat labs. She is admitted primarily for hyperkalemia. The cause is not clear. She does take K supplements, however, her renal function is not impaired above baseline. Her rash has resolved after having received a dose of steroids and benadryl. OE AAO x 3 S1,2 R CTAB NT, ND No CCE No rashes, ulcers or evidence of cellulitis noted on LE skin exam P: Assigned to observation to treat hyperK We do not have a cause presently although she may have been eating some high K foods while taking K supplements She received a hyperK protocol inc Kyexalate in the ER. It would be fair to just trend her labs at this point and DC without supplements if her labs normalize. She may need further diagnostics if her K remains high and nephrology should be consulted. She is asymptomatic at the time of admission Resident Activity Tracking Resident Involvement: Resident Care Provided Care Provided: [facility] Medicine _ (1) Hypothyroid Hypothyroidism type: acquired Qualified Code(s): E03.9 - Hypothyroidism, unspecified (2) Allergic reaction Encounter type: initial encounter Qualified Code(s): T78.40XA - Allergy, unspecified, initial encounter (3) HTN (hypertension) Hypertension type: essential hypertension Qualified Code(s): I10 - Essential (primary) hypertension
[2018-07-16] MEDS ORDERED: OXYCODONE/ACETAMINOPHEN 5mg/325mg TAB PO PRN (00:45)
[2018-07-16] MEDS ORDERED: ACETAMINOPHEN 325 MG TAB PO PRN (00:45)
[2018-07-16] MEDS ORDERED: ACETAMINOPHEN 500 MG TAB PO PRN (00:45)
[2018-07-16] MEDS ORDERED: LORazepam 0.5 MG TAB PO PRN (00:45)
[2018-07-16] MEDS ORDERED: LOPERAMIDE HCL 2 MG CAP PO PRN (00:45)
[2018-07-16] MEDS ORDERED: ONDANSETRON INJ 2 MG/ML 2 ML VIAL IV PRN (00:45)
--- NOTE | 2018-07-16 02:35 | Emergency Department Note ---
Entered by Rosa Multani acting as a scribe for Alessandro Lu MD ED Provider Note Course: 1829: The patient was taken in signout from Dr. Rowell at the change of shift. 2124: I checked on the patient and her potassium was 6.0 after fluids. I calcium , Insuline with D50, and Kayexalate. Case reviewed with Dr. Blanton - Hospitalist , Daisha Rodgers. Dr. Blanton will evaluate the patient for further management. Medical Decision Making: The patient was taken in signout from Dr. Rowell at the change of shift. Please see that note for details. The patient was pending labs and CT scan. The patient is a pleasant 72-year-old woman with a complicated past medical history of CKD, ileostomy, urostomy status post ileal conduit with indwelling stent and recurrent UTIs who presented to emergency department with concern for allergic reaction after being prescribed Keflex for possible skin infection. The patient was feeling improved in terms of her itching/urticaria after receiving dexamethasone and Benadryl. However then the patient began to report generalized abdominal pain radiating to her back. Thus labs and CT were ordered at that time. WBC within normal limits. Chemistry demonstrated hyperkalemia with potassium of 5.8. Creatinine however within patient's baseline with creatinine of 2.26. Patient was given 1.5 L of normal saline and potassium was rechecked and subsequently increased to 6.0 on i-STAT and lab chemistry. EKG without EKG changes. However, given the patient's hyperkalemia in the setting of her symptoms in the emergency department reasonable to treat and admit the patient for further management. Patient was ordered for insulin, D50, Kayexalate, as well as calcium. Otherwise, given the patient is afebrile without leukocytosis we will defer antibiotics at this time as is typical approach by her urologist. Case was discussed with Dr. Blanton, [facility] hospitalist, will evaluate the patient for admission. I have personally spent greater than 35 minutes of critical care time in the direct management of this patient. This includes bedside care, interpretation of diagnostic studies, and testing, discussion with consultants, patient, and family members, and other required patient management activities. This 35 minutes is in excess of all separately billable procedures. Impression & Plan Acute hyperkalemia, Allergic reaction, Abdominal pain, Hives, Acute dehydration Past Med/Surg History Medical History Short gut syndrome (Chronic) Colostomy (Chronic 07/01/12) HTN (hypertension) (Chronic) Ileostomy present (Chronic) Physical deconditioning (Chronic) Back pain (Chronic) Esophagitis (Chronic 07/01/12) Anemia (Chronic) CKD (chronic kidney disease), stage IV (Chronic) Colon cancer (Acute) 36 years ago - colectomy with colostomy, hyperbaric treatments, radiation Recurrent UTI (Chronic) Dilated bile duct (Chronic) Ischemic colitis (Acute) Hx of tooth extraction (Acute) Charcot's joint of foot left foot Chronic kidney disease STAGE 4, PT STATES MONITORED Nickie filter in place POSSIBLE DIAGNOSIS OF P.E. IN PAST Hypertension Hypothyroidism Neuropathy of both feet Sleep apnea DOES NOT WEAR MACHINE Surgical History H/O: hysterectomy (Chronic) History of cholecystectomy (Chronic) S/P appendectomy (Chronic) History of renal stent (Acute) H/O colostomy (Acute) Hx of cardiac cath (Acute) 2001 History of cholecystectomy (Acute) History of appendectomy (Acute) History of breast biopsy BENIGN History of colectomy RESULTED IN "NICKING OF BOWEL", S/P REPAIR AND ILLEO-CONDUIT PLACEMENT History of herniorrhaphy Ventral hernia repair History of hysterectomy History of ileal conduit S/T COMPLICATIONS OF BOWEL SURGERY Port-A-Cath in place Family History Other FHx: heart disease Family history of high blood pressure Short gut syndrome Social History Current Living Situation: Spouse Other Information That Helps Us Care for You: No Feels Safe at Home: Yes Safety Concerns: Feels Safe At This Time Smoking Status: Never smoker Do You Dip or Chew Tobacco: No Second Hand Exposure: No Tobacco Cessation Education Requested by Patient: No Hx Alcohol Use: No Hx Substance Use: No Beliefs That Will Affect Care: None Preferred Language: Divehi Communication Ability: Effective Electrical Line Splicer Required: No Results & Data Vital Signs Vital Signs - 24 hr 07/15/18 15:42 07/15/18 16:53 07/15/18 18:33 Temperature 36.3 C L Temperature Source Oral Sepsis Recent Fever Within 48 Hours No Sepsis New/Unexplained Change in Mental Status No Sepsis Action Taken by Nursing No Action Required Pulse Rate 61 Pulse Rate [Apical] 60 64 Pulse Rhythm [Apical] Regular Regular Pulse Strength [Apical] Normal Normal Respiratory Rate 16 18 16 Respiratory Effort / Characteristics Non-Labored Spontaneous Non-Labored Spontaneous Respiratory Depth Normal Normal Respiratory Pattern Regular Regular Blood Pressure 107/62 Blood Pressure [Right Arm] 106/55 L 123/69 Blood Pressure Mean 77 Blood Pressure Mean [Right Arm] 72 87 Blood Pressure Position [Right Arm] Lying Lying Pulse Oximetry 97 99 94 Pulse Oximetry [Left Index Finger] Oxygen Delivery Method Room Air Room Air Oxygen Delivery Method [Left Index Finger] 07/15/18 19:22 07/15/18 20:24 07/15/18 21:34 Temperature Temperature Source Sepsis Recent Fever Within 48 Hours Sepsis New/Unexplained Change in Mental Status Sepsis Action Taken by Nursing Pulse Rate Pulse Rate [Apical] 68 73 74 Pulse Rhythm [Apical] Pulse Strength [Apical] Respiratory Rate 18 16 18 Respiratory Effort / Characteristics Non-Labored Respiratory Depth Normal Respiratory Pattern Blood Pressure Blood Pressure [Right Arm] 117/64 119/74 120/57 L Blood Pressure Mean Blood Pressure Mean [Right Arm] 81 89 78 Blood Pressure Position [Right Arm] Pulse Oximetry 96 97 98 Pulse Oximetry [Left Index Finger] Oxygen Delivery Method Room Air Room Air Oxygen Delivery Method [Left Index Finger] 07/15/18 23:04 07/15/18 23:55 07/16/18 00:45 Temperature Temperature Source Sepsis Recent Fever Within 48 Hours Sepsis New/Unexplained Change in Mental Status Sepsis Action Taken by Nursing Pulse Rate Pulse Rate [Apical] 83 76 Pulse Rhythm [Apical] Pulse Strength [Apical] Respiratory Rate 18 18 Respiratory Effort / Characteristics Respiratory Depth Respiratory Pattern Blood Pressure Blood Pressure [Right Arm] 123/64 103/64 Blood Pressure Mean Blood Pressure Mean [Right Arm] 83 77 Blood Pressure Position [Right Arm] Pulse Oximetry 91 92 Pulse Oximetry [Left Index Finger] 98 Oxygen Delivery Method Room Air Room Air Oxygen Delivery Method [Left Index Finger] Room Air 07/16/18 01:07 07/16/18 01:43 Temperature 36.4 C L Temperature Source Oral Sepsis Recent Fever Within 48 Hours Sepsis New/Unexplained Change in Mental Status Sepsis Action Taken by Nursing Pulse Rate 81 Pulse Rate [Apical] 81 Pulse Rhythm [Apical] Regular Pulse Strength [Apical] Normal Respiratory Rate 18 Respiratory Effort / Characteristics Non-Labored Spontaneous Respiratory Depth Normal Respiratory Pattern Blood Pressure Blood Pressure [Right Arm] 155/81 H Blood Pressure Mean Blood Pressure Mean [Right Arm] 105 Blood Pressure Position [Right Arm] Pulse Oximetry 98 Pulse Oximetry [Left Index Finger] Oxygen Delivery Method Room Air Oxygen Delivery Method [Left Index Finger] Home Medications Current Medication List: was personally reviewed by me Laboratory Data Attestation: I reviewed the patient's lab results. Result diagrams: 07/15/18 17:40 07/15/18 19:29 Lab Results 07/15/18 07/15/18 07/15/18 Range/Units 17:40 17:40 18:30 WBC 6.42 (4.8-10.8) K/uL RBC 3.07 L (4.2-5.4) M/uL Hgb 9.1 L (12.0-16.0) g/dL POC Hgb (12.0-16.0) g/dl Hct 29.5 L (37-47) % POC Hct (37-47) % MCV 96.1 (80-100) fL MCH 29.6 (25-34) pg MCHC 30.8 L (32-36) g/dL RDW Std Deviation 57.1 H (36.4-46.3) fL RDW Coeff of Ethan 16.3 H (11.5-14.5) % Plt Count 202 (130-400) K/uL MPV 9.5 (7.4-10.4) fL Immature Gran % (Auto) 0.9 % Neut % (Auto) 61.2 % Lymph % (Auto) 25.1 % [place] % (Auto) 7.0 % Eos % (Auto) 5.3 % Baso % (Auto) 0.5 % Immature Gran # (Auto) 0.06 H (0.00-0.02) K/uL Neut # (Auto) 3.93 (1.4-6.5) K/uL Lymph # (Auto) 1.61 (1.2-3.4) K/uL [place] # (Auto) 0.45 (0.11-0.59) K/uL Eos # (Auto) 0.34 (0-0.5) K/uL Baso # (Auto) 0.03 (0-0.2) K/uL POC Sodium (135-144) mEq/L Sodium 142 (136-145) mmol/L POC Potassium (3.3-5.0) mEq/L Potassium 5.8 H (3.5-5.1) mmol/L POC Chloride (101-112) mEq/L Chloride 116 H (98-107) mmol/L Carbon Dioxide 21 (21-32) mmol/L POC Total CO2 (24-31) mEq/l Anion Gap 5.0 (3-11) POC Anion Gap (16-25) mmol/L POC BUN (7-18) mg/dl BUN 23 H (7-18) mg/dl Creatinine 2.26 H (0.6-1.2) mg/dl POC Creatinine (0.6-1.3) mg/dl Est Cr Clr Drug Dosing Not Reportable Est GFR ( Amer) 24.2 Est GFR (Non-Af Amer) 20.8 BUN/Creatinine Ratio 10.0 (10-20) Glucose 139 H (70-99) mg/dl POC Glucose (other) (70-99) mg/dl Calcium 6.7 L (8.5-10.1) mg/dl POC Ioniz Calcium Tito (1.12-1.32) mmol/l Phosphorus (2.5-4.9) mg/dl Magnesium (1.8-2.4) mg/dl Total Bilirubin 0.2 (0.2-1) mg/dl AST 9 L (15-37) U/L ALT 14 (12-78) U/L Alkaline Phosphatase 107 (45-117) U/L Troponin I (0-0.045) ng/ml Total Protein 5.6 L (6.4-8.2) gm/dl Albumin 2.6 L (3.4-5.0) gm/dl Globulin 2.9 (2.5-4.0) gm/dl Albumin/Globulin Ratio 0.9 (0.9-2) Urine Color Yellow Urine Appearance Turbid H (Clear) Urine pH 6.5 (4.5-7.5) Ur Specific [place] 1.011 (1.000-1.030) Urine Protein 2+ H (Negative) Urine Glucose (UA) Negative (Negative) Urine Ketones Negative (Negative) Urine Blood 2+ H (Negative) Urine Nitrite Positive H (Negative) Urine Bilirubin Negative (Negative) Urine Urobilinogen Negative (Negative) Ur Leukocyte Esterase 3+ H (Negative) Urine WBC (Auto) >30 H (0-5) /hpf Urine RBC (Auto) 5-10 H (0-4) /hpf U Hyaline Cast (Auto) 1-5 (0-5) /lpf U Epithel Cells (Auto) 20-30 H (0-5) /lpf Urine Bacteria (Auto) Negative (Negative) Urine Yeast Not Reportable Ur Random Sodium mmol/L Ur Random Potassium mEq/L 07/15/18 07/15/18 07/16/18 Range/Units 19:24 19:29 01:00 WBC (4.8-10.8) K/uL RBC (4.2-5.4) M/uL Hgb (12.0-16.0) g/dL POC Hgb 9.2 L (12.0-16.0) g/dl Hct (37-47) % POC Hct 27 L (37-47) % MCV (80-100) fL MCH (25-34) pg MCHC (32-36) g/dL RDW Std Deviation (36.4-46.3) fL RDW Coeff of Ethan (11.5-14.5) % Plt Count (130-400) K/uL MPV (7.4-10.4) fL Immature Gran % (Auto) % Neut % (Auto) % Lymph % (Auto) % [place] % (Auto) % Eos % (Auto) % Baso % (Auto) % Immature Gran # (Auto) (0.00-0.02) K/uL Neut # (Auto) (1.4-6.5) K/uL Lymph # (Auto) (1.2-3.4) K/uL [place] # (Auto) (0.11-0.59) K/uL Eos # (Auto) (0-0.5) K/uL Baso # (Auto) (0-0.2) K/uL POC Sodium 143 (135-144) mEq/L Sodium 142 (136-145) mmol/L POC Potassium 6.0 H (3.3-5.0) mEq/L Potassium 6.0 H (3.5-5.1) mmol/L POC Chloride 115 H (101-112) mEq/L Chloride 118 H (98-107) mmol/L Carbon Dioxide 23 (21-32) mmol/L POC Total CO2 19 L (24-31) mEq/l Anion Gap 1.0 L (3-11) POC Anion Gap 16.0 (16-25) mmol/L POC BUN 21 H (7-18) mg/dl BUN 23 H (7-18) mg/dl Creatinine 2.14 H (0.6-1.2) mg/dl POC Creatinine 2.3 H (0.6-1.3) mg/dl Est Cr Clr Drug Dosing Not Reportable Est GFR ( Amer) 25.8 Est GFR (Non-Af Amer) 22.3 BUN/Creatinine Ratio 10.9 (10-20) Glucose 105 H (70-99) mg/dl POC Glucose (other) 106 H (70-99) mg/dl Calcium 6.9 L (8.5-10.1) mg/dl POC Ioniz Calcium Tito 1.02 L (1.12-1.32) mmol/l Phosphorus 5.0 H (2.5-4.9) mg/dl Magnesium 1.9 (1.8-2.4) mg/dl Total Bilirubin (0.2-1) mg/dl AST (15-37) U/L ALT (12-78) U/L Alkaline Phosphatase (45-117) U/L Troponin I < 0.015 (0-0.045) ng/ml Total Protein (6.4-8.2) gm/dl Albumin (3.4-5.0) gm/dl Globulin (2.5-4.0) gm/dl Albumin/Globulin Ratio (0.9-2) Urine Color Urine Appearance (Clear) Urine pH (4.5-7.5) Ur Specific [place] (1.000-1.030) Urine Protein (Negative) Urine Glucose (UA) (Negative) Urine Ketones (Negative) Urine Blood (Negative) Urine Nitrite (Negative) Urine Bilirubin (Negative) Urine Urobilinogen (Negative) Ur Leukocyte Esterase (Negative) Urine WBC (Auto) (0-5) /hpf Urine RBC (Auto) (0-4) /hpf U Hyaline Cast (Auto) (0-5) /lpf U Epithel Cells (Auto) (0-5) /lpf Urine Bacteria (Auto) (Negative) Urine Yeast Ur Random Sodium 107 mmol/L Ur Random Potassium 37.2 mEq/L 07/16/18 Range/Units 01:00 WBC (4.8-10.8) K/uL RBC (4.2-5.4) M/uL Hgb (12.0-16.0) g/dL POC Hgb (12.0-16.0) g/dl Hct (37-47) % POC Hct (37-47) % MCV (80-100) fL MCH (25-34) pg MCHC (32-36) g/dL RDW Std Deviation (36.4-46.3) fL RDW Coeff of Ethan (11.5-14.5) % Plt Count (130-400) K/uL MPV (7.4-10.4) fL Immature Gran % (Auto) % Neut % (Auto) % Lymph % (Auto) % [place] % (Auto) % Eos % (Auto) % Baso % (Auto) % Immature Gran # (Auto) (0.00-0.02) K/uL Neut # (Auto) (1.4-6.5) K/uL Lymph # (Auto) (1.2-3.4) K/uL [place] # (Auto) (0.11-0.59) K/uL Eos # (Auto) (0-0.5) K/uL Baso # (Auto) (0-0.2) K/uL POC Sodium (135-144) mEq/L Sodium (136-145) mmol/L POC Potassium (3.3-5.0) mEq/L Potassium (3.5-5.1) mmol/L POC Chloride (101-112) mEq/L Chloride (98-107) mmol/L Carbon Dioxide (21-32) mmol/L POC Total CO2 (24-31) mEq/l Anion Gap (3-11) POC Anion Gap (16-25) mmol/L POC BUN (7-18) mg/dl BUN (7-18) mg/dl Creatinine (0.6-1.2) mg/dl POC Creatinine (0.6-1.3) mg/dl Est Cr Clr Drug Dosing Est GFR ( Amer) Est GFR (Non-Af Amer) BUN/Creatinine Ratio (10-20) Glucose (70-99) mg/dl POC Glucose (other) (70-99) mg/dl Calcium (8.5-10.1) mg/dl POC Ioniz Calcium Tito (1.12-1.32) mmol/l Phosphorus (2.5-4.9) mg/dl Magnesium (1.8-2.4) mg/dl Total Bilirubin (0.2-1) mg/dl AST (15-37) U/L ALT (12-78) U/L Alkaline Phosphatase (45-117) U/L Troponin I (0-0.045) ng/ml Total Protein (6.4-8.2) gm/dl Albumin (3.4-5.0) gm/dl Globulin (2.5-4.0) gm/dl Albumin/Globulin Ratio (0.9-2) Urine Color Urine Appearance (Clear) Urine pH (4.5-7.5) Ur Specific [place] (1.000-1.030) Urine Protein (Negative) Urine Glucose (UA) (Negative) Urine Ketones (Negative) Urine Blood (Negative) Urine Nitrite (Negative) Urine Bilirubin (Negative) Urine Urobilinogen (Negative) Ur Leukocyte Esterase (Negative) Urine WBC (Auto) (0-5) /hpf Urine RBC (Auto) (0-4) /hpf U Hyaline Cast (Auto) (0-5) /lpf U Epithel Cells (Auto) (0-5) /lpf Urine Bacteria (Auto) (Negative) Urine Yeast Ur Random Sodium Cancelled mmol/L Ur Random Potassium mEq/L Administered Medications Discontinued Medications Calcium Gluconate (Calcium Gluconate 10%) Confirm Administered Dose 2,000 mg IV .STK-MED ONE Stop: 07/15/18 21:22 Last Admin: 07/15/18 21:29 Dose: Not Given Dexamethasone Sodium Phosphate (Decadron Pf) 10 mg IV NOW ONE Stop: 07/15/18 16:12 Last Admin: 07/15/18 16:48 Dose: 10 mg Dextrose (Dextrose 50%) 100 ml IV NOW STA Stop: 07/15/18 21:17 Last Admin: 07/15/18 21:28 Dose: 100 ml Diphenhydramine HCl (Benadryl) 25 mg IV NOW STA Stop: 07/15/18 16:12 Last Admin: 07/15/18 16:42 Dose: 25 mg Sodium Chloride (Nss 1000ml) 1,000 mls @ 999 mls/hr IV .Q1H1M STA Stop: 07/15/18 17:11 Last Infusion: 07/15/18 17:49 Dose: 0 mls/hr Admin: 07/15/18 16:48 Dose: 999 mls/hr Ranitidine HCl 50 mg/ Dextrose 102 mls @ 200 mls/hr IV Q8H YUNI Stop: 08/14/18 16:14 Last Infusion: 07/15/18 17:19 Dose: 0 mls/hr Admin: 07/15/18 16:48 Dose: 200 mls/hr Sodium Chloride (Nss) 500 mls @ 999 mls/hr IV .Q31M STA Stop: 07/15/18 17:53 Last Infusion: 07/15/18 18:17 Dose: 0 mls/hr Admin: 07/15/18 17:44 Dose: 999 mls/hr Lorazepam (Ativan) 0.5 mg in 1 mls @ 1 mls/min IV NOW STA Stop: 07/15/18 17:28 Last Admin: 07/15/18 17:42 Dose: 1 mls/min Lorazepam (Ativan) 0.5 mg in 1 mls @ 1 mls/min IV NOW STA Stop: 07/15/18 18:27 Last Admin: 07/15/18 18:43 Dose: 1 mls/min Insulin Human Regular 10 units (/ Syringe) 9.9 mls @ 3 mls/sec IV ONE STA Stop: 07/15/18 21:17 Last Admin: 07/15/18 21:29 Dose: 3 mls/sec Calcium Gluconate 2,000 mg/ (Sodium Chloride) 70 mls @ 240 mls/hr IV NOW STA Stop: 07/15/18 21:30 Last Infusion: 07/15/18 21:50 Dose: 0 mls/hr Admin: 07/15/18 21:28 Dose: 240 mls/hr Insulin Human Regular (Novolin R U-100 Per Unit) Confirm Administered Dose 10 units .ROUTE .STK-MED ONE Stop: 07/15/18 21:23 Last Admin: 07/15/18 21:29 Dose: Not Given Ondansetron HCl (Zofran) 4 mg IV NOW STA Stop: 07/15/18 17:28 Last Admin: 07/15/18 17:42 Dose: 4 mg Sodium Polystyrene Sulfonate (Kayexalate) 15 gm PO NOW STA Stop: 07/15/18 21:17 Last Admin: 07/15/18 21:28 Dose: 15 gm Imaging Data Attestation: I personally reviewed and interpreted this imaging study as follows : Radiologist's Impression: CT abd pelvis wo con CT DOSE: 321.45 mGy.cm HISTORY: Pain poss pyelonephritis TECHNIQUE: Multiaxial CT images of the abdomen and pelvis were performed without contrast. A dose lowering technique was utilized adhering to the principles of ALARA. COMPARISON STUDY: 04/28/2018 FINDINGS: Similar study overall compared to the prior exam. Lung bases are clear. Overall configuration of liver spleen and pancreas are grossly unremarkable. Patient is status post colectomy and left-sided ileostomy. There is a distended small bowel loop proximal to the ostomy site from the prior exam. This potentially may relate to adhesions. The presacral soft tissue and air present described on [address] studies appears similar. There are no secondary signs of free air within the abdomen or peritoneum. There are findings of chronic right renal hydronephrosis. There is a nonobstructing 8 mm right renal calcification unchanged. There is a left ureteral stent terminating in a right-sided diverting urostomy. This is unchanged. There again is noted to be a small amount of left and to lesser extent right perinephric fat stranding. IMPRESSION: 1. Similar study compared to the prior exam. 2. Operative changes consistent with prior colectomy, as well as several diversion procedures as described. 3. Similar small bowel obstructive change with an area of small bowel narrowing at and are slightly proximal to the left ostomy site. 4. Trace perinephric fat stranding on the left and to lesser extent right which may indicate a component of pyelonephritis. The above report was generated using voice recognition software. It may contain grammatical, syntax or spelling errors. Electronically signed by: Martin Ledezma M.D. 07/15/2018 6:36 PM Dictated: 07/15/181829 Transcribed: 07/15/181829 ECG Data Attestation: I personally reviewed and interpreted this ECG as follows: Indication: other (Hyperkalemia) Rate (beats per minute): 65 Rhythm: normal sinus Findings: no acute ischemic change, no left axis deviation and no ectopy Additional Comments: Normal intervals. Blood Pressure Blood Pressure Findings: Elevated blood pressure Blood Pressure Disposition: Referred to patients primary care provider Discharge Plan Visit Data *Final* Discharge Date/Time: 07/15/18 23:56 Chief Complaint: Allergic Reaction Stated Complaint: DIZZY, ITCHING, WELTS Other Complaint: Dizziness ED Provider: Alessandro Lu Discharge Problem: Acute hyperkalemia, Allergic reaction, Abdominal pain, Hives, Acute dehydration Patient Disposition: Admitted As Inpatient Discharge Instructions Interventions: ED Discharge Assessment Last Done: 07/15/18 23:56 The scribe's documentation has been prepared under my direction and personally reviewed by me in its entirety. I confirm that the note above accurately reflects all work, treatment, procedures, and medical decision making performed by me.
[2018-07-16 05:13] LABS: Basophils # (auto) 0.01 K/uL (0-0.2); Basophils % (auto) 0.2 %; Hematocrit (blood only) 32.6 % (37-47); Hemoglobin 10.1 g/dL (12.0-16.0); Immature Granulocytes # (auto) 0.03 K/uL (0.00-0.02); Immature Granulocytes % (auto) 0.6 %; Lymphocytes # (auto) 0.71 K/uL (1.2-3.4); Lymphocytes % (auto) 13.1 %; Mean Platelet Volume 9.2 fL (7.4-10.4); Monocytes # (auto) 0.02 K/uL (0.11-0.59); Monocytes % (auto) 0.4 %; Neutrophils # (auto) 4.65 K/uL (1.4-6.5); Neutrophils % (auto) 85.7 %; Platelet Count 194 K/uL (130-400); RDW Coefficient of Variation 15.7 % (11.5-14.5); RDW Standard Deviation 54.5 fL (36.4-46.3); Red Blood Count 3.43 M/uL (4.2-5.4); White Blood Count 5.42 K/uL (4.8-10.8)
[2018-07-16 05:27] LABS: INR 1.2 (0.9-1.1); Prothrombin Time 12.4 Seconds (9.0-12.0)
[2018-07-16 05:48] LABS: BUN Creatinine Ratio 9.7 (10-20); Calcium 8.2 mg/dl (8.5-10.1); Creatinine Clr Calc Pharmacy 19.8 ml/min; Est GFR (African American) 25.1; Est GFR (Non-African American) 21.6; Magnesium 1.9 mg/dl (1.8-2.4); Potassium 5.9 mmol/L (3.5-5.1)
[2018-07-16] MEDS: LEVOTHYROXINE SODIUM 75 MCG TABLET PO SCH (06:29)
[2018-07-16] MEDS: PANTOprazole 40 MG TAB PO SCH ×2 (08:04→21:08)
[2018-07-16] MEDS: CHOLECALCIFEROL 1,000 UNITS TAB PO SCH (08:05)
[2018-07-16] MEDS: ENOXAPARIN INJ 30 MG/0.3 ML SYR SQ SCH ×2 (08:05→08:11)
[2018-07-16] MEDS: ASCORBIC ACID 500 MG TAB PO SCH (08:06)
[2018-07-16] MEDS: CYANOCOBALAMIN 500 MCG TABLET (VITAMIN B-12) PO SCH (08:06)
[2018-07-16] MEDS: ESCITALOPRAM OXALATE 10 MG TAB PO SCH (08:07)
[2018-07-16] MEDS: CALCIUM 600MG + VIT D 400 IU TAB PO SCH ×2 (08:07→21:06)
[2018-07-16] MEDS: NIFEdipine EXTENDED REL 30 MG TABCR PO SCH (08:07)
[2018-07-16] MEDS: GABAPENTIN 300 MG CAP PO SCH ×2 (08:08→21:08)
[2018-07-16] MEDS: DICYCLOMINE HCL 20 MG TAB PO SCH ×3 (08:08→21:06)
[2018-07-16] MEDS: METOPROLOL TARTRATE 50 MG TAB PO SCH ×2 (08:08→21:08)
[2018-07-16] MEDS: ASPIRIN 325 MG ECTAB PO SCH (08:09)
[2018-07-16] MEDS: TRIAMCINOLONE ACET 0.1% CR 80 GM TUBE EXT SCH ×2 (12:40→21:05)
--- NOTE | 2018-07-16 13:33 | Family Medicine Progress Note ---
Date of Service July 16, 2018 Assessment & Plan (1) Allergic reaction: 72-year-old female was admitted on 15 July 2018 for hyperkalemia. She initially presented to the ED with concerns for allergic reaction. Allergic reaction secondary to keflex used for foot rash - rash appears to be contact dermatitis; will give triamcinolone - stop keflex given by PCP - symptoms improving, mild rash on ankle - no wheals or diffuse erythema noted, throat clear and normal lungs sounds - will hold off from any further medications as she received decadron in ED Hyperkalemia: - Upon admission it was 5.8 and then 6.0 - She is on home potassium, sodium bicarb and a multivitamin and she has chronic renal failure which appears stable; therefore these meds have been held - EKG without any changes - She received insulin and dextrose, calcium carbonate and kayexelate in the ED - Potassium has improved to 5.1 - Will recheck at 4pm this afternoon - aldosterone level pending for addissons? - Due to elevated potassium, increased urinary symptoms and back pain will order renal US to assess for hydronephrosis Increased urinary frequency: - Hx of multiple UTI's with klebsiella enterococcus - UA positive in ED but patient afebrile w/out WCC - She is at increased risks due to currents stents and ileostomy - Awaiting urine culture - Hold off on Abx for now Ongoing medical issues: - Short gut syndrome related to colon cancer (prior radiation without chemo) and colectomy (with colostomy and ileostomy): At home is on Bentyl, loperamide. Continue here. - Hypertension: At home is on aspirin, metoprolol, and nifedipine. Continue here. - Hypothyroidism: At home is on thyroxine. Continue here. - Esophagitis: At home is on omeprazole. Continue here. - Anemia: Admit Hb 9.1. Recent comparisons in the 9s. No evidence of active bleeding. - Bilateral foot neuropathy: Denies history of diabetes. Admit blood sugar 105. At home is on amitriptyline, gabapentin, Tylenol, and rare as needed Percocet. Continue here. - Depression / Anxiety: At home is on citalopram scheduled and lorazepam as needed. Continue here. --- Has displayed some depressive symptoms. Would benefit from close monitoring. - Obstructive sleep apnea: Does not use CPAP at home. - IVC filter: Per patient placed around 2001. - Left Charcot foot. - Back pain. Code status: Full code. Diet: Regular but start with low potassium. DVT prophy: Lovenox. Disbo: Admit to telemetry. Will consider transfer to floors later this afternoon (2) Hyperkalemia: (3) Increased urinary frequency: (4) History of renal stent: (5) Recurrent UTI: (6) CKD (chronic kidney disease), stage IV: (7) Left breast mass: (8) Colorectal cancer: (9) Colostomy: (10) Ileostomy present: (11) Short gut syndrome: (12) HTN (hypertension): (13) Hypothyroid: (14) Esophagitis: (15) Anemia: (16) Neuropathy of both feet: (17) Depression with anxiety: (18) Obstructive sleep apnea: Supervising Physician Co-Signing Physician Notes Attending Attestation I saw the patient with Dr. Sullivan and confirmed mccoy portions of the history and physical exam. I agree with the impression and plan as documented in his note. Upon exam late this morning, the patient appears generally well; nontoxic, hemodynamically stable, and afebrile. She states that she feels better than she did upon admission but reiterates what sounds to be a month plus history of general malaise. She denies any respiratory difficulty. The rash which was present upon admission has mostly resolved but the patient still complains of itchiness on her bilateral anterior thighs. Her repeat potassium is improved to 5.1. Upon exam she has what looks to be an eczematous type patch. Question urinary tract infection With her degree of allergies will await culture and sensitivity CT scan suggested trace perinephric stranding; will check renal ultrasound today given her urologic history We will hold off on empiric therapy at this point unless she were to develop symptoms before cultures completed. Hyperkalemia Improved. Recheck scheduled for 1600 Allergic reaction Likely secondary to Keflex Received Decadron in the emergency department Symptoms do not necessitate continued treatment; I think she will be at low risk for rebound phenomenon. Atopic dermatitis Triamcinolone topical twice daily Anemia Chronic and stable Short gut syndrome She gets biweekly IV fluid through her port and this would be scheduled for tomorrow Subjective Patient appears to be resting comfortably in bed. It was difficulty to get a consistent history from her as she jumps from one medical problem to the next. In summary she noted that she does feel better this morning. The nurses gave her an OTC hydrocortisone cream to apply to her rash which has helped. She still feels itchy in her lower extremities. Her main complaint is that she is very fatigue but has been fatigued for several years. She also notes that she is sick and tired of coming to the hospital. She has discussed custodial placement with her but she says he refuses to allow her go to a custodial. She notes that she goes to to [facility] unit twice weekly to get normal saline infusions. She notes she always has UTI's. She notes she has been going more frequently into her ileostomy bag; however she denies any fevers, chills, abdominal pain, nausea, or blood in the urine. She notes that her urine is malodorous. The patient does not that her lower back has been hurting her. She denies any shortness of breath, chest pain, lower extremity swelling, abdominal pain, nausea, vomiting, palpitations Review of Systems All systems reviewed & are unremarkable except as noted in HPI & below Physical Exam 2 Vital Signs (Past 24 Hours): Last Vital Signs Temp 36.8 C 07/16/18 12:08 Pulse 96 H 07/16/18 07:00 Resp 18 07/16/18 12:08 BP 147/77 H 07/16/18 12:08 Pulse Ox 96 07/16/18 12:08 Physical Exam: GENERAL: Awake, alert, well-appearing, in no acute distress HENT: Normocephalic, atraumatic. Oropharynx unremarkable. EYES: Normal conjunctiva. Sclera non-icteric. NECK: Inspection normal. Non-tender. Supple and full ROM. No nuchal rigidity. CARDIAC: +S1S2 RRR, no murmurs. Patient has a port in her R upper chest wall RESPIRATORY: Clear to auscultation. No wheezes or rales. Normal respiratory effort. GI: + Bowel sounds, she has an ileostomy bag and colostomy bag in place and bot appear to be functioning well and without any surrounding erythema. EXTREMITIES: No pedal edema or calf tenderness. _ (1) Hypothyroid Hypothyroidism type: acquired Qualified Code(s): E03.9 - Hypothyroidism, unspecified (2) Allergic reaction Encounter type: initial encounter Qualified Code(s): T78.40XA - Allergy, unspecified, initial encounter (3) HTN (hypertension) Hypertension type: essential hypertension Qualified Code(s): I10 - Essential (primary) hypertension
--- NOTE | 2018-07-16 20:17 | Ultrasound Report ---
ULTRASOUND KIDNEYS AND BLADDER CLINICAL HISTORY: Back pain. COMPARISON STUDY: Abdominal CT dated 07/15/2018. TECHNIQUE: Real-time, grayscale, and color flow sonography of the kidneys and bladder is performed. I mages are reviewed in the transverse and longitudinal planes. FINDINGS: Kidneys: The kidneys are atrophic, asymmetrically greater on the left. The right kidney measures 8.1 cm in length and the left kidney measures 6.0 cm in length. There is mild right and moderate left wayne ed hydronephrosis. A ureteral stent is noted on the left. A shadowing calculus is seen in the right l ower pole and measures at least 8 mm. A 1.2 cm cyst is noted in the right upper pole. There is no son ographic evidence of solid mass lesion. No perinephric fluid is identified. Bladder: The bladder is surgically absent. IMPRESSION: 1. The kidneys are atrophic. 2. There is mild right and moderate left-sided hydronephrosis. This was better assessed on yesterday' s CT scan. 3. A left ureteral stent is in place. 4. Nonobstructing right renal calculus. 5. The bladder is surgically absent. Electronically signed by: Scottie Manuel M.D. 07/16/2018 8:14 PM
[2018-07-16] MEDS ORDERED: AMITRIPTYLINE HCL 25 MG TAB PO SCH (21:00)
[2018-07-17] MEDS: HEPARIN 100 UNIT/ML 5ML FLUSH FLUSH PRN ×2 (05:25→16:53)
[2018-07-17] MEDS: LEVOTHYROXINE SODIUM 75 MCG TABLET PO SCH (06:05)
[2018-07-17 06:30] LABS: BUN Creatinine Ratio 11.4 (10-20); Calcium 7.4 mg/dl (8.5-10.1); Est GFR (Non-African American) 23.3; Potassium 4.7 mmol/L (3.5-5.1)
[2018-07-17] MEDS: CHOLECALCIFEROL 1,000 UNITS TAB PO SCH (09:00)
[2018-07-17] MEDS: PANTOprazole 40 MG TAB PO SCH (09:00)
[2018-07-17] MEDS: GABAPENTIN 300 MG CAP PO SCH (09:00)
[2018-07-17] MEDS: DICYCLOMINE HCL 20 MG TAB PO SCH ×2 (09:00→14:01)
[2018-07-17] MEDS: ASCORBIC ACID 500 MG TAB PO SCH (09:01)
[2018-07-17] MEDS: NIFEdipine EXTENDED REL 30 MG TABCR PO SCH (09:01)
[2018-07-17] MEDS: ASPIRIN 325 MG ECTAB PO SCH (09:01)
[2018-07-17] MEDS: METOPROLOL TARTRATE 50 MG TAB PO SCH (09:01)
[2018-07-17] MEDS: CYANOCOBALAMIN 500 MCG TABLET (VITAMIN B-12) PO SCH (09:01)
[2018-07-17] MEDS: CALCIUM 600MG + VIT D 400 IU TAB PO SCH (09:01)
[2018-07-17] MEDS: ENOXAPARIN INJ 30 MG/0.3 ML SYR SQ SCH (09:02)
[2018-07-17] MEDS: TRIAMCINOLONE ACET 0.1% CR 80 GM TUBE EXT SCH ×2 (09:02→14:01)
[2018-07-17] MEDS: ESCITALOPRAM OXALATE 10 MG TAB PO SCH (09:02)
[2018-07-17] MEDS ORDERED: cefTRIAXone SODIUM 1,000 MG in DEXTROSE 5% 50 ML IV SCH (14:00)
[2018-07-17] MEDS ORDERED: SODIUM CHLORIDE 0.9% 1000ML 2,000 ML IV ONE (15:00)
--- NOTE | 2018-07-17 19:06 | Discharge Summary ---
Date of Service July 17, 2018 Admission HPI Per Admitting Provider 72-year-old female initially presented to the emergency department with a concern for an allergic reaction on her legs. We discussed the following issues : - Patient says around she noticed a right ankle rash/swelling. She says she called her doctor's office, spoke to a nurse in the phone, and was prescribed a trial of Keflex. She says she has been on Keflex before but believes she may have had an allergic reaction consistent of both legs being "covered in welts" with pruritus. She tried some topical lotions without relief , so she presents here for care. - Patient says she has allergies to multiple different antibiotics. Apparently she is followed by Dr. Moran of infectious disease as an outpatient, last routine visit a couple weeks ago. She says she has been on Keflex before. -When asked why her potassium may be high, patient says over the past 5 or so days she has had "a craving of protein". She says she is increased her ham, pizano, and eggbeater intake. Notes concurrent increased appetite during this time except for today. She denies a previous history of similar protein cravings. - Patient says she is on a potassium supplement as well as sodium bicarb at home regularly. She does not know why. She says she takes it "because doctors prescribe it to me". Patient's mentions that the patient started taking tonic water (quinine ) in hopes of helping with some restless leg symptoms. She started taking this on a near daily basis a week ago and has taken 3-4 doses total. - When asked about potential urinary symptoms, patient says that over the past couple days the urine has "just gone through me". She denies any new dysuria, hematuria, or abdominal pains. As a side note, the patient's wants someone to know that the patient discovered a left breast lump "a couple weeks ago". The patient herself seems reluctant to talk about this but says she has a history of a mammogram perhaps 5 -6 years ago. This one may have been normal, however she has had needle biopsies in the left breast before. - As a final note, the patient volunteered that at times she seems she does not have the full will to live anymore given her chronic medical issues. However, she says she would like to see one of her family members get next year. Past medical history includes colon cancer 30+ years ago status post radiation, follow on colectomy with colostomy and ileostomy, short gut syndrome, hypertension, hypothyroidism, esophagitis, anemia, bilateral foot neuropathy, depression, anxiety, IVC filter, obstructive sleep apnea, left Charcot foot, back pain, anal fissures, small bowel obstruction, recurrent urinary tract infections, hydronephrosis, acute pancreatitis Past surgical history includes hysterectomy, cholecystectomy, appendectomy, renal stent, colon resection and colostomy, breast biopsy, ventral hernia repair , Port-A-Cath, colostomy and ileostomy, ureteral stents, repaired bladder fistula. Social history includes number smoking and rare alcohol on holidays. Lives at home with . Principal Diagnosis Allergic reaction Discharge Data Allergies Allergy/AdvReac Type Severity Reaction Status Date / Time cephalexin Allergy Intermediate RASH,ITCHIN Verified 07/15/18 17:02 G,HIVES Cipro Allergy Intermediate RASH Verified 03/02/18 10:07 ciprofloxacin Allergy Intermediate RASH Verified 07/15/18 17:02 homatropine Allergy Intermediate RASH Verified 07/15/18 17:02 hydrocodone Allergy Intermediate RASH Verified 07/15/18 17:02 metronidazole Allergy Intermediate RASH Verified 07/15/18 17:02 piperacillin Allergy Intermediate RASH Verified 07/15/18 17:02 Sulfa (Sulfonamide Allergy Intermediate RASH Verified 07/15/18 17:02 Antibiotics) tazobactam Allergy Intermediate RASH Verified 07/15/18 17:02 vancomycin Allergy Intermediate HIVES Verified 07/15/18 17:02 levofloxacin Allergy Unknown unknown Verified 07/15/18 17:02 nitrofurantoin Allergy Unknown .. Verified 07/15/18 17:02 Pdgxcsj-Bzg-Jhz Reductase Allergy Unknown LIPITOR Verified 07/15/18 17:02 Inhibitor AND PRAVASTATIN doxycycline Allergy Rash Verified 07/15/18 17:02 Consultations 07/15/18 21:23 ED Decision to Admit Stat 07/16/18 09:09 Consult Case Management - Discharge Planning Routine Ordered Studies 07/15/18 17:27 CT abd pelvis wo con Stat 07/16/18 13:18 US renal/blad retro comp Routine Hospital Course (1) Allergic reaction: 72-year-old female was admitted on 15 July 2018 for hyperkalemia. She initially presented to the ED with concerns for allergic reaction. Allergic reaction secondary to keflex used for foot rash - rash appears to be contact dermatitis; will give triamcinolone - stopped keflex given by PCP - symptoms improved - no wheals or diffuse erythema noted, throat clear and normal lungs sounds - will hold off from any further medications as she received decadron in ED, did well, and appears stable Hyperkalemia: - Upon admission it was 5.8 and then 6.0 - She is on home potassium, sodium bicarb and a multivitamin and she has chronic renal failure which appears stable; probably for no clear reason absorbed better currently - meds reduced, f/u BMP later this week. more than likely with her short gut, they will need to be resumed, but for safety, will reduce and follow up labs via PCP first - aldosterone level pending for addissons? Hydronephrosis -Appears mostly chronic, although it is not clear if it may be a little bit progressed from before. Her creatinine however is stable, and she is already set up for outpatient urology follow-up on Tuesday. Increased urinary frequency: - Hx of multiple UTI's with klebsiella enterococcus - UA positive in ED but patient afebrile w/out WCC - She is at increased risks due to currents stents and ileostomy -We will treat with Rocephin, given her myriad of allergies. Ongoing medical issues: - Short gut syndrome related to colon cancer (prior radiation without chemo) and colectomy (with colostomy and ileostomy): At home is on Bentyl, loperamide. Continue here. - Hypertension: At home is on aspirin, metoprolol, and nifedipine. Continue here. - Hypothyroidism: At home is on thyroxine. Continue here. - Esophagitis: At home is on omeprazole. Continue here. - Anemia: Admit Hb 9.1. Recent comparisons in the 9s. No evidence of active bleeding. - Bilateral foot neuropathy: Denies history of diabetes. Admit blood sugar 105. At home is on amitriptyline, gabapentin, Tylenol, and rare as needed Percocet. Continue here. - Depression / Anxiety: At home is on citalopram scheduled and lorazepam as needed. Continue here. --- Has displayed some depressive symptoms. Would benefit from close monitoring. - Obstructive sleep apnea: Does not use CPAP at home. - IVC filter: Per patient placed around 2001. - Left Charcot foot. - Back pain. Code status: Full code. Stable for home (2) Hyperkalemia: (3) Increased urinary frequency: (4) History of renal stent: (5) Recurrent UTI: (6) CKD (chronic kidney disease), stage IV: (7) Left breast mass: (8) Colorectal cancer: (9) Colostomy: (10) Ileostomy present: (11) Short gut syndrome: (12) HTN (hypertension): (13) Hypothyroid: (14) Esophagitis: (15) Anemia: (16) Neuropathy of both feet: (17) Depression with anxiety: (18) Obstructive sleep apnea: Total Time Total Time Spent Total Time Spent (In Minutes): <30 Discharge Plan Discharge Items Patient Disposition: Home - Self-Care Reason For Visit: HYPERKALEMIA Discharge Diagnosis: pyelonephritis hyperkalemia Discharge Goals: Decrease discomfort, Diagnostic testing, Improve nutritional status and Therapeutic intervention Activity: Resume your previous activity Non-emergency contact: Primary Care Provider Call non-emergency contact if: you have any medication questions, your symptoms worsen, your pain is concerning for you and your temperature is above 100.5 Follow-up/Referrals: Myles Horton MD [Physician] - 07/19/18 11:40 am (Please, follow up at [facility] Office with Dr. Horton on TuesdayJuly 19 at 11:40 am. *If you need to change this appointment, call the office at [phone].) Joe Alonso MD [Primary Care Provider] - 07/25/18 2:00 pm (Please, follow up with Dr. Bon Mckeon on TuesdayJuly 25 at 2:00 pm. *If you need to change this appointment, call the office at [phone].) Diet Comment: Continue your previous home diet Addtl Provider Instructions: Please take Rocephin IV for another 9 days at [facility] for concern of pyelonephritis (kidney infection). You have an appt scheduled as below: You have been scheduled with [facility] for tomorrow, July 18 at 11am, for your IV antibiotics. They will work with your schedule for the remainder of the days needed for infusions. Please stop taking your potassium supplement as your potassium was high on admission. Please follow up with your primary care doctor in 2-3 days to recheck your potassium level and restart your supplement if need be Otherwise continue your remaining home medications as prescribed Prescriptions: Continue ascorbic acid (vitamin C) [Vitamin C] 1,000 mg Tablet 1 g PO QAM RF: 0 loperamide 2 mg Capsule 2 mg PO Q3H PRN (Reason: Diarrhea) RF: 0 acetaminophen [Tylenol Extra Strength] 500 mg Tablet 500 mg PO Q6H PRN (Reason: Pain) RF: 0 oxycodone-acetaminophen 5-325 mg Tablet 1 tab PO Q6H PRN (Reason: Pain) RF: 0 amitriptyline 25 mg Tablet 25 mg PO HS RF: 0 lorazepam 0.5 mg Tablet 0.5 mg PO TID PRN (Reason: Anxiety) RF: 0 dicyclomine 20 mg Tablet 20 mg PO TID RF: 0 sodium bicarbonate 650 mg Tablet 650 mg PO BID RF: 0 metoprolol tartrate 50 mg Tablet 50 mg PO BID RF: 0 gabapentin 300 mg Capsule 300 mg PO BID RF: 0 nifedipine 60 mg Tablet Extended Release 60 mg PO QAM RF: 0 multivitamin Capsule 1 cap PO QAM RF: 0 calcium carbonate-vitamin D3 [Calcium 500 + D (D3)] 500 mg(1,250mg) -125 unit Tablet 1 tab PO BID RF: 0 omeprazole 20 mg Tablet,Delayed Release (Dr/Ec) 20 mg PO BID RF: 0 cholecalciferol (vitamin D3) 3,000 unit Tablet 5,000 unit PO QAM RF: 0 levothyroxine 75 mcg Capsule 75 mcg PO QAM RF: 0 cyanocobalamin (vitamin B-12) 5,000 mcg Tablet, Ir And Er, Biphasic 4,000 mcg PO QAM RF: 0 aspirin [Hanna Aspirin] 325 mg Tablet 325 mg PO QAM RF: 0 escitalopram oxalate 5 mg Tablet 5 mg PO QAM RF: 0 Discontinued potassium chloride 10 mEq Capsule, Extended Release 10 meq PO QAM RF: 0 Visit Report Forms: My [facility] Portal Stand-Alone Forms: [facility] Discharge Orders: Discharge Order (Routine); Ordered 07/17/18 Ordered By: Karen Soto Admission Data Admit Date/Time: 07/15/18 23:19 Attending Provider: Layo Sloan Admit Provider: Juice Galvan Primary Care Provider: Joe Alonso Other Providers: Jose Angel Blanton ; Gurinder Barton Service: Telemetry Other Interventions: Discharge Summary Assessment (RN) Last Done: 07/17/18 15:54 Pending Studies at Discharge: Yes (Repeat urine culture ) DC Date/Time DO NOT enter until pt leaves facility: 07/17/18 17:19
== END 2018-07-17 17:19 | disposition home or self-care (01) | DRG 607 ==
LOC: ED 15:40 → 2S 23:19 → SUATTDRO 23:19 → 2S 23:56 → 4E 07-16 16:11

== ENCOUNTER 2018-09-25 12:33 | Inpatient (IN) ==
[2018-09-25 13:43] LABS: Basophils # (auto) 0.04 K/uL (0-0.2); Basophils % (auto) 0.5 %; Eosinophils # (auto) 0.35 K/uL (0-0.5); Eosinophils % (auto) 4.5 %; Hematocrit (blood only) 34.7 % (37-47); Hemoglobin 10.9 g/dL (12.0-16.0); Immature Granulocytes # (auto) 0.07 K/uL (0.00-0.02); Immature Granulocytes % (auto) 0.9 %; Lymphocytes % (auto) 20.6 %; Mean Corpuscular Hgb Conc 31.4 g/dL (32-36); Mean Platelet Volume 9.5 fL (7.4-10.4); Monocytes # (auto) 0.34 K/uL (0.11-0.59); Monocytes % (auto) 4.4 %; Neutrophils # (auto) 5.35 K/uL (1.4-6.5); Neutrophils % (auto) 69.1 %; Platelet Count 184 K/uL (130-400); RDW Coefficient of Variation 16.3 % (11.5-14.5); RDW Standard Deviation 58.9 fL (36.4-46.3); Red Blood Count 3.54 M/uL (4.2-5.4); White Blood Count 7.75 K/uL (4.8-10.8)
[2018-09-25 13:44] LABS: Appearance Urine Cloudy (Clear); Bacteria Urine Automated 4+ (Negative); Bilirubin Urine Negative (Negative); Blood Urine Trace (Negative); Color Urine Yellow; Epithelial Cell Urine Auto 0-5 /lpf (0-5); Glucose Urine UA Negative (Negative); Ketones Urine Negative (Negative); Leukocyte Esterase Urine 3+ (Negative); Nitrite Urine Positive (Negative); Protein Urine Negative (Negative); RBC Urine Automated 0-4 /hpf (0-4); Specific Gravity Urine 1.011 (1.000-1.030); Urobilinogen Urine Negative (Negative); WBC Urine Automated >30 /hpf (0-5); pH Urine 6.5 (4.5-7.5)
[2018-09-25] MEDS ORDERED: SODIUM CHLORIDE 0.9% 1000ML 1,000 ML IV SCH (13:45)
--- NOTE | 2018-09-25 13:56 | XRay Report ---
XR chest 1V portable HISTORY: weakness COMPARISON: Chest 05/15/2018. FINDINGS: The heart is normal in size. Right jugular Port-A-Cath terminates at the SVC. No pleural ef fusions. No pneumothorax. Bibasilar interstitial thickening persists. This is likely chronic. IMPRESSION: No significant change compared to the prior study. No acute process. Electronically signed by: Deshawn Alvarez M.D. 09/25/2018 1:54 PM
[2018-09-25 14:01] LABS: Alanine Aminotransferase 14 U/L (12-78); Albumin Level 3.1 gm/dl (3.4-5.0); Aspartate Aminotransferase 11 U/L (15-37); BUN Creatinine Ratio 11.5 (10-20); Blood Urea Nitrogen 27 mg/dl (7-18); Calcium 7.5 mg/dl (8.5-10.1); Carbon Dioxide 19 mmol/L (21-32); Chloride 116 mmol/L (98-107); Est GFR (African American) 22.7; Est GFR (Non-African American) 19.6; Glucose 89 mg/dl (70-99); Potassium 5.1 mmol/L (3.5-5.1); Sodium 143 mmol/L (136-145)
[2018-09-25 14:04] LABS: Alkaline Phosphatase 135 U/L (45-117); Bilirubin,Total 0.2 mg/dl (0.2-1); Globulin 3.3 gm/dl (2.5-4.0); Total Protein 6.4 gm/dl (6.4-8.2)
[2018-09-25 14:14] LABS: Prothrombin Time 10.5 Seconds (9.0-12.0)
[2018-09-25 14:31] LABS: Troponin I < 0.015 ng/ml (0-0.045)
[2018-09-25] MEDS ORDERED: FOSFOMYCIN TROMETHAMINE 3 GM PACKET PO SCH (15:15)
--- NOTE | 2018-09-25 15:39 | CT Scan Report ---
CT SCAN OF THE ABDOMEN AND PELVIS WITHOUT IV CONTRAST CLINICAL HISTORY: Generalized abdominal pain. COMPARISON STUDY: Multiple prior abdominal CT scans, most recently dated 07/15/2018 and dating back to 01/25/2017. TECHNIQUE: CT scan of the abdomen and pelvis is performed from the lung bases to the proximal femora. Images are reviewed in the axial, sagittal, and coronal planes. IV contrast was not administered for this examination as per the referring clinician. Note that the examination was performed in signific antly suboptimal fashion without oral and IV contrast. A dose lowering technique was utilized adherin g to the principles of ALARA. CT DOSE: 287.95 mGy.cm FINDINGS: Lung bases: The heart is normal in size and without pericardial effusion. There is bibasilar scarring /atelectasis. No airspace consolidation or pleural effusion is identified. There is a small hiatal he rnia. Liver: The unenhanced liver is normal in size, contour, and attenuation. There is mild to moderate in trahepatic biliary ductal dilatation. Gallbladder: Surgically absent. Spleen: Normal in size and attenuation. Pancreas: Atrophic and grossly unremarkable. Adrenal glands: Unremarkable. Kidneys: The unenhanced kidneys are atrophic. There is a 12 mm nonobstructing calculus in the right l ower pole. No left renal calculi are Identified. There is moderate right hydronephrosis. The right ur eter is normal in caliber. There is moderate to severe left hydroureteronephrosis with a left uretera l stent in place extending to a right lower quadrant ileal conduit/urostomy. There is marked inflamma tory stranding identified around the left kidney and the left ureter, with urothelial thickening in t he left renal pelvis and left ureter. No calcifications are seen along the course of the left uretera l stent. Abdominal vasculature: The abdominal aorta is normal in course and caliber noting advanced atheroscle rotic calcification. An infrarenal IVC filter is in place. Bowel: Postoperative change is seen involving the right colon, and there is a left lower quadrant col ostomy. A urostomy/ileal conduit is seen in the right lower quadrant. Liquid stool is noted in the co deidra, and the cecum is mildly distended. There is no evidence of bowel obstruction. The small bowel lo ops are normal in caliber. The rectosigmoid colon is not identified and presumed surgically absent. T here is a large duodenal diverticulum. The appendix is not identified and reported surgically absent . Peritoneum: There is no intraperitoneal free air or abdominal ascites. Lymphadenopathy: None. Pelvic viscera: The bladder and uterus are not identified and presumed surgically absent. No adnexal lesion is seen. Marked presacral soft tissue thickening with associated surgical clips are identified . There is nonspecific gas within the presacral region. This is similar in appearance to prior studie s. Associated induration and subcutaneous gas within the gluteal soft tissues are likely related subc utaneous injections. Skeletal structures: The skeletal structures are heterogeneously osteopenic. There is moderate lumbos acral spondylosis. No lytic or blastic lesions are seen. IMPRESSION: 1. Significantly suboptimal examination without oral and IV contrast. 2. There are postoperative changes from bowel resections, left lower quadrant colostomy, and right lo wer quadrant urostomy/ileal conduit. No bowel obstruction is seen. 3. The bladder, rectosigmoid colon, and uterus are not identified and presumed surgically absent. 4. There is moderate to severe left hydroureteronephrosis with a left ureteral stent in place. There is inflammatory stranding around the left kidney and ureter with associated urothelial thickening. Th e appearance suggests ascending infection/pyelonephritis. Clinical correlation will be required. 5. There is moderate right hydronephrosis. 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 6. Nonobstructing right renal calculus. 7. Liquid stool is noted in the right colon. Correlate clinically for evidence of a diarrheal illness . 8. Presacral soft tissue thickening and foci of presacral gas are similar to multiple prior examinati ons. This is likely on a postoperative/post treatment basis. Given the presence of gas a fistula woul d be impossible to exclude. 9. Additional findings as above. Electronically signed by: Scottie Manuel M.D. 09/25/2018 3:38 PM
[2018-09-25] MEDS ORDERED: cefTRIAXone SODIUM 1,000 MG/50 ML BAG IV STA (15:46)
[2018-09-25] MEDS ORDERED: ZOLPIDEM TARTRATE 5 MG TAB PO PRN (18:02)
[2018-09-25] MEDS ORDERED: ONDANSETRON INJ 2 MG/ML 2 ML VIAL IV PRN (18:12)
[2018-09-25] MEDS ORDERED: ACETAMINOPHEN 325 MG TAB PO PRN (18:12)
[2018-09-25] MEDS ORDERED: POLYETHYLENE (MIRALAX) 17 GM PACK PO PRN (18:12)
[2018-09-25] MEDS ORDERED: ALUMINUM/MAGNESIUM SUSP 30 ML UDC PO PRN (18:12)
[2018-09-25] MEDS ORDERED: MAGNESIUM HYDROXIDE SUSP 30 ML UDC PO PRN (18:12)
[2018-09-25] MEDS ORDERED: OXYCODONE/ACETAMINOPHEN 5mg/325mg TAB PO PRN (18:27)
--- NOTE | 2018-09-25 18:36 | History & Physical Report ---
Date of Service September 25, 2018 Assessment & Plan (1) Pyelonephritis: (2) Hydronephrosis: (3) Abnormal CT of the abdomen: (4) H/O ileostomy: (5) Hypothyroid: (6) Depression with anxiety: (7) Neuropathy of both feet: (8) Obstructive sleep apnea: (9) Short gut syndrome: (10) Colostomy: (11) HTN (hypertension): (12) History of renal stent: (13) H/O colostomy: (14) Colon cancer: (15) Hx of cardiac cath: 72-year-old female with hx of recurrent urinary tract infections, hydronephrosis ,colectomy with colostomy and ileostomy coming to the hospital emergency room because of generalized weakness uti possible pyelonephritis hydro-ureter, current ureter stent HX OF recurrent urinary tract infections, hydronephrosis, AND Will be admission, cefepime IV, urology consultation, has ordered to call to on- call MD if spiking fever >38 short gut syndrome, continue bicarb, loperamide, dicyclomine, hypertension, continue metoprolol hypothyroidism, continue levothyroxine bilateral foot neuropathy, continue Neurontin depression, anxiety, continue amitriptyline GI DVT prophylaxis 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 Patient is full code History of Present Illness Chief Complaint: Generalized weakness feeling cold, Primary Care Provider: Joe Alonso MD 72-year-old female with hx of recurrent urinary tract infections, hydronephrosis ,colectomy with colostomy and ileostomy coming to the hospital emergency room because of generalized weakness other medical hx includes colon cancer 30+ years ago status post radiation, follow on colectomy with colostomy and ileostomy, short gut syndrome, hypertension, hypothyroidism, esophagitis, anemia, bilateral foot neuropathy, depression, anxiety, IVC filter, obstructive sleep apnea, left Charcot foot, back pain, anal fissures, small bowel obstruction, recurrent urinary tract infections, hydronephrosis, acute pancreatitis she reported feeling fatigue for several days, denies fever and chill however feeling cold , Denies nausea vomiting, however has no appetite denies dysuria urgency and frequency. Emergency room there was no fever and chill, no leukocytosis, however CT studies shows hydro-ureter, and possible pyelonephritis. On interview with the patient and she confirming the above information Allergies Allergy/AdvReac Type Severity Reaction Status Date / Time cephalexin Allergy Intermediate RASH,ITCHIN Verified 09/25/18 13:57 G,HIVES Cipro Allergy Intermediate RASH Verified 03/02/18 10:07 ciprofloxacin Allergy Intermediate RASH Verified 09/25/18 13:57 homatropine Allergy Intermediate RASH Verified 09/25/18 13:57 hydrocodone Allergy Intermediate RASH Verified 09/25/18 13:57 metronidazole Allergy Intermediate RASH Verified 09/25/18 13:57 piperacillin Allergy Intermediate RASH Verified 09/25/18 13:57 Sulfa (Sulfonamide Allergy Intermediate RASH Verified 09/25/18 13:57 Antibiotics) tazobactam Allergy Intermediate RASH Verified 09/25/18 13:57 vancomycin Allergy Intermediate HIVES Verified 09/25/18 13:57 levofloxacin Allergy Unknown unknown Verified 09/25/18 13:57 nitrofurantoin Allergy Unknown .. Verified 09/25/18 13:57 [id number] Reductase Allergy Unknown LIPITOR Verified 09/25/18 13:57 Inhibitor AND PRAVASTATIN doxycycline Allergy Rash Verified 09/25/18 13:57 Home Medications Home Medications Medication Instructions Recorded Confirmed Type acetaminophen [Tylenol Extra 500 mg PO Q6H PRN 05/09/18 09/25/18 History Strength] amitriptyline 25 mg PO HS 05/09/18 09/25/18 History ascorbic acid (vitamin C) [Vitamin 1 g PO QAM 05/09/18 09/25/18 History C] calcium carbonate-vitamin D3 1 tab PO BID 05/09/18 09/25/18 History [Calcium 500 + D (D3)] cholecalciferol (vitamin D3) 5,000 unit PO QAM 05/09/18 09/25/18 History cyanocobalamin (vitamin B-12) 4,000 mcg PO QAM 05/09/18 09/25/18 History dicyclomine 20 mg PO TID 05/09/18 09/25/18 History gabapentin 300 mg PO BID 05/09/18 09/25/18 History levothyroxine 75 mcg PO QAM 05/09/18 09/25/18 History loperamide 2 mg PO Q3H PRN 05/09/18 09/25/18 History lorazepam 0.25 mg PO HS 05/09/18 09/25/18 History metoprolol tartrate 50 mg PO BID 05/09/18 09/25/18 History multivitamin 1 cap PO QAM 05/09/18 09/25/18 History nifedipine 60 mg PO QAM 05/09/18 09/25/18 History omeprazole 20 mg PO BID 05/09/18 09/25/18 History oxycodone-acetaminophen 1 tab PO Q6H PRN 05/09/18 09/25/18 History sodium bicarbonate 650 mg PO BID 05/09/18 09/25/18 History aspirin [Hanna Aspirin] 325 mg PO QAM 05/15/18 09/25/18 History escitalopram oxalate 7.5 mg PO QAM 05/22/18 09/25/18 History ferrous sulfate [iron] 325 mg PO QAM 09/25/18 09/25/18 History lactobacillus combination no.4 3,000 mmu cells PO QAM 09/25/18 09/25/18 History [Probiotic] potassium chloride 10 meq PO BID 09/25/18 09/25/18 History Past Med/Surg History Medical History Short gut syndrome (Chronic) Colostomy (Chronic 07/01/12) HTN (hypertension) (Chronic) Ileostomy present (Chronic) Physical deconditioning (Chronic) Back pain (Chronic) Esophagitis (Chronic 07/01/12) Anemia (Chronic) CKD (chronic kidney disease), stage IV (Chronic) Colon cancer (Acute) 36 years ago - colectomy with colostomy, hyperbaric treatments, radiation Recurrent UTI (Chronic) Dilated bile duct (Chronic) Ischemic colitis (Acute) Hx of tooth extraction (Acute) Charcot's joint of foot left foot Chronic kidney disease STAGE 4, PT STATES MONITORED Dows filter in place POSSIBLE DIAGNOSIS OF P.E. IN PAST Hypertension Hypothyroidism Neuropathy of both feet Sleep apnea DOES NOT WEAR MACHINE Surgical History H/O: hysterectomy (Chronic) History of cholecystectomy (Chronic) S/P appendectomy (Chronic) History of renal stent (Acute) H/O colostomy (Acute) Hx of cardiac cath (Acute) 2001 History of cholecystectomy (Acute) History of appendectomy (Acute) History of breast biopsy BENIGN History of colectomy RESULTED IN "NICKING OF BOWEL", S/P REPAIR AND ILLEO-CONDUIT PLACEMENT History of cystoscopy History of herniorrhaphy Ventral hernia repair History of hysterectomy History of ileal conduit S/T COMPLICATIONS OF BOWEL SURGERY Port-A-Cath in place Family History Other FHx: heart disease Family history of high blood pressure Short gut syndrome Social History Preferred Language: Bulgarian Beliefs That Will Affect Care: None marital status: Current Living Situation: Spouse current occupational status: retired Feels Safe at Home: Yes Smoking Status: Never smoker Hx Alcohol Use: No Hx Substance Use: No Review of Systems All systems reviewed & are unremarkable except as noted in HPI & below Physical Exam Vital Signs (Past 24 Hours): Last Vital Signs Temp 36.4 C L 09/25/18 12:36 Pulse 60 09/25/18 18:00 Resp 14 09/25/18 16:50 BP 110/55 L 09/25/18 17:30 Pulse Ox 96 09/25/18 18:00 Physical Exam: GENERAL: Awake, alert, looks tired, mild pale,, in no acute distress HENT: Normocephalic, atraumatic. Oropharynx unremarkable. EYES: Normal conjunctiva. Sclera non-icteric. NECK: Supple and full ROM. No nuchal rigidity. CARDIAC: +S1S2 RRR, no murmurs. RESPIRATORY: Clear to auscultation. No wheezes or rales. Normal respiratory effort. Gastro: +BS, soft, non-distended. No tenderness to palpation. No rebound or guarding. No appreciable masses. Bilateral CVA was nontender EXTREMITIES: No pedal edema or calf tenderness. Moving all extremities naturally and easily. NEURO: No gross neuro deficits. Skin: Some chronic skin changes in her distal bilateral lower extremities. No obvious hives, erythema, or edema suggestive of an ongoing allergic reaction. Lines: Chest mediport accessed. Results & Data Laboratory Results Laboratory Results - last 24 hr 09/25/18 09/25/18 09/25/18 12:45 13:30 13:30 WBC 7.75 RBC 3.54 L Hgb 10.9 L Hct 34.7 L MCV 98.0 MCH 30.8 MCHC 31.4 L RDW Std Deviation 58.9 H RDW Coeff of Ethan 16.3 H Plt Count 184 MPV 9.5 Immature Gran % (Auto) 0.9 Neut % (Auto) 69.1 Lymph % (Auto) 20.6 [place] % (Auto) 4.4 Eos % (Auto) 4.5 Baso % (Auto) 0.5 Immature Gran # (Auto) 0.07 H Neut # (Auto) 5.35 Lymph # (Auto) 1.60 [place] # (Auto) 0.34 Eos # (Auto) 0.35 Baso # (Auto) 0.04 PT INR Sodium 143 Potassium 5.1 Chloride 116 H Carbon Dioxide 19 L Anion Gap 8.0 BUN 27 H Creatinine 2.38 H D Est Cr Clr Drug Dosing Not Reportable Est GFR ( Amer) 22.7 Est GFR (Non-Af Amer) 19.6 BUN/Creatinine Ratio 11.5 Glucose 89 Calcium 7.5 L Total Bilirubin 0.2 AST 11 L ALT 14 Alkaline Phosphatase 135 H Troponin I Total Protein 6.4 Albumin 3.1 L Globulin 3.3 Albumin/Globulin Ratio 1.0 Lipase 52 L TSH Urine Color Yellow Urine Appearance Cloudy H Urine pH 6.5 Ur Specific [place] 1.011 Urine Protein Negative Urine Glucose (UA) Negative Urine Ketones Negative Urine Blood Trace H Urine Nitrite Positive H Urine Bilirubin Negative Urine Urobilinogen Negative Ur Leukocyte Esterase 3+ H Urine WBC (Auto) >30 H Urine RBC (Auto) 0-4 U Hyaline Cast (Auto) 1-5 U Epithel Cells (Auto) 0-5 Urine Bacteria (Auto) 4+ H 09/25/18 09/25/18 13:30 13:55 WBC RBC Hgb Hct MCV MCH MCHC RDW Std Deviation RDW Coeff of Ethan Plt Count MPV Immature Gran % (Auto) Neut % (Auto) Lymph % (Auto) [place] % (Auto) Eos % (Auto) Baso % (Auto) Immature Gran # (Auto) Neut # (Auto) Lymph # (Auto) [place] # (Auto) Eos # (Auto) Baso # (Auto) PT 10.5 INR 1.0 Sodium Potassium Chloride Carbon Dioxide Anion Gap BUN Creatinine Est Cr Clr Drug Dosing Est GFR ( Amer) Est GFR (Non-Af Amer) BUN/Creatinine Ratio Glucose Calcium Total Bilirubin AST ALT Alkaline Phosphatase Troponin I < 0.015 Total Protein Albumin Globulin Albumin/Globulin Ratio Lipase TSH 2.500 Urine Color Urine Appearance Urine pH Ur Specific [place] Urine Protein Urine Glucose (UA) Urine Ketones Urine Blood Urine Nitrite Urine Bilirubin Urine Urobilinogen Ur Leukocyte Esterase Urine WBC (Auto) Urine RBC (Auto) U Hyaline Cast (Auto) U Epithel Cells (Auto) Urine Bacteria (Auto) Diagnostic Findings Abd Ct showed here is moderate to severe left hydroureteronephrosis with a left ureteral stent in place. There is inflammatory stranding around the left kidney and ureter with as sociated urothelial thickening. The appearance suggests ascending infection/pyelonephritis. Clinical correlation will be required. 5. There is moderate right hydronephrosis. 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 6. Nonobstructing right renal calculus. 7. Liquid stool is noted in the right colon. Correlate clinically for evidence of a diarrheal illness. 8. Presacral soft tissue thickening and foci of presacral gas are similar to multiple prior examinations. This is likely on a postoperative/post treatment basis. Given the presence of gas a fistula would be impossible to exclude. 9. Additional findings as above. Code Status & VTE Plan Code Status FULL CODE VTE Prophylaxis Plan VTE Prophylaxis will be ordered: Yes (1) Hydronephrosis Hydronephrosis type: unspecified Qualified Code(s): N13.30 - Unspecified hydronephrosis (2) Hypothyroid Hypothyroidism type: acquired Qualified Code(s): E03.9 - Hypothyroidism, unspecified (3) HTN (hypertension) Hypertension type: essential hypertension Qualified Code(s): I10 - Essential (primary) hypertension
--- NOTE | 2018-09-25 19:32 | Emergency Department Note ---
Entered by Dona Velez acting as a scribe for Layo Fox DO History of Present Illness General Chief complaint: Illness Stated complaint: TIRED, UNKNOWN OTHER SYMPTOMS POSS UTI Source: patient History of Present Illness Onset (ago): day(s) (a few days ago) Location: head and abdomen Severity: similar to prior episodes (sepsis) Pain Consistency: + other (worsening) Maximum Pain Intensity: 4 Quality: + other (illness) Associated symptoms: + denies other symptoms (rhinorrhea, sore throat, dizziness, open wounds, open sores), + weakness and + other (abdominal pain, lightheaded); no cough The patient is a 72 year old female who presents to the Emergency Room with complaints of worsening illness over the last few days. The patient states that she has a urostomy and an ostomy. She states that 2 weeks ago she had a stent replaced from her ostomy to her kidney. She reports that she felt fine after the operation, but the last few days she hasn�t felt well. She states that she feels weak and lightheaded. She states that she keeps feeling like she is going to pass out. She states that she has had sepsis before and this feels similar. The patient complains of abdominal pain near her ostomy starting yesterday. She notes that she doesn�t urinate anymore and changes the bags every few days. The patient denies cough, rhinorrhea, sore throat, dizziness, open wound, and open sores. Home Medications Home Medications Medication Instructions Recorded Confirmed Type acetaminophen [Tylenol Extra 500 mg PO Q6H PRN 05/09/18 09/25/18 History Strength] amitriptyline 25 mg PO HS 05/09/18 09/25/18 History ascorbic acid (vitamin C) [Vitamin 1 g PO QAM 05/09/18 09/25/18 History C] calcium carbonate-vitamin D3 1 tab PO BID 05/09/18 09/25/18 History [Calcium 500 + D (D3)] cholecalciferol (vitamin D3) 5,000 unit PO QAM 05/09/18 09/25/18 History cyanocobalamin (vitamin B-12) 4,000 mcg PO QAM 05/09/18 09/25/18 History dicyclomine 20 mg PO TID 05/09/18 09/25/18 History gabapentin 300 mg PO BID 05/09/18 09/25/18 History levothyroxine 75 mcg PO QAM 05/09/18 09/25/18 History loperamide 2 mg PO Q3H PRN 05/09/18 09/25/18 History lorazepam 0.25 mg PO HS 05/09/18 09/25/18 History metoprolol tartrate 50 mg PO BID 05/09/18 09/25/18 History multivitamin 1 cap PO QAM 05/09/18 09/25/18 History nifedipine 60 mg PO QAM 05/09/18 09/25/18 History omeprazole 20 mg PO BID 05/09/18 09/25/18 History oxycodone-acetaminophen 1 tab PO Q6H PRN 05/09/18 09/25/18 History sodium bicarbonate 650 mg PO BID 05/09/18 09/25/18 History aspirin [Hanna Aspirin] 325 mg PO QAM 05/15/18 09/25/18 History escitalopram oxalate 7.5 mg PO QAM 05/22/18 09/25/18 History ferrous sulfate [iron] 325 mg PO QAM 09/25/18 09/25/18 History lactobacillus combination no.4 3,000 mmu cells PO QAM 09/25/18 09/25/18 History [Probiotic] potassium chloride 10 meq PO BID 09/25/18 09/25/18 History Allergies Allergy/AdvReac Type Severity Reaction Status Date / Time cephalexin Allergy Intermediate RASH,ITCHIN Verified 09/25/18 13:57 G,HIVES Cipro Allergy Intermediate RASH Verified 03/02/18 10:07 ciprofloxacin Allergy Intermediate RASH Verified 09/25/18 13:57 homatropine Allergy Intermediate RASH Verified 09/25/18 13:57 hydrocodone Allergy Intermediate RASH Verified 09/25/18 13:57 metronidazole Allergy Intermediate RASH Verified 09/25/18 13:57 piperacillin Allergy Intermediate RASH Verified 09/25/18 13:57 Sulfa (Sulfonamide Allergy Intermediate RASH Verified 09/25/18 13:57 Antibiotics) tazobactam Allergy Intermediate RASH Verified 09/25/18 13:57 vancomycin Allergy Intermediate HIVES Verified 09/25/18 13:57 levofloxacin Allergy Unknown unknown Verified 09/25/18 13:57 nitrofurantoin Allergy Unknown .. Verified 09/25/18 13:57 Knyccql-Lhr-Egh Reductase Allergy Unknown LIPITOR Verified 09/25/18 13:57 Inhibitor AND PRAVASTATIN doxycycline Allergy Rash Verified 09/25/18 13:57 Past Med/Surg History Medical History Short gut syndrome (Chronic) Colostomy (Chronic 07/01/12) HTN (hypertension) (Chronic) Ileostomy present (Chronic) Physical deconditioning (Chronic) Back pain (Chronic) Esophagitis (Chronic 07/01/12) Anemia (Chronic) CKD (chronic kidney disease), stage IV (Chronic) Colon cancer (Acute) 36 years ago - colectomy with colostomy, hyperbaric treatments, radiation Recurrent UTI (Chronic) Dilated bile duct (Chronic) Ischemic colitis (Acute) Hx of tooth extraction (Acute) Charcot's joint of foot left foot Chronic kidney disease STAGE 4, PT STATES MONITORED Nickie filter in place POSSIBLE DIAGNOSIS OF P.E. IN PAST Hypertension Hypothyroidism Neuropathy of both feet Sleep apnea DOES NOT WEAR MACHINE Surgical History H/O: hysterectomy (Chronic) History of cholecystectomy (Chronic) S/P appendectomy (Chronic) History of renal stent (Acute) H/O colostomy (Acute) Hx of cardiac cath (Acute) 2001 History of cholecystectomy (Acute) History of appendectomy (Acute) History of breast biopsy BENIGN History of colectomy RESULTED IN "NICKING OF BOWEL", S/P REPAIR AND ILLEO-CONDUIT PLACEMENT History of cystoscopy History of herniorrhaphy Ventral hernia repair History of hysterectomy History of ileal conduit S/T COMPLICATIONS OF BOWEL SURGERY Port-A-Cath in place Family History Other FHx: heart disease Family history of high blood pressure Short gut syndrome Social History Preferred Language: [place] Beliefs That Will Affect Care: None marital status: Current Living Situation: Spouse current occupational status: retired Feels Safe at Home: Yes Smoking Status: Never smoker Hx Alcohol Use: No Hx Substance Use: No Review of Systems See HPI for pertinent positives & negatives. and A total of 10 systems reviewed and were otherwise negative Physical Exam Vital Signs Vital Signs - 24 hr 09/25/18 12:36 09/25/18 13:46 09/25/18 13:50 Temperature 36.4 C L Temperature Source Oral Sepsis Recent Fever Within 48 Hours No Sepsis New/Unexplained Change in Mental Status No Sepsis Action Taken by Nursing No Action Required Pulse Rate 61 61 62 Pulse Rate [Right Finger] Pulse Rate from SpO2 Sensor Respiratory Rate 18 15 16 Respiratory Effort / Characteristics Non-Labored Respiratory Depth Normal Blood Pressure 166/85 H Blood Pressure [Left Arm] Blood Pressure Mean 112 Blood Pressure Mean [Left Arm] Blood Pressure Position Sitting Pulse Oximetry 100 Oxygen Delivery Method Room Air 09/25/18 14:00 09/25/18 14:10 09/25/18 14:20 Temperature Temperature Source Sepsis Recent Fever Within 48 Hours Sepsis New/Unexplained Change in Mental Status Sepsis Action Taken by Nursing Pulse Rate 63 63 63 Pulse Rate [Right Finger] Pulse Rate from SpO2 Sensor 63 63 63 Respiratory Rate 13 10 L 13 Respiratory Effort / Characteristics Respiratory Depth Blood Pressure Blood Pressure [Left Arm] Blood Pressure Mean Blood Pressure Mean [Left Arm] Blood Pressure Position Pulse Oximetry 96 96 98 Oxygen Delivery Method Room Air 09/25/18 14:30 09/25/18 14:40 09/25/18 14:44 Temperature Temperature Source Sepsis Recent Fever Within 48 Hours Sepsis New/Unexplained Change in Mental Status Sepsis Action Taken by Nursing Pulse Rate 65 Pulse Rate [Right Finger] Pulse Rate from SpO2 Sensor 66 65 65 Respiratory Rate Respiratory Effort / Characteristics Respiratory Depth Blood Pressure 131/59 L Blood Pressure [Left Arm] Blood Pressure Mean 83 Blood Pressure Mean [Left Arm] Blood Pressure Position Pulse Oximetry 96 99 98 Oxygen Delivery Method 09/25/18 14:47 09/25/18 14:50 09/25/18 15:00 Temperature Temperature Source Sepsis Recent Fever Within 48 Hours Sepsis New/Unexplained Change in Mental Status Sepsis Action Taken by Nursing Pulse Rate 126 H 118 H Pulse Rate [Right Finger] 65 Pulse Rate from SpO2 Sensor 65 63 Respiratory Rate 16 Respiratory Effort / Characteristics Respiratory Depth Blood Pressure Blood Pressure [Left Arm] 131/59 L Blood Pressure Mean Blood Pressure Mean [Left Arm] 83 Blood Pressure Position Pulse Oximetry 98 97 98 Oxygen Delivery Method Room Air 09/25/18 15:21 09/25/18 15:22 09/25/18 15:30 Temperature Temperature Source Sepsis Recent Fever Within 48 Hours Sepsis New/Unexplained Change in Mental Status Sepsis Action Taken by Nursing Pulse Rate 66 66 78 Pulse Rate [Right Finger] Pulse Rate from SpO2 Sensor 65 67 67 Respiratory Rate 16 16 28 H Respiratory Effort / Characteristics Respiratory Depth Blood Pressure 155/75 H 146/71 H Blood Pressure [Left Arm] Blood Pressure Mean 101 96 Blood Pressure Mean [Left Arm] Blood Pressure Position Pulse Oximetry 97 98 Oxygen Delivery Method 09/25/18 15:40 09/25/18 15:50 09/25/18 16:00 Temperature Temperature Source Sepsis Recent Fever Within 48 Hours Sepsis New/Unexplained Change in Mental Status Sepsis Action Taken by Nursing Pulse Rate 63 64 61 Pulse Rate [Right Finger] Pulse Rate from SpO2 Sensor 63 64 61 Respiratory Rate 15 17 20 Respiratory Effort / Characteristics Respiratory Depth Blood Pressure 128/61 Blood Pressure [Left Arm] Blood Pressure Mean 83 Blood Pressure Mean [Left Arm] Blood Pressure Position Pulse Oximetry 99 99 97 Oxygen Delivery Method 09/25/18 16:10 09/25/18 16:20 09/25/18 16:30 Temperature Temperature Source Sepsis Recent Fever Within 48 Hours Sepsis New/Unexplained Change in Mental Status Sepsis Action Taken by Nursing Pulse Rate 63 63 62 Pulse Rate [Right Finger] Pulse Rate from SpO2 Sensor 63 62 65 Respiratory Rate 15 20 21 Respiratory Effort / Characteristics Respiratory Depth Blood Pressure 131/63 Blood Pressure [Left Arm] Blood Pressure Mean 85 Blood Pressure Mean [Left Arm] Blood Pressure Position Pulse Oximetry 97 99 98 Oxygen Delivery Method 09/25/18 16:40 09/25/18 16:50 09/25/18 17:00 Temperature Temperature Source Sepsis Recent Fever Within 48 Hours Sepsis New/Unexplained Change in Mental Status Sepsis Action Taken by Nursing Pulse Rate 62 61 59 L Pulse Rate [Right Finger] Pulse Rate from SpO2 Sensor 63 62 59 L Respiratory Rate 14 Respiratory Effort / Characteristics Respiratory Depth Blood Pressure 104/65 Blood Pressure [Left Arm] Blood Pressure Mean 78 Blood Pressure Mean [Left Arm] Blood Pressure Position Pulse Oximetry 98 99 98 Oxygen Delivery Method 09/25/18 17:10 09/25/18 17:20 09/25/18 17:30 Temperature Temperature Source Sepsis Recent Fever Within 48 Hours Sepsis New/Unexplained Change in Mental Status Sepsis Action Taken by Nursing Pulse Rate 60 68 58 L Pulse Rate [Right Finger] Pulse Rate from SpO2 Sensor 61 59 L 58 L Respiratory Rate Respiratory Effort / Characteristics Respiratory Depth Blood Pressure 110/55 L Blood Pressure [Left Arm] Blood Pressure Mean 73 Blood Pressure Mean [Left Arm] Blood Pressure Position Pulse Oximetry 98 94 97 Oxygen Delivery Method 09/25/18 17:40 09/25/18 17:50 09/25/18 18:00 Temperature Temperature Source Sepsis Recent Fever Within 48 Hours Sepsis New/Unexplained Change in Mental Status Sepsis Action Taken by Nursing Pulse Rate 58 L 58 L 60 Pulse Rate [Right Finger] Pulse Rate from SpO2 Sensor 58 L 59 L 59 L Respiratory Rate Respiratory Effort / Characteristics Respiratory Depth Blood Pressure Blood Pressure [Left Arm] Blood Pressure Mean Blood Pressure Mean [Left Arm] Blood Pressure Position Pulse Oximetry 98 97 96 Oxygen Delivery Method GENERAL: Sitting up in bed, alert, well appearing, well nourished, no distress, non-toxic EYE EXAM: normal conjunctiva. OROPHARYNX: no exudate, no erythema, lips, buccal mucosa, and tongue normal and mucous membranes are moist NECK: supple, no nuchal rigidity, no adenopathy, non-tender LUNGS: Clear to auscultation. Normal chest wall mechanics HEART: no murmurs, S1 normal and S2 normal ABDOMEN: abdomen soft, non-tender, normo-active bowel, sounds, no masses, no ruby ound or guarding. Ostomy located in left mid abdomen. Urostomy located in right mid abdomen with clear yellow urine in the bag. BACK: Back is symmetrical on inspection and there is no deformity, no midline tenderness, no CVA tenderness. SKIN: no rashes and no bruising UPPER EXTREMITIES: upper extremities are grossly normal. LOWER EXTREMITIES: No pitting edema. NEURO EXAM: Normal sensorium, cranial nerves II-XII grossly intact, normal speech, no gross weakness of arms, no gross weakness of legs. Course ED COURSE: Vital signs were reviewed and showed that they were normal. The patients medical record was reviewed The above diagnostic studies were performed and reviewed. ED treatments and interventions as stated above. 1332: The patient was evaluated in room C8. A complete history and physical examination was performed. 1552: Upon reevaluation, the patient is resting comfortably. I discussed my findings with the patient and she understands and agrees with the treatment plan. Based on the patients age, coexisting illnesses, exam and lab findings the decision to treat as an inpatient was made. The patient remained stable while under my care. The patient will be evaluated for further management. 1413: I discussed the patient's case with Dr. Jones- Urology. He recommends admission and will consult for further management. 1622: I reviewed the patient's case with Dr. Socrates SALAZAR Hospitalist. He will evaluate the patient for further management. Consultations Consultation #1: I discussed the patient's case with Dr. Mike Bowden. He recommends admission and will consult for further management. Time: 14:13 Consultation #2: I reviewed the patient's case with Dr. Socrates SALAZAR Hospitalist. He will evaluate the patient for further management. Time: 16:22 Administered Medications Discontinued Medications Fosfomycin Tromethamine (Monurol) 3 gm PO TODAY@1515 YUNI Stop: 09/25/18 15:16 Last Admin: 09/25/18 15:31 Dose: 3 gm Documented by: [id number] Sodium Chloride (Nss 1000ml) 1,000 mls @ 999 mls/hr IV .Q1H1M YUNI Stop: 09/25/18 14:45 Last Infusion: 09/25/18 15:23 Dose: 0 mls/hr Documented by: [id number] Admin: 09/25/18 14:04 Dose: 999 mls/hr Documented by: [id number] Ceftriaxone Sodium (Rocephin) 1,000 mg in 50 mls @ 100 mls/hr IV NOW STA Stop: 09/25/18 16:15 Last Infusion: 09/25/18 16:51 Dose: 0 mls/hr Documented by: [id number] Admin: 09/25/18 16:09 Dose: 100 mls/hr Documented by: [id number] Medical Decision Making Differential Diagnosis Differential diagnosis includes etiologies such as sepsis, UTI, pneumonia, metabolic, electrolyte abnormalities, cardiac sources, intracerebral event, toxicologic, neurologic, as well as others were entertained. Medical Records Attestation: I reviewed the patient's medical records. Home Medications Current Medication List: was personally reviewed by me Laboratory Data Attestation: I reviewed the patient's lab results. Result diagrams: 09/25/18 13:30 09/25/18 13:30 Lab Results 09/25/18 09/25/18 09/25/18 Range/Units 12:45 13:30 13:30 WBC 7.75 (4.8-10.8) K/uL RBC 3.54 L (4.2-5.4) M/uL Hgb 10.9 L (12.0-16.0) g/dL Hct 34.7 L (37-47) % MCV 98.0 (80-100) fL MCH 30.8 (25-34) pg MCHC 31.4 L (32-36) g/dL RDW Std Deviation 58.9 H (36.4-46.3) fL RDW Coeff of Ethan 16.3 H (11.5-14.5) % Plt Count 184 (130-400) K/uL MPV 9.5 (7.4-10.4) fL Immature Gran % (Auto) 0.9 % Neut % (Auto) 69.1 % Lymph % (Auto) 20.6 % [place] % (Auto) 4.4 % Eos % (Auto) 4.5 % Baso % (Auto) 0.5 % Immature Gran # (Auto) 0.07 H (0.00-0.02) K/uL Neut # (Auto) 5.35 (1.4-6.5) K/uL Lymph # (Auto) 1.60 (1.2-3.4) K/uL [place] # (Auto) 0.34 (0.11-0.59) K/uL Eos # (Auto) 0.35 (0-0.5) K/uL Baso # (Auto) 0.04 (0-0.2) K/uL PT (9.0-12.0) Seconds INR (0.9-1.1) Sodium 143 (136-145) mmol/L Potassium 5.1 (3.5-5.1) mmol/L Chloride 116 H (98-107) mmol/L Carbon Dioxide 19 L (21-32) mmol/L Anion Gap 8.0 (3-11) BUN 27 H (7-18) mg/dl Creatinine 2.38 H D (0.6-1.2) mg/dl Est Cr Clr Drug Dosing Not Reportable Est GFR ( Amer) 22.7 Est GFR (Non-Af Amer) 19.6 BUN/Creatinine Ratio 11.5 (10-20) Glucose 89 (70-99) mg/dl Calcium 7.5 L (8.5-10.1) mg/dl Total Bilirubin 0.2 (0.2-1) mg/dl AST 11 L (15-37) U/L ALT 14 (12-78) U/L Alkaline Phosphatase 135 H (45-117) U/L Troponin I (0-0.045) ng/ml Total Protein 6.4 (6.4-8.2) gm/dl Albumin 3.1 L (3.4-5.0) gm/dl Globulin 3.3 (2.5-4.0) gm/dl Albumin/Globulin Ratio 1.0 (0.9-2) Lipase 52 L (73-393) U/L TSH (0.300-4.500) uIu/ml Urine Color Yellow Urine Appearance Cloudy H (Clear) Urine pH 6.5 (4.5-7.5) Ur Specific [place] 1.011 (1.000-1.030) Urine Protein Negative (Negative) Urine Glucose (UA) Negative (Negative) Urine Ketones Negative (Negative) Urine Blood Trace H (Negative) Urine Nitrite Positive H (Negative) Urine Bilirubin Negative (Negative) Urine Urobilinogen Negative (Negative) Ur Leukocyte Esterase 3+ H (Negative) Urine WBC (Auto) >30 H (0-5) /hpf Urine RBC (Auto) 0-4 (0-4) /hpf U Hyaline Cast (Auto) 1-5 (0-5) /lpf U Epithel Cells (Auto) 0-5 (0-5) /lpf Urine Bacteria (Auto) 4+ H (Negative) 09/25/18 09/25/18 Range/Units 13:30 13:55 WBC (4.8-10.8) K/uL RBC (4.2-5.4) M/uL Hgb (12.0-16.0) g/dL Hct (37-47) % MCV (80-100) fL MCH (25-34) pg MCHC (32-36) g/dL RDW Std Deviation (36.4-46.3) fL RDW Coeff of Ethan (11.5-14.5) % Plt Count (130-400) K/uL MPV (7.4-10.4) fL Immature Gran % (Auto) % Neut % (Auto) % Lymph % (Auto) % [place] % (Auto) % Eos % (Auto) % Baso % (Auto) % Immature Gran # (Auto) (0.00-0.02) K/uL Neut # (Auto) (1.4-6.5) K/uL Lymph # (Auto) (1.2-3.4) K/uL [place] # (Auto) (0.11-0.59) K/uL Eos # (Auto) (0-0.5) K/uL Baso # (Auto) (0-0.2) K/uL PT 10.5 (9.0-12.0) Seconds INR 1.0 (0.9-1.1) Sodium (136-145) mmol/L Potassium (3.5-5.1) mmol/L Chloride (98-107) mmol/L Carbon Dioxide (21-32) mmol/L Anion Gap (3-11) BUN (7-18) mg/dl Creatinine (0.6-1.2) mg/dl Est Cr Clr Drug Dosing Est GFR ( Amer) Est GFR (Non-Af Amer) BUN/Creatinine Ratio (10-20) Glucose (70-99) mg/dl Calcium (8.5-10.1) mg/dl Total Bilirubin (0.2-1) mg/dl AST (15-37) U/L ALT (12-78) U/L Alkaline Phosphatase (45-117) U/L Troponin I < 0.015 (0-0.045) ng/ml Total Protein (6.4-8.2) gm/dl Albumin (3.4-5.0) gm/dl Globulin (2.5-4.0) gm/dl Albumin/Globulin Ratio (0.9-2) Lipase (73-393) U/L TSH 2.500 (0.300-4.500) uIu/ml Urine Color Urine Appearance (Clear) Urine pH (4.5-7.5) Ur Specific [place] (1.000-1.030) Urine Protein (Negative) Urine Glucose (UA) (Negative) Urine Ketones (Negative) Urine Blood (Negative) Urine Nitrite (Negative) Urine Bilirubin (Negative) Urine Urobilinogen (Negative) Ur Leukocyte Esterase (Negative) Urine WBC (Auto) (0-5) /hpf Urine RBC (Auto) (0-4) /hpf U Hyaline Cast (Auto) (0-5) /lpf U Epithel Cells (Auto) (0-5) /lpf Urine Bacteria (Auto) (Negative) Imaging Data Radiologist's Impression: Radiology results as stated below per my review and the radiologist's interpretation: XR chest 1V portable HISTORY: weakness COMPARISON: Chest 05/15/2018. FINDINGS: The heart is normal in size. Right jugular Port-A-Cath terminates at the SVC. No pleural effusions. No pneumothorax. Bibasilar interstitial thickening persists. This is likely chronic. IMPRESSION: No significant change compared to the prior study. No acute process. Electronically signed by: Deshawn Alvarez M.D. 09/25/2018 1:[address] SCAN OF THE ABDOMEN AND PELVIS WITHOUT IV CONTRAST CLINICAL HISTORY: Generalized abdominal pain. COMPARISON STUDY: Multiple prior abdominal CT scans, most recently dated 07/15/2018 and dating back to 01/25/2017. TECHNIQUE: CT scan of the abdomen and pelvis is performed from the lung bases to the proximal femora. Images are reviewed in the axial, sagittal, and coronal planes. IV contrast was not administered for this examination as per the referring clinician. Note that the examination was performed in significantly suboptimal fashion without oral and IV contrast. A dose lowering technique was utilized adhering to the principles of ALARA. CT DOSE: 287.95 mGy.cm FINDINGS: Lung bases: The heart is normal in size and without pericardial effusion. There is bibasilar scarring/atelectasis. No airspace consolidation or pleural effusion is identified. There is a small hiatal hernia. Liver: The unenhanced liver is normal in size, contour, and attenuation. There is mild to moderate intrahepatic biliary ductal dilatation. Gallbladder: Surgically absent. Spleen: Normal in size and attenuation. Pancreas: Atrophic and grossly unremarkable. Adrenal glands: Unremarkable. Kidneys: The unenhanced kidneys are atrophic. There is a 12 mm nonobstructing calculus in the right lower pole. No left renal calculi are Identified. There is moderate right hydronephrosis. The right ureter is normal in caliber. There is moderate to severe left hydroureteronephrosis with a left ureteral stent in place extending to a right lower quadrant ileal conduit/urostomy. There is marked inflammatory stranding identified around the left kidney and the left ureter, with urothelial thickening in the left renal pelvis and left ureter. No calcifications are seen along the course of the left ureteral stent. Abdominal vasculature: The abdominal aorta is normal in course and caliber noting advanced atherosclerotic calcification. An infrarenal IVC filter is in place. Bowel: Postoperative change is seen involving the right colon, and there is a left lower quadrant colostomy. A urostomy/ileal conduit is seen in the right lower quadrant. Liquid stool is noted in the colon, and the cecum is mildly distended. There is no evidence of bowel obstruction. The small bowel loops are normal in caliber. The rectosigmoid colon is not identified and presumed surgically absent. There is a large duodenal diverticulum. The appendix is not identified and reported surgically absent. Peritoneum: There is no intraperitoneal free air or abdominal ascites. Lymphadenopathy: None. Pelvic viscera: The bladder and uterus are not identified and presumed surgically absent. No adnexal lesion is seen. Marked presacral soft tissue th ickening with associated surgical clips are identified. There is nonspecific gas within the presacral region. This is similar in appearance to prior studies. Associated induration and subcutaneous gas within the gluteal soft tissues are likely related subcutaneous injections. Skeletal structures: The skeletal structures are heterogeneously osteopenic. There is moderate lumbosacral spondylosis. No lytic or blastic lesions are seen. IMPRESSION: 1. Significantly suboptimal examination without oral and IV contrast. 2. There are postoperative changes from bowel resections, left lower quadrant colostomy, and right lower quadrant urostomy/ileal conduit. No bowel obstruction is seen. 3. The bladder, rectosigmoid colon, and uterus are not identified and presumed surgically absent. 4. There is moderate to severe left hydroureteronephrosis with a left ureteral stent in place. There is inflammatory stranding around the left kidney and ureter with associated urothelial thickening. The appearance suggests ascending infection/pyelonephritis. Clinical correlation will be required. 5. There is moderate right hydronephrosis. 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 6. Nonobstructing right renal calculus. 7. Liquid stool is noted in the right colon. Correlate clinically for evidence of a diarrheal illness. 8. Presacral soft tissue thickening and foci of presacral gas are similar to multiple prior examinations. This is likely on a postoperative/post treatment basis. Given the presence of gas a fistula would be impossible to exclude. 9. Additional findings as above. Electronically signed by: Scottie Manuel M.D. 09/25/2018 3:38 PM ECG Data Attestation: I personally reviewed and interpreted this ECG as follows: Indication: weakness Rate (beats per minute): 60 Rhythm: sinus rhythm Findings: + other (normal axis) and + 1st degree AV block; no PVC Blood Pressure Blood Pressure Findings: Normal blood pressure Blood Pressure Disposition: did not require urgent referral MDM Narrative Patient is a 72-year-old female who presents the ER for feeling weak and lightheaded with some mild abdominal pain yesterday. She does have a history of hydronephrosis and ureter issues. She has an ileostomy present. Labs were obtained and showed no significant leukocytosis or anemia. INR is unremarkable. BMP with a CO2 of 19 which is consistent with previous and a creatinine of 2.38 which is consistent with previous as well. No significant transaminitis. Troponin was normal. UA did have nitrates, leukocytes, white cells and bacteria. There is no epithelial cells. Patient was initially given a dose of fosfomycin as we are going to send her home but the result of CT showed likely obstruction and pyelonephritis. Patient was given IV Rocephin. She was given IV fluids as well. She is updated bedside. Discussed with urology and the hospitalist and patient was admitted for further workup. Impression & Plan Pyelonephritis, Hydronephrosis Discharge Plan Visit Data Chief Complaint: Illness Stated Complaint: TIRED, UNKNOWN OTHER SYMPTOMS POSS UTI ED Provider: Layo Fox Discharge Problem: Pyelonephritis, Hydronephrosis Patient Disposition: Being Evaluated by Hospitalist Forms Stand Alone Forms: [facility] Prescriptions Prescriptions: No Action ascorbic acid (vitamin C) [Vitamin C] 1,000 mg Tablet 1 g PO QAM RF: 0 loperamide 2 mg Capsule 2 mg PO Q3H PRN (Reason: Diarrhea) RF: 0 acetaminophen [Tylenol Extra Strength] 500 mg Tablet 500 mg PO Q6H PRN (Reason: Pain) RF: 0 oxycodone-acetaminophen 5-325 mg Tablet 1 tab PO Q6H PRN (Reason: Pain) RF: 0 amitriptyline 25 mg Tablet 25 mg PO HS RF: 0 lorazepam 0.5 mg Tablet 0.25 mg PO HS RF: 0 dicyclomine 20 mg Tablet 20 mg PO TID RF: 0 sodium bicarbonate 650 mg Tablet 650 mg PO BID RF: 0 metoprolol tartrate 50 mg Tablet 50 mg PO BID RF: 0 gabapentin 300 mg Capsule 300 mg PO BID RF: 0 nifedipine 60 mg Tablet Extended Release 60 mg PO QAM RF: 0 multivitamin Capsule 1 cap PO QAM RF: 0 calcium carbonate-vitamin D3 [Calcium 500 + D (D3)] 500 mg(1,250mg) -125 unit Tablet 1 tab PO BID RF: 0 omeprazole 20 mg Tablet,Delayed Release (Dr/Ec) 20 mg PO BID RF: 0 cholecalciferol (vitamin D3) 3,000 unit Tablet 5,000 unit PO QAM RF: 0 levothyroxine 75 mcg Capsule 75 mcg PO QAM RF: 0 cyanocobalamin (vitamin B-12) 5,000 mcg Tablet, Ir And Er, Biphasic 4,000 mcg PO QAM RF: 0 aspirin [Hanna Aspirin] 325 mg Tablet 325 mg PO QAM RF: 0 escitalopram oxalate 5 mg Tablet 7.5 mg PO QAM RF: 0 ferrous sulfate [iron] 325 mg (65 mg iron) Tablet 325 mg PO QAM RF: 0 potassium chloride 10 mEq tablet,ER particles/crystals 10 meq PO BID RF: 0 Probiotic 3 billion cell Capsule 3,000 mmu cells PO QAM RF: 0 Referrals Referrals: Joe Alonso MD [Primary Care Provider] - Discharge Problem: Hydronephrosis Qualifiers: Hydronephrosis type: unspecified Qualified Code(s): N13.30 - Unspecified hydronephrosis The scribe's documentation has been prepared under my direction and personally reviewed by me in its entirety. I confirm that the note above accurately reflects all work, treatment, procedures, and medical decision making performed by me.
[2018-09-25 20:31] LABS: Basophils # (auto) 0.04 K/uL (0-0.2); Basophils % (auto) 0.5 %; Eosinophils # (auto) 0.36 K/uL (0-0.5); Eosinophils % (auto) 4.4 %; Hemoglobin 10.6 g/dL (12.0-16.0); Immature Granulocytes # (auto) 0.07 K/uL (0.00-0.02); Immature Granulocytes % (auto) 0.9 %; Lymphocytes # (auto) 1.51 K/uL (1.2-3.4); Lymphocytes % (auto) 18.4 %; Mean Corpuscular Hgb Conc 31.2 g/dL (32-36); Mean Corpuscular Volume 98.3 fL (80-100); Mean Platelet Volume 9.4 fL (7.4-10.4); Monocytes % (auto) 7.3 %; Neutrophils # (auto) 5.61 K/uL (1.4-6.5); Neutrophils % (auto) 68.5 %; Platelet Count 188 K/uL (130-400); RDW Coefficient of Variation 16.4 % (11.5-14.5); RDW Standard Deviation 58.7 fL (36.4-46.3); Red Blood Count 3.46 M/uL (4.2-5.4); White Blood Count 8.19 K/uL (4.8-10.8)
[2018-09-25 20:59] LABS: Albumin Level 2.8 gm/dl (3.4-5.0); BUN Creatinine Ratio 10.2 (10-20); Calcium 7.2 mg/dl (8.5-10.1); Creatinine Clr Calc Pharmacy 17.3 ml/min; Est GFR (African American) 22.6; Est GFR (Non-African American) 19.5
[2018-09-25 21:02] LABS: Albumin Globulin Ratio 0.9 (0.9-2); Bilirubin,Total 0.2 mg/dl (0.2-1); Globulin 3.2 gm/dl (2.5-4.0)
[2018-09-25] MEDS: METOPROLOL TARTRATE 50 MG TAB PO SCH (22:02)
[2018-09-25] MEDS: DICYCLOMINE HCL 20 MG TAB PO SCH (22:03)
[2018-09-25] MEDS: LORazepam 0.5 MG TAB PO SCH ×2 (22:03→22:13)
[2018-09-25] MEDS: AMITRIPTYLINE HCL 25 MG TAB PO SCH (22:03)
[2018-09-25] MEDS: GABAPENTIN 300 MG CAP PO SCH (22:04)
[2018-09-25] MEDS: PANTOprazole 40 MG TAB PO SCH (22:04)
[2018-09-25] MEDS: SODIUM BICARBONATE 650 MG TAB PO SCH (22:04)
[2018-09-25] MEDS: CEFEPIME 1,000 MG in SYRINGE 0 ML IV SCH (22:05)
[2018-09-25] MEDS ORDERED: HEPARIN 100 UNIT/ML 5ML FLUSH ONE (22:16)
[2018-09-26] MEDS: LEVOTHYROXINE SODIUM 75 MCG TABLET PO SCH (05:33)
[2018-09-26] MEDS: HEPARIN 100 UNIT/ML 5ML FLUSH FLUSH PRN (05:41)
[2018-09-26 06:16] LABS: Basophils # (auto) 0.02 K/uL (0-0.2); Basophils % (auto) 0.3 %; Eosinophils # (auto) 0.35 K/uL (0-0.5); Eosinophils % (auto) 4.8 %; Hematocrit (blood only) 32.6 % (37-47); Immature Granulocytes # (auto) 0.04 K/uL (0.00-0.02); Immature Granulocytes % (auto) 0.5 %; Lymphocytes % (auto) 12.4 %; Mean Corpuscular Hgb Conc 30.7 g/dL (32-36); Mean Corpuscular Volume 98.8 fL (80-100); Mean Platelet Volume 9.4 fL (7.4-10.4); Monocytes # (auto) 0.47 K/uL (0.11-0.59); Monocytes % (auto) 6.5 %; Neutrophils % (auto) 75.5 %; Platelet Count 200 K/uL (130-400); RDW Coefficient of Variation 16.7 % (11.5-14.5); RDW Standard Deviation 60.7 fL (36.4-46.3); White Blood Count 7.28 K/uL (4.8-10.8)
[2018-09-26 06:46] LABS: BUN Creatinine Ratio 11.1 (10-20); Calcium 7.2 mg/dl (8.5-10.1); Creatinine Clr Calc Pharmacy 16.6 ml/min; Est GFR (African American) 21.4; Est GFR (Non-African American) 18.4; Magnesium 2.8 mg/dl (1.8-2.4); Potassium 5.1 mmol/L (3.5-5.1)
[2018-09-26] MEDS: DICYCLOMINE HCL 20 MG TAB PO SCH ×3 (08:31→21:05)
[2018-09-26] MEDS: ASPIRIN 325 MG ECTAB PO SCH (08:31)
[2018-09-26] MEDS: METOPROLOL TARTRATE 50 MG TAB PO SCH ×2 (08:31→16:39)
[2018-09-26] MEDS: PANTOprazole 40 MG TAB PO SCH ×2 (08:31→21:05)
[2018-09-26] MEDS: GABAPENTIN 300 MG CAP PO SCH ×2 (08:31→16:40)
[2018-09-26] MEDS: CHOLECALCIFEROL 1,000 UNITS TAB PO SCH (08:32)
[2018-09-26] MEDS: CALCIUM 600MG + VIT D 400 IU TAB PO SCH ×2 (08:32→16:39)
[2018-09-26] MEDS: NIFEdipine EXTENDED REL 30 MG TABCR PO SCH (08:32)
[2018-09-26] MEDS: CYANOCOBALAMIN 500 MCG TABLET (VITAMIN B-12) PO SCH (08:32)
[2018-09-26] MEDS: SODIUM BICARBONATE 650 MG TAB PO SCH ×2 (08:32→16:39)
[2018-09-26 09:04] LABS: Appearance Urine Turbid (Clear); Bacteria Urine Automated 2+ (Negative); Bilirubin Urine Negative (Negative); Blood Urine 2+ (Negative); Color Urine Yellow; Epithelial Cell Urine Auto 20-30 /lpf (0-5); Glucose Urine UA Negative (Negative); Ketones Urine Negative (Negative); Leukocyte Esterase Urine 3+ (Negative); Nitrite Urine Positive (Negative); Specific Gravity Urine 1.015 (1.000-1.030); Urobilinogen Urine Negative (Negative); WBC Urine Automated >30 /hpf (0-5); pH Urine 7.5 (4.5-7.5)
[2018-09-26 09:16] LABS: Protein Urine Negative (Negative)
--- NOTE | 2018-09-26 11:20 | Infectious Disease Consult ---
Date of Consultation September 26, 2018 Assessment & Plan (1) Pyelonephritis: 72-year-old female with history of recurrent urinary tract infections, pyelonephritis, hydronephrosis, with indwelling urethral stent, now with probable recurrent urinary tract infection with E. coli and Streptococcus. For now, cefepime will provide adequate coverage pending final sensitivities, would watch closely for allergic reaction given possible reaction to cephalexin in the past. Continue to be worried about the possibility of fistulous process given recurrent infections with different enteric organisms. Will discuss with all involved. Will follow. (2) Streptococcal infection: (3) Escherichia coli infection: History of Present Illness Reason for Consultation: Complicated UTI/possible pyelonephritis Attending Physician: Pablito Arora MD History of Present Illness 72-year-old female well-known to me from previous infectious disease consultations, with complicated medical history including short bowel syndrome, stage IV chronic kidney disease, colostomy with ileostomy, indwelling left ureteral stent, this, recently treated as an outpatient for possible urinary tract infection with fosfomycin, now admitted with several days of progressively worsening weakness, fatigue, possible low-grade fever. Found to have evidence of worsening right hydronephrosis with possible pyelonephritis, as well as left hydronephrosis and hydroureter. Urine cultures have grown E. coli and Streptococcus. Blood cultures have been negative. Patient has been treated empirically with cefepime, feels somewhat better today. Currently afebrile, white count is normal. Pain is minimal at present. Allergies Allergy/AdvReac Type Severity Reaction Status Date / Time cephalexin Allergy Intermediate RASH,ITCHIN Verified 09/25/18 13:57 G,HIVES Cipro Allergy Intermediate RASH Verified 03/02/18 10:07 ciprofloxacin Allergy Intermediate RASH Verified 09/25/18 13:57 homatropine Allergy Intermediate RASH Verified 09/25/18 13:57 hydrocodone Allergy Intermediate RASH Verified 09/25/18 13:57 metronidazole Allergy Intermediate RASH Verified 09/25/18 13:57 piperacillin Allergy Intermediate RASH Verified 09/25/18 13:57 Sulfa (Sulfonamide Allergy Intermediate RASH Verified 09/25/18 13:57 Antibiotics) tazobactam Allergy Intermediate RASH Verified 09/25/18 13:57 vancomycin Allergy Intermediate HIVES Verified 09/25/18 13:57 levofloxacin Allergy Unknown unknown Verified 09/25/18 13:57 nitrofurantoin Allergy Unknown .. Verified 09/25/18 13:57 [id number] Reductase Allergy Unknown LIPITOR Verified 09/25/18 13:57 Inhibitor AND PRAVASTATIN doxycycline Allergy Rash Verified 09/25/18 13:57 Home Medications Home Medications Medication Instructions Recorded Confirmed Type acetaminophen [Tylenol Extra 500 mg PO Q6H PRN 05/09/18 09/25/18 History Strength] amitriptyline 25 mg PO HS 05/09/18 09/25/18 History ascorbic acid (vitamin C) [Vitamin 1 g PO QAM 05/09/18 09/25/18 History C] calcium carbonate-vitamin D3 1 tab PO BID 05/09/18 09/25/18 History [Calcium 500 + D (D3)] cholecalciferol (vitamin D3) 5,000 unit PO QAM 05/09/18 09/25/18 History cyanocobalamin (vitamin B-12) 4,000 mcg PO QAM 05/09/18 09/25/18 History dicyclomine 20 mg PO TID 05/09/18 09/25/18 History gabapentin 300 mg PO BID 05/09/18 09/25/18 History levothyroxine 75 mcg PO QAM 05/09/18 09/25/18 History loperamide 2 mg PO Q3H PRN 05/09/18 09/25/18 History lorazepam 0.25 mg PO HS 05/09/18 09/25/18 History metoprolol tartrate 50 mg PO BID 05/09/18 09/25/18 History multivitamin 1 cap PO QAM 05/09/18 09/25/18 History nifedipine 60 mg PO QAM 05/09/18 09/25/18 History omeprazole 20 mg PO BID 05/09/18 09/25/18 History oxycodone-acetaminophen 1 tab PO Q6H PRN 05/09/18 09/25/18 History sodium bicarbonate 650 mg PO BID 05/09/18 09/25/18 History aspirin [Hanna Aspirin] 325 mg PO QAM 05/15/18 09/25/18 History escitalopram oxalate 7.5 mg PO QAM 05/22/18 09/25/18 History ferrous sulfate [iron] 325 mg PO QAM 09/25/18 09/25/18 History lactobacillus combination no.4 3,000 mmu cells PO QAM 09/25/18 09/25/18 History [Probiotic] potassium chloride 10 meq PO BID 09/25/18 09/25/18 History Patient History Medical History Short gut syndrome (Chronic) Colostomy (Chronic 07/01/12) HTN (hypertension) (Chronic) Ileostomy present (Chronic) Physical deconditioning (Chronic) Back pain (Chronic) Esophagitis (Chronic 07/01/12) Anemia (Chronic) CKD (chronic kidney disease), stage IV (Chronic) Colon cancer (Acute) 36 years ago - colectomy with colostomy, hyperbaric treatments, radiation Recurrent UTI (Chronic) Dilated bile duct (Chronic) Ischemic colitis (Acute) Hx of tooth extraction (Acute) Charcot's joint of foot left foot Chronic kidney disease STAGE 4, PT STATES MONITORED Nickie filter in place POSSIBLE DIAGNOSIS OF P.E. IN PAST Hypertension Hypothyroidism Neuropathy of both feet Sleep apnea DOES NOT WEAR MACHINE Surgical History H/O: hysterectomy (Chronic) History of cholecystectomy (Chronic) S/P appendectomy (Chronic) History of renal stent (Acute) H/O colostomy (Acute) Hx of cardiac cath (Acute) 2001 History of cholecystectomy (Acute) History of appendectomy (Acute) History of breast biopsy BENIGN History of colectomy RESULTED IN "NICKING OF BOWEL", S/P REPAIR AND ILLEO-CONDUIT PLACEMENT History of cystoscopy History of herniorrhaphy Ventral hernia repair History of hysterectomy History of ileal conduit S/T COMPLICATIONS OF BOWEL SURGERY Port-A-Cath in place Family History Other FHx: heart disease Family history of high blood pressure Short gut syndrome Social History Communication Ability: Effective Beliefs That Will Affect Care: None marital status: Current Living Situation: Spouse current occupational status: retired Other Information That Helps Us Care for You: No Feels Safe at Home: Yes Safety Concerns: Feels Safe At This Time Smoking Status: Never smoker Hx Alcohol Use: No Hx Substance Use: No Review of Systems All systems were reviewed and are negative except as per HPI Physical Exam Vital Signs (Past 24 Hours): Last Vital Signs Temp 36.5 C 09/26/18 07:17 Pulse 60 09/26/18 07:17 Resp 18 09/26/18 07:17 BP 109/63 09/26/18 07:17 Pulse Ox 97 09/26/18 07:17 Constitutional: WD/WN, vitals as above comfortable; no acute distress Eyes: PERRL, conjunctivae normal, anicteric sclerae ENMT: external ear and nose normal, oropharynx normal Neck: trachea midline, no thyromegaly neck nontender Respiratory: normal respiratory effort, lungs clear to auscultation normal percussion; does not use accessory muscles Cardiovascular: Rate/Rhythm: regular rate and regular rhythm Heart Sounds: normal S1 and normal S2; no gallop, no murmur and no cardiac rub Vessels: normal peripheral pulses; no JVD Gastrointestinal (Abdomen): normal bowel sounds, soft, nontender, no hepatosplenomegaly Ileostomy and colostomy in place Musculoskeletal: no cyanosis or clubbing, extremities motor strength 5/5 Spine: thoracic spine normal to inspection and lumbar spine normal to inspection; no cervical spinal tenderness Skin: no rashes, warm and dry normal turgor; no lesions Neurologic: patellar DTR's 2+ bilat, sensation intact no focal motor deficits Psychiatric: A+Ox3, euthymic affect Orientation: cooperative Lymphatic: no cervical or axillary lymphadenopathy no inguinal lymphadenopathy Results & Data Laboratory Results Short CBC 09/25/18 09/25/18 09/26/18 Range/Units 13:30 20:15 05:40 WBC 7.75 8.19 7.28 (4.8-10.8) K/uL Hgb 10.9 L 10.6 L 10.0 L (12.0-16.0) g/dL Hct 34.7 L 34.0 L 32.6 L (37-47) % Plt Count 184 188 200 (130-400) K/uL BMP 09/25/18 09/25/18 09/26/18 13:30 20:15 05:40 Sodium 143 144 147 H Potassium 5.1 5.0 5.1 Chloride 116 H 117 H 119 H Carbon Dioxide 19 L 19 L 19 L BUN 27 H 24 H 28 H Creatinine 2.38 H D 2.39 H 2.50 H Glucose 89 223 H 87 Calcium 7.5 L 7.2 L 7.2 L Cardiac Enzymes 09/25/18 Range/Units 13:30 Troponin I < 0.015 (0-0.045) ng/ml Liver Function 09/25/18 09/25/18 Range/Units 13:30 20:15 Total Bilirubin 0.2 0.2 (0.2-1) mg/dl AST 11 L 94 H (15-37) U/L ALT 14 32 (12-78) U/L Alkaline Phosphatase 135 H 253 H (45-117) U/L Albumin 3.1 L 2.8 L (3.4-5.0) gm/dl Urine 09/25/18 09/26/18 Range/Units 12:45 08:35 Urine Color Yellow Yellow Urine Appearance Cloudy H Turbid H (Clear) Urine pH 6.5 7.5 (4.5-7.5) Ur Specific [place] 1.011 1.015 (1.000-1.030) Urine Protein Negative Negative (Negative) Urine Glucose (UA) Negative Negative (Negative) Diagnostic Findings Microbiology 09/25/18 12:45 Urine,Clean Catch Urine Culture - Preliminary Escherichia coli Alpha strep. not enterococcus cc: ~ CT SCAN OF THE ABDOMEN AND PELVIS WITHOUT IV CONTRAST CLINICAL HISTORY: Generalized abdominal pain. COMPARISON STUDY: Multiple prior abdominal CT scans, most recently dated 07/15/2018 and dating back to 01/25/2017. TECHNIQUE: CT scan of the abdomen and pelvis is performed from the lung bases to the proximal femora. Images are reviewed in the axial, sagittal, and coronal planes. IV contrast was not administered for this examination as per the referring clinician. Note that the examination was performed in significantly suboptimal fashion without oral and IV contrast. A dose lowering technique was utilized adhering to the principles of ALARA. CT DOSE: 287.95 mGy.cm FINDINGS: Lung bases: The heart is normal in size and without pericardial effusion. There is bibasilar scarring/atelectasis. No airspace consolidation or pleural effusion is identified. There is a small hiatal hernia. Liver: The unenhanced liver is normal in size, contour, and attenuation. There is mild to moderate intrahepatic biliary ductal dilatation. Gallbladder: Surgically absent. Spleen: Normal in size and attenuation. Pancreas: Atrophic and grossly unremarkable. Adrenal glands: Unremarkable. Kidneys: The unenhanced kidneys are atrophic. There is a 12 mm nonobstructing calculus in the right lower pole. No left renal calculi are Identified. There is moderate right hydronephrosis. The right ureter is normal in caliber. There is moderate to severe left hydroureteronephrosis with a left ureteral stent in place extending to a right lower quadrant ileal conduit/urostomy. There is marked inflammatory stranding identified around the left kidney and the left ureter, with urothelial thickening in the left renal pelvis and left ureter. No calcifications are seen along the course of the left ureteral stent. Abdominal vasculature: The abdominal aorta is normal in course and caliber noting advanced atherosclerotic calcification. An infrarenal IVC filter is in place. Bowel: Postoperative change is seen involving the right colon, and there is a left lower quadrant colostomy. A urostomy/ileal conduit is seen in the right lower quadrant. Liquid stool is noted in the colon, and the cecum is mildly distended. There is no evidence of bowel obstruction. The small bowel loops are normal in caliber. The rectosigmoid colon is not identified and presumed surgically absent. There is a large duodenal diverticulum. The appendix is not identified and reported surgically absent. Peritoneum: There is no intraperitoneal free air or abdominal ascites. Lymphadenopathy: None. Pelvic viscera: The bladder and uterus are not identified and presumed surgically absent. No adnexal lesion is seen. Marked presacral soft tissue thickening with associated surgical clips are identified. There is nonspecific gas within the presacral region. This is similar in appearance to prior studies. Associated induration and subcutaneous gas within the gluteal soft tissues are likely related subcutaneous injections. Skeletal structures: The skeletal structures are heterogeneously osteopenic. There is moderate lumbosacral spondylosis. No lytic or blastic lesions are seen. IMPRESSION: 1. Significantly suboptimal examination without oral and IV contrast. 2. There are postoperative changes from bowel resections, left lower quadrant colostomy, and right lower quadrant urostomy/ileal conduit. No bowel obstruction is seen. 3. The bladder, rectosigmoid colon, and uterus are not identified and presumed surgically absent. 4. There is moderate to severe left hydroureteronephrosis with a left ureteral stent in place. There is inflammatory stranding around the left kidney and ureter with associated urothelial thickening. The appearance suggests ascending infection/pyelonephritis. Clinical correlation will be required. 5. There is moderate right hydronephrosis. 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 6. Nonobstructing right renal calculus. 7. Liquid stool is noted in the right colon. Correlate clinically for evidence of a diarrheal illness. 8. Presacral soft tissue thickening and foci of presacral gas are similar to multiple prior examinations. This is likely on a postoperative/post treatment basis. Given the presence of gas a fistula would be impossible to exclude. 9. Additional findings as above. Electronically signed by: Scottie Manuel M.D. 09/25/2018 3:38 PM Dictated: 09/25/18 1521
[2018-09-26] MEDS: ESCITALOPRAM OXALATE ORAL SOLN 5 MG/5 ML PO SCH (13:55)
--- NOTE | 2018-09-26 17:23 | Hospitalist Progress Note ---
Date of Service September 26, 2018 Assessment & Plan (1) Pyelonephritis: CT a/p on 09/25 showed left-sided hydroureteronephrosis with stent in place with inflammatory stranding around the left kidney, suggesting left-sided infection/pyelonephritis. - Seen by ID - Nichelle dominguez - Dr. Moran notes concern for enteroureteral fistula - Urology consult pending - Continue cefepime with urine cultures pending - Follow urine cultures from 09/25 - Currently growing Escherichia coli & Alpha strep. not enterococcus with sensitivities pending (2) Hydronephrosis: Seen on left side on CT a/p on 09/25. - Urology consult as above (3) Short gut syndrome: Per patient, was having up to 12 colostomy changes per day, but now down to 5 on current regimen. - Continue bicarb, loperamide, dicyclomine (4) Hypothyroid: TSH was 2.5 on 09/25. - Continue levothyroxine 75mcg daily (5) Depression with anxiety: No major inpatient concerns. - Continue TCA (6) Obstructive sleep apnea: (7) HTN (hypertension): BP is currently 130/70. - Continue metoprolol (8) Colon cancer: Original issues stemmed from complications of GI surgery for a colon mass. - Concern for enteroureter fistula - Consider surgery consult after discussion with ID (9) DVT prophylaxis: SCDs until no need for procedure Subjective 72yo F w/ hx of colon mass and complicated abdominal surgical history who presents for pyelonephritis. This morning, she feels significantly better. No fevers/chills. Still slightly fatigued. Reports no fevers/chills, chest pain, shortness of breath, abdominal pain, nausea, or vomiting. Physical Exam Vital Signs (Past 24 Hours): Last Vital Signs Temp 36.5 C 09/26/18 07:17 Pulse 60 09/26/18 16:00 Resp 20 09/26/18 16:00 BP 131/73 09/26/18 16:00 Pulse Ox 96 09/26/18 16:00 Constitutional: WD/WN, vitals as above Eyes: EOM intact bilaterally; no conjunctival abnormality ENMT: external ear and nose normal, oropharynx normal Neck: trachea midline, no thyromegaly normal visual inspection Respiratory: normal respiratory effort, lungs clear to auscultation no respiratory distress Cardiovascular: RRR, no murmur, no edema Gastrointestinal (Abdomen): Inspection/Auscultation: + abdomen abnormal to inspection (Colostomy bag) and abdomen not distended Musculoskeletal: no cyanosis or clubbing, extremities motor strength 5/5 Skin: no rashes, warm and dry Neurologic: moves all extremities and awake Psychiatric: Orientation: alert, oriented to person and cooperative Genitourinary: Urostomy bag in RLQ (1) Hydronephrosis Hydronephrosis type: unspecified Qualified Code(s): N13.30 - Unspecified hydronephrosis (2) Hypothyroid Hypothyroidism type: acquired Qualified Code(s): E03.9 - Hypothyroidism, unspecified (3) HTN (hypertension) Hypertension type: essential hypertension Qualified Code(s): I10 - Essential (primary) hypertension
--- NOTE | 2018-09-26 17:27 | Urology Consultation ---
Date of Consultation September 26, 2018 Assessment & Plan (1) Hydronephrosis: (2) Escherichia coli infection: 72yo F with very complicated history with ileal conduit and recurrent UTIs. Will have a discussion with Dr. Horton and Dr. Stewart for correction of possibly worsening hydronephrosis on R side, and possible need for cystoscopy of bladder. Currently patient is stable, continue abx as ordered. Please refer to further comments by Dr. Stewart. History of Present Illness Attending Physician: Pablito Arora MD History of Present Illness 72yo F with a complex history including prior colectomy for colorectal ca, revision, complicated surgery including bowel injury, bladder and ureteral injury, subsequent ureteral reconstruction and ileal conduit urinary diversion in the past. She has an atrophic L kidney with known substantial left hydro, mild R hydro. She also suffers with severe, recurrent UTIs complicated by having extensive allergies. She is managed with Left nephroureteral stent exchanges every [address] Horton recently assumed care to avoid traveling to [place] for stent exchanges a few months ago, however we do not carry the stent she typically needs so last exchange was done back in [place] beginning of September. She has had multiple hospitalizations for recurrent UTIs, fatigue, and weakness. Presented to [facility] for complaint generally unwell, weak, lightheaded and feeling like she's going to pass out. CT imaging reveals moderate right hydronephrosis, moderate to severe left hydroureteronephrosis with a left ureteral stent in place extending to a RLQ conduit. Inflammation around L kidney and L ureter, with thickening in L renal pelvis and ureter. Cr is stable at 2.5. Ileal conduit draining adequate UO - cloudy with white sediment. States she changes wafer every 3 days. UC&S from 09/25 preliminarily growing >100,000 cfu E.coli and & >100,000 alpha strep not enterococcus. Pt alert and oriented at time of evaluation, daughter at bedside. Pt sitting on side of bed, appears comfortable. Does acknowledge chronic L back pain, relates to multiple factors and most prominent with ambulation. Poor appetite, but tolerating PO. Denies fevers/chills, n/v. Allergies Allergy/AdvReac Type Severity Reaction Status Date / Time cephalexin Allergy Intermediate RASH,ITCHIN Verified 09/25/18 13:57 G,HIVES Cipro Allergy Intermediate RASH Verified 03/02/18 10:07 ciprofloxacin Allergy Intermediate RASH Verified 09/25/18 13:57 homatropine Allergy Intermediate RASH Verified 09/25/18 13:57 hydrocodone Allergy Intermediate RASH Verified 09/25/18 13:57 metronidazole Allergy Intermediate RASH Verified 09/25/18 13:57 piperacillin Allergy Intermediate RASH Verified 09/25/18 13:57 Sulfa (Sulfonamide Allergy Intermediate RASH Verified 09/25/18 13:57 Antibiotics) tazobactam Allergy Intermediate RASH Verified 09/25/18 13:57 vancomycin Allergy Intermediate HIVES Verified 09/25/18 13:57 levofloxacin Allergy Unknown unknown Verified 09/25/18 13:57 nitrofurantoin Allergy Unknown .. Verified 09/25/18 13:57 Ibjnwrb-Gee-Qzh Reductase Allergy Unknown LIPITOR Verified 09/25/18 13:57 Inhibitor AND PRAVASTATIN doxycycline Allergy Rash Verified 09/25/18 13:57 Home Medications Home Medications Medication Instructions Recorded Confirmed Type acetaminophen [Tylenol Extra 500 mg PO Q6H PRN 05/09/18 09/25/18 History Strength] amitriptyline 25 mg PO HS 05/09/18 09/25/18 History ascorbic acid (vitamin C) [Vitamin 1 g PO QAM 05/09/18 09/25/18 History C] calcium carbonate-vitamin D3 1 tab PO BID 05/09/18 09/25/18 History [Calcium 500 + D (D3)] cholecalciferol (vitamin D3) 5,000 unit PO QAM 05/09/18 09/25/18 History cyanocobalamin (vitamin B-12) 4,000 mcg PO QAM 05/09/18 09/25/18 History dicyclomine 20 mg PO TID 05/09/18 09/25/18 History gabapentin 300 mg PO BID 05/09/18 09/25/18 History levothyroxine 75 mcg PO QAM 05/09/18 09/25/18 History loperamide 2 mg PO Q3H PRN 05/09/18 09/25/18 History lorazepam 0.25 mg PO HS 05/09/18 09/25/18 History metoprolol tartrate 50 mg PO BID 05/09/18 09/25/18 History multivitamin 1 cap PO QAM 05/09/18 09/25/18 History nifedipine 60 mg PO QAM 05/09/18 09/25/18 History omeprazole 20 mg PO BID 05/09/18 09/25/18 History oxycodone-acetaminophen 1 tab PO Q6H PRN 05/09/18 09/25/18 History sodium bicarbonate 650 mg PO BID 05/09/18 09/25/18 History aspirin [Hanna Aspirin] 325 mg PO QAM 05/15/18 09/25/18 History escitalopram oxalate 7.5 mg PO QAM 05/22/18 09/25/18 History ferrous sulfate [iron] 325 mg PO QAM 09/25/18 09/25/18 History lactobacillus combination no.4 3,000 mmu cells PO QAM 09/25/18 09/25/18 History [Probiotic] potassium chloride 10 meq PO BID 09/25/18 09/25/18 History Patient History Medical History Short gut syndrome (Chronic) Colostomy (Chronic 07/01/12) HTN (hypertension) (Chronic) Ileostomy present (Chronic) Physical deconditioning (Chronic) Back pain (Chronic) Esophagitis (Chronic 07/01/12) Anemia (Chronic) CKD (chronic kidney disease), stage IV (Chronic) Colon cancer (Acute) 36 years ago - colectomy with colostomy, hyperbaric treatments, radiation Recurrent UTI (Chronic) Dilated bile duct (Chronic) Ischemic colitis (Acute) Hx of tooth extraction (Acute) Charcot's joint of foot left foot Chronic kidney disease STAGE 4, PT STATES MONITORED [place] filter in place POSSIBLE DIAGNOSIS OF P.E. IN PAST Hypertension Hypothyroidism Neuropathy of both feet Sleep apnea DOES NOT WEAR MACHINE Surgical History H/O: hysterectomy (Chronic) History of cholecystectomy (Chronic) S/P appendectomy (Chronic) History of renal stent (Acute) H/O colostomy (Acute) Hx of cardiac cath (Acute) 2001 History of cholecystectomy (Acute) History of appendectomy (Acute) History of breast biopsy BENIGN History of colectomy RESULTED IN "NICKING OF BOWEL", S/P REPAIR AND ILLEO-CONDUIT PLACEMENT History of cystoscopy History of herniorrhaphy Ventral hernia repair History of hysterectomy History of ileal conduit S/T COMPLICATIONS OF BOWEL SURGERY Port-A-Cath in place Family History Other FHx: heart disease Family history of high blood pressure Short gut syndrome Social History Communication Ability: Effective Beliefs That Will Affect Care: None marital status: Current Living Situation: Spouse current occupational status: retired Other Information That Helps Us Care for You: No Feels Safe at Home: Yes Safety Concerns: Feels Safe At This Time Smoking Status: Never smoker Hx Alcohol Use: No Hx Substance Use: No Review of Systems Constitutional: no fever and no chills Eyes: no blind spots and no problem reported Ear, Nose, Mouth, Throat: no ear pain Respiratory: no cough and no chest congestion Cardiovascular: no chest pain Gastrointestinal: + early satiety; no abdominal pain, no nausea and no vomiting Genitourinary (Female): no dysuria, no urinary urgency, no nocturia and no pelvic pain Musculoskeletal: no back pain Integumentary: no acne and no rash Neurologic: no numbness and no paresthesia Psychiatric: no behavioral changes and no hopelessness Endocrine: no fatigue Hematologic / Lymphatic: no easy bleeding and no coagulopathy Allergy / Immunological: no cough Physical Exam Vital Signs (Past 24 Hours): Last Vital Signs Temp 36.5 C 09/26/18 07:17 Pulse 60 09/26/18 16:00 Resp 20 09/26/18 16:00 BP 131/73 09/26/18 16:00 Pulse Ox 96 09/26/18 16:00 Constitutional: no acute distress Eyes: no nystagmus ENMT: Ears: no hearing impairment Neck: + trachea not midline Respiratory: no respiratory distress and does not use accessory muscles Cardiovascular: Rate/Rhythm: + abnormal rhythm Vessels: no JVD Chest (Breasts): Chest: + abnormal inspection of chest and no mass Gastrointestinal (Abdomen): Inspection/Auscultation: abdomen not distended and no abdominal edema Percussion/Palpation: abdomen soft; abdomen nontender Musculoskeletal: Head/Neck/Chest: + abnormal head shape and + evidence of head trauma Skin: no rashes and no lesions Neurologic: Motor/Sensory: no tremor Psychiatric: Orientation: alert and oriented x 3 Eye Contact: good eye contact Results & Data Laboratory Results Laboratory Results - last 48 hr 09/25/18 09/25/18 09/25/18 12:45 13:30 13:30 WBC 7.75 RBC 3.54 L Hgb 10.9 L Hct 34.7 L MCV 98.0 MCH 30.8 MCHC 31.4 L RDW Std Deviation 58.9 H RDW Coeff of Ethan 16.3 H Plt Count 184 MPV 9.5 Immature Gran % (Auto) 0.9 Neut % (Auto) 69.1 Lymph % (Auto) 20.6 [place] % (Auto) 4.4 Eos % (Auto) 4.5 Baso % (Auto) 0.5 Immature Gran # (Auto) 0.07 H Neut # (Auto) 5.35 Lymph # (Auto) 1.60 [place] # (Auto) 0.34 Eos # (Auto) 0.35 Baso # (Auto) 0.04 PT INR Sodium 143 Potassium 5.1 Chloride 116 H Carbon Dioxide 19 L Anion Gap 8.0 BUN 27 H Creatinine 2.38 H D Est Cr Clr Drug Dosing Not Reportable Est GFR ( Amer) 22.7 Est GFR (Non-Af Amer) 19.6 BUN/Creatinine Ratio 11.5 Glucose 89 Calcium 7.5 L Magnesium Total Bilirubin 0.2 AST 11 L ALT 14 Alkaline Phosphatase 135 H Troponin I Total Protein 6.4 Albumin 3.1 L Globulin 3.3 Albumin/Globulin Ratio 1.0 Lipase 52 L TSH Urine Color Yellow Urine Appearance Cloudy H Urine pH 6.5 Ur Specific [place] 1.011 Urine Protein Negative Urine Glucose (UA) Negative Urine Ketones Negative Urine Blood Trace H Urine Nitrite Positive H Urine Bilirubin Negative Urine Urobilinogen Negative Ur Leukocyte Esterase 3+ H Urine WBC (Auto) >30 H Urine RBC (Auto) 0-4 U Hyaline Cast (Auto) 1-5 U Epithel Cells (Auto) 0-5 Urine Bacteria (Auto) 4+ H 09/25/18 09/25/18 09/25/18 13:30 13:55 20:15 WBC RBC Hgb Hct MCV MCH MCHC RDW Std Deviation RDW Coeff of Ethan Plt Count MPV Immature Gran % (Auto) Neut % (Auto) Lymph % (Auto) [place] % (Auto) Eos % (Auto) Baso % (Auto) Immature Gran # (Auto) Neut # (Auto) Lymph # (Auto) [place] # (Auto) Eos # (Auto) Baso # (Auto) PT 10.5 INR 1.0 Sodium 144 Potassium 5.0 Chloride 117 H Carbon Dioxide 19 L Anion Gap 8.0 BUN 24 H Creatinine 2.39 H Est Cr Clr Drug Dosing 17.3 Est GFR ( Amer) 22.6 Est GFR (Non-Af Amer) 19.5 BUN/Creatinine Ratio 10.2 Glucose 223 H Calcium 7.2 L Magnesium 3.0 H Total Bilirubin 0.2 AST 94 H ALT 32 Alkaline Phosphatase 253 H Troponin I < 0.015 Total Protein 6.0 L Albumin 2.8 L Globulin 3.2 Albumin/Globulin Ratio 0.9 Lipase TSH 2.500 Urine Color Urine Appearance Urine pH Ur Specific [place] Urine Protein Urine Glucose (UA) Urine Ketones Urine Blood Urine Nitrite Urine Bilirubin Urine Urobilinogen Ur Leukocyte Esterase Urine WBC (Auto) Urine RBC (Auto) U Hyaline Cast (Auto) U Epithel Cells (Auto) Urine Bacteria (Auto) 09/25/18 09/26/18 09/26/18 20:15 05:40 05:40 WBC 8.19 7.28 RBC 3.46 L 3.30 L Hgb 10.6 L 10.0 L Hct 34.0 L 32.6 L MCV 98.3 98.8 MCH 30.6 30.3 MCHC 31.2 L 30.7 L RDW Std Deviation 58.7 H 60.7 H RDW Coeff of Ethan 16.4 H 16.7 H Plt Count 188 200 MPV 9.4 9.4 Immature Gran % (Auto) 0.9 0.5 Neut % (Auto) 68.5 75.5 Lymph % (Auto) 18.4 12.4 [place] % (Auto) 7.3 6.5 Eos % (Auto) 4.4 4.8 Baso % (Auto) 0.5 0.3 Immature Gran # (Auto) 0.07 H 0.04 H Neut # (Auto) 5.61 5.50 Lymph # (Auto) 1.51 0.90 L [place] # (Auto) 0.60 H 0.47 Eos # (Auto) 0.36 0.35 Baso # (Auto) 0.04 0.02 PT INR Sodium 147 H Potassium 5.1 Chloride 119 H Carbon Dioxide 19 L Anion Gap 8.0 BUN 28 H Creatinine 2.50 H Est Cr Clr Drug Dosing 16.6 Est GFR ( Amer) 21.4 Est GFR (Non-Af Amer) 18.4 BUN/Creatinine Ratio 11.1 Glucose 87 Calcium 7.2 L Magnesium 2.8 H Total Bilirubin AST ALT Alkaline Phosphatase Troponin I Total Protein Albumin Globulin Albumin/Globulin Ratio Lipase TSH Urine Color Urine Appearance Urine pH Ur Specific [place] Urine Protein Urine Glucose (UA) Urine Ketones Urine Blood Urine Nitrite Urine Bilirubin Urine Urobilinogen Ur Leukocyte Esterase Urine WBC (Auto) Urine RBC (Auto) U Hyaline Cast (Auto) U Epithel Cells (Auto) Urine Bacteria (Auto) 09/26/18 08:35 WBC RBC Hgb Hct MCV MCH MCHC RDW Std Deviation RDW Coeff of Ethan Plt Count MPV Immature Gran % (Auto) Neut % (Auto) Lymph % (Auto) [place] % (Auto) Eos % (Auto) Baso % (Auto) Immature Gran # (Auto) Neut # (Auto) Lymph # (Auto) [place] # (Auto) Eos # (Auto) Baso # (Auto) PT INR Sodium Potassium Chloride Carbon Dioxide Anion Gap BUN Creatinine Est Cr Clr Drug Dosing Est GFR ( Amer) Est GFR (Non-Af Amer) BUN/Creatinine Ratio Glucose Calcium Magnesium Total Bilirubin AST ALT Alkaline Phosphatase Troponin I Total Protein Albumin Globulin Albumin/Globulin Ratio Lipase TSH Urine Color Yellow Urine Appearance Turbid H Urine pH 7.5 Ur Specific [place] 1.015 Urine Protein Negative Urine Glucose (UA) Negative Urine Ketones Negative Urine Blood 2+ H Urine Nitrite Positive H Urine Bilirubin Negative Urine Urobilinogen Negative Ur Leukocyte Esterase 3+ H Urine WBC (Auto) >30 H Urine RBC (Auto) 10-30 H U Hyaline Cast (Auto) 5-10 H U Epithel Cells (Auto) 20-30 H Urine Bacteria (Auto) 2+ H (1) Hydronephrosis Hydronephrosis type: unspecified Qualified Code(s): N13.30 - Unspecified hydronephrosis
[2018-09-26] MEDS: LORazepam 0.5 MG TAB PO SCH (21:04)
[2018-09-26] MEDS: AMITRIPTYLINE HCL 25 MG TAB PO SCH (21:06)
[2018-09-26] MEDS: CEFEPIME 1,000 MG in SYRINGE 0 ML IV SCH (21:41)
[2018-09-27] MEDS: LEVOTHYROXINE SODIUM 75 MCG TABLET PO SCH (05:45)
[2018-09-27 06:00] LABS: Hematocrit (blood only) 33.5 % (37-47); Hemoglobin 10.2 g/dL (12.0-16.0); Mean Corpuscular Hgb Conc 30.4 g/dL (32-36); Mean Corpuscular Volume 98.2 fL (80-100); Mean Platelet Volume 9.6 fL (7.4-10.4); Platelet Count 190 K/uL (130-400); RDW Coefficient of Variation 16.5 % (11.5-14.5); Red Blood Count 3.41 M/uL (4.2-5.4); White Blood Count 6.49 K/uL (4.8-10.8)
[2018-09-27 06:33] LABS: BUN Creatinine Ratio 10.5 (10-20); Calcium 7.5 mg/dl (8.5-10.1); Magnesium 2.4 mg/dl (1.8-2.4); Potassium 4.9 mmol/L (3.5-5.1)
[2018-09-27] MEDS: ASPIRIN 325 MG ECTAB PO SCH (09:00)
[2018-09-27] MEDS: CALCIUM 600MG + VIT D 400 IU TAB PO SCH ×2 (09:00→15:11)
[2018-09-27] MEDS: NIFEdipine EXTENDED REL 30 MG TABCR PO SCH (09:01)
[2018-09-27] MEDS: METOPROLOL TARTRATE 50 MG TAB PO SCH ×2 (09:01→15:11)
[2018-09-27] MEDS: GABAPENTIN 300 MG CAP PO SCH ×2 (09:01→15:12)
[2018-09-27] MEDS: PANTOprazole 40 MG TAB PO SCH ×2 (09:01→19:59)
[2018-09-27] MEDS: CHOLECALCIFEROL 1,000 UNITS TAB PO SCH (09:02)
[2018-09-27] MEDS: DICYCLOMINE HCL 20 MG TAB PO SCH ×3 (09:03→19:58)
[2018-09-27] MEDS: CYANOCOBALAMIN 500 MCG TABLET (VITAMIN B-12) PO SCH (09:03)
[2018-09-27] MEDS: SODIUM BICARBONATE 650 MG TAB PO SCH ×2 (09:04→15:11)
[2018-09-27] MEDS: ESCITALOPRAM OXALATE ORAL SOLN 5 MG/5 ML PO SCH (09:04)
--- NOTE | 2018-09-27 10:18 | Infectious Disease Progress Nt ---
Date of Service September 27, 2018 Assessment & Plan (1) Pyelonephritis: 72-year-old female with history of recurrent urinary tract infections, pyelonephritis, hydronephrosis, with indwelling urethral stent, now with probable recurrent urinary tract infection with E. coli and Streptococcus. For now, cefepime will provide adequate coverage , would watch closely for allergic reaction given possible reaction to cephalexin in the past. Await urolgy f/u regarding further intervention. Will follow. (2) Streptococcal infection: (3) Escherichia coli infection: Subjective Patient seen in follow-up for probable urinary tract infection. Patient still feeling weak and debilitated, offers no other new specific complaints. Remains afebrile. Tolerating cefepime so far without apparent difficulty. Review of Systems All systems reviewed & are unremarkable except as noted in HPI & below Physical Exam Vital Signs (Past 24 Hours): Last Vital Signs Temp 36.5 C 09/27/18 09:08 Pulse 67 09/27/18 09:08 Resp 18 09/27/18 09:08 BP 144/83 H 09/27/18 09:08 Pulse Ox 93 09/27/18 09:08 Constitutional: WD/WN, vitals as above comfortable; no acute distress Eyes: PERRL, conjunctivae normal, anicteric sclerae ENMT: external ear and nose normal, oropharynx normal Neck: trachea midline, no thyromegaly neck nontender Respiratory: normal respiratory effort, lungs clear to auscultation normal percussion; does not use accessory muscles Cardiovascular: Rate/Rhythm: regular rate and regular rhythm Heart Sounds: normal S1 and normal S2; no gallop, no murmur and no cardiac rub Vessels: normal peripheral pulses; no JVD Gastrointestinal (Abdomen): normal bowel sounds, soft, nontender, no hepatosplenomegaly Musculoskeletal: no cyanosis or clubbing, extremities motor strength 5/5 Spine: thoracic spine normal to inspection and lumbar spine normal to inspe ction; no cervical spinal tenderness Skin: no rashes, warm and dry normal turgor; no lesions Neurologic: patellar DTR's 2+ bilat, sensation intact no focal motor deficits Psychiatric: A+Ox3, euthymic affect Orientation: cooperative Lymphatic: no cervical or axillary lymphadenopathy no inguinal lymphadenopathy Results & Data Laboratory Results Short CBC 09/27/18 Range/Units 05:38 WBC 6.49 (4.8-10.8) K/uL Hgb 10.2 L (12.0-16.0) g/dL Hct 33.5 L (37-47) % Plt Count 190 (130-400) K/uL BMP 09/27/18 05:38 Sodium 143 Potassium 4.9 Chloride 116 H Carbon Dioxide 21 BUN 26 H Creatinine 2.44 H Glucose 99 Calcium 7.5 L Diagnostic Findings Microbiology 09/25/18 12:45 Urine,Clean Catch Urine Culture - Preliminary Escherichia coli Alpha strep. not enterococcus
--- NOTE | 2018-09-27 11:41 | Urology Progress Note ---
Date of Service September 27, 2018 Assessment & Plan (1) Escherichia coli infection: 72yo F with very complicated history with ileal conduit and recurrent UTIs. UC&S prelim E.coli and Alpha strep - continue cefepime per ID. Currently patient is stable, tolerating abx course. Acknowledges extreme fatigue and motivated to feel better by whatever means recommended. Case reviewed with Dr. Horton today. Most recent stent exchange completed at [facility]. We recommend transfer to higher level of care to evaluate for structural cause for recurrent UTIs, possible ?fistula formation vs other recommendations. These recommendations discussed at length with patient, and hospitalist Dr. Catrina Arora. All in agreement to move forward with [facility] transfer. All questions answered thus far. Thank you for the consultation. Subjective 72yo F with extensive PMHx with ileal conduit, ostomy, recurrent UTIs, hydronephosis with chronic L stent. VSS, afebrile. at bedside today at time of evaluation. She states she had an uneventful evening, tolerating regular diet. Conduit continues to drain adequate amount of cloudy urine with sediment. Does void spontaneously as well. Denies dysuria or hematuria, however does acknowledge urine was darker today. Denies CP/SOB Denies n/v. +fatigue Review of Systems All systems reviewed & are unremarkable except as noted in HPI & below Physical Exam Vital Signs (Past 24 Hours): Last Vital Signs Temp 36.5 C 09/27/18 09:08 Pulse 67 09/27/18 09:08 Resp 18 09/27/18 09:08 BP 144/83 H 09/27/18 09:08 Pulse Ox 93 09/27/18 09:08 Physical Exam: A&Ox3 RRR Abd soft - ileal conduit and ostomy intact, beefy red. No JVD, no edema Results & Data Laboratory Results Laboratory Results - last 48 hr 09/25/18 09/25/18 09/25/18 12:45 13:30 13:30 WBC 7.75 RBC 3.54 L Hgb 10.9 L Hct 34.7 L MCV 98.0 MCH 30.8 MCHC 31.4 L RDW Std Deviation 58.9 H RDW Coeff of Ethan 16.3 H Plt Count 184 MPV 9.5 Immature Gran % (Auto) 0.9 Neut % (Auto) 69.1 Lymph % (Auto) 20.6 [place] % (Auto) 4.4 Eos % (Auto) 4.5 Baso % (Auto) 0.5 Immature Gran # (Auto) 0.07 H Neut # (Auto) 5.35 Lymph # (Auto) 1.60 [place] # (Auto) 0.34 Eos # (Auto) 0.35 Baso # (Auto) 0.04 PT INR Sodium 143 Potassium 5.1 Chloride 116 H Carbon Dioxide 19 L Anion Gap 8.0 BUN 27 H Creatinine 2.38 H D Est Cr Clr Drug Dosing Not Reportable Est GFR ( Amer) 22.7 Est GFR (Non-Af Amer) 19.6 BUN/Creatinine Ratio 11.5 Glucose 89 Calcium 7.5 L Magnesium Total Bilirubin 0.2 AST 11 L ALT 14 Alkaline Phosphatase 135 H Troponin I Total Protein 6.4 Albumin 3.1 L Globulin 3.3 Albumin/Globulin Ratio 1.0 Lipase 52 L TSH Urine Color Yellow Urine Appearance Cloudy H Urine pH 6.5 Ur Specific [place] 1.011 Urine Protein Negative Urine Glucose (UA) Negative Urine Ketones Negative Urine Blood Trace H Urine Nitrite Positive H Urine Bilirubin Negative Urine Urobilinogen Negative Ur Leukocyte Esterase 3+ H Urine WBC (Auto) >30 H Urine RBC (Auto) 0-4 U Hyaline Cast (Auto) 1-5 U Epithel Cells (Auto) 0-5 Urine Bacteria (Auto) 4+ H 09/25/18 09/25/18 09/25/18 13:30 13:55 20:15 WBC RBC Hgb Hct MCV MCH MCHC RDW Std Deviation RDW Coeff of Ethan Plt Count MPV Immature Gran % (Auto) Neut % (Auto) Lymph % (Auto) [place] % (Auto) Eos % (Auto) Baso % (Auto) Immature Gran # (Auto) Neut # (Auto) Lymph # (Auto) [place] # (Auto) Eos # (Auto) Baso # (Auto) PT 10.5 INR 1.0 Sodium 144 Potassium 5.0 Chloride 117 H Carbon Dioxide 19 L Anion Gap 8.0 BUN 24 H Creatinine 2.39 H Est Cr Clr Drug Dosing 17.3 Est GFR ( Amer) 22.6 Est GFR (Non-Af Amer) 19.5 BUN/Creatinine Ratio 10.2 Glucose 223 H Calcium 7.2 L Magnesium 3.0 H Total Bilirubin 0.2 AST 94 H ALT 32 Alkaline Phosphatase 253 H Troponin I < 0.015 Total Protein 6.0 L Albumin 2.8 L Globulin 3.2 Albumin/Globulin Ratio 0.9 Lipase TSH 2.500 Urine Color Urine Appearance Urine pH Ur Specific [place] Urine Protein Urine Glucose (UA) Urine Ketones Urine Blood Urine Nitrite Urine Bilirubin Urine Urobilinogen Ur Leukocyte Esterase Urine WBC (Auto) Urine RBC (Auto) U Hyaline Cast (Auto) U Epithel Cells (Auto) Urine Bacteria (Auto) 09/25/18 09/26/18 09/26/18 20:15 05:40 05:40 WBC 8.19 7.28 RBC 3.46 L 3.30 L Hgb 10.6 L 10.0 L Hct 34.0 L 32.6 L MCV 98.3 98.8 MCH 30.6 30.3 MCHC 31.2 L 30.7 L RDW Std Deviation 58.7 H 60.7 H RDW Coeff of Ethan 16.4 H 16.7 H Plt Count 188 200 MPV 9.4 9.4 Immature Gran % (Auto) 0.9 0.5 Neut % (Auto) 68.5 75.5 Lymph % (Auto) 18.4 12.4 [place] % (Auto) 7.3 6.5 Eos % (Auto) 4.4 4.8 Baso % (Auto) 0.5 0.3 Immature Gran # (Auto) 0.07 H 0.04 H Neut # (Auto) 5.61 5.50 Lymph # (Auto) 1.51 0.90 L [place] # (Auto) 0.60 H 0.47 Eos # (Auto) 0.36 0.35 Baso # (Auto) 0.04 0.02 PT INR Sodium 147 H Potassium 5.1 Chloride 119 H Carbon Dioxide 19 L Anion Gap 8.0 BUN 28 H Creatinine 2.50 H Est Cr Clr Drug Dosing 16.6 Est GFR ( Amer) 21.4 Est GFR (Non-Af Amer) 18.4 BUN/Creatinine Ratio 11.1 Glucose 87 Calcium 7.2 L Magnesium 2.8 H Total Bilirubin AST ALT Alkaline Phosphatase Troponin I Total Protein Albumin Globulin Albumin/Globulin Ratio Lipase TSH Urine Color Urine Appearance Urine pH Ur Specific [place] Urine Protein Urine Glucose (UA) Urine Ketones Urine Blood Urine Nitrite Urine Bilirubin Urine Urobilinogen Ur Leukocyte Esterase Urine WBC (Auto) Urine RBC (Auto) U Hyaline Cast (Auto) U Epithel Cells (Auto) Urine Bacteria (Auto) 09/26/18 09/27/18 09/27/18 08:35 05:38 05:38 WBC 6.49 RBC 3.41 L Hgb 10.2 L Hct 33.5 L MCV 98.2 MCH 29.9 MCHC 30.4 L RDW Std Deviation 59.0 H RDW Coeff of Ethan 16.5 H Plt Count 190 MPV 9.6 Immature Gran % (Auto) Neut % (Auto) Lymph % (Auto) [place] % (Auto) Eos % (Auto) Baso % (Auto) Immature Gran # (Auto) Neut # (Auto) Lymph # (Auto) [place] # (Auto) Eos # (Auto) Baso # (Auto) PT INR Sodium 143 Potassium 4.9 Chloride 116 H Carbon Dioxide 21 Anion Gap 7.0 BUN 26 H Creatinine 2.44 H Est Cr Clr Drug Dosing 17.0 Est GFR ( Amer) 22.0 Est GFR (Non-Af Amer) 19.0 BUN/Creatinine Ratio 10.5 Glucose 99 Calcium 7.5 L Magnesium 2.4 Total Bilirubin AST ALT Alkaline Phosphatase Troponin I Total Protein Albumin Globulin Albumin/Globulin Ratio Lipase TSH Urine Color Yellow Urine Appearance Turbid H Urine pH 7.5 Ur Specific [place] 1.015 Urine Protein Negative Urine Glucose (UA) Negative Urine Ketones Negative Urine Blood 2+ H Urine Nitrite Positive H Urine Bilirubin Negative Urine Urobilinogen Negative Ur Leukocyte Esterase 3+ H Urine WBC (Auto) >30 H Urine RBC (Auto) 10-30 H U Hyaline Cast (Auto) 5-10 H U Epithel Cells (Auto) 20-30 H Urine Bacteria (Auto) 2+ H
--- NOTE | 2018-09-27 15:53 | Hospitalist Progress Note ---
Date of Service September 27, 2018 Assessment & Plan (1) Pyelonephritis: Possible pyelonephritis due to infected ureteral stent. CT a/p on 09/25 showed left-sided hydroureteronephrosis with stent in place with inflammatory stranding around the left kidney, suggesting left-sided infection/pyelonep hritis. - Seen by ID - Appreciate recs - Dr. Moran notes concern for enteroureteral fistula - Urology consulted - Believe transfer to [facility] in [place] is the best course, so she can be treated by her usual urologist. - Follow urine cultures from 09/25 - Currently growing galaviz-sensitive Escherichia coli & Alpha strep. not enterococcus - Continue cefepime (2) Hydronephrosis: Seen on left side on CT a/p on 09/25. - Urology consult as above (3) Short gut syndrome: Per patient, was having up to 12 colostomy changes per day, but now down to 5 on current regimen. - Continue bicarb, loperamide, dicyclomine (4) Hypothyroid: TSH was 2.5 on 09/25. - Continue levothyroxine 75mcg daily (5) Depression with anxiety: No major inpatient concerns. - Continue TCA (6) CKD (chronic kidney disease), stage IV: Baseline Cr ~2.5; with eGFR ~20. - Avoid nephrotoxic medications - As of 09/27, at baseline. (7) HTN (hypertension): BP is currently 130/70. - Continue metoprolol (8) Colon cancer: Original issues stemmed from complications of GI surgery for a colon mass. - Concern for enteroureter fistula - Consider surgery consult after discussion with ID (9) DVT prophylaxis: SCDs until no need for procedure Subjective 72yo F w/ hx of colon mass and complicated abdominal surgical history who presents for pyelonephritis. This morning, she feels not much better. No fevers/chills. Still fatigued. Reports no fevers/chills, chest pain, shortness of breath, abdominal pain, nausea, or vomiting. Physical Exam Vital Signs (Past 24 Hours): Last Vital Signs Temp 36.8 C 09/27/18 15:12 Pulse 62 09/27/18 15:12 Resp 20 09/27/18 15:12 BP 132/78 09/27/18 15:12 Pulse Ox 97 09/27/18 15:12 Constitutional: WD/WN, vitals as above Eyes: EOM intact bilaterally; no conjunctival abnormality ENMT: external ear and nose normal, oropharynx normal Neck: trachea midline, no thyromegaly normal visual inspection Respiratory: normal respiratory effort, lungs clear to auscultation no respiratory distress Cardiovascular: RRR, no murmur, no edema Gastrointestinal (Abdomen): Inspection/Auscultation: + abdomen abnormal to inspection (Colostomy bag) and abdomen not distended Musculoskeletal: no cyanosis or clubbing, extremities motor strength 5/5 Skin: no rashes, warm and dry Neurologic: moves all extremities and awake Psychiatric: Orientation: alert, oriented to person and cooperative (1) Hydronephrosis Hydronephrosis type: unspecified Qualified Code(s): N13.30 - Unspecified hydronephrosis (2) Hypothyroid Hypothyroidism type: acquired Qualified Code(s): E03.9 - Hypothyroidism, unspecified (3) HTN (hypertension) Hypertension type: essential hypertension Qualified Code(s): I10 - Essential (primary) hypertension
[2018-09-27] MEDS: LORazepam 0.5 MG TAB PO SCH (18:23)
--- NOTE | 2018-09-27 19:30 | Discharge Summary ---
Date of Service September 27, 2018 Admission HPI Per Admitting Provider 72-year-old female with hx of recurrent urinary tract infections, hydronephrosis ,colectomy with colostomy and ileostomy coming to the hospital emergency room because of generalized weakness other medical hx includes colon cancer 30+ years ago status post radiation, follow on colectomy with colostomy and ileostomy, short gut syndrome, hypertension, hypothyroidism, esophagitis, anemia, bilateral foot neuropathy, d epression, anxiety, IVC filter, obstructive sleep apnea, left Charcot foot, back pain, anal fissures, small bowel obstruction, recurrent urinary tract infections, hydronephrosis, acute pancreatitis she reported feeling fatigue for several days, denies fever and chill however feeling cold , Denies nausea vomiting, however has no appetite denies dysuria urgency and frequency. Emergency room there was no fever and chill, no leukocytosis, however CT studies shows hydro-ureter, and possible pyelonephritis. On interview with the patient and she confirming the above information Principal Diagnosis Complicated UTI with ileoconduit Discharge Exam Constitutional WD/WN, vitals as above Eyes EOM intact bilaterally; no conjunctival abnormality ENMT external ear and nose normal, oropharynx normal Neck trachea midline, no thyromegaly normal visual inspection Respiratory normal respiratory effort, lungs clear to auscultation no respiratory distress Cardiovascular RRR, no murmur, no edema Gastrointestinal (Abdomen) Inspection/Auscultation: + abdomen abnormal to inspection (Colostomy bag) and abdomen not distended Musculoskeletal no cyanosis or clubbing, extremities motor strength 5/5 Skin no rashes, warm and dry Neurologic moves all extremities and awake Psychiatric Orientation: alert, oriented to person and cooperative Discharge Data Allergies Allergy/AdvReac Type Severity Reaction Status Date / Time cephalexin Allergy Intermediate RASH,ITCHIN Verified 09/25/18 13:57 G,HIVES Cipro Allergy Intermediate RASH Verified 03/02/18 10:07 ciprofloxacin Allergy Intermediate RASH Verified 09/25/18 13:57 homatropine Allergy Intermediate RASH Verified 09/25/18 13:57 hydrocodone Allergy Intermediate RASH Verified 09/25/18 13:57 metronidazole Allergy Intermediate RASH Verified 09/25/18 13:57 piperacillin Allergy Intermediate RASH Verified 09/25/18 13:57 Sulfa (Sulfonamide Allergy Intermediate RASH Verified 09/25/18 13:57 Antibiotics) tazobactam Allergy Intermediate RASH Verified 09/25/18 13:57 vancomycin Allergy Intermediate HIVES Verified 09/25/18 13:57 levofloxacin Allergy Unknown unknown Verified 09/25/18 13:57 nitrofurantoin Allergy Unknown .. Verified 09/25/18 13:57 Tawnzas-Ovb-Mgs Reductase Allergy Unknown LIPITOR Verified 09/25/18 13:57 Inhibitor AND PRAVASTATIN doxycycline Allergy Rash Verified 09/25/18 13:57 Consultations 09/25/18 16:17 ED Decision to Admit Stat 09/25/18 21:25 Consult Urology Routine 09/26/18 10:56 Consult Infectious Diseases Routine Ordered Studies 09/25/18 13:40 CT abd pelvis wo con Stat Hospital Course (1) Pyelonephritis: Probable pyelonephritis due to infected ureteral stent. CT a/p on 09/25 showed left-sided hydroureteronephrosis with stent in place with inflammatory stranding around the left kidney, suggesting left-sided infection/pyelonephritis. - Seen by ID - Appreciate recs - Continue cefepime - Dr. Moran (ID) notes concern for enteroureteral fistula - Urology consulted - Believe transfer to [facility] in [place] is the best course, so she can be treated by her usual urologist. They believe she will need examination for enteroureteral fistula, but are not comfortable doing cystoscopy due to her complex anatomy. - Follow urine cultures from 09/25 - Currently growing galaviz-sensitive Escherichia coli & Alpha strep. not enterococcus - Continue cefepime for now; however, could switch as needed. Patient has allergy to cephalexin, but has tolerated cefepime without issue. (2) Hydronephrosis: Seen on left side on CT a/p on 09/25. - Urology consult as above (3) Short gut syndrome: Per patient, was having up to 12 colostomy changes per day, but now down to 5 on current regimen. - Continue bicarb, loperamide, dicyclomine - No major colostomy issues while inpatient (4) Hypothyroid: TSH was 2.5 on 09/25. - Continue levothyroxine 75mcg daily (5) Depression with anxiety: No major inpatient concerns. - Continue TCA (6) CKD (chronic kidney disease), stage IV: Baseline Cr ~2.5; with eGFR ~20. - Avoid nephrotoxic medications - As of 09/27, at baseline. (7) HTN (hypertension): BP is currently 130/70. - Continue metoprolol (8) Colon cancer: Original issues stemmed from complications of GI surgery for a colon mass. - Concern for enteroureter fistula - Consider surgery consult after discussion with ID (9) DVT prophylaxis: SCDs until no need for procedure Total Time Total Time Spent Total Time Spent (In Minutes): 45 Total Time Includes: Examination of the Patient, Discharge Planning, Medication Reconciliation and Communication With Other Providers Discharge Plan Discharge Items Patient Disposition: Transfer [facility] Reason For Visit: TIRED/COLD/PYELO/RT HYDRONEPHROSIS Discharge Diagnosis: Hydronephrosis and complicated UTI with ileoconduit Discharge Goals: Improve function and Therapeutic intervention Activity: Resume your previous activity Non-emergency contact: Primary Care Provider Call non-emergency contact if: you have any medication questions and your pain is not controlled Follow-up/Referrals: Joe Alonso MD [Primary Care Provider] - Diet: Regular Addtl Provider Instructions: Prescriptions: Continued ascorbic acid (vitamin C) [Vitamin C] 1,000 mg Tablet 1 g PO QAM RF: 0 loperamide 2 mg Capsule 2 mg PO Q3H PRN (Reason: Diarrhea) RF: 0 acetaminophen [Tylenol Extra Strength] 500 mg Tablet 500 mg PO Q6H PRN (Reason: Pain) RF: 0 oxycodone-acetaminophen 5-325 mg Tablet 1 tab PO Q6H PRN (Reason: Pain) RF: 0 amitriptyline 25 mg Tablet 25 mg PO HS RF: 0 lorazepam 0.5 mg Tablet 0.25 mg PO HS RF: 0 dicyclomine 20 mg Tablet 20 mg PO TID RF: 0 sodium bicarbonate 650 mg Tablet 650 mg PO BID RF: 0 metoprolol tartrate 50 mg Tablet 50 mg PO BID RF: 0 gabapentin 300 mg Capsule 300 mg PO BID RF: 0 nifedipine 60 mg Tablet Extended Release 60 mg PO QAM RF: 0 multivitamin Capsule 1 cap PO QAM RF: 0 calcium carbonate-vitamin D3 [Calcium 500 + D (D3)] 500 mg(1,250mg) -125 unit Tablet 1 tab PO BID RF: 0 omeprazole 20 mg Tablet,Delayed Release (Dr/Ec) 20 mg PO BID RF: 0 cholecalciferol (vitamin D3) 3,000 unit Tablet 5,000 unit PO QAM RF: 0 levothyroxine 75 mcg Capsule 75 mcg PO QAM RF: 0 cyanocobalamin (vitamin B-12) 5,000 mcg Tablet, Ir And Er, Biphasic 4,000 mcg PO QAM RF: 0 aspirin [Hanna Aspirin] 325 mg Tablet 325 mg PO QAM RF: 0 escitalopram oxalate 5 mg Tablet 7.5 mg PO QAM RF: 0 ferrous sulfate [iron] 325 mg (65 mg iron) Tablet 325 mg PO QAM RF: 0 potassium chloride 10 mEq tablet,ER particles/crystals 10 meq PO BID RF: 0 Probiotic 3 billion cell Capsule 3,000 mmu cells PO QAM RF: 0 Stand-Alone Forms: [facility] Discharge Orders: Discharge Order (Routine); Ordered 09/27/18 Ordered By: Pablito Arora Admission Data Admit Date/Time: 09/25/18 18:02 Attending Provider: Pablito Arora Admit Provider: Theo Multani Primary Care Provider: Joe Alonso Other Providers: Christoph Jones II ; Pablito Arora ; Gary Moran Service: Medical
[2018-09-27] MEDS: AMITRIPTYLINE HCL 25 MG TAB PO SCH (19:58)
[2018-09-27] MEDS: CEFEPIME 1,000 MG in SYRINGE 0 ML IV SCH (23:16)
[2018-09-28] MEDS: LEVOTHYROXINE SODIUM 75 MCG TABLET PO SCH (06:08)
[2018-09-28 06:17] LABS: Hematocrit (blood only) 32.9 % (37-47); Hemoglobin 10.2 g/dL (12.0-16.0); Mean Corpuscular Volume 97.6 fL (80-100); Mean Platelet Volume 9.4 fL (7.4-10.4); Platelet Count 187 K/uL (130-400); RDW Coefficient of Variation 16.2 % (11.5-14.5); RDW Standard Deviation 57.7 fL (36.4-46.3); Red Blood Count 3.37 M/uL (4.2-5.4); White Blood Count 7.83 K/uL (4.8-10.8)
[2018-09-28 06:53] LABS: BUN Creatinine Ratio 12.6 (10-20); Calcium 7.4 mg/dl (8.5-10.1); Creatinine Clr Calc Pharmacy 18.1 ml/min; Est GFR (African American) 23.8; Est GFR (Non-African American) 20.5; Magnesium 2.1 mg/dl (1.8-2.4); Potassium 4.5 mmol/L (3.5-5.1)
[2018-09-28] MEDS: CHOLECALCIFEROL 1,000 UNITS TAB PO SCH (08:41)
[2018-09-28] MEDS: CALCIUM 600MG + VIT D 400 IU TAB PO SCH (08:41)
[2018-09-28] MEDS: CYANOCOBALAMIN 500 MCG TABLET (VITAMIN B-12) PO SCH (08:41)
[2018-09-28] MEDS: ASPIRIN 325 MG ECTAB PO SCH (08:42)
[2018-09-28] MEDS: SODIUM BICARBONATE 650 MG TAB PO SCH (08:42)
[2018-09-28] MEDS: METOPROLOL TARTRATE 50 MG TAB PO SCH (08:42)
[2018-09-28] MEDS: NIFEdipine EXTENDED REL 30 MG TABCR PO SCH (08:43)
[2018-09-28] MEDS: DICYCLOMINE HCL 20 MG TAB PO SCH (08:43)
[2018-09-28] MEDS: GABAPENTIN 300 MG CAP PO SCH (08:43)
[2018-09-28] MEDS: PANTOprazole 40 MG TAB PO SCH (08:43)
[2018-09-28] MEDS: ESCITALOPRAM OXALATE ORAL SOLN 5 MG/5 ML PO SCH (08:44)
[2018-09-28] MEDS: HEPARIN 100 UNIT/ML 5ML FLUSH FLUSH PRN (10:18)
--- NOTE | 2018-09-28 16:40 | Discharge Summary ---
Date of Service September 28, 2018 Admission HPI Per Admitting Provider 72-year-old female with hx of recurrent urinary tract infections, hydronephrosis ,colectomy with colostomy and ileostomy coming to the hospital emergency room because of generalized weakness other medical hx includes colon cancer 30+ years ago status post radiation, follow on colectomy with colostomy and ileostomy, short gut syndrome, hypertension, hypothyroidism, esophagitis, anemia, bilateral foot neuropathy, d epression, anxiety, IVC filter, obstructive sleep apnea, left Charcot foot, back pain, anal fissures, small bowel obstruction, recurrent urinary tract infections, hydronephrosis, acute pancreatitis she reported feeling fatigue for several days, denies fever and chill however feeling cold , Denies nausea vomiting, however has no appetite denies dysuria urgency and frequency. Emergency room there was no fever and chill, no leukocytosis, however CT studies shows hydro-ureter, and possible pyelonephritis. On interview with the patient and she confirming the above information Principal Diagnosis Urinary tract infection with possible pyelonephritis Discharge Exam Constitutional WD/WN, vitals as above Eyes EOM intact bilaterally; no conjunctival abnormality ENMT external ear and nose normal, oropharynx normal Neck trachea midline, no thyromegaly normal visual inspection Respiratory normal respiratory effort, lungs clear to auscultation no respiratory distress Cardiovascular RRR, no murmur, no edema Gastrointestinal (Abdomen) Inspection/Auscultation: + abdomen abnormal to inspection (Colostomy bag) and abdomen not distended Musculoskeletal no cyanosis or clubbing, extremities motor strength 5/5 Skin no rashes, warm and dry Neurologic moves all extremities and awake Psychiatric Orientation: alert, oriented to person and cooperative Discharge Data Allergies Allergy/AdvReac Type Severity Reaction Status Date / Time cephalexin Allergy Intermediate RASH,ITCHIN Verified 09/25/18 13:57 G,HIVES Cipro Allergy Intermediate RASH Verified 03/02/18 10:07 ciprofloxacin Allergy Intermediate RASH Verified 09/25/18 13:57 homatropine Allergy Intermediate RASH Verified 09/25/18 13:57 hydrocodone Allergy Intermediate RASH Verified 09/25/18 13:57 metronidazole Allergy Intermediate RASH Verified 09/25/18 13:57 piperacillin Allergy Intermediate RASH Verified 09/25/18 13:57 Sulfa (Sulfonamide Allergy Intermediate RASH Verified 09/25/18 13:57 Antibiotics) tazobactam Allergy Intermediate RASH Verified 09/25/18 13:57 vancomycin Allergy Intermediate HIVES Verified 09/25/18 13:57 levofloxacin Allergy Unknown unknown Verified 09/25/18 13:57 nitrofurantoin Allergy Unknown .. Verified 09/25/18 13:57 Yzgwxiz-Bqu-Ooi Reductase Allergy Unknown LIPITOR Verified 09/25/18 13:57 Inhibitor AND PRAVASTATIN doxycycline Allergy Rash Verified 09/25/18 13:57 Consultations 09/25/18 16:17 ED Decision to Admit Stat 09/25/18 21:25 Consult Urology Routine 09/26/18 10:56 Consult Infectious Diseases Routine 09/27/18 20:53 Burn CD for patient Stat Ordered Studies 09/25/18 13:40 CT abd pelvis wo con Stat Hospital Course (1) Pyelonephritis: Probable pyelonephritis due to infected ureteral stent. CT a/p on 09/25 showed left-sided hydroureteronephrosis with stent in place with inflammatory stranding around the left kidney, suggesting left-sided infection/pyelo nephritis. - Seen by ID - Appreciate recs - Continue cefepime - Dr. Moran (ID) notes concern for enteroureteral fistula - Urology consulted - Believe transfer to [facility] [place] in [place] is the bes t course, so she can be treated by her usual urologist. They believe she will need examination for enteroureteral fistula, but are not comfortable doing cystoscopy due to her complex anatomy. - Follow urine cultures from 09/25 - Currently growing galaviz-sensitive Escherichia coli & Alpha strep. not enterococcus - Continue cefepime for now; however, could switch as needed. Patient has allergy to cephalexin, but has tolerated cefepime without issue. (2) Hydronephrosis: Seen on left side on CT a/p on 09/25. - Urology consult as above (3) Short gut syndrome: Per patient, was having up to 12 colostomy changes per day, but now down to 5 on current regimen. - Continue bicarb, loperamide, dicyclomine - No major colostomy issues while inpatient (4) Hypothyroid: TSH was 2.5 on 09/25. - Continue levothyroxine 75mcg daily (5) Depression with anxiety: No major inpatient concerns. - Continue TCA (6) CKD (chronic kidney disease), stage IV: Baseline Cr ~2.5; with eGFR ~20. - Avoid nephrotoxic medications - As of 09/27, at baseline. (7) HTN (hypertension): BP is currently 130/70. - Continue metoprolol (8) Colon cancer: Original issues stemmed from complications of GI surgery for a colon mass. - Concern for enteroureter fistula - Consider surgery consult after discussion with ID (9) DVT prophylaxis: SCDs until no need for procedure Total Time Total Time Spent Total Time Spent (In Minutes): 45 Total Time Includes: Examination of the Patient, Discharge Planning and Medication Reconciliation Discharge Plan Discharge Items Patient Disposition: Transfer [facility] Reason For Visit: TIRED/COLD/PYELO/RT HYDRONEPHROSIS Discharge Diagnosis: Hydronephrosis and complicated UTI with ileoconduit Discharge Goals: Improve function and Therapeutic intervention Activity: Resume your previous activity Non-emergency contact: Primary Care Provider Call non-emergency contact if: you have any medication questions and your pain i s not controlled Follow-up/Referrals: Joe Alonso MD [Primary Care Provider] - Diet: Regular Addtl Provider Instructions: Prescriptions: Continued ascorbic acid (vitamin C) [Vitamin C] 1,000 mg Tablet 1 g PO QAM RF: 0 loperamide 2 mg Capsule 2 mg PO Q3H PRN (Reason: Diarrhea) RF: 0 acetaminophen [Tylenol Extra Strength] 500 mg Tablet 500 mg PO Q6H PRN (Reason: Pain) RF: 0 oxycodone-acetaminophen 5-325 mg Tablet 1 tab PO Q6H PRN (Reason: Pain) RF: 0 amitriptyline 25 mg Tablet 25 mg PO HS RF: 0 lorazepam 0.5 mg Tablet 0.25 mg PO HS RF: 0 dicyclomine 20 mg Tablet 20 mg PO TID RF: 0 sodium bicarbonate 650 mg Tablet 650 mg PO BID RF: 0 metoprolol tartrate 50 mg Tablet 50 mg PO BID RF: 0 gabapentin 300 mg Capsule 300 mg PO BID RF: 0 nifedipine 60 mg Tablet Extended Release 60 mg PO QAM RF: 0 multivitamin Capsule 1 cap PO QAM RF: 0 calcium carbonate-vitamin D3 [Calcium 500 + D (D3)] 500 mg(1,250mg) -125 unit Tablet 1 tab PO BID RF: 0 omeprazole 20 mg Tablet,Delayed Release (Dr/Ec) 20 mg PO BID RF: 0 cholecalciferol (vitamin D3) 3,000 unit Tablet 5,000 unit PO QAM RF: 0 levothyroxine 75 mcg Capsule 75 mcg PO QAM RF: 0 cyanocobalamin (vitamin B-12) 5,000 mcg Tablet, Ir And Er, Biphasic 4,000 mcg PO QAM RF: 0 aspirin [Hanna Aspirin] 325 mg Tablet 325 mg PO QAM RF: 0 escitalopram oxalate 5 mg Tablet 7.5 mg PO QAM RF: 0 ferrous sulfate [iron] 325 mg (65 mg iron) Tablet 325 mg PO QAM RF: 0 potassium chloride 10 mEq tablet,ER particles/crystals 10 meq PO BID RF: 0 Probiotic 3 billion cell Capsule 3,000 mmu cells PO QAM RF: 0 Stand-Alone Forms: [facility] Discharge Orders: Discharge Order (Routine); Ordered 09/27/18 Ordered By: Pablito Arora Admission Data Admit Date/Time: 09/25/18 18:02 Attending Provider: Pablito Arora Admit Provider: Theo Multani Primary Care Provider: Joe Alonso Other Providers: Christoph Jones II ; Pablito Arora ; Gary Moran Service: Medical Other Interventions: Discharge Summary Assessment (RN) Last Done: 09/28/18 08:51 DC Date/Time DO NOT enter until pt leaves facility: 09/28/18 10:54
== END 2018-09-28 10:54 | disposition short-term general hospital (02) ==
LOC: ED 12:33 → SUATTDRO 18:02 → 4E 18:02

== ENCOUNTER 2018-11-06 09:14 | Inpatient (IN) ==
[2018-11-06] MEDS ORDERED: SODIUM CHLORIDE 0.9% 1000ML 2,000 ML IV ONE (09:58)
[2018-11-06] MEDS ORDERED: SODIUM CHLORIDE 0.9% 500 ML IV SCH (10:00)
[2018-11-06 10:23] LABS: Basophils # (auto) 0.03 K/uL (0-0.2); Basophils % (auto) 0.3 %; Eosinophils # (auto) 0.33 K/uL (0-0.5); Eosinophils % (auto) 3.2 %; Hematocrit (blood only) 33.3 % (37-47); Hemoglobin 10.7 g/dL (12.0-16.0); Immature Granulocytes # (auto) 0.15 K/uL (0.00-0.02); Immature Granulocytes % (auto) 1.5 %; Lymphocytes % (auto) 8.8 %; Mean Corpuscular Hgb Conc 32.1 g/dL (32-36); Mean Corpuscular Volume 93.3 fL (80-100); Mean Platelet Volume 9.6 fL (7.4-10.4); Monocytes # (auto) 0.64 K/uL (0.11-0.59); Monocytes % (auto) 6.2 %; Neutrophils # (auto) 8.23 K/uL (1.4-6.5); Platelet Count 321 K/uL (130-400); RDW Coefficient of Variation 16.6 % (11.5-14.5); RDW Standard Deviation 56.9 fL (36.4-46.3); Red Blood Count 3.57 M/uL (4.2-5.4); White Blood Count 10.28 K/uL (4.8-10.8)
[2018-11-06 10:37] LABS: INR 1.4 (0.9-1.1)
[2018-11-06 10:40] LABS: Alanine Aminotransferase 11 U/L (12-78); Albumin Level 2.7 gm/dl (3.4-5.0); Aspartate Aminotransferase 9 U/L (15-37); Blood Urea Nitrogen 45 mg/dl (7-18); Calcium 8.1 mg/dl (8.5-10.1); Carbon Dioxide 19 mmol/L (21-32); Chloride 112 mmol/L (98-107); Est GFR (African American) 15.9; Est GFR (Non-African American) 13.7; Glucose 181 mg/dl (70-99); Potassium 5.3 mmol/L (3.5-5.1); Sodium 136 mmol/L (136-145)
[2018-11-06 10:45] LABS: Albumin Globulin Ratio 0.6 (0.9-2); Alkaline Phosphatase 168 U/L (45-117); Bilirubin,Total 0.1 mg/dl (0.2-1); Globulin 4.6 gm/dl (2.5-4.0); Total Protein 7.3 gm/dl (6.4-8.2); Troponin I < 0.015 ng/ml (0-0.045)
--- NOTE | 2018-11-06 11:45 | CT Scan Report ---
CT abd pelvis wo con CT DOSE: 276.12 mGy.cm HISTORY: Pain abd pain, back pain TECHNIQUE: Multiaxial CT images of the abdomen and pelvis were performed without contrast. A dose lo wering technique was utilized adhering to the principles of ALARA. COMPARISON STUDY: 09/25/2018 FINDINGS: Lung bases remain clear. Liver and spleen remain unremarkable Interval placement of a right ureteral stent. There is persistent dilatation of the right renal pelvi s and collecting system. Left ureteral stent is unchanged in position. There are findings of stable left-sided hydronephrosis. There is cortical thinning of the left kidney consistent with atrophy unchanged from the prior study. Operative findings again consistent with a right lower ileal conduit. Findings of a left lower quadra nt colostomy site are noted read The transverse colon shows increased fecal and fluid filled distention. Several slightly distended lo ops of small bowel suggesting a nonobstructive ileus. The appearance of the presacral region is unchanged with residual presacral soft tissue change. No si gnificant change from the prior study. IMPRESSION: 1. Interval placement of a right sided ureteral stent. 2. Unchanged bilateral renal hydronephrosis and renal pelvic dilatation compared to the prior study. 3. Mild distention of the transverse colon as well as small bowel suggesting nonspecific ileus. 4. No evidence for an obstructing calculus or ureteral distention on the current study. 5. Unchanged presacral soft tissue appearance The above report was generated using voice recognition software. It may contain grammatical, syntax or spelling errors. Electronically signed by: Martin Ledezma M.D. 11/06/2018 11:43 AM
[2018-11-06 12:20] LABS: Appearance Urine Turbid (Clear); Bilirubin Urine Negative (Negative); Blood Urine 3+ (Negative); Color Urine Red; Glucose Urine UA Negative (Negative); Ketones Urine Negative (Negative); Leukocyte Esterase Urine 3+ (Negative); Nitrite Urine Negative (Negative); Protein Urine 2+ (Negative); Urobilinogen Urine Negative (Negative)
[2018-11-06 12:32] LABS: Epithelial Cell Urine 0-5 /lpf (0-5); RBC Urine >30 /hpf (0-4); WBC Urine >30 /hpf (0-5)
[2018-11-06 12:34] LABS: Bacteria Urine 3+ (Negative)
[2018-11-06] MEDS ORDERED: FLUCONAZOLE 100 MG/50 ML BAG IV STA (13:29)
--- NOTE | 2018-11-06 14:30 | Emergency Department Note ---
Entered by Zunilda Rojas acting as a scribe for History of Present Illness General Chief complaint: Back Injury/Pain Stated complaint: pain in belly or back Source: patient History of Present Illness Provider complaint: generalized abdominal pain Onset (ago): hour(s) (today) Location: abdomen Quality: + other (pain) Associated symptoms: + nausea/vomiting (nausea), + weakness and + other (pressure in her head, back pain); no fever/chills The patient is a 72 year old female who presents to the Emergency Department with complaints of generalized abdominal pain today. She also reports having weakness, pressure in her head, and back pain. She denies being febrile but does report having some nausea. The patient states that she had a right kidney stent replacement and states that she also had a left-sided stent placed. She states that she was recently placed on a new antibiotic by Dr. Horton 3 days ago. The patient states that she does not like eating or drinking anymore. The patient states that she takes Tylenol for pain. Very generally weak and fatigued. Home Medications Home Medications Medication Instructions Recorded Confirmed Type acetaminophen [Tylenol Extra 500 mg PO Q6H PRN 05/09/18 11/06/18 History Strength] amitriptyline 25 mg PO HS 05/09/18 11/06/18 History ascorbic acid (vitamin C) [Vitamin 1 g PO QAM 05/09/18 11/06/18 History C] calcium carbonate-vitamin D3 1 tab PO BID 05/09/18 11/06/18 History [Calcium 500 + D (D3)] cholecalciferol (vitamin D3) 5,000 unit PO QAM 05/09/18 11/06/18 History cyanocobalamin (vitamin B-12) 4,000 mcg PO QAM 05/09/18 11/06/18 History dicyclomine 20 mg PO TID 05/09/18 11/06/18 History gabapentin 300 mg PO BID 05/09/18 11/06/18 History levothyroxine 75 mcg PO QAM 05/09/18 11/06/18 History lorazepam 0.5 mg PO TID PRN 05/09/18 11/06/18 History metoprolol tartrate 50 mg PO BID 05/09/18 11/06/18 History multivitamin 1 cap PO QAM 05/09/18 11/06/18 History nifedipine 60 mg PO QAM 05/09/18 11/06/18 History omeprazole 20 mg PO BID 05/09/18 11/06/18 History oxycodone-acetaminophen 1 tab PO Q6H PRN 05/09/18 11/06/18 History sodium bicarbonate 650 mg PO BID 05/09/18 11/06/18 History aspirin [Hanna Aspirin] 325 mg PO QAM 05/15/18 11/06/18 History escitalopram oxalate 7.5 mg PO QAM 05/22/18 11/06/18 History Probiotic 3,000 mmu cells PO QAM 09/25/18 11/06/18 History ferrous sulfate [iron] 325 mg PO QAM 09/25/18 11/06/18 History potassium chloride 10 meq PO BID 09/25/18 11/06/18 History fluconazole 100 mg PO DAILY 11/06/18 11/06/18 History fosfomycin tromethamine [Monurol] 1 packet PO DAILY 11/06/18 11/06/18 History Allergies Allergy/AdvReac Type Severity Reaction Status Date / Time cephalexin Allergy Intermediate RASH,ITCHIN Verified 11/06/18 09:36 G,HIVES Cipro Allergy Intermediate RASH Verified 03/02/18 10:07 ciprofloxacin Allergy Intermediate RASH Verified 11/06/18 09:36 homatropine Allergy Intermediate RASH Verified 11/06/18 09:36 hydrocodone Allergy Intermediate RASH Verified 11/06/18 09:36 metronidazole Allergy Intermediate RASH Verified 11/06/18 09:36 piperacillin Allergy Intermediate RASH Verified 11/06/18 09:36 Sulfa (Sulfonamide Allergy Intermediate RASH Verified 11/06/18 09:36 Antibiotics) tazobactam Allergy Intermediate RASH Verified 11/06/18 09:36 vancomycin Allergy Intermediate HIVES Verified 11/06/18 09:36 levofloxacin Allergy Unknown unknown Verified 11/06/18 09:36 nitrofurantoin Allergy Unknown unknown Verified 11/06/18 09:36 Rcoqbux-Suw-Lly Reductase Allergy Unknown LIPITOR Verified 11/06/18 09:36 Inhibitor AND PRAVASTATIN doxycycline Allergy Rash Verified 11/06/18 09:36 Past Med/Surg History Family History Other FHx: heart disease Family history of high blood pressure Short gut syndrome Social History Preferred Language: Kazakh Communication Ability: Effective Visual Impairment: No Limitations Beliefs That Will Affect Care: None marital status: Current Living Situation: Spouse current occupational status: retired Feels Safe at Home: Yes Smoking Status: Never smoker Cigarettes Per Day: 0 Second Hand Exposure: No Hx Alcohol Use: No Hx Substance Use: No Review of Systems See HPI for pertinent positives & negatives. and A total of 10 systems reviewed and were otherwise negative Physical Exam Vital Signs Vital Signs - 24 hr 11/06/18 09:17 11/06/18 11:56 11/06/18 12:51 Temperature 36.4 C L Temperature Source Oral Sepsis Recent Fever Within 48 Hours No Sepsis New/Unexplained Change in Mental Status No Sepsis Action Taken by Nursing No Action Required Pulse Rate 81 Pulse Rate [Apical] 77 70 Pulse Rhythm Regular Pulse Strength Normal Respiratory Rate 18 18 20 Respiratory Effort / Characteristics Non-Labored Non-Labored Spontaneous Respiratory Depth Normal Normal Blood Pressure 123/74 Blood Pressure [Left Arm] 122/62 119/69 Blood Pressure Mean 90 Blood Pressure Mean [Left Arm] 82 85 Blood Pressure Position Sitting Blood Pressure Position [Left Arm] Pulse Oximetry 100 98 94 Oxygen Delivery Method Room Air Room Air Room Air 11/06/18 13:45 11/06/18 14:12 11/06/18 14:42 Temperature 36.4 C L Temperature Source Oral Sepsis Recent Fever Within 48 Hours Sepsis New/Unexplained Change in Mental Status Sepsis Action Taken by Nursing Pulse Rate 72 Pulse Rate [Apical] 75 72 Pulse Rhythm Pulse Strength Respiratory Rate 18 20 16 Respiratory Effort / Characteristics Respiratory Depth Normal Blood Pressure 104/50 L Blood Pressure [Left Arm] 105/59 L 104/63 Blood Pressure Mean Blood Pressure Mean [Left Arm] 74 76 Blood Pressure Position Blood Pressure Position [Left Arm] Lying Pulse Oximetry 100 98 97 Oxygen Delivery Method Room Air Room Air GENERAL: Awake, alert, weak-appearing HENT: Normocephalic, atraumatic. EYES: Normal conjunctiva. Sclera non-icteric. NECK: Supple. No nuchal rigidity. RESPIRATORY: Clear to auscultation. Normal respiratory effort. CARDIAC: Normal rate. Normal rhythm. Extremities warm and well perfused. GI: Soft, non-distended. Slight tenderness. No rebound or guarding. No masses. Right abdominal urinary ostomy with pinkish urine. Left abdominal ostomy with s tool. RECTAL: Deferred. MUSCULOSKELETAL: Atraumatic. Chest examination reveals no tenderness. LOWER EXTREMITIES: Calves are equal size bilaterally and non-tender. No edema NEURO: Normal sensorium. No sensory or motor deficits noted. No facial droop. SKIN: Warm and dry. No rash or jaundice noted. Course 0951: The patient was evaluated in room A4B. A history and physical were performed. 1332: I updated the patient who verbalized agreement and understanding of the treatment plan. 1347: I discussed the patient's case with Dr. Holly Rodgers who will evaluate the patient for further management. Consultations Consultation #1: Dr. Holly Rodgers Time: 13:47 Administered Medications Discontinued Medications Sodium Chloride (Nss) 500 mls @ 999 mls/hr IV .Q31M YUNI Stop: 11/06/18 10:30 Last Admin: 11/06/18 11:57 Dose: Not Given Documented by: [id number] Sodium Chloride (Nss 1000ml) 2,000 mls @ 999 mls/hr IV .Q2H1M ONE Stop: 11/06/18 11:58 Last Infusion: 11/06/18 12:52 Dose: 0 mls/hr Documented by: [id number] Admin: 11/06/18 10:49 Dose: 999 mls/hr Documented by: [id number] Fluconazole (Diflucan) 100 mg in 50 mls @ 100 mls/hr IV ONE STA Stop: 11/06/18 13:58 Last Infusion: 11/06/18 14:32 Dose: 0 mls/hr Documented by: [id number] Admin: 11/06/18 14:02 Dose: 100 mls/hr Documented by: [id number] Medical Decision Making Differential Diagnosis Differential includes acute coronary syndrome, myocardial infarction, CVA, TIA, anemia, infection, pneumonia, UTI, pyelonephritis, poor nutrition, dehydration, electrolyte disturbance,hypoglycemia. Medical Records Attestation: I reviewed the patient's medical records. Home Medications Current Medication List: was personally reviewed by me Laboratory Data Attestation: I reviewed the patient's lab results. Result diagrams: 11/06/18 10:08 11/06/18 10:08 Lab Results 11/06/18 11/06/18 11/06/18 Range/Units 10:08 10:08 10:08 WBC 10.28 (4.8-10.8) K/uL RBC 3.57 L (4.2-5.4) M/uL Hgb 10.7 L (12.0-16.0) g/dL Hct 33.3 L (37-47) % MCV 93.3 (80-100) fL MCH 30.0 (25-34) pg MCHC 32.1 (32-36) g/dL RDW Std Deviation 56.9 H (36.4-46.3) fL RDW Coeff of Ethan 16.6 H (11.5-14.5) % Plt Count 321 (130-400) K/uL MPV 9.6 (7.4-10.4) fL Immature Gran % (Auto) 1.5 % Neut % (Auto) 80.0 % Lymph % (Auto) 8.8 % [place] % (Auto) 6.2 % Eos % (Auto) 3.2 % Baso % (Auto) 0.3 % Immature Gran # (Auto) 0.15 H (0.00-0.02) K/uL Neut # (Auto) 8.23 H (1.4-6.5) K/uL Lymph # (Auto) 0.90 L (1.2-3.4) K/uL [place] # (Auto) 0.64 H (0.11-0.59) K/uL Eos # (Auto) 0.33 (0-0.5) K/uL Baso # (Auto) 0.03 (0-0.2) K/uL PT 14.0 H (9.0-12.0) Seconds INR 1.4 H (0.9-1.1) Sodium 136 (136-145) mmol/L Potassium 5.3 H (3.5-5.1) mmol/L Chloride 112 H (98-107) mmol/L Carbon Dioxide 19 L (21-32) mmol/L Anion Gap 5.0 (3-11) BUN 45 H (7-18) mg/dl Creatinine 3.20 H (0.6-1.2) mg/dl Est Cr Clr Drug Dosing 13.0 ml/min Est GFR ( Amer) 15.9 Est GFR (Non-Af Amer) 13.7 BUN/Creatinine Ratio 14.0 (10-20) Glucose 181 H (70-99) mg/dl POC Lactic Acid Misael (0.90-1.70) mmol/L Calcium 8.1 L (8.5-10.1) mg/dl Total Bilirubin 0.1 L (0.2-1) mg/dl AST 9 L (15-37) U/L ALT 11 L (12-78) U/L Alkaline Phosphatase 168 H (45-117) U/L Troponin I < 0.015 (0-0.045) ng/ml Total Protein 7.3 (6.4-8.2) gm/dl Albumin 2.7 L (3.4-5.0) gm/dl Globulin 4.6 H (2.5-4.0) gm/dl Albumin/Globulin Ratio 0.6 L (0.9-2) Lipase 200 (73-393) U/L Urine Color Urine Appearance (Clear) Urine pH (4.5-7.5) Ur Specific Shushan (1.000-1.030) Urine Protein (Negative) Urine Glucose (UA) (Negative) Urine Ketones (Negative) Urine Blood (Negative) Urine Nitrite (Negative) Urine Bilirubin (Negative) Urine Urobilinogen (Negative) Ur Leukocyte Esterase (Negative) Urine RBC (0-4) /hpf Urine WBC (0-5) /hpf Ur Epithelial Cells (0-5) /lpf Urine Bacteria (Negative) Urine Yeast (None Prsent) 11/06/18 11/06/18 Range/Units 10:17 11:40 WBC (4.8-10.8) K/uL RBC (4.2-5.4) M/uL Hgb (12.0-16.0) g/dL Hct (37-47) % MCV (80-100) fL MCH (25-34) pg MCHC (32-36) g/dL RDW Std Deviation (36.4-46.3) fL RDW Coeff of Ethan (11.5-14.5) % Plt Count (130-400) K/uL MPV (7.4-10.4) fL Immature Gran % (Auto) % Neut % (Auto) % Lymph % (Auto) % [place] % (Auto) % Eos % (Auto) % Baso % (Auto) % Immature Gran # (Auto) (0.00-0.02) K/uL Neut # (Auto) (1.4-6.5) K/uL Lymph # (Auto) (1.2-3.4) K/uL [place] # (Auto) (0.11-0.59) K/uL Eos # (Auto) (0-0.5) K/uL Baso # (Auto) (0-0.2) K/uL PT (9.0-12.0) Seconds INR (0.9-1.1) Sodium (136-145) mmol/L Potassium (3.5-5.1) mmol/L Chloride (98-107) mmol/L Carbon Dioxide (21-32) mmol/L Anion Gap (3-11) BUN (7-18) mg/dl Creatinine (0.6-1.2) mg/dl Est Cr Clr Drug Dosing ml/min Est GFR ( Amer) Est GFR (Non-Af Amer) BUN/Creatinine Ratio (10-20) Glucose (70-99) mg/dl POC Lactic Acid Misael 1.60 (0.90-1.70) mmol/L Calcium (8.5-10.1) mg/dl Total Bilirubin (0.2-1) mg/dl AST (15-37) U/L ALT (12-78) U/L Alkaline Phosphatase (45-117) U/L Troponin I (0-0.045) ng/ml Total Protein (6.4-8.2) gm/dl Albumin (3.4-5.0) gm/dl Globulin (2.5-4.0) gm/dl Albumin/Globulin Ratio (0.9-2) Lipase (73-393) U/L Urine Color Red Urine Appearance Turbid H (Clear) Urine pH 7.0 (4.5-7.5) Ur Specific Shushan 1.020 (1.000-1.030) Urine Protein 2+ H (Negative) Urine Glucose (UA) Negative (Negative) Urine Ketones Negative (Negative) Urine Blood 3+ H (Negative) Urine Nitrite Negative (Negative) Urine Bilirubin Negative (Negative) Urine Urobilinogen Negative (Negative) Ur Leukocyte Esterase 3+ H (Negative) Urine RBC >30 H (0-4) /hpf Urine WBC >30 H (0-5) /hpf Ur Epithelial Cells 0-5 (0-5) /lpf Urine Bacteria 3+ H (Negative) Urine Yeast Budding w/ Hyphae H (None Prsent) Imaging Data Radiologist's Impression: Radiology results as stated below per my review and the radiologist's interpretation: CT abd pelvis wo con CT DOSE: 276.12 mGy.cm HISTORY: Pain abd pain, back pain TECHNIQUE: Multiaxial CT images of the abdomen and pelvis were performed without contrast. A dose lowering technique was utilized adhering to the principles of ALARA. COMPARISON STUDY: 09/25/2018 FINDINGS: Lung bases remain clear. Liver and spleen remain unremarkable Interval placement of a right ureteral stent. There is persistent dilatation of the right renal pelvis and collecting system. Left ureteral stent is unchanged in position. There are findings of stable left-sided hydronephrosis. There is cortical thinning of the left kidney consistent with atrophy unchanged from the prior study. Operative findings again consistent with a right lower ileal conduit. Findings of a left lower quadrant colostomy site are noted read The transverse colon shows increased fecal and fluid filled distention. Several slightly distended loops of small bowel suggesting a nonobstructive ileus. The appearance of the presacral region is unchanged with residual presacral soft tissue change. No significant change from the prior study. IMPRESSION: 1. Interval placement of a right sided ureteral stent. 2. Unchanged bilateral renal hydronephrosis and renal pelvic dilatation compared to the prior study. 3. Mild distention of the transverse colon as well as small bowel suggesting nonspecific ileus. 4. No evidence for an obstructing calculus or ureteral distention on the current study. 5. Unchanged presacral soft tissue appearance The above report was generated using voice recognition software. It may contain grammatical, syntax or spelling errors. Electronically signed by: Martin Ledezma M.D. 11/06/2018 11:43 AM ECG Data Attestation: I personally reviewed and interpreted this ECG as follows: Indication: weakness Rate (beats per minute): 74 Rhythm: normal sinus Findings: + other (non-specific T wave changes, baseline tremor); no ST depression, no ST elevation and no acute ischemic change Blood Pressure Blood Pressure Findings: Normal blood pressure MDM Narrative Patient is a 72-year-old female with a history of colectomy with colostomy and ileostomy with ileal conduit secondary to colon cancer with a history of recurrent UTIs and hydronephrosis recently seen here and treated also at [facility] in [place]. Had stents placed for hydronephrosis. Generalized weakness with some increased abdominal discomfort as well. Concerned that this could possibly be pyelonephritis given symptoms although she denies fever. Nonsurgical abdomen. Records indicate she was started on fluconazole last week. Laboratory studies show no significant leukocytosis. Lactate not elevated. Ki dney function appears slightly elevated with a slight hyperkalemia noted. Given IV fluid here. Urinalysis appears positive with budding yeast noted in the urine. Patient was significant weakness reported. CT scan shows bilateral stents with still with some bilateral renal process. Question plan nonspecific ileus is noted. Given her significant fatigue and weakness have concerns regarding her ability to go home and hydrational status. Family also brings up concerns regarding absorption of her medications including fluconazole given her short gut issues. Discussed with pharmacist who is unsure. Given an IV dose here. Discussed with patient if she feels extremely weak and tired. Discussed options of staying for observation she wished for this. Hospitalist contacted. Impression & Plan Weakness, UTI (urinary tract infection) Discharge Plan Visit Data *Final* Discharge Date/Time: 11/06/18 14:12 Chief Complaint: Back Injury/Pain Stated Complaint: pain in belly or back ED Provider: Patrick Vazquez Discharge Problem: Weakness, UTI (urinary tract infection) Patient Disposition: Admitted As Inpatient Discharge Instructions Interventions: ED Discharge Assessment Last Done: 11/06/18 14:12 Discharge Problem: UTI (urinary tract infection) Qualifiers: Urinary tract infection type: site unspecified The scribe's documentation has been prepared under my direction and personally reviewed by me in its entirety. I confirm that the note above accurately reflects all work, treatment, procedures, and medical decision making performed by me.
[2018-11-06] MEDS ORDERED: OXYCODONE/ACETAMINOPHEN 5mg/325mg TAB PO PRN (14:39)
[2018-11-06] MEDS ORDERED: LORazepam 0.5 MG TAB PO PRN (14:39)
--- NOTE | 2018-11-06 14:40 | History & Physical Report ---
Date of Service November 06, 2018 Assessment & Plan (1) Recurrent UTI: Patient has bilateral hydronephrosis and recently placed right ureteral stent with discussion of the possible candidal UTI found in the urine analysis of her ileal conduit. Patient was placed in outpatient fluconazole by Dr. Horton. The patient's feels she had a functional decline of late and is weak and tired and difficult to perform activities of daily living at home and even to weak to presnet to medical treatment unit for hydration. Subsequently she will be admitted to our facility for intravenous fluconazole with ID and urology consultation. Given the fact that she is got a device within her urinary system discussions with infectious disease regarding treatment and eventual change out of the device however with the persistent hydronephrosis is unclear whether the device is offering any improvement (2) Hypertension: Patient typically takes metoprolol and nifedipine. Given her clinically dehydrated state we will hold her nifedipine at this time continue metoprolol to avoid rebound tachycardia (3) Chronic kidney disease: Patient suffers from chronic kidney disease now with her creatinine running in the 3 range she will be hydrated with fluids overnight continue to follow renal output. Given her mild hyperkalemia on presentation this could be from hemolysis during lab draw we will repeat a potassium at the evening hours and treated appropriately if elevated there are no acute changes on EKG to suggest hyperkalemia at this time Patient also is maintained on bicarbonate therapy due to high stool output given her short gut syndrome we will maintain the bicarbonate treat at this time (4) Neuropathy of both feet: Patient is continued on gabapentin amitriptyline at bedtime (5) Short gut syndrome: Patient typically is hydrated with a short gut syndrome she will be hydrated today she also be maintained on Bentyl probiotic holding typical antibiotics at this time until we are sure whether she is improving or not (6) DVT prophylaxis: heparin will b chosen for DVT prevention of this patient History of Present Illness Primary Care Provider: Joe Alonso MD This patient had a prolonged and protracted course of chronic illnesses stemming from abdominal cancer with previous colectomy loss of her bladder short gut syndrome both a colostomy and ileal conduit constructed she is presented to us today with functional decline at home but seems to be surrounding better recently diagnosed candidal UTI. In the past she had a strep and E. coli UTI with concern for enterovesicular or really entero-ileal conduit fistula. She was seen by infectious disease Dr. Moran. She is transferred acutely to [facility] where she was resuscitated and return to home. She most recently has been feeling a decline in her energy and function and a urine analysis of her ileal conduit showed fungal yeast. She does have bilateral ureteral stents managed by Dr. Horton and he prescribed fluconazole. Despite the fluconazole she continued to worsen became more weakened. She usually presents to the medical treatment unit for intravenous hydration 3 days a week and she is too weak to present to the unit so she presented to our facility. In our facility her she was found to have a potassium 5.3. Creatinine of 45 and 3.2 glucose of 181 She is given a dose of intravenous fluconazole and hydrated in the ER is been brought to our facility for infectious disease consideration whether or oral Diflucan is being absorbed whether an IV course should be undertaken Allergies Allergy/AdvReac Type Severity Reaction Status Date / Time cephalexin Allergy Intermediate RASH,ITCHIN Verified 11/06/18 09:36 G,HIVES Cipro Allergy Intermediate RASH Verified 03/02/18 10:07 ciprofloxacin Allergy Intermediate RASH Verified 11/06/18 09:36 homatropine Allergy Intermediate RASH Verified 11/06/18 09:36 hydrocodone Allergy Intermediate RASH Verified 11/06/18 09:36 metronidazole Allergy Intermediate RASH Verified 11/06/18 09:36 piperacillin Allergy Intermediate RASH Verified 11/06/18 09:36 Sulfa (Sulfonamide Allergy Intermediate RASH Verified 11/06/18 09:36 Antibiotics) tazobactam Allergy Intermediate RASH Verified 11/06/18 09:36 vancomycin Allergy Intermediate HIVES Verified 11/06/18 09:36 levofloxacin Allergy Unknown unknown Verified 11/06/18 09:36 nitrofurantoin Allergy Unknown unknown Verified 11/06/18 09:36 Pwuocxb-Bxf-Fcp Reductase Allergy Unknown LIPITOR Verified 11/06/18 09:36 Inhibitor AND PRAVASTATIN doxycycline Allergy Rash Verified 11/06/18 09:36 Home Medications Home Medications Medication Instructions Recorded Confirmed Type acetaminophen [Tylenol Extra 500 mg PO Q6H PRN 05/09/18 11/06/18 History Strength] amitriptyline 25 mg PO HS 05/09/18 11/06/18 History ascorbic acid (vitamin C) [Vitamin 1 g PO QAM 05/09/18 11/06/18 History C] calcium carbonate-vitamin D3 1 tab PO BID 05/09/18 11/06/18 History [Calcium 500 + D (D3)] cholecalciferol (vitamin D3) 5,000 unit PO QAM 05/09/18 11/06/18 History cyanocobalamin (vitamin B-12) 4,000 mcg PO QAM 05/09/18 11/06/18 History dicyclomine 20 mg PO TID 05/09/18 11/06/18 History gabapentin 300 mg PO BID 05/09/18 11/06/18 History levothyroxine 75 mcg PO QAM 05/09/18 11/06/18 History lorazepam 0.5 mg PO TID PRN 05/09/18 11/06/18 History metoprolol tartrate 50 mg PO BID 05/09/18 11/06/18 History multivitamin 1 cap PO QAM 05/09/18 11/06/18 History nifedipine 60 mg PO QAM 05/09/18 11/06/18 History omeprazole 20 mg PO BID 05/09/18 11/06/18 History oxycodone-acetaminophen 1 tab PO Q6H PRN 05/09/18 11/06/18 History sodium bicarbonate 650 mg PO BID 05/09/18 11/06/18 History aspirin [Hanna Aspirin] 325 mg PO QAM 05/15/18 11/06/18 History escitalopram oxalate 7.5 mg PO QAM 05/22/18 11/06/18 History Probiotic 3,000 mmu cells PO QAM 09/25/18 11/06/18 History ferrous sulfate [iron] 325 mg PO QAM 09/25/18 11/06/18 History potassium chloride 10 meq PO BID 09/25/18 11/06/18 History fluconazole 100 mg PO DAILY 11/06/18 11/06/18 History Past Med/Surg History Medical History Ischemic colitis HX Short gut syndrome HTN (hypertension) Anemia CHRONIC Colon cancer S/P COLECTOMY/COLOSTOMY/HYPERBARIC TX, RADIATION (36 YEARS AGO) Charcot's joint of foot LEFT FOOT Chronic kidney disease STAGE 4 (UNDER SURVEILLANCE)- BASELINE GFR 20'S PER CHART REVIEW Depression with anxiety Nickie filter in place ? PE HX Hydronephrosis REASON FOR UPCOMING PROCEDURE Hypertension Hypothyroidism Neuropathy of both feet Recurrent UTI REASON FOR UPCOMING PROCEDURE Sleep apnea NO DEVICE Surgical History H/O colostomy History of cholecystectomy S/P appendectomy History of renal stent Hx of cardiac cath 2001= NO STENTS History of breast biopsy "BENIGN" History of colectomy ACCIDENTAL LACERATION WITH SUBSEQUENT SURGICAL REPAIR/ILLEO-CONDUIT PLACEMENT History of cystoscopy History of herniorrhaphy VENTRAL History of hysterectomy History of ileal conduit 2/2 COMPLICATIONS OF BOWEL SURGERY Hx of tooth extraction Port-A-Cath in place Family History Other FHx: heart disease Family history of high blood pressure Short gut syndrome Social History Preferred Language: Lithuanian Communication Ability: Effective Visual Impairment: No Limitations Bowling Ball Patcher Required: No Beliefs That Will Affect Care: None marital status: Current Living Situation: Spouse current occupational status: retired Other Information That Helps Us Care for You: No Feels Safe at Home: Yes Safety Concerns: Feels Safe At This Time Smoking Status: Never smoker Cigarettes Per Day: 0 Second Hand Exposure: No Hx Alcohol Use: No Hx Substance Use: No Review of Systems Review of Systems: ROS: Chronically ill No double vision blurry vision No problems with speech or swallowing No palpitations, chest pain or pressure No Wheezing or breathing issues Mild intermittent abdominal pain with mild nausea but no vomiting ostomy outputs have been good Ileal conduit output has been normal but is strong-smelling No focal joint pain or muscle pain No skin rashes or oral lesions No unusual bruising or bleeding No focused back pain or numbness or loss of strength No changes in memory or confusion Physical Exam Physical Exam: The patient appeared chronically ill Vital signs as documented. Head exam is unremarkable. normocephalic, atraumatic Neck is without jugular venous distension, thyromegaly, or lymphademopathy Lungs are clear to auscultation but decreased at the bases Cardiac exam reveals Rhythm is regular. No heart murmurs were heard Abdominal exam reveals normal active bowel sounds, abdomen is soft, colostomy in the left side is functioning well ileostomy or ileal conduit in the right lower quadrant is functioning well Extremities are nonedematous and both pedal pulses are present Neurologic exam is A&Ox3, no focal deficits, strength is equal bilateral Psychologically seems depressed Skin is warm Dry without bruises or lesions Results & Data Vital Signs (Past 12 Hours) Vital Signs Temp Pulse Pulse Resp BP BP Pulse Ox 11/06/18 12:51 70 20 119/69 94 11/06/18 11:56 77 18 122/62 98 11/06/18 09:17 36.4 C L 81 18 123/[address] abdomen pelvis: Interval placement of a right sided ureteral stent.. Unchanged bilateral renal hydronephrosis and renal pelvic dilatation compared to the prior study. Mild distention of the transverse colon as well as small bowel suggesting nonspecific ileus. No evidence for an obstructing calculus or ureteral distention on the current study. Unchanged presacral soft tissue appearance ECG Additional Comments: Normal sinus rhythm without any acute ST or T wave changes
--- NOTE | 2018-11-06 15:12 | Infectious Disease Consult ---
Date of Consultation November 06, 2018 Assessment & Plan (1) UTI (urinary tract infection): 72-year-old female with ileal conduit with ureteral stents with recurrent infections, now with what appears to be another infection with positive culture recently for Bhavya albicans. Usually these isolates are fluconazole sensitive, and given question of short bowel syndrome agree with use of IV fluconazole. Await follow-up cultures. Will likely need in the range of 7 to 10 days of therapy. Will follow. (2) Bhavya albicans infection: History of Present Illness Reason for Consultation: Fungal UTI Attending Physician: Pablito Arora MD History of Present Illness 72-year-old female well-known to the infectious disease service, complicated medical history previous extensive abdominal surgery for carcinoma resulting in short gut syndrome, ileal conduit, hydronephrosis with right ureteral stent, and history of recurrent urinary tract infection often requiring hospitalization. Urine for enterovesical fistula, but never documented. He recently underwent change of her ureteral stent over the last week or so, patient will inability to ambulate 40 feet was found to have positive urine culture ended albicans, and was started on fluconazole, but symptoms have progressively worsened and patient hospital for further management. He has been somewhat confused, mild abdominal pain, denies flank pain Allergies Allergy/AdvReac Type Severity Reaction Status Date / Time cephalexin Allergy Intermediate RASH,ITCHIN Verified 11/06/18 09:36 G,HIVES Cipro Allergy Intermediate RASH Verified 03/02/18 10:07 ciprofloxacin Allergy Intermediate RASH Verified 11/06/18 09:36 homatropine Allergy Intermediate RASH Verified 11/06/18 09:36 hydrocodone Allergy Intermediate RASH Verified 11/06/18 09:36 metronidazole Allergy Intermediate RASH Verified 11/06/18 09:36 piperacillin Allergy Intermediate RASH Verified 11/06/18 09:36 Sulfa (Sulfonamide Allergy Intermediate RASH Verified 11/06/18 09:36 Antibiotics) tazobactam Allergy Intermediate RASH Verified 11/06/18 09:36 vancomycin Allergy Intermediate HIVES Verified 11/06/18 09:36 levofloxacin Allergy Unknown unknown Verified 11/06/18 09:36 nitrofurantoin Allergy Unknown unknown Verified 11/06/18 09:36 Udixlex-Dho-Skp Reductase Allergy Unknown LIPITOR Verified 11/06/18 09:36 Inhibitor AND PRAVASTATIN doxycycline Allergy Rash Verified 11/06/18 09:36 Home Medications Home Medications Medication Instructions Recorded Confirmed Type acetaminophen [Tylenol Extra 500 mg PO Q6H PRN 05/09/18 11/06/18 History Strength] amitriptyline 25 mg PO HS 05/09/18 11/06/18 History ascorbic acid (vitamin C) [Vitamin 1 g PO QAM 05/09/18 11/06/18 History C] calcium carbonate-vitamin D3 1 tab PO BID 05/09/18 11/06/18 History [Calcium 500 + D (D3)] cholecalciferol (vitamin D3) 5,000 unit PO QAM 05/09/18 11/06/18 History cyanocobalamin (vitamin B-12) 4,000 mcg PO QAM 05/09/18 11/06/18 History dicyclomine 20 mg PO TID 05/09/18 11/06/18 History gabapentin 300 mg PO BID 05/09/18 11/06/18 History levothyroxine 75 mcg PO QAM 05/09/18 11/06/18 History lorazepam 0.5 mg PO TID PRN 05/09/18 11/06/18 History metoprolol tartrate 50 mg PO BID 05/09/18 11/06/18 History multivitamin 1 cap PO QAM 05/09/18 11/06/18 History nifedipine 60 mg PO QAM 05/09/18 11/06/18 History omeprazole 20 mg PO BID 05/09/18 11/06/18 History oxycodone-acetaminophen 1 tab PO Q6H PRN 05/09/18 11/06/18 History sodium bicarbonate 650 mg PO BID 05/09/18 11/06/18 History aspirin [Hanna Aspirin] 325 mg PO QAM 05/15/18 11/06/18 History escitalopram oxalate 7.5 mg PO QAM 05/22/18 11/06/18 History Probiotic 3,000 mmu cells PO QAM 09/25/18 11/06/18 History ferrous sulfate [iron] 325 mg PO QAM 09/25/18 11/06/18 History potassium chloride 10 meq PO BID 09/25/18 11/06/18 History fluconazole 100 mg PO DAILY 11/06/18 11/06/18 History Patient History Medical History Ischemic colitis HX Short gut syndrome HTN (hypertension) Anemia CHRONIC Colon cancer S/P COLECTOMY/COLOSTOMY/HYPERBARIC TX, RADIATION (36 YEARS AGO) Charcot's joint of foot LEFT FOOT Chronic kidney disease STAGE 4 (UNDER SURVEILLANCE)- BASELINE GFR 20'S PER CHART REVIEW Depression with anxiety Hemlock filter in place ? PE HX Hydronephrosis REASON FOR UPCOMING PROCEDURE Hypertension Hypothyroidism Neuropathy of both feet Recurrent UTI REASON FOR UPCOMING PROCEDURE Sleep apnea NO DEVICE Surgical History H/O colostomy History of cholecystectomy S/P appendectomy History of renal stent Hx of cardiac cath 2001= NO STENTS History of breast biopsy "BENIGN" History of colectomy ACCIDENTAL LACERATION WITH SUBSEQUENT SURGICAL REPAIR/ILLEO-CONDUIT PLACEMENT History of cystoscopy History of herniorrhaphy VENTRAL History of hysterectomy History of ileal conduit 2/2 COMPLICATIONS OF BOWEL SURGERY Hx of tooth extraction Port-A-Cath in place Family History Other FHx: heart disease Family history of high blood pressure Short gut syndrome Social History Preferred Language: Korean Communication Ability: Effective Visual Impairment: No Limitations Submarine Advisory Team Watch Officer Required: No Beliefs That Will Affect Care: None marital status: Current Living Situation: Spouse current occupational status: retired Other Information That Helps Us Care for You: No Feels Safe at Home: Yes Safety Concerns: Feels Safe At This Time Smoking Status: Never smoker Cigarettes Per Day: 0 Second Hand Exposure: No Hx Alcohol Use: No Hx Substance Use: No Review of Systems Review of Systems: All systems reviewed & are unremarkable except as noted in HPI & below Physical Exam Constitutional: well developed, + ill appearing and comfortable; no acute distress Eyes: PERRL, conjunctivae normal, anicteric sclerae ENMT: external ear and nose normal, oropharynx normal Neck: trachea midline, no thyromegaly neck nontender Respiratory: normal respiratory effort, lungs clear to auscultation normal percussion; does not use accessory muscles Cardiovascular: Rate/Rhythm: regular rate and regular rhythm Heart Sounds: normal S1 and normal S2; no gallop, no murmur and no cardiac rub Vessels: normal peripheral pulses; no JVD Gastrointestinal (Abdomen): normal bowel sounds, soft, nontender, no hepatosplenomegaly Right lower quadrant ostomy site appears clean Musculoskeletal: no cyanosis or clubbing, extremities motor strength 5/5 Spine: thoracic spine normal to inspection and lumbar spine normal to inspection; no cervical spinal tenderness Skin: no rashes, warm and dry normal turgor; no lesions Neurologic: patellar DTR's 2+ bilat, sensation intact no focal motor de ficits Psychiatric: A+Ox3, euthymic affect Orientation: cooperative Lymphatic: no cervical or axillary lymphadenopathy no inguinal lymphadenopathy Results & Data Vital Signs (Past 12 Hours) Vital Signs Temp Pulse Pulse Resp BP BP Pulse Ox 11/06/18 14:42 36.4 C L 72 16 104/63 97 11/06/18 14:12 72 20 104/50 L 98 11/06/18 13:45 75 18 105/59 L 100 11/06/18 12:51 70 20 119/69 94 11/06/18 11:56 77 18 122/62 98 11/06/18 09:17 36.4 C L 81 18 123/74 100 Laboratory Results Short CBC 11/06/18 Range/Units 10:08 WBC 10.28 (4.8-10.8) K/uL Hgb 10.7 L (12.0-16.0) g/dL Hct 33.3 L (37-47) % Plt Count 321 (130-400) K/uL BMP 11/06/18 10:08 Sodium 136 Potassium 5.3 H Chloride 112 H Carbon Dioxide 19 L BUN 45 H Creatinine 3.20 H Glucose 181 H Calcium 8.1 L Cardiac Enzymes 11/06/18 Range/Units 10:08 Troponin I < 0.015 (0-0.045) ng/ml Liver Function 11/06/18 Range/Units 10:08 Total Bilirubin 0.1 L (0.2-1) mg/dl AST 9 L (15-37) U/L ALT 11 L (12-78) U/L Alkaline Phosphatase 168 H (45-117) U/L Albumin 2.7 L (3.4-5.0) gm/dl Urine 11/06/18 Range/Units 11:40 Urine Color Red Urine Appearance Turbid H (Clear) Urine pH 7.0 (4.5-7.5) Ur Specific [place] 1.020 (1.000-1.030) Urine Protein 2+ H (Negative) Urine Glucose (UA) Negative (Negative) Diagnostic Findings CT abd pelvis wo con CT DOSE: 276.12 mGy.cm HISTORY: Pain abd pain, back pain TECHNIQUE: Multiaxial CT images of the abdomen and pelvis were performed without contrast. A dose lowering technique was utilized adhering to the principles of ALARA. COMPARISON STUDY: 09/25/2018 FINDINGS: Lung bases remain clear. Liver and spleen remain unremarkable Interval placement of a right ureteral stent. There is persistent dilatation of the right renal pelvis and collecting system. Left ureteral stent is unchanged in position. There are findings of stable left-sided hydronephrosis. There is cortical thinning of the left kidney consistent with atrophy unchanged from the prior study. Operative findings again consistent with a right lower ileal conduit. Findings of a left lower quadrant colostomy site are noted read The transverse colon shows increased fecal and fluid filled distention. Several slightly distended loops of small bowel suggesting a nonobstructive ileus. The appearance of the presacral region is unchanged with residual presacral soft tissue change. No significant change from the prior study. IMPRESSION: 1. Interval placement of a right sided ureteral stent. 2. Unchanged bilateral renal hydronephrosis and renal pelvic dilatation compared to the prior study. 3. Mild distention of the transverse colon as well as small bowel suggesting nonspecific ileus. 4. No evidence for an obstructing calculus or ureteral distention on the current study. 5. Unchanged presacral soft tissue appearance The above report was generated using voice recognition software. It may contain grammatical, syntax or spelling errors. Electronically signed by: Martin Ledezma M.D. 11/06/2018 11:43 AM Dictated: 11/06/18 113 Transcribed: 11/06/18 113 Director: Jose Bell M.D. Clinical Laboratory Report Name: DYAN GRAYSON Acct: [id number] Status: [place]P CLI : 1945 [facility] [place]: 10/26/18 Age: 72 Sex: F Dis Date: Loc: Laboratory Main [place] Spec: [id number] Collected: 10/26/18 Received: 10/26/[address]: Mark Horton MD Copy To: Joe Ramsey M.D. Source: Urine,Clean Catch OV Order: Ordered: Urine Culture Comments: Source of Specimen: Clean Catch Queries: [facility] [place] Req Number [id number] Procedure Result Verified Site Urine Culture Final 10/28/18-1243 Organism 1 Bhavya albicans [place] Count >100,000 CFU/ml Sens No Sensitivities to Follow Organism 2 Lactobacillus species [place] Count >100,000 CFU/ml Sens No Sensitivities to Follow Name: DYAN GRAYSON Veronica : 1945 PAGE 1 Printed: 11/06/18 0324 END OF REPORT (1) UTI (urinary tract infection) Urinary tract infection type: site unspecified
[2018-11-06] MEDS: SODIUM CHLORIDE 0.9% 1000ML 1,000 ML IV SCH ×2 (15:40→22:14)
[2018-11-06] MEDS: SODIUM BICARBONATE 650 MG TAB PO SCH (15:41)
[2018-11-06] MEDS: DICYCLOMINE HCL 20 MG TAB PO SCH ×2 (15:41→22:12)
[2018-11-06] MEDS: ONDANSETRON INJ 2 MG/ML 2 ML VIAL IV PRN ×2 (15:49→21:46)
[2018-11-06] MEDS: GABAPENTIN 300 MG CAP PO SCH (22:13)
[2018-11-06] MEDS: AMITRIPTYLINE HCL 25 MG TAB PO SCH (22:13)
[2018-11-06] MEDS: PANTOprazole 40 MG TAB PO SCH (22:13)
[2018-11-06] MEDS: METOPROLOL TARTRATE 50 MG TAB PO SCH (22:13)
[2018-11-06] MEDS: HEPARIN SOD 5,000 UNIT/0.5 ML VIAL SQ SCH (22:14)
[2018-11-07] MEDS: LEVOTHYROXINE SODIUM 75 MCG TABLET PO SCH (06:00)
[2018-11-07 07:37] LABS: Hematocrit (blood only) 27.5 % (37-47); Hemoglobin 8.6 g/dL (12.0-16.0); Mean Corpuscular Hgb Conc 31.3 g/dL (32-36); Mean Corpuscular Volume 92.9 fL (80-100); Mean Platelet Volume 9.2 fL (7.4-10.4); Platelet Count 272 K/uL (130-400); RDW Coefficient of Variation 16.7 % (11.5-14.5); Red Blood Count 2.96 M/uL (4.2-5.4)
[2018-11-07 08:09] LABS: BUN Creatinine Ratio 14.1 (10-20); Calcium 7.5 mg/dl (8.5-10.1); Creatinine Clr Calc Pharmacy 16.7 ml/min; Est GFR (African American) 21.6; Est GFR (Non-African American) 18.6; Potassium 5.3 mmol/L (3.5-5.1)
[2018-11-07] MEDS ORDERED: [UNRECOGNIZED DRUG - OTHER] PO SCH (09:00)
[2018-11-07] MEDS: SODIUM CHLORIDE 0.9% 1000ML 1,000 ML IV SCH (09:54)
[2018-11-07] MEDS: DICYCLOMINE HCL 20 MG TAB PO SCH ×3 (09:54→21:07)
[2018-11-07] MEDS: METOPROLOL TARTRATE 50 MG TAB PO SCH ×2 (09:56→21:07)
[2018-11-07] MEDS: LACTOBACILLUS ACIDOPHILUS (FLORANEX) TAB PO SCH (09:57)
[2018-11-07] MEDS: GABAPENTIN 300 MG CAP PO SCH ×2 (09:57→21:07)
[2018-11-07] MEDS: ASCORBIC ACID 500 MG TAB PO SCH (09:58)
[2018-11-07] MEDS: ASPIRIN 325 MG ECTAB PO SCH (09:59)
[2018-11-07] MEDS: PANTOprazole 40 MG TAB PO SCH ×2 (09:59→21:05)
[2018-11-07] MEDS: SODIUM BICARBONATE 650 MG TAB PO SCH ×2 (09:59→15:48)
[2018-11-07] MEDS: ESCITALOPRAM OXALATE ORAL SOLN 5 MG/5 ML PO SCH (10:00)
[2018-11-07] MEDS: HEPARIN SOD 5,000 UNIT/0.5 ML VIAL SQ SCH ×2 (10:01→21:07)
--- NOTE | 2018-11-07 10:21 | Infectious Disease Progress Nt ---
Date of Service November 07, 2018 Assessment & Plan (1) UTI (urinary tract infection): 72-year-old female with ileal conduit with ureteral stents with recurrent infections, now with what appears to be another infection with positive culture recently for Bhavya albicans. Patient to continue on IV fluconazole for now, await urology consult. Will follow. (2) Bhavya albicans infection: Subjective Patient seen in follow-up for fungal urinary tract infection. Feeling slightly better this morning. Remains afebrile. Tolerating IV fluconazole so far. No other new specific complaints. Blood cultures remain negative, urine culture appears contaminated. Review of Systems Review of Systems: All systems reviewed & are unremarkable except as noted in HPI & below Physical Exam Constitutional: well developed, + ill appearing and comfortable; no acute distress Eyes: PERRL, conjunctivae normal, anicteric sclerae ENMT: external ear and nose normal, oropharynx normal Neck: trachea midline, no thyromegaly neck nontender Respiratory: normal respiratory effort, lungs clear to auscultation normal percussion; does not use accessory muscles Cardiovascular: Rate/Rhythm: regular rate and regular rhythm Heart Sounds: normal S1 and normal S2; no gallop, no murmur and no cardiac rub Vessels: normal peripheral pulses; no JVD Gastrointestinal (Abdomen): normal bowel sounds, soft, nontender, no hepatosplenomegaly Musculoskeletal: no cyanosis or clubbing, extremities motor strength 5/5 Spine: thoracic spine normal to inspection and lumbar spine normal to inspection; no cervical spinal tenderness Skin: no rashes, warm and dry normal turgor; no lesions Neurologic: patellar DTR's 2+ bilat, sensation intact no focal motor deficits Psychiatric: A+Ox3, euthymic affect Orientation: cooperative Lymphatic: no cervical or axillary lymphadenopathy no inguinal lymphadenopathy Results & Data Vital Signs (Past 12 Hours) Vital Signs Temp Pulse Resp BP Pulse Ox 11/07/18 07:25 36.4 C L 85 18 131/74 98 11/06/18 23:54 36.5 C 79 20 129/70 100 Laboratory Results Short CBC 11/06/18 11/07/18 Range/Units 10:08 07:17 WBC 10.28 6.60 (4.8-10.8) K/uL Hgb 10.7 L 8.6 L (12.0-16.0) g/dL Hct 33.3 L 27.5 L (37-47) % Plt Count 321 272 (130-400) K/uL BMP 11/06/18 11/06/18 11/07/18 10:08 17:05 07:17 Sodium 136 146 H D Potassium 5.3 H 5.0 5.3 H Chloride 112 H 123 H Carbon Dioxide 19 L 13 L BUN 45 H 35 H Creatinine 3.20 H 2.48 H D Glucose 181 H 95 Calcium 8.1 L 7.5 L Cardiac Enzymes 11/06/18 Range/Units 10:08 Troponin I < 0.015 (0-0.045) ng/ml Liver Function 11/06/18 Range/Units 10:08 Total Bilirubin 0.1 L (0.2-1) mg/dl AST 9 L (15-37) U/L ALT 11 L (12-78) U/L Alkaline Phosphatase 168 H (45-117) U/L Albumin 2.7 L (3.4-5.0) gm/dl Urine 11/06/18 Range/Units 11:40 Urine Color Red Urine Appearance Turbid H (Clear) Urine pH 7.0 (4.5-7.5) Ur Specific [place] 1.020 (1.000-1.030) Urine Protein 2+ H (Negative) Urine Glucose (UA) Negative (Negative) Diagnostic Findings Microbiology 11/06/18 11:40 Urine,Clean Catch Urine Culture - Final More than three types of organisms present, all high counts. Repeat collection recommended. No further identifications or sensitivities to follo w. (1) UTI (urinary tract infection) Urinary tract infection type: site unspecified
--- NOTE | 2018-11-07 12:13 | Urology Consultation ---
Date of Consultation November 07, 2018 Assessment & Plan (1) UTI (urinary tract infection): 72yo F with complex abdominal surgical hx ileal conduit, colostomy, recurrent UTIs, bilateral ureteral stents now with fungal UTI. CT imaging stable. Cr fluctuating but within her norm. Awaiting c. diff sample for diarrhea. Anti-fungal coverage per ID. Plan for ileal conduit dressing change tomorrow by her . We appreciate the recommendations of palliative care on this patient. She relate s not wanting to live like this anymore and becoming tearful in our conversation. Unfortunately there is nothing further we can recommend at this time. I fear she is beginning to give up hope for her future. Short term plan for L ureteral stent exchange by Dr. Horton on November 21, given her infection will be approprately treated. Will continue to follow peripherally while she is inpatient, however there is no new intervention recommendations for this patient. History of Present Illness Reason for Consultation: Fungal UTI, bilateral hydro Requesting Physician: Dr. Sol Attending Physician: Ganesh Sol, DO History of Present Illness 72yo F very well known to our service with colon cancer s/p colectomy with ileal conduit, colostomy, recurrent UTIs, chronic L hydro. Since last admission, she was transferred to [facility] Dr. Marlene Yoder for R percutaneous nephroureteral tube insertion (~09/28/18, for one week stay for sepsis per patient) No records available to review at this [facility] Last outpatient visit with Dr. Horton on October 25, plan for L ureteral stent placement on 11/21. On preoperative culture, pt was found to have >100,000 cfu. We consulted with ID, placed pt on fluconazole 100mg PO x7d. Unfortunately patient was readmitted for weakness and functional decline, suspected PO antifungal failure. CT imaging is stable, no change in chronic hydro. bilateral stents appear to be in good position. Pt is afebrile, VS stable. Only able to give very vague complaints of fatigue, being tired and generally unwell, poor appetite. Denies any specific flank pain or pain around ileal conduit. Some nausea, no emesis. Allergies Allergy/AdvReac Type Severity Reaction Status Date / Time cephalexin Allergy Intermediate RASH,ITCHIN Verified 11/06/18 09:36 G,HIVES Cipro Allergy Intermediate RASH Verified 03/02/18 10:07 ciprofloxacin Allergy Intermediate RASH Verified 11/06/18 09:36 homatropine Allergy Intermediate RASH Verified 11/06/18 09:36 hydrocodone Allergy Intermediate RASH Verified 11/06/18 09:36 metronidazole Allergy Intermediate RASH Verified 11/06/18 09:36 piperacillin Allergy Intermediate RASH Verified 11/06/18 09:36 Sulfa (Sulfonamide Allergy Intermediate RASH Verified 11/06/18 09:36 Antibiotics) tazobactam Allergy Intermediate RASH Verified 11/06/18 09:36 vancomycin Allergy Intermediate HIVES Verified 11/06/18 09:36 levofloxacin Allergy Unknown unknown Verified 11/06/18 09:36 nitrofurantoin Allergy Unknown unknown Verified 11/06/18 09:36 [id number]-[id number]-Rjx Reductase Allergy Unknown LIPITOR Verified 11/06/18 09:36 Inhibitor AND PRAVASTATIN doxycycline Allergy Rash Verified 11/06/18 09:36 Home Medications Home Medications Medication Instructions Recorded Confirmed Type acetaminophen [Tylenol Extra 500 mg PO Q6H PRN 05/09/18 11/06/18 History Strength] amitriptyline 25 mg PO HS 05/09/18 11/06/18 History ascorbic acid (vitamin C) [Vitamin 1 g PO QAM 05/09/18 11/06/18 History C] calcium carbonate-vitamin D3 1 tab PO BID 05/09/18 11/06/18 History [Calcium 500 + D (D3)] cholecalciferol (vitamin D3) 5,000 unit PO QAM 05/09/18 11/06/18 History cyanocobalamin (vitamin B-12) 4,000 mcg PO QAM 05/09/18 11/06/18 History dicyclomine 20 mg PO TID 05/09/18 11/06/18 History gabapentin 300 mg PO BID 05/09/18 11/06/18 History levothyroxine 75 mcg PO QAM 05/09/18 11/06/18 History lorazepam 0.5 mg PO TID PRN 05/09/18 11/06/18 History metoprolol tartrate 50 mg PO BID 05/09/18 11/06/18 History multivitamin 1 cap PO QAM 05/09/18 11/06/18 History nifedipine 60 mg PO QAM 05/09/18 11/06/18 History omeprazole 20 mg PO BID 05/09/18 11/06/18 History oxycodone-acetaminophen 1 tab PO Q6H PRN 05/09/18 11/06/18 History sodium bicarbonate 650 mg PO BID 05/09/18 11/06/18 History aspirin [Hanna Aspirin] 325 mg PO QAM 05/15/18 11/06/18 History escitalopram oxalate 7.5 mg PO QAM 05/22/18 11/06/18 History Probiotic 3,000 mmu cells PO QAM 09/25/18 11/06/18 History ferrous sulfate [iron] 325 mg PO QAM 09/25/18 11/06/18 History potassium chloride 10 meq PO BID 09/25/18 11/06/18 History fluconazole 100 mg PO DAILY 11/06/18 11/06/18 History Patient History Medical History Ischemic colitis HX Short gut syndrome (Chronic) HTN (hypertension) Anemia CHRONIC Colon cancer S/P COLECTOMY/COLOSTOMY/HYPERBARIC TX, RADIATION (36 YEARS AGO) Chronic kidney disease (Acute) STAGE 4 (UNDER SURVEILLANCE)- BASELINE GFR 20'S PER CHART REVIEW Recurrent UTI (Acute) REASON FOR UPCOMING PROCEDURE Hypertension (Chronic) Neuropathy of both feet (Chronic) Charcot's joint of foot LEFT FOOT Depression with anxiety Nickie filter in place ? PE HX Hydronephrosis REASON FOR UPCOMING PROCEDURE Hypothyroidism Sleep apnea NO DEVICE Surgical History H/O colostomy History of cholecystectomy S/P appendectomy History of renal stent Hx of cardiac cath 2001= NO STENTS History of breast biopsy "BENIGN" History of colectomy ACCIDENTAL LACERATION WITH SUBSEQUENT SURGICAL REPAIR/ILLEO-CONDUIT PLACEMENT History of cystoscopy History of herniorrhaphy VENTRAL History of hysterectomy History of ileal conduit 2/2 COMPLICATIONS OF BOWEL SURGERY Hx of tooth extraction Port-A-Cath in place Family History Other FHx: heart disease Family history of high blood pressure Short gut syndrome Social History Preferred Language: Upper Sorbian Communication Ability: Effective Visual Impairment: No Limitations Yarding Engineer Required: No Beliefs That Will Affect Care: None marital status: Current Living Situation: Spouse current occupational status: retired Other Information That Helps Us Care for You: No Feels Safe at Home: Yes Safety Concerns: Feels Safe At This Time Smoking Status: Never smoker Cigarettes Per Day: 0 Second Hand Exposure: No Hx Alcohol Use: No Hx Substance Use: No Review of Systems Review of Systems: All systems reviewed & are unremarkable except as noted in HPI & below Physical Exam Physical Exam: A&Ox3 RRR abd soft no edema Conduit is draining clear yellow with two Cook catheter stents exiting conduit. Results & Data Vital Signs (Past 12 Hours) Vital Signs Temp Pulse Resp BP Pulse Ox 11/07/18 07:25 36.4 C L 85 18 131/74 98 Laboratory Results Laboratory Results - last 48 hr 11/06/18 11/06/18 11/06/18 10:08 10:08 10:08 WBC 10.28 RBC 3.57 L Hgb 10.7 L Hct 33.3 L MCV 93.3 MCH 30.0 MCHC 32.1 RDW Std Deviation 56.9 H RDW Coeff of Ethan 16.6 H Plt Count 321 MPV 9.6 Immature Gran % (Auto) 1.5 Neut % (Auto) 80.0 Lymph % (Auto) 8.8 Bath % (Auto) 6.2 Eos % (Auto) 3.2 Baso % (Auto) 0.3 Immature Gran # (Auto) 0.15 H Neut # (Auto) 8.23 H Lymph # (Auto) 0.90 L Bath # (Auto) 0.64 H Eos # (Auto) 0.33 Baso # (Auto) 0.03 PT 14.0 H INR 1.4 H Sodium 136 Potassium 5.3 H Chloride 112 H Carbon Dioxide 19 L Anion Gap 5.0 BUN 45 H Creatinine 3.20 H Est Cr Clr Drug Dosing 13.0 Est GFR ( Amer) 15.9 Est GFR (Non-Af Amer) 13.7 BUN/Creatinine Ratio 14.0 Glucose 181 H POC Lactic Acid Misael Calcium 8.1 L Total Bilirubin 0.1 L AST 9 L ALT 11 L Alkaline Phosphatase 168 H Troponin I < 0.015 Total Protein 7.3 Albumin 2.7 L Globulin 4.6 H Albumin/Globulin Ratio 0.6 L Lipase 200 Urine Color Urine Appearance Urine pH Ur Specific [place] Urine Protein Urine Glucose (UA) Urine Ketones Urine Blood Urine Nitrite Urine Bilirubin Urine Urobilinogen Ur Leukocyte Esterase Urine WBC (Auto) Urine RBC (Auto) U Hyaline Cast (Auto) U Epithel Cells (Auto) Urine Bacteria (Auto) Urine RBC Urine WBC Ur Epithelial Cells Urine Bacteria Urine Yeast Stl C. diff Tox B Gene 11/06/18 11/06/18 11/06/18 10:17 11:40 17:05 WBC RBC Hgb Hct MCV MCH MCHC RDW Std Deviation RDW Coeff of Ethan Plt Count MPV Immature Gran % (Auto) Neut % (Auto) Lymph % (Auto) Bath % (Auto) Eos % (Auto) Baso % (Auto) Immature Gran # (Auto) Neut # (Auto) Lymph # (Auto) Bath # (Auto) Eos # (Auto) Baso # (Auto) PT INR Sodium Potassium 5.0 Chloride Carbon Dioxide Anion Gap BUN Creatinine Est Cr Clr Drug Dosing Est GFR ( Amer) Est GFR (Non-Af Amer) BUN/Creatinine Ratio Glucose POC Lactic Acid Misael 1.60 Calcium Total Bilirubin AST ALT Alkaline Phosphatase Troponin I Total Protein Albumin Globulin Albumin/Globulin Ratio Lipase Urine Color Red Urine Appearance Turbid H Urine pH 7.0 Ur Specific [place] 1.020 Urine Protein 2+ H Urine Glucose (UA) Negative Urine Ketones Negative Urine Blood 3+ H Urine Nitrite Negative Urine Bilirubin Negative Urine Urobilinogen Negative Ur Leukocyte Esterase 3+ H Urine WBC (Auto) Urine RBC (Auto) U Hyaline Cast (Auto) U Epithel Cells (Auto) Urine Bacteria (Auto) Urine RBC >30 H Urine WBC >30 H Ur Epithelial Cells 0-5 Urine Bacteria 3+ H Urine Yeast Budding w/ Hyphae H Stl C. diff Tox B Gene 11/07/18 11/07/18 11/07/18 07:17 07:17 16:10 WBC 6.60 RBC 2.96 L Hgb 8.6 L Hct 27.5 L MCV 92.9 MCH 29.1 MCHC 31.3 L RDW Std Deviation 57.0 H RDW Coeff of Ethan 16.7 H Plt Count 272 MPV 9.2 Immature Gran % (Auto) Neut % (Auto) Lymph % (Auto) Bath % (Auto) Eos % (Auto) Baso % (Auto) Immature Gran # (Auto) Neut # (Auto) Lymph # (Auto) Bath # (Auto) Eos # (Auto) Baso # (Auto) PT INR Sodium 146 H D Potassium 5.3 H Chloride 123 H Carbon Dioxide 13 L Anion Gap 10.0 BUN 35 H Creatinine 2.48 H D Est Cr Clr Drug Dosing 16.7 Est GFR ( Amer) 21.6 Est GFR (Non-Af Amer) 18.6 BUN/Creatinine Ratio 14.1 Glucose 95 POC Lactic Acid Imsael Calcium 7.5 L Total Bilirubin AST ALT Alkaline Phosphatase Troponin I Total Protein Albumin Globulin Albumin/Globulin Ratio Lipase Urine Color Urine Appearance Urine pH Ur Specific [place] Urine Protein Urine Glucose (UA) Urine Ketones Urine Blood Urine Nitrite Urine Bilirubin Urine Urobilinogen Ur Leukocyte Esterase Urine WBC (Auto) Urine RBC (Auto) U Hyaline Cast (Auto) U Epithel Cells (Auto) Urine Bacteria (Auto) Urine RBC Urine WBC Ur Epithelial Cells Urine Bacteria Urine Yeast Stl C. diff Tox B Gene Negative Cdiff Gene 11/07/18 16:10 WBC RBC Hgb Hct MCV MCH MCHC RDW Std Deviation RDW Coeff of Ethan Plt Count MPV Immature Gran % (Auto) Neut % (Auto) Lymph % (Auto) Bath % (Auto) Eos % (Auto) Baso % (Auto) Immature Gran # (Auto) Neut # (Auto) Lymph # (Auto) Bath # (Auto) Eos # (Auto) Baso # (Auto) PT INR Sodium Potassium Chloride Carbon Dioxide Anion Gap BUN Creatinine Est Cr Clr Drug Dosing Est GFR ( Amer) Est GFR (Non-Af Amer) BUN/Creatinine Ratio Glucose POC Lactic Acid Misael Calcium Total Bilirubin AST ALT Alkaline Phosphatase Troponin I Total Protein Albumin Globulin Albumin/Globulin Ratio Lipase Urine Color Yellow Urine Appearance Turbid H Urine pH 6.5 Ur Specific [place] 1.010 Urine Protein 1+ H Urine Glucose (UA) Negative Urine Ketones Negative Urine Blood 3+ H Urine Nitrite Positive H Urine Bilirubin Negative Urine Urobilinogen Negative Ur Leukocyte Esterase 3+ H Urine WBC (Auto) >30 H Urine RBC (Auto) >30 H U Hyaline Cast (Auto) 1-5 U Epithel Cells (Auto) 20-30 H Urine Bacteria (Auto) 1+ H Urine RBC Urine WBC Ur Epithelial Cells Urine Bacteria Urine Yeast Not Reportable Stl C. diff Tox B Gene (1) UTI (urinary tract infection) Urinary tract infection type: site unspecified
[2018-11-07] MEDS: FLUCONAZOLE 100 MG/50 ML BAG IV SCH (14:13)
--- NOTE | 2018-11-07 15:22 | Palliative Care Consultation ---
Date of Consultation November 07, 2018 Assessment & Plan (1) Goals of care, counseling/discussion: -72 year old female patient with complicated PMH of colon cancer s/p colectomy with surgical complications resulting in ileo-conduit placement, permanent colostomy, short-gut syndrome, recurrent UTIs, and others, presented to the hospital with increased weakness and recurrent UTI. Urine cultures from yesterday contaminated and recommended to be repeated, but patient's most recent outpatient culture showed annmarie albicans. ID and urology consulted, patient on IV Diflucan. Due to short-gut syndrome, patient has been on twice-weekly IV hydration as an outpatient here at [facility] for the last 7 years. She was to have IV hydration yesterday, but was too weak so she came to the ED. She has had multiple readmissions as of late and was telling the admitting physician that she is "tired." Palliative care consulted for supportive care and to discuss goals. -met with patient at length this morning in room 421, her arrived mid- conversation as well. Patient stated that she does get frustrated at times and is exhausted from everything she's been through. She says that some days she doesn't even want to go to her IV hydration appointments, but once she goes, she's glad she did. -Patient is not ready to stop her treatment regimen and does want to continue pushing forward. She hopes to get stronger and get back to being able to do things around the house. We did not discuss CODE STATUS as the opportunity did not present itself during our conversation. -We will continue to follow throughout hospitalization and provide support. We'd be happy to follow during any future admissions as well. Plan is for patient to return home with her . (2) Recurrent UTI: -Follows with Dr. Horton for urology. -Recent culture showed annmarie albicans. -Urolgoy and ID consulted. (3) Neuropathy of both feet: Patient is continued on gabapentin amitriptyline at bedtime (4) Short gut syndrome: Supervising Physician Co-Signing Physician Notes Chart reviewed, pt seen and examined, no family at bedside. Pt fatigued, awake , alert,NAD Pt reports increased ostomy output - likely due to fluconazole PE: NAD HEENT: EOMI, hearing WNL Resp: unlabored, no wheezes CV: RR, no edema Abd: soft, NT Neuro: generalized weakness, A&O X 4 Agree with above note , assessment and plan as per REI Rg - will cont to follow to assist pt and family with medical decision making. Pt's goal is to regain strength and return home at prior level of functioning History of Present Illness Attending Physician: Ganesh Sol DO History of Present Illness This 72 year old female patient with complicated PMH of colon cancer s/p colectomy with surgical complications resulting in ileo-conduit placement, permanent colostomy, short-gut syndrome, recurrent UTIs, and others, presented to the hospital with increased weakness and recurrent UTI. Urine cultures from yesterday contaminated and recommended to be repeated, but patient's most recent outpatient culture showed annmarie albicans. ID and urology consulted, patient on IV Diflucan. Due to short-gut syndrome, patient has been on twice-weekly IV hydration as an outpatient here at [facility] for the last 7 years. She was to have IV hydration yesterday, but was too weak so she came to the ED. She has had multiple readmissions as of late and was telling the admitting physician that she is "tired." Palliative care consulted for supportive care and to discuss goals. Thank you kindly for this consult. I will follow as needed. Allergies Allergy/AdvReac Type Severity Reaction Status Date / Time cephalexin Allergy Intermediate RASH,ITCHIN Verified 11/06/18 09:36 G,HIVES Cipro Allergy Intermediate RASH Verified 03/02/18 10:07 ciprofloxacin Allergy Intermediate RASH Verified 11/06/18 09:36 homatropine Allergy Intermediate RASH Verified 11/06/18 09:36 hydrocodone Allergy Intermediate RASH Verified 11/06/18 09:36 metronidazole Allergy Intermediate RASH Verified 11/06/18 09:36 piperacillin Allergy Intermediate RASH Verified 11/06/18 09:36 Sulfa (Sulfonamide Allergy Intermediate RASH Verified 11/06/18 09:36 Antibiotics) tazobactam Allergy Intermediate RASH Verified 11/06/18 09:36 vancomycin Allergy Intermediate HIVES Verified 11/06/18 09:36 levofloxacin Allergy Unknown unknown Verified 11/06/18 09:36 nitrofurantoin Allergy Unknown unknown Verified 11/06/18 09:36 Qffiviz-Oky-Muw Reductase Allergy Unknown LIPITOR Verified 11/06/18 09:36 Inhibitor AND PRAVASTATIN doxycycline Allergy Rash Verified 11/06/18 09:36 Home Medications Home Medications Medication Instructions Recorded Confirmed Type acetaminophen [Tylenol Extra 500 mg PO Q6H PRN 05/09/18 11/06/18 History Strength] amitriptyline 25 mg PO HS 05/09/18 11/06/18 History ascorbic acid (vitamin C) [Vitamin 1 g PO QAM 05/09/18 11/06/18 History C] calcium carbonate-vitamin D3 1 tab PO BID 05/09/18 11/06/18 History [Calcium 500 + D (D3)] cholecalciferol (vitamin D3) 5,000 unit PO QAM 05/09/18 11/06/18 History cyanocobalamin (vitamin B-12) 4,000 mcg PO QAM 05/09/18 11/06/18 History dicyclomine 20 mg PO TID 05/09/18 11/06/18 History gabapentin 300 mg PO BID 05/09/18 11/06/18 History levothyroxine 75 mcg PO QAM 05/09/18 11/06/18 History lorazepam 0.5 mg PO TID PRN 05/09/18 11/06/18 History metoprolol tartrate 50 mg PO BID 05/09/18 11/06/18 History multivitamin 1 cap PO QAM 05/09/18 11/06/18 History nifedipine 60 mg PO QAM 05/09/18 11/06/18 History omeprazole 20 mg PO BID 05/09/18 11/06/18 History oxycodone-acetaminophen 1 tab PO Q6H PRN 05/09/18 11/06/18 History sodium bicarbonate 650 mg PO BID 05/09/18 11/06/18 History aspirin [Hanna Aspirin] 325 mg PO QAM 05/15/18 11/06/18 History escitalopram oxalate 7.5 mg PO QAM 05/22/18 11/06/18 History Probiotic 3,000 mmu cells PO QAM 09/25/18 11/06/18 History ferrous sulfate [iron] 325 mg PO QAM 09/25/18 11/06/18 History potassium chloride 10 meq PO BID 09/25/18 11/06/18 History fluconazole 100 mg PO DAILY 11/06/18 11/06/18 History Patient History Medical History Ischemic colitis HX Short gut syndrome HTN (hypertension) Anemia CHRONIC Colon cancer S/P COLECTOMY/COLOSTOMY/HYPERBARIC TX, RADIATION (36 YEARS AGO) Charcot's joint of foot LEFT FOOT Chronic kidney disease STAGE 4 (UNDER SURVEILLANCE)- BASELINE GFR 20'S PER CHART REVIEW Depression with anxiety Nickie filter in place ? PE HX Hydronephrosis REASON FOR UPCOMING PROCEDURE Hypertension Hypothyroidism Neuropathy of both feet Recurrent UTI REASON FOR UPCOMING PROCEDURE Sleep apnea NO DEVICE Surgical History H/O colostomy History of cholecystectomy S/P appendectomy History of renal stent Hx of cardiac cath 2001= NO STENTS History of breast biopsy "BENIGN" History of colectomy ACCIDENTAL LACERATION WITH SUBSEQUENT SURGICAL REPAIR/ILLEO-CONDUIT PLACEMENT History of cystoscopy History of herniorrhaphy VENTRAL History of hysterectomy History of ileal conduit 2/2 COMPLICATIONS OF BOWEL SURGERY Hx of tooth extraction Port-A-Cath in place Family History Other FHx: heart disease Family history of high blood pressure Short gut syndrome Social History Preferred Language: Korean Communication Ability: Effective Visual Impairment: No Limitations Help Desk Engineer Required: No Beliefs That Will Affect Care: None marital status: Current Living Situation: Spouse current occupational status: retired Other Information That Helps Us Care for You: No Feels Safe at Home: Yes Safety Concerns: Feels Safe At This Time Smoking Status: Never smoker Cigarettes Per Day: 0 Second Hand Exposure: No Hx Alcohol Use: No Hx Substance Use: No Review of Systems Constitutional: + weakness Ear, Nose, Mouth, Throat: no dysphagia Respiratory: no cough and no dyspnea Cardiovascular: no chest pain and no edema Gastrointestinal: no abdominal pain and no nausea Neurologic: no confusion Psychiatric: no anxiety Physical Exam Constitutional: no acute distress ENMT: external ear and nose normal, oropharynx normal Neck: normal visual inspection Respiratory: normal respiratory effort, lungs clear to auscultation Cardiovascular: RRR, no murmur, no edema Gastrointestinal (Abdomen): colostomy and ileoconduit Skin: no rashes, warm and dry Neurologic: awake; not confused Psychiatric: A+Ox3, euthymic affect Results & Data Vital Signs (Past 12 Hours) Vital Signs Temp Pulse Resp BP Pulse Ox 11/07/18 07:25 36.4 C L 85 18 131/74 98 Time Spent Midlevel 105 minutes with >50% of time spent at bedside with patient and family discussing condition and GOC.
[2018-11-07] MEDS: SODIUM CHLORIDE 0.45 % 1,000 ML IV SCH (16:21)
[2018-11-07 16:29] LABS: Appearance Urine Turbid (Clear); Bacteria Urine Automated 1+ (Negative); Bilirubin Urine Negative (Negative); Blood Urine 3+ (Negative); Color Urine Yellow; Epithelial Cell Urine Auto 20-30 /lpf (0-5); Glucose Urine UA Negative (Negative); Ketones Urine Negative (Negative); Leukocyte Esterase Urine 3+ (Negative); Nitrite Urine Positive (Negative); Protein Urine 1+ (Negative); Urobilinogen Urine Negative (Negative); WBC Urine Automated >30 /hpf (0-5); pH Urine 6.5 (4.5-7.5)
[2018-11-07] MEDS ORDERED: LOPERAMIDE HCL 2 MG CAP PO PRN (17:34)
--- NOTE | 2018-11-07 17:52 | Hospitalist Progress Note ---
Date of Service November 07, 2018 Assessment & Plan (1) Recurrent UTI: - Numerous infections in the past which is complicated by a ileal conduit placement/stents/hydronephrosis - also concern for possible fistula tract on previous admission which resulted in transfer to [facility] - Most recent UCx from outpatient only with Bhavya yeast and Lactobacillus - Repeat UCx with multiple organisms and will repeat to determine if further bacterial organisms are present - Given her short gut syndrome, the oral Fluconazole may have not been adequately absorbing? Placed on IV Fluconazole with anticipated 7-10 day treatment per ID -- Patient would like to receive treatment in [facility] on D/C if possible due to cost of home infusions and she currently receives twice weekly fluids at the [facility] - No current indication for Abx at this time and will await UCx - Urology and ID consulted - appreciate input Present on Admission?: Yes (2) Hypertension: - Holding Nifedipine due to dehydrated state; Continue Metoprolol 50 mg BID Present on Admission?: Yes (3) Chronic kidney disease: - CKD IV - Baseline appears around 2-2.6 - Currently follows with Dr. Mckeon for renal management; likely multifactorial between pre-renal issues given high ostomy output and obstructive from ileal conduit/reconstructions - also reports intermittent dysfunction of the drains/has chronic hydronephrosis - Mild hyperkalemia and now hypernatremia - will convert fluids to 1/2 NSS and monitor labs - Bicarb 650 mg BID Present on Admission?: Yes (4) Neuropathy of both feet: - Amitriptyline 25 mg HS; Gabapentin 300 mg BID Present on Admission?: Yes (5) Short gut syndrome: - This is related to H/O colon CA with surgical interventions/colostomy - Has high output and has biweekly fluid infusions to maintain hydration at the [facility] - Reporting some increased output today - negative for C. diff - will trial some imodium PRN - Continue Bentyl 20 mg TID and probiotics Present on Admission?: Yes (6) DVT prophylaxis: - Heparin Disposition: Await clinical improvement; likely will need [facility] setup for continued IV antifungals pending length of stay in-house Subjective Pt reports feeling slightly more energy today but still not at baseline. She continues to have high output from her ostomy which is chronic but more prevalent this afternoon. Is C. Diff neg and can trial Imodium. She continues to have good UO but urine is darker but urine is tubing looking improved. Still not much of an appetite. Discussed with multiple family members at bedside. Would like to use [facility] for ongoing antifungals if needed pending LOS in the hospital Review of Systems Constitutional: + fatigue; no fever and no chills Ear, Nose, Mouth, Throat: no nasal congestion and no sore throat Respiratory: no cough and no dyspnea Cardiovascular: no chest pain, no palpitations, no lightheadedness and no edema Gastrointestinal: + diarrhea/loose stools; no abdominal pain, no nausea, no vomiting and no constipation Genitourinary: no dysuria and no flank pain Musculoskeletal: no body aches Integumentary: no rash Physical Exam Constitutional: well developed and well nourished; no acute distress and not ill appearing Eyes: + anicteric sclerae ENMT: Ears: no hearing impairment Neck: normal visual inspection and trachea midline Respiratory: normal respiratory effort, lungs clear to auscultation Cardiovascular: Rate/Rhythm: regular rate and regular rhythm Gastrointestinal (Abdomen): Inspection/Auscultation: normal bowel sounds Percussion/Palpation: abdomen soft; abdomen nontender Musculoskeletal: Head/Neck/Chest: normocephalic, head atraumatic and neck supple Skin: no rashes, warm and dry Neurologic: moves all extremities Psychiatric: A+Ox3, euthymic affect Results & Data Vital Signs (Past 12 Hours) Vital Signs Temp Pulse Pulse Resp BP Pulse Ox 11/07/18 15:56 36.6 C 67 18 154/82 H 99 11/07/18 07:25 36.4 C L 85 18 131/74 98
[2018-11-07 17:55] LABS: RBC Urine Automated >30 /hpf (0-4)
[2018-11-07] MEDS: AMITRIPTYLINE HCL 25 MG TAB PO SCH (21:07)
[2018-11-08] MEDS: SODIUM CHLORIDE 0.45 % 1,000 ML IV SCH ×2 (02:52→14:23)
[2018-11-08] MEDS: LEVOTHYROXINE SODIUM 75 MCG TABLET PO SCH (05:52)
[2018-11-08] MEDS: SODIUM CHLORIDE 0.9% 1000ML 1,000 ML IV SCH (07:01)
[2018-11-08] MEDS: HEPARIN 100 UNIT/ML 5ML FLUSH FLUSH PRN (07:56)
[2018-11-08 08:10] LABS: Hematocrit (blood only) 26.4 % (37-47); Hemoglobin 8.4 g/dL (12.0-16.0); Mean Corpuscular Hgb Conc 31.8 g/dL (32-36); Mean Corpuscular Volume 91.3 fL (80-100); Mean Platelet Volume 8.8 fL (7.4-10.4); Platelet Count 247 K/uL (130-400); RDW Coefficient of Variation 16.5 % (11.5-14.5); RDW Standard Deviation 55.5 fL (36.4-46.3); Red Blood Count 2.89 M/uL (4.2-5.4); White Blood Count 6.31 K/uL (4.8-10.8)
[2018-11-08] MEDS: PANTOprazole 40 MG TAB PO SCH ×2 (08:24→21:00)
[2018-11-08] MEDS: ASCORBIC ACID 500 MG TAB PO SCH (08:25)
[2018-11-08] MEDS: DICYCLOMINE HCL 20 MG TAB PO SCH ×3 (08:25→21:01)
[2018-11-08] MEDS: ASPIRIN 325 MG ECTAB PO SCH (08:25)
[2018-11-08] MEDS: METOPROLOL TARTRATE 50 MG TAB PO SCH ×2 (08:25→20:58)
[2018-11-08] MEDS: SODIUM BICARBONATE 650 MG TAB PO SCH ×2 (08:25→14:22)
[2018-11-08] MEDS: GABAPENTIN 300 MG CAP PO SCH ×2 (08:25→21:01)
[2018-11-08] MEDS: LACTOBACILLUS ACIDOPHILUS (FLORANEX) TAB PO SCH (08:25)
[2018-11-08] MEDS: HEPARIN SOD 5,000 UNIT/0.5 ML VIAL SQ SCH ×2 (08:26→21:03)
[2018-11-08] MEDS: ESCITALOPRAM OXALATE ORAL SOLN 5 MG/5 ML PO SCH (08:26)
[2018-11-08 08:45] LABS: BUN Creatinine Ratio 12.4 (10-20); Calcium 7.6 mg/dl (8.5-10.1); Creatinine Clr Calc Pharmacy 18.9 ml/min; Est GFR (African American) 22.7; Est GFR (Non-African American) 19.6; Potassium 4.5 mmol/L (3.5-5.1)
--- NOTE | 2018-11-08 11:07 | Urology Progress Note ---
Date of Service November 08, 2018 Assessment & Plan (1) UTI (urinary tract infection): 72yo F with fungal UTI, ileal conduit, bilateral ureteral stents. Encouraged that she is in better spirits today. States she feels the IV fluconazole is working, she feels generally better. Will need repeat UC&S prior to L stent exchange on 11/21. Pt agreeable to IV antifungal treatments at [facility] if and when appropriate per primary team. I encouraged her to ambulate with walker when able. No further intervention required at this time. Subjective Feeling okay today. Appetite slightly improved. In better spirits today, very conversive. Generalized low back pain but relates this to lying in bed. Denies n/v/f/c. Ileal conduit draining clear yellow with white sediment (normal for her) bilateral stents intact. Has not ambulated yet, plans to today. Review of Systems Review of Systems: All systems reviewed & are unremarkable except as noted in HPI & below Physical Exam Physical Exam: A&Ox3 RRR abd soft, nontender ileal conduit draining yellow with white sediment. Results & Data Vital Signs (Past 12 Hours) Vital Signs Temp Pulse Resp BP Pulse Ox 11/08/18 07:27 36.6 C 66 16 153/77 H 97 11/07/18 23:35 36.9 C 85 18 139/70 96 (1) UTI (urinary tract infection) Urinary tract infection type: site unspecified
[2018-11-08] MEDS: FLUCONAZOLE 100 MG/50 ML BAG IV SCH (13:43)
--- NOTE | 2018-11-08 15:54 | Infectious Disease Progress Nt ---
Date of Service November 08, 2018 Assessment & Plan (1) UTI (urinary tract infection): 72-year-old female with ileal conduit with ureteral stents with recurrent infections, now with what appears to be another infection with positive culture recently for Bhavya albicans. Patient to continue on IV fluconazole, and would suggest 14 days of therapy. Will follow. (2) Bhavya albicans infection: Subjective Patient seen in follow-up for fungal urinary tract infection. Feeling slightly better this morning. Remains afebrile. Tolerating IV fluconazole so far. No other new specific complaints. Blood cultures remain negative, urine culture appears contaminated. Review of Systems Review of Systems: All systems reviewed & are unremarkable except as noted in HPI & below Physical Exam Constitutional: well developed, + ill appearing and comfortable; no acute distress Eyes: PERRL, conjunctivae normal, anicteric sclerae ENMT: external ear and nose normal, oropharynx normal Neck: trachea midline, no thyromegaly neck nontender Respiratory: normal respiratory effort, lungs clear to auscultation normal percussion; does not use accessory muscles Cardiovascular: Rate/Rhythm: regular rate and regular rhythm Heart Sounds: normal S1 and normal S2; no gallop, no murmur and no cardiac rub Vessels: normal peripheral pulses; no JVD Gastrointestinal (Abdomen): normal bowel sounds, soft, nontender, no hepatosplenomegaly Musculoskeletal: no cyanosis or clubbing, extremities motor strength 5/5 Spine: thoracic spine normal to inspection and lumbar spine normal to inspection; no cervical spinal tenderness Skin: no rashes, warm and dry normal turgor; no lesions Neurologic: patellar DTR's 2+ bilat, sensation intact no focal motor deficits Psychiatric: A+Ox3, euthymic affect Orientation: cooperative Lymphatic: no cervical or axillary lymphadenopathy no inguinal lymphadenopathy Results & Data Vital Signs (Past 12 Hours) Vital Signs Temp Pulse Resp BP Pulse Ox 11/08/18 15:43 37.0 C 70 18 141/81 H 99 11/08/18 07:27 36.6 C 66 16 153/77 H 97 Laboratory Results Short CBC 11/08/18 Range/Units 07:55 WBC 6.31 (4.8-10.8) K/uL Hgb 8.4 L (12.0-16.0) g/dL Hct 26.4 L (37-47) % Plt Count 247 (130-400) K/uL BMP 11/08/18 07:55 Sodium 142 Potassium 4.5 D Chloride 119 H Carbon Dioxide 13 L BUN 30 H Creatinine 2.38 H Glucose 95 Calcium 7.6 L Urine 11/07/18 Range/Units 16:10 Urine Color Yellow Urine Appearance Turbid H (Clear) Urine pH 6.5 (4.5-7.5) Ur Specific [place] 1.010 (1.000-1.030) Urine Protein 1+ H (Negative) Urine Glucose (UA) Negative (Negative) Diagnostic Findings Microbiology 11/06/18 10:08 Blood Blood Culture - Preliminary No growth to date. 11/06/18 10:45 Blood Blood Culture - Preliminary No growth to date. 11/06/18 11:40 Urine,Clean Catch Urine Culture - Final More than three types of organisms present, all high counts. Repeat collection recommended. No further identifications or sensitivities to follow. (1) UTI (urinary tract infection) Urinary tract infection type: site unspecified
--- NOTE | 2018-11-08 17:25 | Hospitalist Progress Note ---
Date of Service November 08, 2018 Assessment & Plan (1) Recurrent UTI: - Numerous infections in the past which is complicated by a ileal conduit placement/stents/hydronephrosis - also concern for possible fistula tract on previous admission which resulted in transfer to [facility] - Most recent UCx from outpatient only with Bhavya yeast and Lactobacillus - Repeat UCx with multiple organisms and will repeat to determine if further bacterial organisms are present - Given her short gut syndrome, the oral Fluconazole may have not been adequately absorbing? Placed on IV Fluconazole with anticipated 14 days treatment per ID -- Patient would like to receive treatment in [facility] on D/C if possible due to cost of home infusions and she currently receives twice weekly fluids at the [facility] - No current indication for Abx at this time and will await repeat UCx - Urology and ID consulted - appreciate input (2) Hypertension: - Holding Nifedipine due to dehydrated state; Continue Metoprolol 50 mg BID (3) Chronic kidney disease: - CKD IV - Baseline appears around 2-2.6 - Currently follows with Dr. Mckeon for renal management; likely multifactorial between pre-renal issues given high ostomy output and obstructive from ileal conduit/reconstructions - also reports intermittent dysfunction of the drains/has chronic hydronephrosis - Electrolytes improved on labs - Continue 1/2 NSS and monitor labs - Bicarb 650 mg BID (4) Neuropathy of both feet: - Amitriptyline 25 mg HS; Gabapentin 300 mg BID (5) Short gut syndrome: - This is related to H/O colon CA with surgical interventions/colostomy - Has high output and has biweekly fluid infusions to maintain hydration at the [facility] - Reporting some increased output today - negative for C. diff - improves with imodium PRN - Continue Bentyl 20 mg TID and probiotics (6) DVT prophylaxis: - Heparin Disposition: Await clinical improvement; likely will need [facility] setup for continued IV antifungals pending length of stay in-house; PT/OT assessments Subjective Reports that at rest she may be feeling a bit better. However, she states she was up trying to walk and felt increasingly weak and needed to rest. Imodium helped reduce some ostomy output. Appetite is fair. Tolerating Fluconazo le without issue or reaction. Verbalizes no new complaints. Review of Systems Constitutional: + fatigue; no fever and no chills Respiratory: no cough and no dyspnea Cardiovascular: + lightheadedness (some with walking/fatigued); no chest pain and no palpitations Gastrointestinal: + diarrhea/loose stools; no abdominal pain, no nausea, no v omiting and no constipation Genitourinary: no dysuria and no difficulty urinating Integumentary: no rash Physical Exam Constitutional: well developed and well nourished; no acute distress and not ill appearing Eyes: + anicteric sclerae ENMT: Ears: no hearing impairment Neck: normal visual inspection and trachea midline Respiratory: normal respiratory effort, lungs clear to auscultation Cardiovascular: Rate/Rhythm: regular rate and regular rhythm Gastrointestinal (Abdomen): Inspection/Auscultation: normal bowel sounds Percussion/Palpation: abdomen soft; abdomen nontender ostomy present Musculoskeletal: Head/Neck/Chest: normocephalic, head atraumatic and neck supple Skin: no rashes, warm and dry Neurologic: moves all extremities Psychiatric: A+Ox3, euthymic affect Results & Data Vital Signs (Past 12 Hours) Vital Signs Temp Pulse Resp BP Pulse Ox 11/08/18 15:43 37.0 C 70 18 141/81 H 99 11/08/18 07:27 36.6 C 66 16 153/77 H 97
[2018-11-08] MEDS: ACETAMINOPHEN 500 MG TAB PO PRN (18:48)
[2018-11-08] MEDS: AMITRIPTYLINE HCL 25 MG TAB PO SCH (20:59)
[2018-11-09] MEDS: SODIUM CHLORIDE 0.45 % 1,000 ML IV SCH ×2 (02:19→14:13)
[2018-11-09] MEDS: LEVOTHYROXINE SODIUM 75 MCG TABLET PO SCH (05:41)
[2018-11-09 06:24] LABS: Hematocrit (blood only) 26.5 % (37-47); Hemoglobin 8.5 g/dL (12.0-16.0); Mean Corpuscular Hgb Conc 32.1 g/dL (32-36); Mean Corpuscular Volume 91.7 fL (80-100); Mean Platelet Volume 9.7 fL (7.4-10.4); Platelet Count 242 K/uL (130-400); RDW Coefficient of Variation 16.4 % (11.5-14.5); RDW Standard Deviation 55.3 fL (36.4-46.3); Red Blood Count 2.89 M/uL (4.2-5.4); White Blood Count 7.18 K/uL (4.8-10.8)
[2018-11-09 06:50] LABS: BUN Creatinine Ratio 12.6 (10-20); Calcium 7.6 mg/dl (8.5-10.1); Creatinine Clr Calc Pharmacy 17.6 ml/min; Est GFR (Non-African American) 19.9; Potassium 4.5 mmol/L (3.5-5.1)
[2018-11-09] MEDS: HEPARIN SOD 5,000 UNIT/0.5 ML VIAL SQ SCH ×2 (07:06→20:43)
[2018-11-09] MEDS: METOPROLOL TARTRATE 50 MG TAB PO SCH ×2 (09:00→20:47)
[2018-11-09] MEDS: ASPIRIN 325 MG ECTAB PO SCH (09:00)
[2018-11-09] MEDS: ESCITALOPRAM OXALATE ORAL SOLN 5 MG/5 ML PO SCH (09:00)
[2018-11-09] MEDS: ASCORBIC ACID 500 MG TAB PO SCH (09:00)
[2018-11-09] MEDS: LACTOBACILLUS ACIDOPHILUS (FLORANEX) TAB PO SCH (09:01)
[2018-11-09] MEDS: GABAPENTIN 300 MG CAP PO SCH ×2 (09:01→20:43)
[2018-11-09] MEDS: PANTOprazole 40 MG TAB PO SCH ×2 (09:01→20:49)
[2018-11-09] MEDS: SODIUM BICARBONATE 650 MG TAB PO SCH ×2 (09:01→14:12)
[2018-11-09] MEDS: DICYCLOMINE HCL 20 MG TAB PO SCH ×3 (09:01→20:43)
--- NOTE | 2018-11-09 11:09 | Urology Progress Note ---
Date of Service November 09, 2018 Assessment & Plan (1) UTI (urinary tract infection): 72yo F with hx colon cancer with complications leading to ileal conduit, ostomy, recurrent UTIs, bilateral stents, admitted for weakness, + fungal UTI. Generally improving overall. Able to ambulate independently today. In good spirits. Denies any new issues or concerns. Antifungal management per ID. Plan for stent exchange on 11/21, will discuss plan for repeat UC&S prior to intervention with Dr. Horton next week. Will be in touch with patient via phone regarding this detail. Otherwise stable from our perspective. Thank you for allowing us to participate in the acute care of Ms. Law. Please reconsult us with additional concerns, questions or changes in patient status. Subjective 72yo F with hx colon cancer with complications leading to ileal conduit, ostomy, recurrent UTIs, bilateral stents, admitted for weakness, + fungal UTI. Tolerating IV fluconazole very well. Up and walking in room this AM. In good spirits. Denies any significant changes in her chronic pain. Denies n/v/f/c. Review of Systems Review of Systems: All systems reviewed & are unremarkable except as noted in HPI & below Physical Exam Physical Exam: A&Ox3 RRR abd soft ileal conduit not assessed today, but keller draining cloudy yellow. Results & Data Vital Signs (Past 12 Hours) Vital Signs Temp Pulse Resp BP BP Pulse Ox 11/09/18 07:37 36.2 C L 73 18 177/81 H 165/89 H 98 11/08/18 23:14 36.7 C 70 18 131/75 98 (1) UTI (urinary tract infection) Urinary tract infection type: site unspecified
[2018-11-09] MEDS: FLUCONAZOLE 100 MG/50 ML BAG IV SCH (14:12)
--- NOTE | 2018-11-09 14:25 | Infectious Disease Progress Nt ---
Date of Service November 09, 2018 Assessment & Plan (1) UTI (urinary tract infection): 72-year-old female with ileal conduit with ureteral stents with recurrent infections, now with what appears to be another infection with positive culture recently for Bhavya albicans. Patient to continue on IV fluconazole, and would suggest 14 days of therapy. Will follow. (2) Bhavya albicans infection: Subjective Patient seen in follow-up for fungal urinary tract infection. Feeling better, in better spirits. Now ambulating. No fever. Tolerating fluconazole without apparent difficulty. Review of Systems Review of Systems: All systems reviewed & are unremarkable except as noted in HPI & below Physical Exam Constitutional: well developed, + ill appearing and comfortable; no acute distress Eyes: PERRL, conjunctivae normal, anicteric sclerae ENMT: external ear and nose normal, oropharynx normal Neck: trachea midline, no thyromegaly neck nontender Respiratory: normal respiratory effort, lungs clear to auscultation normal percussion; does not use accessory muscles Cardiovascular: Rate/Rhythm: regular rate and regular rhythm Heart Sounds: normal S1 and normal S2; no gallop, no murmur and no cardiac rub Vessels: normal peripheral pulses; no JVD Gastrointestinal (Abdomen): normal bowel sounds, soft, nontender, no hepatosplenomegaly Musculoskeletal: no cyanosis or clubbing, extremities motor strength 5/5 Spine: thoracic spine normal to inspection and lumbar spine normal to inspection; no cervical spinal tenderness Skin: no rashes, warm and dry normal turgor; no lesions Neurologic: patellar DTR's 2+ bilat, sensation intact no focal motor deficits Psychiatric: A+Ox3, euthymic affect Orientation: cooperative Lymphatic: no cervical or axillary lymphadenopathy no inguinal lymphadenopathy Results & Data Vital Signs (Past 12 Hours) Vital Signs Temp Pulse Resp BP BP Pulse Ox 11/09/18 07:37 36.2 C L 73 18 177/81 H 165/89 H 98 Laboratory Results Short CBC 11/09/18 Range/Units 05:53 WBC 7.18 (4.8-10.8) K/uL Hgb 8.5 L (12.0-16.0) g/dL Hct 26.5 L (37-47) % Plt Count 242 (130-400) K/uL BMP 11/09/18 05:53 Sodium 140 Potassium 4.5 Chloride 119 H Carbon Dioxide 16 L BUN 30 H Creatinine 2.35 H Glucose 87 Calcium 7.6 L Diagnostic Findings Microbiology 11/08/18 11:40 Urine,Ureter Urine Culture - Final More than three types of organisms present, all high counts. Repeat collection recommended. No further identifications or sensitivities to follow. 11/06/18 10:08 Blood Blood Culture - Preliminary No growth to date. 11/06/18 10:45 Blood Blood Culture - Preliminary No growth to date. 11/06/18 11:40 Urine,Clean Catch Urine Culture - Final More than three types of organisms present, all high counts. Repeat collection recommended. No further identifications or sensitivities to follow. (1) UTI (urinary tract infection) Urinary tract infection type: site unspecified
--- NOTE | 2018-11-09 16:04 | Hospitalist Progress Note ---
Date of Service November 09, 2018 Assessment & Plan (1) Recurrent UTI: - Numerous infections in the past which is complicated by a ileal conduit placement/stents/hydronephrosis - also concern for possible fistula tract on previous admission which resulted in transfer to [facility] - Most recent UCx from outpatient only with Bhavya yeast and Lactobacillus - Repeat UCx with multiple organisms x 2 - Given her short gut syndrome, the oral Fluconazole may have not been adequately absorbing? Placed on IV Fluconazole with anticipated 14 days treatment per ID -- Patient would like to receive treatment in [facility] on D/C if possible due to cost of home infusions and she currently receives twice weekly fluids at the [facility] - No current indication for Abx at this time - clinically improving on Fluconazole - Urology and ID consulted - appreciate input (2) Hypertension: - Holding Nifedipine due to dehydrated state; Continue Metoprolol 50 mg BID (3) Chronic kidney disease: - CKD IV - Baseline appears around 2-2.6 - Currently follows with Dr. Mckeon for renal management; likely multifactorial between pre-renal issues given high ostomy output and obstructive from ileal conduit/reconstructions - also reports intermittent dysfunction of the drains/has chronic hydronephrosis - Electrolytes improved on labs - Continue 1/2 NSS and monitor labs - Bicarb 650 mg BID (4) Neuropathy of both feet: - Amitriptyline 25 mg HS; Gabapentin 300 mg BID (5) Short gut syndrome: - This is related to H/O colon CA with surgical interventions/colostomy - Has high output and has biweekly fluid infusions to maintain hydration at the [facility] - Output reducing with PRN Imodium - Continue Bentyl 20 mg TID and probiotics (6) DVT prophylaxis: - Heparin Disposition: Await clinical improvement; - today was a good day so hopefully home in the next 1-2 days; will need [facility] setup for continued IV antifungals pending length of stay in-house; PT/OT assessments (cleared for home) Subjective Reports feeling stronger today and more optimistic. Had a long conversation about options to help prevent readmission. States she feels guilty to get checked out when she begins to have symptoms because they usually start out vague and then in several days she is really sick. Discussed calling her PCP/Urologist when she starts to get ill feelings and could perform a simple UA or maybe needs a little extra fluids occassionally. This way symptoms could be improved before they escalate. She also expresses that she needs to work on stress management as she feels that her stress and illnesses are overall impacting her well-being and I agree. She does have multiple co-morbidities that are challenges for her and hasn't had much time to recover between each issue. Hopefully with the improvement today and continued treatment she could be nearing discharge soon. Repeat UCx continue to show multiple organisms. Appetite is slowly improving Review of Systems Constitutional: + fatigue (improving); no fever and no chills Ear, Nose, Mouth, Throat: no dry mouth, no sore throat and no dysphagia Respiratory: no cough and no dyspnea Cardiovascular: no chest pain, no palpitations and no lightheadedness Gastrointestinal: + diarrhea/loose stools; no abdominal pain, no nausea, no vomiting and no constipation Genitourinary: no dysuria Integumentary: no rash Physical Exam Constitutional: well developed and well nourished; no acute distress and not ill appearing Eyes: + anicteric sclerae ENMT: Ears: no hearing impairment Neck: normal visual inspection and trachea midline Respiratory: normal respiratory effort, lungs clear to auscultation Cardiovascular: Rate/Rhythm: regular rate and regular rhythm Gastrointestinal (Abdomen): Inspection/Auscultation: normal bowel sounds Percussion/Palpation: abdomen soft; abdomen nontender Musculoskeletal: Head/Neck/Chest: normocephalic, head atraumatic and neck supple Skin: no rashes, warm and dry Neurologic: moves all extremities Psychiatric: A+Ox3, euthymic affect Results & Data Vital Signs (Past 12 Hours) Vital Signs Temp Pulse Resp BP BP Pulse Ox 11/09/18 15:00 36.7 C 51 L 18 168/81 H 100 11/09/18 07:37 36.2 C L 73 18 177/81 H 165/89 H 98
[2018-11-09] MEDS: ACETAMINOPHEN 500 MG TAB PO PRN (17:05)
[2018-11-09] MEDS: AMITRIPTYLINE HCL 25 MG TAB PO SCH (20:50)
[2018-11-10] MEDS: SODIUM CHLORIDE 0.45 % 1,000 ML IV SCH ×2 (02:52→13:55)
[2018-11-10 05:53] LABS: Hematocrit (blood only) 25.9 % (37-47); Hemoglobin 8.4 g/dL (12.0-16.0); Mean Corpuscular Hgb Conc 32.4 g/dL (32-36); Mean Corpuscular Volume 90.2 fL (80-100); Mean Platelet Volume 9.1 fL (7.4-10.4); Platelet Count 276 K/uL (130-400); RDW Coefficient of Variation 16.5 % (11.5-14.5); RDW Standard Deviation 55.1 fL (36.4-46.3); Red Blood Count 2.87 M/uL (4.2-5.4); White Blood Count 8.47 K/uL (4.8-10.8)
[2018-11-10] MEDS: LEVOTHYROXINE SODIUM 75 MCG TABLET PO SCH (06:19)
[2018-11-10 06:40] LABS: BUN Creatinine Ratio 11.3 (10-20); Calcium 7.4 mg/dl (8.5-10.1); Creatinine Clr Calc Pharmacy 15.7 ml/min; Est GFR (Non-African American) 17.3; Potassium 4.7 mmol/L (3.5-5.1)
[2018-11-10] MEDS: GABAPENTIN 300 MG CAP PO SCH ×2 (08:35→20:14)
[2018-11-10] MEDS: LACTOBACILLUS ACIDOPHILUS (FLORANEX) TAB PO SCH (08:35)
[2018-11-10] MEDS: ESCITALOPRAM OXALATE ORAL SOLN 5 MG/5 ML PO SCH (08:35)
[2018-11-10] MEDS: DICYCLOMINE HCL 20 MG TAB PO SCH ×3 (08:35→20:14)
[2018-11-10] MEDS: ASPIRIN 325 MG ECTAB PO SCH (08:35)
[2018-11-10] MEDS: ASCORBIC ACID 500 MG TAB PO SCH (08:36)
[2018-11-10] MEDS: HEPARIN SOD 5,000 UNIT/0.5 ML VIAL SQ SCH ×2 (08:36→20:17)
[2018-11-10] MEDS: SODIUM BICARBONATE 650 MG TAB PO SCH ×2 (08:36→13:54)
[2018-11-10] MEDS: METOPROLOL TARTRATE 50 MG TAB PO SCH ×2 (10:02→20:16)
[2018-11-10] MEDS: PANTOprazole 40 MG TAB PO SCH ×2 (10:02→20:14)
[2018-11-10] MEDS: FLUCONAZOLE 100 MG/50 ML BAG IV SCH (13:54)
--- NOTE | 2018-11-10 16:00 | Hospitalist Progress Note ---
Date of Service November 10, 2018 Assessment & Plan (1) Recurrent UTI: - Numerous infections in the past which is complicated by a ileal conduit placement/stents/hydronephrosis - also concern for possible fistula tract on previous admission which [facility] - Most recent UCx from outpatient only with Bhavya yeast and Lactobacillus - Repeat UCx with multiple organisms x 2 - Given her short gut syndrome, the oral Fluconazole may have not been adequately absorbing? Placed on IV Fluconazole with anticipated 14 days treatment per ID (November 19) -- Patient would like to receive treatment in [facility] on D/C if possible due to cost of home infusions and she currently receives twice weekly fluids at the [facility] - No current indication for Abx at this time - clinically improving on Fluconazole - Urology and ID consulted - appreciate input (2) Vaginal discharge: - Reports presence x 2 days more prevalent in the morning. - Foul smell with yellow liquid discharge - no irritation, soreness/burning, itching - Likely normal vaginal discharge - does not appear yeast-like or infectious as the presence of it is more bothersome then anything and she reports she has a sensitive nose. Denies fishy odor smell -- No signs of stool-like discharge to suggest fistula cause - If continues could culture - post-menopausal atrophy could increase risk for infection but again not having irritation Present on Admission?: Yes (3) Hypertension: - Holding Nifedipine due to dehydrated state; Continue Metoprolol 50 mg BID (4) Chronic kidney disease: - CKD IV - Baseline appears around 2-2.6 - Currently follows with Dr. Mckeon for renal management; likely multifactorial between pre-renal issues given high ostomy output and obstructive from ileal conduit/reconstructions - also reports intermittent dysfunction of the drains/has chronic hydronephrosis - Electrolytes improved on labs - will hold fluids at this time and monitor hydration status - Bicarb 650 mg BID (5) Neuropathy of both feet: - Amitriptyline 25 mg HS; Gabapentin 300 mg BID (6) Short gut syndrome: - This is related to H/O colon CA with surgical interventions/colostomy - Has high output and has biweekly fluid infusions to maintain hydration at the [facility] - Output reducing with PRN Imodium - Continue Bentyl 20 mg TID and probiotics (7) DVT prophylaxis: - Heparin Disposition: Hopefully home in the next 1-2 days; will need [facility] setup for continued IV antifungals; PT/OT assessments (cleared for home) Subjective Reports improving energy today but still fatigue with basic tasks. States her ostomy output is staying stable. Tolerating diet but not much of an appetite. Reports increasing yellow vaginal discharge. Denies burning/irritation/itching but reports a foul-smell. Discussed option to culture if continues but likely normal vaginal discharge. Currently not producing much and states she will let us know if more bothersome. Review of Systems Constitutional: no fever, no chills and no fatigue Respiratory: no cough and no dyspnea Cardiovascular: no chest pain and no palpitations Gastrointestinal: + diarrhea/loose stools; no abdominal pain, no nausea, no vomiting and no constipation Genitourinary: + vaginal discharge and + vaginal odor; no dysuria, no vaginal dryness, no vaginal itching and no pelvic pain Integumentary: no rash Physical Exam Constitutional: well developed and well nourished; no acute distress and not ill appearing Eyes: + anicteric sclerae ENMT: Ears: no hearing impairment Neck: normal visual inspection and trachea midline Respiratory: normal respiratory effort, lungs clear to auscultation Cardiovascular: Rate/Rhythm: regular rate and regular rhythm Gastrointestinal (Abdomen): Inspection/Auscultation: normal bowel sounds Percussion/Palpation: abdomen soft; abdomen nontender Musculoskeletal: Head/Neck/Chest: normocephalic, head atraumatic and neck supple Skin: no rashes, warm and dry Neurologic: moves all extremities Psychiatric: A+Ox3, euthymic affect Results & Data Vital Signs (Past 12 Hours) Vital Signs Temp Pulse Resp BP Pulse Ox 11/10/18 07:48 36.3 C L 63 16 171/82 H 99
[2018-11-10 16:17] VITALS: O2SAT 98
[2018-11-10] MEDS: ACETAMINOPHEN 500 MG TAB PO PRN (20:13)
[2018-11-10] MEDS: AMITRIPTYLINE HCL 25 MG TAB PO SCH (20:14)
[2018-11-11] MEDS: LEVOTHYROXINE SODIUM 75 MCG TABLET PO SCH (07:12)
[2018-11-11 07:41] VITALS: BP 161/75; TEMP 97.3
[2018-11-11] MEDS: DICYCLOMINE HCL 20 MG TAB PO SCH ×2 (08:49→12:50)
[2018-11-11] MEDS: SODIUM BICARBONATE 650 MG TAB PO SCH ×2 (08:49→13:50)
[2018-11-11] MEDS: ASCORBIC ACID 500 MG TAB PO SCH (08:49)
[2018-11-11] MEDS: PANTOprazole 40 MG TAB PO SCH (08:49)
[2018-11-11] MEDS: METOPROLOL TARTRATE 50 MG TAB PO SCH (08:49)
[2018-11-11] MEDS: GABAPENTIN 300 MG CAP PO SCH (08:49)
[2018-11-11] MEDS: LACTOBACILLUS ACIDOPHILUS (FLORANEX) TAB PO SCH (08:49)
[2018-11-11] MEDS: HEPARIN SOD 5,000 UNIT/0.5 ML VIAL SQ SCH (08:50)
[2018-11-11] MEDS: ASPIRIN 325 MG ECTAB PO SCH (08:50)
[2018-11-11] MEDS: ESCITALOPRAM OXALATE ORAL SOLN 5 MG/5 ML PO SCH (08:50)
[2018-11-11] MEDS: FLUCONAZOLE 100 MG/50 ML BAG IV SCH (12:50)
[2018-11-11] MEDS: HEPARIN 100 UNIT/ML 5ML FLUSH FLUSH PRN (13:15)
[2018-11-11 13:53] VITALS: PULSE 64
--- NOTE | 2018-11-11 15:03 | Discharge Summary ---
Date of Service November 11, 2018 Admission HPI Per Admitting Provider This patient had a prolonged and protracted course of chronic illnesses stemming from abdominal cancer with previous colectomy loss of her bladder short gut syndrome both a colostomy and ileal conduit constructed she is presented to us today with functional decline at home but seems to be surrounding better recently diagnosed candidal UTI. In the past she had a strep and E. coli UTI with concern for enterovesicular or really entero-ileal conduit fistula. She was seen by infectious disease Dr. Moran. She is transferred acutely to [facility] where she was resuscitated and return to home. She most recently has been feeling a decline in her energy and function and a urine analysis of her ileal conduit showed fungal yeast. She does have bilateral ureteral stents managed by Dr. Horton and he prescribed fluconazole. Despite the fluconazole she continued to worsen became more weakened. She usually presents to the medical treatment unit for intravenous hydration 3 days a week and she is too weak to present to the unit so she presented to our facility. In our facility her she was found to have a potassium 5.3. Creatinine of 45 and 3.2 glucose of 181 She is given a dose of intravenous fluconazole and hydrated in the ER is been brought to our facility for infectious disease consideration whether or oral Diflucan is being absorbed whether an IV course should be undertaken Principal Diagnosis Bhavya Albicans UTI Discharge Exam Constitutional well developed and well nourished; no acute distress and not ill appearing Eyes + anicteric sclerae ENMT Ears: no hearing impairment Neck normal visual inspection and trachea midline Respiratory normal respiratory effort, lungs clear to auscultation Cardiovascular Rate/Rhythm: regular rate and regular rhythm Gastrointestinal (Abdomen) Inspection/Auscultation: normal bowel sounds Percussion/Palpation: abdomen soft; abdomen nontender Musculoskeletal Head/Neck/Chest: normocephalic, head atraumatic and neck supple Skin no rashes, warm and dry Neurologic moves all extremities Psychiatric A+Ox3, euthymic affect Discharge Data Allergies Allergy/AdvReac Type Severity Reaction Status Date / Time cephalexin Allergy Intermediate RASH,ITCHIN Verified 11/06/18 09:36 G,HIVES Cipro Allergy Intermediate RASH Verified 03/02/18 10:07 ciprofloxacin Allergy Intermediate RASH Verified 11/06/18 09:36 homatropine Allergy Intermediate RASH Verified 11/06/18 09:36 hydrocodone Allergy Intermediate RASH Verified 11/06/18 09:36 metronidazole Allergy Intermediate RASH Verified 11/06/18 09:36 piperacillin Allergy Intermediate RASH Verified 11/06/18 09:36 Sulfa (Sulfonamide Allergy Intermediate RASH Verified 11/06/18 09:36 Antibiotics) tazobactam Allergy Intermediate RASH Verified 11/06/18 09:36 vancomycin Allergy Intermediate HIVES Verified 11/06/18 09:36 levofloxacin Allergy Unknown unknown Verified 11/06/18 09:36 nitrofurantoin Allergy Unknown unknown Verified 11/06/18 09:36 Dsidziw-Cxo-Nni Reductase Allergy Unknown LIPITOR Verified 11/06/18 09:36 Inhibitor AND PRAVASTATIN doxycycline Allergy Rash Verified 11/06/18 09:36 Consultations 11/06/18 13:45 ED Decision to Admit Stat 11/06/18 14:39 Consult Case Management - Discharge Planning Routine Consult Infectious Diseases Routine Consult Palliative Care Stat Consult Urology Routine Ordered Studies CT abd pelvis wo con FINDINGS: Lung bases remain clear. Liver and spleen remain unremarkable Interval placement of a right ureteral stent. There is persistent dilatation of the right renal pelvis and collecting system. Left ureteral stent is unchanged in position. There are findings of stable left-sided hydronephrosis. There is cortical thinning of the left kidney consistent with atrophy unchanged from the prior study. Operative findings again consistent with a right lower ileal conduit. Findings of a left lower quadrant colostomy site are noted read The transverse colon shows increased fecal and fluid filled distention. Several slightly distended loops of small bowel suggesting a nonobstructive ileus. The appearance of the presacral region is unchanged with residual presacral soft tissue change. No significant change from the prior study. IMPRESSION: 1. Interval placement of a right sided ureteral stent. 2. Unchanged bilateral renal hydronephrosis and renal pelvic dilatation compared to the prior study. 3. Mild distention of the transverse colon as well as small bowel suggesting non specific ileus. 4. No evidence for an obstructing calculus or ureteral distention on the current study. 5. Unchanged presacral soft tissue appearance Hospital Course (1) Recurrent UTI: - Numerous infections in the past which is complicated by a ileal conduit placement/stents/hydronephrosis - also concern for possible fistula tract on previous admission which resulted in transfer to [facility] - Most recent UCx from outpatient only with Bhavya yeast and Lactobacillus - Repeat UCx with multiple organisms x 2 - Given her short gut syndrome, the oral Fluconazole may have not been adequately absorbing? Placed on IV Fluconazole with anticipated 14 days treatment per ID (November 19) -- Patient would like to receive treatment in [facility] on D/C due to too high of costs of home infusions and she currently receives twice weekly fluids at the [facility] -- Patient will report on 11/12 to [facility] at 0830 for continuation of Fluconazole - No current indication for Abx at this time - clinically improving on Fluconazole - Urology and ID consulted - appreciate input (2) Vaginal discharge: - Reports presence x 2 days more prevalent in the morning. - Foul smell with yellow liquid discharge - no irritation, soreness/burning, itching - Likely normal vaginal discharge - does not appear yeast-like or infectious as the presence of it is more bothersome then anything and she reports she has a sensitive nose. Denies fishy odor smell -- No signs of stool-like discharge to suggest fistula cause - If continues could culture - post-menopausal atrophy could increase risk for infection but again not having irritation; no blood discharge - could refer to [facility] if necessary (3) Hypertension: - Continue Metoprolol 50 mg BID and Nifedipine 60 mg daily (4) Chronic kidney disease: - CKD IV - Baseline appears around 2-2.6 - Currently follows with Dr. Mckeon for renal management; likely multifactorial between pre-renal issues given high ostomy output and obstructive from ileal conduit/reconstructions - also reports intermittent dysfunction of the drains/has chronic hydronephrosis - Bicarb 650 mg BID (5) Neuropathy of both feet: - Amitriptyline 25 mg HS; Gabapentin 300 mg BID (6) Short gut syndrome: - This is related to H/O colon CA with surgical interventions/colostomy - Has high output and has biweekly fluid infusions to maintain hydration at the [facility] - Output reducing with PRN Imodium - Continue Bentyl 20 mg TID and probiotics Total Time Total Time Spent Total Time Spent (In Minutes): Greater than 30 minutes Discharge Plan Discharge Items Patient Disposition: Home - Self-Care Reason For Visit: FUNGAL UTI Discharge Diagnosis: Fungal UTI Discharge Goals: Decrease discomfort, Increase independence and Prevent disease Activity: Resume your previous activity Non-emergency contact: Primary Care Provider Call non-emergency contact if: you have any medication questions, your symptoms worsen and your temperature is above 101 Follow-up/Referrals: Joe Alonso MD [Primary Care Provider] - 11/17/18 3:00 pm (follow up appointment with your primary care physician) Diet: Regular Addtl Provider Instructions: Recurrent Urinary Tract Infections: - Unfortunately you have had multiple infections of the urinary tract which I know has been very frustrating for you. I know you feel guilty to see a doctor when you start having some mild symptoms but that may be the mccoy to preventing these infections from getting very bad. Recommend to right down your symptoms so you can start to recognize when things are starting to change. Call your family doctor or urologist and they can always have you drop off a urine sample to test to make sure this isn't going on. - The urologist do want to follow-up with you for the stent exchange but will need to have a confirmed infection-free sample. So far the cultures given here is not showing additional yeast/fungus. - You will need to go daily to the [facility] to get your anti-fungal (Fluconazole). This will go until November 19 to finish a 14 day course. -- You are set-up for 8:30 AM at the [facility] tomorrow for your anti-fungal Vaginal Discharge: - This could be one of multiple things. This could simply be normal vaginal discharge given that it is not causing burning/pain/irritation/itching. However, if continues and has a foul-smell or fishy odor it could be infection and may need to see a lighting equipment operator about that. With age and changes/reductions in hormones you get atrophy (shrinking) and thinning of the wall lining which can make you prone to bacterial infections - Also talk to your doctor if the discharge looks like stool, bloody, or causes discomfort Home Medications: - Continue your home medications as previously prescribed. We did not make adjustments to these. - Continue your biweekly fluid infusions at the [facility]; Can use as needed Imodium for increasing stool output Prescriptions: New fluconazole in NaCl (iso-osm) 100 mg/50 mL piggyback 100 mg IV DAILY 8 Days Qty: 400 RF: 0 Continued ascorbic acid (vitamin C) [Vitamin C] 1,000 mg Tablet 1 g PO QAM RF: 0 acetaminophen [Tylenol Extra Strength] 500 mg Tablet 500 mg PO Q6H PRN (Reason: Pain) RF: 0 oxycodone-acetaminophen 5-325 mg Tablet 1 tab PO Q6H PRN (Reason: Pain) RF: 0 amitriptyline 25 mg Tablet 25 mg PO HS RF: 0 lorazepam 0.5 mg Tablet 0.5 mg PO TID PRN (Reason: Anxiety) RF: 0 dicyclomine 20 mg Tablet 20 mg PO TID RF: 0 sodium bicarbonate 650 mg Tablet 650 mg PO BID RF: 0 metoprolol tartrate 50 mg Tablet 50 mg PO BID RF: 0 gabapentin 300 mg Capsule 300 mg PO BID RF: 0 nifedipine 60 mg Tablet Extended Release 60 mg PO QAM RF: 0 multivitamin Capsule 1 cap PO QAM RF: 0 calcium carbonate-vitamin D3 [Calcium 500 + D (D3)] 500 mg(1,250mg) -125 unit Tablet 1 tab PO BID RF: 0 omeprazole 20 mg Tablet,Delayed Release (Dr/Ec) 20 mg PO BID RF: 0 cholecalciferol (vitamin D3) 3,000 unit Tablet 5,000 unit PO QAM RF: 0 levothyroxine 75 mcg Capsule 75 mcg PO QAM RF: 0 cyanocobalamin (vitamin B-12) 5,000 mcg Tablet, Ir And Er, Biphasic 4,000 mcg PO QAM RF: 0 aspirin [Hanna Aspirin] 325 mg Tablet 325 mg PO QAM RF: 0 escitalopram oxalate 5 mg Tablet 7.5 mg PO QAM RF: 0 ferrous sulfate [iron] 325 mg (65 mg iron) Tablet 325 mg PO QAM RF: 0 potassium chloride 10 mEq tablet,ER particles/crystals 10 meq PO BID RF: 0 Probiotic 3 billion cell Capsule 3,000 mmu cells PO QAM RF: 0 Discontinued fluconazole 100 mg Tablet 100 mg PO DAILY RF: 0 Stand-Alone Forms: [facility] Discharge Orders: Discharge Order (Routine); Ordered 11/11/18 Ordered By: Judie Kirk Admission Data Admit Date/Time: 11/06/18 14:00 Attending Provider: Ganesh Sol Admit Provider: Ebenezer Thompson Primary Care Provider: Joe Alonso Other Providers: Ebenezer Thompson ; Amanda Ochoa Evan T. ; Myles Horton Service: Medical Other Interventions: Discharge Summary Assessment (RN) Last Done: 11/11/18 13:50 Pending Studies at Discharge: No DC Date/Time DO NOT enter until pt leaves facility: 11/11/18 15:10
== END 2018-11-11 15:10 | disposition home or self-care (01) | DRG 690 ==
LOC: ED 09:14 → 4E 14:00 → SUATTDRO 14:00 → 4E 14:12

== ENCOUNTER 2019-02-02 23:13 | Observation (INO) ==
[2019-02-02] MEDS ORDERED: SODIUM CHLORIDE 0.9% 1000ML 250 ML IV ONE (23:25)
[2019-02-02] MEDS ORDERED: SODIUM CHLORIDE 0.9% 1000ML 1,000 ML IV SCH (23:30)
--- NOTE | 2019-02-02 23:47 | XRay Report ---
SINGLE VIEW CHEST CLINICAL HISTORY: Syncope. Bradycardia. FINDINGS: An AP, portable, upright chest radiograph is compared to study dated 09/25/2018. The examina tion is degraded by portable technique and patient rotation. A right internal jugular central venou s catheter is unchanged in position. The heart is top normal for projection noting atherosclerotic ca lcification of the thoracic aorta. There is bibasilar scarring/atelectasis. No airspace consolidation or large pleural effusion is identified. No pneumothorax is seen. The skeletal structures are osteop enic. The bony thorax is grossly intact. IMPRESSION: No acute cardiopulmonary abnormality. Electronically signed by: Scottie Manuel M.D. 02/02/2019 11:46 PM
[2019-02-02 23:53] LABS: iSTAT Creatinine 3.2 mg/dl (0.6-1.3); iSTAT Hemoglobin 8.5 g/dl (12.0-16.0); iSTAT Ionized Calcium 0.96 mmol/l (1.12-1.32); iSTAT Potassium 6.4 mEq/L (3.3-5.0)
[2019-02-02 23:57] LABS: Basophils # (auto) 0.07 K/uL (0-0.2); Basophils % (auto) 0.6 %; Eosinophils # (auto) 0.27 K/uL (0-0.5); Eosinophils % (auto) 2.4 %; Hematocrit (blood only) 27.5 % (37-47); Hemoglobin 8.4 g/dL (12.0-16.0); Immature Granulocytes % (auto) 1.8 %; Lymphocytes # (auto) 1.92 K/uL (1.2-3.4); Mean Corpuscular Hgb Conc 30.5 g/dL (32-36); Mean Corpuscular Volume 96.2 fL (80-100); Mean Platelet Volume 9.2 fL (7.4-10.4); Monocytes # (auto) 0.74 K/uL (0.11-0.59); Monocytes % (auto) 6.5 %; Neutrophils # (auto) 8.12 K/uL (1.4-6.5); Neutrophils % (auto) 71.7 %; Platelet Count 258 K/uL (130-400); RDW Coefficient of Variation 20.5 % (11.5-14.5); RDW Standard Deviation 72.6 fL (36.4-46.3); Red Blood Count 2.86 M/uL (4.2-5.4); White Blood Count 11.32 K/uL (4.8-10.8)
[2019-02-03] MEDS ORDERED: CALCIUM GLUCONATE 10% 1,000 MG in SODIUM CHLORIDE 0.9% 50 ML IV STA (00:07)
[2019-02-03] MEDS ORDERED: DEXTROSE 50% 50 ML SYRINGE IV STA (00:07)
[2019-02-03] MEDS ORDERED: NovoLIN-R INSULIN PER UNIT CHARGE IV STA ×2 (00:07→09:39)
[2019-02-03] MEDS ORDERED: CALCIUM GLUCONATE 10% 10 ML VIAL IV ONE (00:13)
[2019-02-03 00:22] LABS: Appearance Urine Turbid (Clear); Bacteria Urine Automated 2+ (Negative); Bilirubin Urine Negative (Negative); Blood Urine 3+ (Negative); Color Urine Yellow; Epithelial Cell Urine Auto >30 /lpf (0-5); Glucose Urine UA Negative (Negative); Ketones Urine Trace (Negative); Leukocyte Esterase Urine 3+ (Negative); Nitrite Urine Positive (Negative); Protein Urine 3+ (Negative); Specific Gravity Urine 1.018 (1.000-1.030); Urobilinogen Urine Negative (Negative); WBC Urine Automated >30 /hpf (0-5)
[2019-02-03 00:25] LABS: Anisocytosis Present; Echinocytes 1+
[2019-02-03 00:31] LABS: Albumin Level 2.5 gm/dl (3.4-5.0); BUN Creatinine Ratio 10.1 (10-20); Calcium 6.5 mg/dl (8.5-10.1); Creatinine Clr Calc Pharmacy 16.5 ml/min; Est GFR (African American) 18.9; Est GFR (Non-African American) 16.3; Magnesium 2.2 mg/dl (1.8-2.4); Potassium 6.2 mmol/L (3.5-5.1)
[2019-02-03 00:38] LABS: Albumin Globulin Ratio 0.8 (0.9-2); Bilirubin,Total 0.2 mg/dl (0.2-1); Globulin 3.1 gm/dl (2.5-4.0); Total Protein 5.6 gm/dl (6.4-8.2)
[2019-02-03 00:43] LABS: RBC Urine Automated 0-4 /hpf (0-4)
[2019-02-03 00:53] LABS: T4 Free Thyroxine 0.84 ng/dl (0.8-1.6)
[2019-02-03] MEDS ORDERED: DiphenhydrAMINE HCL 50 MG/ML VIAL IV STA (02:04)
[2019-02-03] MEDS ORDERED: cefTRIAXone SODIUM 1,000 MG/50 ML BAG IV STA (02:30)
--- NOTE | 2019-02-03 02:38 | Emergency Department Note ---
Entered by Mendoza Wilson acting as a scribe for Vanessa Osborn MD History of Present Illness General Chief complaint: Cardiac Assessment Stated complaint: CHEST PAIN Time Seen by Provider: 02/02/19 23:24 Source: patient and other (nurse) History of Present Illness Onset (ago): day(s) (2099 today) Location: head Pain Consistency: + constant Quality: + other (dizziness) Associated symptoms: + other (Positive for nausea, dizziness, and unresponsiveness.) The patient is a 73 year old female who presents to the emergency department with complaints of constant dizziness beginning at 2099 today. The patient states that she took her lorazepam tonight and starting feeling funny afterwards. Per nurse, the patient became dizzy, nauseous, and started vomiting. She notes that the patient then had an episode of unresponsiveness. She reports that the patient was responsive when EMS arrived. She states that the patient received epinephrine and 1mg atropine en route to the emergency department. The patient states that she is now currently dizzy. She notes that she has a pr evious history of colon cancer. She reports that she had a beer tonight and took a Lorazepam before the episode happened Home Medications Home Medications Medication Instructions Recorded Confirmed Type acetaminophen [Tylenol Extra 1,000 mg PO Q6H PRN 05/09/18 02/03/19 History Strength] amitriptyline 25 mg PO HS 05/09/18 02/03/19 History ascorbic acid (vitamin C) [Vitamin 1 g PO QAM 05/09/18 02/03/19 History C] calcium carbonate-vitamin D3 1 tab PO BID 05/09/18 02/03/19 History [Calcium 500 + D (D3)] cholecalciferol (vitamin D3) 5,000 unit PO QAM 05/09/18 02/03/19 History cyanocobalamin (vitamin B-12) 4,000 mcg PO QAM 05/09/18 02/03/19 History dicyclomine 20 mg PO TID 05/09/18 02/03/19 History gabapentin 300 mg PO BID 05/09/18 02/03/19 History levothyroxine 75 mcg PO QAM 05/09/18 02/03/19 History lorazepam 0.5 mg PO TID PRN 05/09/18 02/03/19 History metoprolol tartrate 50 mg PO BID 05/09/18 02/03/19 History multivitamin 1 cap PO QAM 05/09/18 02/03/19 History nifedipine 60 mg PO QAM 05/09/18 02/03/19 History omeprazole 20 mg PO BID 05/09/18 02/03/19 History oxycodone-acetaminophen 1 tab PO Q6H PRN 05/09/18 02/03/19 History sodium bicarbonate 650 mg PO BID 05/09/18 02/03/19 History aspirin [Hanna Aspirin] 325 mg PO QAM 05/15/18 02/03/19 History escitalopram oxalate 7.5 mg PO QAM 05/22/18 02/03/19 History Probiotic 3,000 mmu cells PO QAM 09/25/18 02/03/19 History ferrous sulfate [iron] 325 mg PO QAM 09/25/18 02/03/19 History Allergies Allergy/AdvReac Type Severity Reaction Status Date / Time cephalexin Allergy Intermediate RASH,ITCHIN Verified 02/03/19 01:24 G,HIVES Cipro Allergy Intermediate RASH Verified 03/02/18 10:07 ciprofloxacin Allergy Intermediate RASH Verified 02/03/19 01:24 homatropine Allergy Intermediate RASH Verified 02/03/19 01:24 hydrocodone Allergy Intermediate RASH Verified 02/03/19 01:24 metronidazole Allergy Intermediate RASH Verified 02/03/19 01:24 piperacillin Allergy Intermediate RASH Verified 02/03/19 01:24 Sulfa (Sulfonamide Allergy Intermediate RASH Verified 02/03/19 01:24 Antibiotics) tazobactam Allergy Intermediate RASH Verified 02/03/19 01:24 vancomycin Allergy Intermediate HIVES Verified 02/03/19 01:24 levofloxacin Allergy Unknown unknown Verified 02/03/19 01:24 nitrofurantoin Allergy Unknown unknown Verified 02/03/19 01:24 Wmchazu-Aij-Hnn Reductase Allergy Unknown LIPITOR Verified 02/03/19 01:24 Inhibitor AND PRAVASTATIN doxycycline Allergy Rash Verified 02/03/19 01:24 hydromorphone [From Dilaudid] AdvReac Severe can not Verified 02/03/19 01:24 contol hands & feet cefepime [From Maxipime] AdvReac Intermediate Unknown Verified 02/03/19 01:24 Past Med/Surg History Medical History Vaginal discharge (Acute) Goals of care, counseling/discussion Bhavya albicans infection DVT prophylaxis Weakness (Acute) UTI (urinary tract infection) (Acute) Ischemic colitis HX DVT prophylaxis Escherichia coli infection Streptococcal infection Pyelonephritis (Acute) Hydronephrosis (Acute) Dehydration (Acute) Acute gastroenteritis (Acute) Pancreatitis (Acute) Hypomagnesemia syndrome (Acute) Colorectal cancer (Resolved) Cardiac catheterization (Resolved 07/01/12) Pyelonephritis (Resolved) Sprain, lumbosacral (Resolved) Dizziness (Resolved) Clostridium difficile colitis (Resolved 07/01/12) Infection and inflammatory reaction due to vascular device, implant, and graft (Acute 06/07/13) Abnormal CT of the abdomen Elevated alkaline phosphatase level Hypothyroid (Chronic) SBO (small bowel obstruction) (Acute) Abdominal pain Rectal bleeding Depression with anxiety Hyperkalemia Encounter for pre-operative examination Allergic reaction (Acute) Abdominal pain (Acute) Hives (Acute) Acute dehydration (Acute) Increased urinary frequency Left breast mass Esophagitis Neuropathy of both feet Obstructive sleep apnea Acute hyperkalemia (Acute) Short gut syndrome (Chronic) HTN (hypertension) Anemia CHRONIC Colon cancer S/P COLECTOMY/COLOSTOMY/HYPERBARIC TX, RADIATION (36 YEARS AGO) Chronic kidney disease (Acute) STAGE 4 (UNDER SURVEILLANCE)- BASELINE GFR 20'S PER CHART REVIEW Recurrent UTI (Acute) REASON FOR UPCOMING PROCEDURE Hypertension (Chronic) Neuropathy of both feet (Chronic) Charcot's joint of foot LEFT FOOT Depression with anxiety [place] filter in place ? PE HX Hydronephrosis REASON FOR UPCOMING PROCEDURE Hypothyroidism Sleep apnea NO DEVICE Surgical History H/O colostomy H/O ileostomy (Acute) History of cholecystectomy S/P appendectomy History of renal stent Hx of cardiac cath 2001= NO STENTS History of breast biopsy "BENIGN" History of colectomy ACCIDENTAL LACERATION WITH SUBSEQUENT SURGICAL REPAIR/ILLEO-CONDUIT PLACEMENT History of cystoscopy History of herniorrhaphy VENTRAL History of hysterectomy History of ileal conduit 2/2 COMPLICATIONS OF BOWEL SURGERY Hx of tooth extraction Port-A-Cath in place Social History Preferred Language: Uzbek Communication Ability: Effective Visual Impairment: No Limitations Beliefs That Will Affect Care: None marital status: Current Living Situation: Spouse current occupational status: retired Feels Safe at Home: Yes Smoking Status: Never smoker Cigarettes Per Day: 0 Second Hand Exposure: No Hx Alcohol Use: Yes Alcohol type: beer and hard liquor Hx Substance Use: No Review of Systems See HPI for pertinent positives & negatives. and A total of 10 systems reviewed and were otherwise negative Physical Exam Vital Signs Vital Signs - 24 hr 02/02/19 23:21 02/02/19 23:22 02/02/19 23:23 Temperature 36.7 C Temperature Source Oral Sepsis Recent Fever Within 48 Hours No Sepsis Action Taken by Nursing No Action Required Pulse Rate 59 L 58 L 60 Pulse Rate [Apical] Pulse Rate from SpO2 Sensor 60 61 Respiratory Rate 18 Respiratory Depth Normal Blood Pressure 100/50 L 100/50 L Blood Pressure Mean 66 66 Pulse Oximetry 99 99 99 Oxygen Delivery Method Room Air 02/02/19 23:30 02/02/19 23:44 02/02/19 23:45 Temperature Temperature Source Sepsis Recent Fever Within 48 Hours Sepsis Action Taken by Nursing Pulse Rate 58 L 59 L Pulse Rate [Apical] Pulse Rate from SpO2 Sensor 58 L 60 Respiratory Rate Respiratory Depth Blood Pressure 97/44 L 87/45 L Blood Pressure Mean 61 59 Pulse Oximetry 97 98 99 Oxygen Delivery Method Room Air 02/02/19 23:54 02/03/19 00:00 02/03/19 00:05 Temperature Temperature Source Sepsis Recent Fever Within 48 Hours Sepsis Action Taken by Nursing Pulse Rate 62 59 L Pulse Rate [Apical] 61 Pulse Rate from SpO2 Sensor 62 59 L Respiratory Rate 18 Respiratory Depth Blood Pressure 99/47 L 95/50 L Blood Pressure Mean 64 65 Pulse Oximetry 98 98 98 Oxygen Delivery Method Room Air 02/03/19 00:15 02/03/19 00:30 02/03/19 00:45 Temperature Temperature Source Sepsis Recent Fever Within 48 Hours Sepsis Action Taken by Nursing Pulse Rate 60 59 L 62 Pulse Rate [Apical] Pulse Rate from SpO2 Sensor 60 59 L 62 Respiratory Rate Respiratory Depth Blood Pressure 88/54 L 102/51 L 118/44 L Blood Pressure Mean 65 68 68 Pulse Oximetry 97 96 94 Oxygen Delivery Method 02/03/19 01:00 02/03/19 01:01 02/03/19 01:15 Temperature Temperature Source Sepsis Recent Fever Within 48 Hours Sepsis Action Taken by Nursing Pulse Rate 78 79 81 Pulse Rate [Apical] Pulse Rate from SpO2 Sensor 78 80 82 Respiratory Rate Respiratory Depth Blood Pressure 152/66 H Blood Pressure Mean 94 Pulse Oximetry 95 95 96 Oxygen Delivery Method 02/03/19 01:16 02/03/19 01:30 02/03/19 01:45 Temperature Temperature Source Sepsis Recent Fever Within 48 Hours Sepsis Action Taken by Nursing Pulse Rate 80 75 74 Pulse Rate [Apical] 76 Pulse Rate from SpO2 Sensor 81 76 75 Respiratory Rate 18 Respiratory Depth Normal Blood Pressure 152/71 H 124/66 119/55 L Blood Pressure Mean 98 85 76 Pulse Oximetry 95 96 95 Oxygen Delivery Method Room Air 02/03/19 02:00 02/03/19 02:15 02/03/19 02:30 Temperature Temperature Source Sepsis Recent Fever Within 48 Hours Sepsis Action Taken by Nursing Pulse Rate 76 89 88 Pulse Rate [Apical] Pulse Rate from SpO2 Sensor 77 89 88 Respiratory Rate Respiratory Depth Blood Pressure 127/57 L 119/58 L 132/77 Blood Pressure Mean 80 78 95 Pulse Oximetry 95 97 96 Oxygen Delivery Method Room Air Room Air Room Air 02/03/19 02:45 02/03/19 03:00 02/03/19 03:15 Temperature Temperature Source Sepsis Recent Fever Within 48 Hours Sepsis Action Taken by Nursing Pulse Rate 77 72 76 Pulse Rate [Apical] Pulse Rate from SpO2 Sensor 77 72 76 Respiratory Rate 16 17 Respiratory Depth Blood Pressure 122/57 L 110/52 L 116/53 L Blood Pressure Mean 78 71 74 Pulse Oximetry 93 95 95 Oxygen Delivery Method Room Air Room Air Room Air 02/03/19 03:30 02/03/19 03:45 02/03/19 04:00 Temperature Temperature Source Sepsis Recent Fever Within 48 Hours Sepsis Action Taken by Nursing Pulse Rate 76 73 73 Pulse Rate [Apical] Pulse Rate from SpO2 Sensor 76 72 72 Respiratory Rate 17 Respiratory Depth Blood Pressure 125/67 119/89 123/68 Blood Pressure Mean 86 99 86 Pulse Oximetry 97 97 98 Oxygen Delivery Method Room Air Room Air Room Air Vital signs reviewed. General: Anxious and chronically ill appearing female, in no significant distress, thin. HEENT: No scleral icterus, PERRLA, neck supple. Atraumatic. Cardiovascular: Rate controlled with occasional irregularity, no extra sounds. Pulmonary: Clear to auscultation bilaterally, normal work of breathing. Abdomen: Soft, nontender, nondistended, positive bowel sounds, colostomy and urostomy present. Musculoskeletal: Atraumatic, no peripheral edema. Neurologic: Patient awake alert and oriented x 3. Skin: Warm, dry, no rash Course 2319: The patient was evaluated in room B1. A complete history and physical exam was performed. 0138: Upon reevaluation, the patient is stable. I discussed the findings and the treatment plan with the patient. She expresses agreement and understanding. I spoke with Dr. Carranza of the [facility] Hospitalist Service. The patient will be evaluated for further management. Consultations Consultation #1: I reviewed the patient's case with Dr. Carranza - Hospitalist, [facility]. He will evaluate the patient for further management. Administered Medications Sodium Chloride (Nss 1000ml) 1,000 mls @ 125 mls/hr IV .Q8H YUNI Stop: 03/04/19 23:29 Last Admin: 02/02/19 23:55 Dose: 125 mls/hr Documented by: [id number] Discontinued Medications Calcium Gluconate (Calcium Gluconate 10%) Confirm Administered Dose 1,000 mg IV .STK-MED ONE Stop: 02/03/19 00:14 Last Admin: 02/03/19 00:33 Dose: Not Given Documented by: [id number] Dextrose (Dextrose 50%) 50 ml IV NOW STA Stop: 02/03/19 00:08 Last Admin: 02/03/19 00:32 Dose: 50 ml Documented by: [id number] Diphenhydramine HCl (Benadryl) 25 mg IV NOW STA Stop: 02/03/19 02:05 Last Admin: 02/03/19 03:01 Dose: Not Given Documented by: [id number] Sodium Chloride (Nss 1000ml) 250 mls @ 999 mls/hr IV .Q16M ONE Stop: 02/02/19 23:40 Last Infusion: 02/02/19 23:55 Dose: 0 mls/hr Documented by: [id number] Admin: 02/02/19 23:38 Dose: 999 mls/hr Documented by: [id number] Calcium Gluconate 1,000 mg/ (Sodium Chloride) 60 mls @ 240 mls/hr IV NOW STA Stop: 02/03/19 00:21 Last Infusion: 02/03/19 01:05 Dose: 0 mls/hr Documented by: [id number] Admin: 02/03/19 00:32 Dose: 240 mls/hr Documented by: [id number] Ceftriaxone Sodium (Rocephin) 1,000 mg in 50 mls @ 100 mls/hr IV NOW STA Stop: 02/03/19 02:59 Last Infusion: 02/03/19 03:26 Dose: 0 mls/hr Documented by: [id number] Admin: 02/03/19 02:38 Dose: 100 mls/hr Documented by: [id number] Insulin Human Regular (Novolin R U-100 Per Unit) 10 units IV NOW STA Stop: 02/03/19 00:08 Last Admin: 02/03/19 00:32 Dose: 10 units Documented by: [id number] Cosigned by: [id number] Medical Decision Making Differential Diagnosis Differential diagnosis: Etiologies such as vasovagal event, infection, anemia, hypoglycemia, hypovolemia, electrolyte abnormalities, dysrhythmias, cardiac ischemia, cardiac tamponade, valvular heart disease, structural heart disease, seizure, vascular stenosis/dissection, pulmonary embolism, intracerebral event, toxicological process, neurologic event, as well as others were entertained. Medical Records Attestation: I reviewed the patient's medical records. Home Medications Current Medication List: was personally reviewed by me Laboratory Data Attestation: I reviewed the patient's lab results. Result diagrams: 02/02/19 23:32 02/02/19 23:32 Lab Results 02/02/19 02/02/19 02/02/19 Range/Units 23:32 23:32 23:32 WBC 11.32 H (4.8-10.8) K/uL RBC 2.86 L (4.2-5.4) M/uL Hgb 8.4 L (12.0-16.0) g/dL POC Hgb (12.0-16.0) g/dl Hct 27.5 L (37-47) % POC Hct (37-47) % MCV 96.2 (80-100) fL MCH 29.4 (25-34) pg MCHC 30.5 L (32-36) g/dL RDW Std Deviation 72.6 H (36.4-46.3) fL RDW Coeff of Ethan 20.5 H (11.5-14.5) % Plt Count 258 (130-400) K/uL MPV 9.2 (7.4-10.4) fL Immature Gran % (Auto) 1.8 % Neut % (Auto) 71.7 % Lymph % (Auto) 17.0 % Trinity % (Auto) 6.5 % Eos % (Auto) 2.4 % Baso % (Auto) 0.6 % Immature Gran # (Auto) 0.20 H (0.00-0.02) K/uL Neut # (Auto) 8.12 H (1.4-6.5) K/uL Lymph # (Auto) 1.92 (1.2-3.4) K/uL Trinity # (Auto) 0.74 H (0.11-0.59) K/uL Eos # (Auto) 0.27 (0-0.5) K/uL Baso # (Auto) 0.07 (0-0.2) K/uL Anisocytosis Present Echinocytes 1+ POC Sodium (135-144) mEq/L Sodium 144 (136-145) mmol/L POC Potassium (3.3-5.0) mEq/L Potassium 6.2 H* (3.5-5.1) mmol/L POC Chloride (101-112) mEq/L Chloride 118 H (98-107) mmol/L Carbon Dioxide 17 L (21-32) mmol/L POC Total CO2 (24-31) mEq/l Anion Gap 10.0 (3-11) POC Anion Gap (16-25) mmol/L POC BUN (7-18) mg/dl BUN 28 H (7-18) mg/dl Creatinine 2.75 H (0.6-1.2) mg/dl POC Creatinine (0.6-1.3) mg/dl Est Cr Clr Drug Dosing 16.5 ml/min Est GFR ( Amer) 18.9 Est GFR (Non-Af Amer) 16.3 BUN/Creatinine Ratio 10.1 (10-20) Glucose 116 H (70-99) mg/dl POC Glucose (other) (70-99) mg/dl Calcium 6.5 L (8.5-10.1) mg/dl POC Ioniz Calcium Tito (1.12-1.32) mmol/l Magnesium 2.2 (1.8-2.4) mg/dl Total Bilirubin 0.2 (0.2-1) mg/dl AST 12 L (15-37) U/L ALT 12 (12-78) U/L Alkaline Phosphatase 104 (45-117) U/L Total Protein 5.6 L (6.4-8.2) gm/dl Albumin 2.5 L (3.4-5.0) gm/dl Globulin 3.1 (2.5-4.0) gm/dl Albumin/Globulin Ratio 0.8 L (0.9-2) TSH 5.420 H (0.300-4.500) uIu/ml Free T4 0.84 (0.8-1.6) ng/dl Urine Color Urine Appearance (Clear) Urine pH (4.5-7.5) Ur Specific [place] (1.000-1.030) Urine Protein (Negative) Urine Glucose (UA) (Negative) Urine Ketones (Negative) Urine Blood (Negative) Urine Nitrite (Negative) Urine Bilirubin (Negative) Urine Urobilinogen (Negative) Ur Leukocyte Esterase (Negative) Urine WBC (Auto) (0-5) /hpf Urine RBC (Auto) (0-4) /hpf U Hyaline Cast (Auto) (0-5) /lpf U Epithel Cells (Auto) (0-5) /lpf Urine Bacteria (Auto) (Negative) Urine Yeast (None Prsent) Ethyl Alcohol mg/dL < 3.0 (0-3) mg/dl 02/02/19 02/03/19 Range/Units 23:38 00:00 WBC (4.8-10.8) K/uL RBC (4.2-5.4) M/uL Hgb (12.0-16.0) g/dL POC Hgb 8.5 L (12.0-16.0) g/dl Hct (37-47) % POC Hct 25 L (37-47) % MCV (80-100) fL MCH (25-34) pg MCHC (32-36) g/dL RDW Std Deviation (36.4-46.3) fL RDW Coeff of Ethan (11.5-14.5) % Plt Count (130-400) K/uL MPV (7.4-10.4) fL Immature Gran % (Auto) % Neut % (Auto) % Lymph % (Auto) % Trinity % (Auto) % Eos % (Auto) % Baso % (Auto) % Immature Gran # (Auto) (0.00-0.02) K/uL Neut # (Auto) (1.4-6.5) K/uL Lymph # (Auto) (1.2-3.4) K/uL Trinity # (Auto) (0.11-0.59) K/uL Eos # (Auto) (0-0.5) K/uL Baso # (Auto) (0-0.2) K/uL Anisocytosis Echinocytes POC Sodium 141 (135-144) mEq/L Sodium (136-145) mmol/L POC Potassium 6.4 H* (3.3-5.0) mEq/L Potassium (3.5-5.1) mmol/L POC Chloride 116 H (101-112) mEq/L Chloride (98-107) mmol/L Carbon Dioxide (21-32) mmol/L POC Total CO2 17 L (24-31) mEq/l Anion Gap (3-11) POC Anion Gap 16.0 (16-25) mmol/L POC BUN 26 H (7-18) mg/dl BUN (7-18) mg/dl Creatinine (0.6-1.2) mg/dl POC Creatinine 3.2 H (0.6-1.3) mg/dl Est Cr Clr Drug Dosing ml/min Est GFR ( Amer) Est GFR (Non-Af Amer) BUN/Creatinine Ratio (10-20) Glucose (70-99) mg/dl POC Glucose (other) 116 H (70-99) mg/dl Calcium (8.5-10.1) mg/dl POC Ioniz Calcium Tito 0.96 L (1.12-1.32) mmol/l Magnesium (1.8-2.4) mg/dl Total Bilirubin (0.2-1) mg/dl AST (15-37) U/L ALT (12-78) U/L Alkaline Phosphatase (45-117) U/L Total Protein (6.4-8.2) gm/dl Albumin (3.4-5.0) gm/dl Globulin (2.5-4.0) gm/dl Albumin/Globulin Ratio (0.9-2) TSH (0.300-4.500) uIu/ml Free T4 (0.8-1.6) ng/dl Urine Color Yellow Urine Appearance Turbid A (Clear) Urine pH 6.0 (4.5-7.5) Ur Specific [place] 1.018 (1.000-1.030) Urine Protein 3+ H (Negative) Urine Glucose (UA) Negative (Negative) Urine Ketones Trace H (Negative) Urine Blood 3+ H (Negative) Urine Nitrite Positive A (Negative) Urine Bilirubin Negative (Negative) Urine Urobilinogen Negative (Negative) Ur Leukocyte Esterase 3+ H (Negative) Urine WBC (Auto) >30 H (0-5) /hpf Urine RBC (Auto) 0-4 (0-4) /hpf U Hyaline Cast (Auto) 1-5 (0-5) /lpf U Epithel Cells (Auto) >30 H (0-5) /lpf Urine Bacteria (Auto) 2+ H (Negative) Urine Yeast Budding w/ Hyphae A (None Prsent) Ethyl Alcohol mg/dL (0-3) mg/dl Imaging Data Radiologist's Impression: Radiology results as stated below per my review and the radiologist's interpretation: SINGLE VIEW CHEST FINDINGS: An AP, portable, upright chest radiograph is compared to study dated 09/25/2018. The examination is degraded by portable technique and patient rotati on. A right internal jugular central venous catheter is unchanged in position. The heart is top normal for projection noting atherosclerotic calcification of the thoracic aorta. There is bibasilar scarring/atelectasis. No airspace consolidation or large pleural effusion is identified. No pneumothorax is seen. The skeletal structures are osteopenic. The bony thorax is grossly intact. IMPRESSION: No acute cardiopulmonary abnormality. Electronically signed by: Scottie Manuel M.D. 02/02/2019 11:46 PM ECG Data Attestation: I personally reviewed and interpreted this ECG as follows: Indication: other (dizziness) Rate (beats per minute): 60 Rhythm: normal sinus Findings: + Q waves (anteriorly); no PAC, no PVC, no ST depression and no ST elevation Additional Comments: Low voltage, QTC 434, normal MT intervals at 172. EKG #2: Normal sinus, 79, anterior Q waves, nonspecific ST change in lateral leads, no ectopy, no significant change compared to EKG #1. Blood Pressure Blood Pressure Findings: Normal blood pressure Blood Pressure Disposition: did not require urgent referral MDM Narrative This pt was evaluated and appeared to be in no distress. IV access was obtained and lab work was drawn. Pt was placed on the cardiac rehabilitation specialist. IVF were initiated. iSTAT labs were obtained and K is elevated at 6.4. EKG reveals a NSR without acute change. Formal lab work confirms elevated K. Pt was given IV calcium, insulin and glucose given the bradycardia. Patient has remained in a sinus rhythm without any significant dysrhythmia. There was no indication for additional epinephrine or atropine in the emergency department. Patient was found to have a UTI and has a urostomy however has many antibiotic allergies. She was treated successfully with ceftriaxone on the last hospitalization proximally 1 month ago. 1 g of IV ceftriaxone was ordered. Patient was also given 25 mg of IV Benadryl for "restless leg syndrome" she was very uncomfortable and asking repeatedly for "something to help." Patient's case was discussed with Dr. Cardenas of the hospitalist service will evaluate the patient for admission and further management. Patient and are aware of the plan and agree. Impression & Plan Acute on chronic renal failure, Hyperkalemia, Syncope, Bradycardia Critical Care Time Critical Care Time: Yes (35) I have personally spent greater than 45 minutes of critical care time in the direct management of this patient. This includes bedside care, interpretation of diagnostic studies, and testing, discussion with consultants, patient, and family members, and other required patient management activities. This 45 minutes is in excess of all separately billable procedures. Discharge Plan Visit Data Chief Complaint: Cardiac Assessment Stated Complaint: CHEST PAIN ED Provider: Vanessa Osborn Discharge Problem: Acute on chronic renal failure, Hyperkalemia, Syncope, Bradycardia Patient Disposition: Being Evaluated by Hospitalist Forms Stand Alone Forms: My [facility] [place] Prescriptions Prescriptions: No Action ascorbic acid (vitamin C) [Vitamin C] 1,000 mg Tablet 1 g PO QAM RF: 0 acetaminophen [Tylenol Extra Strength] 500 mg Tablet 1,000 mg PO Q6H PRN (Reason: Pain) RF: 0 oxycodone-acetaminophen 5-325 mg Tablet 1 tab PO Q6H PRN (Reason: Pain) RF: 0 amitriptyline 25 mg Tablet 25 mg PO HS RF: 0 lorazepam 0.5 mg Tablet 0.5 mg PO TID PRN (Reason: Anxiety) RF: 0 dicyclomine 20 mg Tablet 20 mg PO TID RF: 0 sodium bicarbonate 650 mg Tablet 650 mg PO BID RF: 0 metoprolol tartrate 50 mg Tablet 50 mg PO BID RF: 0 gabapentin 300 mg Capsule 300 mg PO BID RF: 0 nifedipine 60 mg Tablet Extended Release 60 mg PO QAM RF: 0 multivitamin Capsule 1 cap PO QAM RF: 0 calcium carbonate-vitamin D3 [Calcium 500 + D (D3)] 500 mg(1,250mg) -125 unit Tablet 1 tab PO BID RF: 0 omeprazole 20 mg Tablet,Delayed Release (Dr/Ec) 20 mg PO BID RF: 0 cholecalciferol (vitamin D3) 3,000 unit Tablet 5,000 unit PO QAM RF: 0 levothyroxine 75 mcg Capsule 75 mcg PO QAM RF: 0 cyanocobalamin (vitamin B-12) 5,000 mcg Tablet, Ir And Er, Biphasic 4,000 mcg PO QAM RF: 0 aspirin [Hanna Aspirin] 325 mg Tablet 325 mg PO QAM RF: 0 escitalopram oxalate 5 mg Tablet 7.5 mg PO QAM RF: 0 ferrous sulfate [iron] 325 mg (65 mg iron) Tablet 325 mg PO QAM RF: 0 Probiotic 3 billion cell Capsule 3,000 mmu cells PO QAM RF: 0 Referrals Referrals: Joe Alonso MD [Primary Care Provider] - Discharge Problem: Acute on chronic renal failure Qualifiers: Acute renal failure type: unspecified Chronic kidney disease stage: unspecified stage Qualified Code(s): N17.9 - Acute kidney failure, unspecified Syncope Qualifiers: Syncope type: unspecified Qualified Code(s): R55 - Syncope and collapse The scribe's documentation has been prepared under my direction and personally reviewed by me in its entirety. I confirm that the note above accurately reflects all work, treatment, procedures, and medical decision making performed by me.
--- NOTE | 2019-02-03 03:37 | History & Physical Report ---
Date of Service February 03, 2019 Assessment & Plan (1) Dizziness: 73-year-old female was admitted on 03 February 2019 for acute dizziness, unresponsiveness, bradycardia, and hyperkalemia. Dizziness, unresponsiveness, bradycardia, hypotension: Noted shortly after drinking a stronger beer than normal as well as having her evening lorazepam. Reportedly received epinephrine and atropine via EMS prior to arrival, though apparently she was responsive on EMS arrival to her home. HR as low as 30's and SBP as low as 60's. During H&P, dizziness and nausea have resolved. - In ED, afebrile, borderline bradycardic, with lowest blood pressure 87/45 along with periods of hypertension, and normal room SpO2. WBC 11. EtOH undetectable. pCXR without acute abnormality. Received about 625 mL IVF thus far. - Monitor for now. Recommended permanent abstention from drinking alcohol. Hyperkalemia: Admit potassium 6.4. EKG NSR 60 without peak T waves. In ED, treated with IVF, calcium gluconate, 10 units of insulin and D50. - Recheck in a.m. with magnesium level. CKD stage IV, recurrent UTIs: Admit creatinine 2.75, slightly higher than recent values. UA appears contaminated along with yeast. Urine culture sent (December 2018 UCx grew E. coli resistant to ampicillin). Has been seen by ID on pr evious admissions. Patient says she never has urinary symptoms anymore due to history of ileal conduit diversion surgery. - In ED, treated with ceftriaxone. - Will continue to gently rehydrate. There does not seem to be an acute infectious issue at present. Therefore, we will not immediately continue antibiotic or antifungal treatment. Hypocalcemia: Admit calcium 6.5, corrects to around 7.7 due to hypoalbuminemia. She received calcium as part of her hyperkalemia treatment. - Will recheck with a.m. labs. Hypertension: PMH same. HR and BP as above. Held her home metoprolol and nifedipine for the moment due to the bradycardia. - Likely will get restarted in AM after further monitoring. Ongoing medical issues: - Colon cancer, short gut syndrome: Continue home dicyclomine and omeprazole - Neuropathy in feet: Continue home gabapentin. - Depression and anxiety, restless leg syndrome: Continue home amitriptyline and escitalopram. - Question of prior PE: History of [place] filter in her medical record. Continue home aspirin. - Hydronephrosis: Followed by urology. - Hypothyroidism: Admit TSH 5.4. Borderline low free T4. Continue home levothyroxine. - Obstructive sleep apnea: Patient says she does not use CPAP because "I have enough going on already." - Chronic anemia: Admit hemoglobin 8.4, normal MCV. Recent comparisons around the same range. Continue home iron. Code status: Full code. --- Please see palliative care note discussion on November 07, 2018. Diet: Heart healthy. DVT prophy: SCDs and early ambulation. PT/OT: Deferred. Disbo: Admit to [facility] telemetry. (2) Bradycardia: (3) Hypotension: (4) Hyperkalemia: (5) Chronic kidney disease (CKD): (6) Recurrent UTI (urinary tract infection): (7) Hypocalcemia: (8) HTN (hypertension): (9) Colon cancer: (10) Short gut syndrome: (11) Neuropathy of both feet: (12) Depression with anxiety: (13) Hydronephrosis: (14) Hypothyroid: (15) Obstructive sleep apnea: (16) Chronic anemia: History of Present Illness Primary Care Provider: Joe Alonso MD 73-year-old female is accompanied by her after being transferred to the ED by EMS for dizziness and a period of unresponsiveness. - Per the patient and (in the exam room), they had dinner as normal this evening but the patient did have a brunson beer. She says that she usually will drink a Arora Light about once per month and has no issues with this. However she thinks this beer was stronger than normal, as does her who also had one. Patient then recalls feeling quite dizzy upon getting home, having nausea and vomiting, and then passing out. Her called EMS. - On review of the ED chart and discussion with the ED nurse, by report the patient was conscious on their arrival. She had a heart rate in the 30s with a SBP in the 60s. She received 2 doses of epinephrine and 2 doses of atropine which improved her heart rate to the 50s and SBP to 80s. In the ED, lowest heart rate was high 50s with lowest blood pressure 87/45. -During this H&P, patient states that she is no longer dizzy or nauseous. She says that her only current complaint is her restless legs. She says she normally takes lorazepam for this, with her last dose around 7 PM. She denies any chest pain, shortness of breath, abdominal pain, or other acute concerns. - Past medical history includes hypertension, colon cancer, short gut syndrome, CKD stage IV, recurrent UTIs, feet neuropathy, depression, anxiety, restless leg syndrome, question of prior PE, hydronephrosis, hypothyroidism, obstructive sleep apnea, chronic anemia. - Past surgical history includes bilateral ureteral stents, colostomy, bladder removal, hysterectomy, ventral hernia repair, breast biopsy, appendectomy, cholecystectomy. - Social history includes denying ever smoking. Drinks a beer perhaps once per month. Lives at home with . Allergies Allergy/AdvReac Type Severity Reaction Status Date / Time cephalexin Allergy Intermediate RASH,ITCHIN Verified 02/03/19 01:24 G,HIVES Cipro Allergy Intermediate RASH Verified 03/02/18 10:07 ciprofloxacin Allergy Intermediate RASH Verified 02/03/19 01:24 homatropine Allergy Intermediate RASH Verified 02/03/19 01:24 hydrocodone Allergy Intermediate RASH Verified 02/03/19 01:24 metronidazole Allergy Intermediate RASH Verified 02/03/19 01:24 piperacillin Allergy Intermediate RASH Verified 02/03/19 01:24 Sulfa (Sulfonamide Allergy Intermediate RASH Verified 02/03/19 01:24 Antibiotics) tazobactam Allergy Intermediate RASH Verified 02/03/19 01:24 vancomycin Allergy Intermediate HIVES Verified 02/03/19 01:24 levofloxacin Allergy Unknown unknown Verified 02/03/19 01:24 nitrofurantoin Allergy Unknown unknown Verified 02/03/19 01:24 Liliejk-Qhd-Dvb Reductase Allergy Unknown LIPITOR Verified 02/03/19 01:24 Inhibitor AND PRAVASTATIN doxycycline Allergy Rash Verified 02/03/19 01:24 hydromorphone [From Dilaudid] AdvReac Severe can not Verified 02/03/19 01:24 contol hands & feet cefepime [From Maxipime] AdvReac Intermediate Unknown Verified 02/03/19 01:24 Home Medications Home Medications Medication Instructions Recorded Confirmed Type acetaminophen [Tylenol Extra 1,000 mg PO Q6H PRN 05/09/18 02/03/19 History Strength] amitriptyline 25 mg PO HS 05/09/18 02/03/19 History ascorbic acid (vitamin C) [Vitamin 1 g PO QAM 05/09/18 02/03/19 History C] calcium carbonate-vitamin D3 1 tab PO BID 05/09/18 02/03/19 History [Calcium 500 + D (D3)] cholecalciferol (vitamin D3) 5,000 unit PO QAM 05/09/18 02/03/19 History cyanocobalamin (vitamin B-12) 4,000 mcg PO QAM 05/09/18 02/03/19 History dicyclomine 20 mg PO TID 05/09/18 02/03/19 History gabapentin 300 mg PO BID 05/09/18 02/03/19 History levothyroxine 75 mcg PO QAM 05/09/18 02/03/19 History lorazepam 0.5 mg PO TID PRN 05/09/18 02/03/19 History metoprolol tartrate 50 mg PO BID 05/09/18 02/03/19 History multivitamin 1 cap PO QAM 05/09/18 02/03/19 History nifedipine 60 mg PO QAM 05/09/18 02/03/19 History omeprazole 20 mg PO BID 05/09/18 02/03/19 History oxycodone-acetaminophen 1 tab PO Q6H PRN 05/09/18 02/03/19 History sodium bicarbonate 650 mg PO BID 05/09/18 02/03/19 History aspirin [Hanna Aspirin] 325 mg PO QAM 05/15/18 02/03/19 History escitalopram oxalate 7.5 mg PO QAM 05/22/18 02/03/19 History Probiotic 3,000 mmu cells PO QAM 09/25/18 02/03/19 History ferrous sulfate [iron] 325 mg PO QAM 09/25/18 02/03/19 History Past Med/Surg History Medical History Vaginal discharge (Acute) Goals of care, counseling/discussion Bhavya albicans infection DVT prophylaxis Weakness (Acute) UTI (urinary tract infection) (Acute) Ischemic colitis HX DVT prophylaxis Escherichia coli infection Streptococcal infection Pyelonephritis (Acute) Hydronephrosis (Acute) Dehydration (Acute) Acute gastroenteritis (Acute) Pancreatitis (Acute) Hypomagnesemia syndrome (Acute) Colorectal cancer (Resolved) Cardiac catheterization (Resolved 07/01/12) Pyelonephritis (Resolved) Sprain, lumbosacral (Resolved) Dizziness (Resolved) Clostridium difficile colitis (Resolved 07/01/12) Infection and inflammatory reaction due to vascular device, implant, and graft (Acute 06/07/13) Abnormal CT of the abdomen Elevated alkaline phosphatase level Hypothyroid (Chronic) SBO (small bowel obstruction) (Acute) Abdominal pain Rectal bleeding Depression with anxiety Hyperkalemia Encounter for pre-operative examination Allergic reaction (Acute) Abdominal pain (Acute) Hives (Acute) Acute dehydration (Acute) Increased urinary frequency Left breast mass Esophagitis Neuropathy of both feet Obstructive sleep apnea Acute hyperkalemia (Acute) Short gut syndrome (Chronic) HTN (hypertension) Anemia CHRONIC Colon cancer S/P COLECTOMY/COLOSTOMY/HYPERBARIC TX, RADIATION (36 YEARS AGO) Chronic kidney disease (Acute) STAGE 4 (UNDER SURVEILLANCE)- BASELINE GFR 20'S PER CHART REVIEW Recurrent UTI (Acute) REASON FOR UPCOMING PROCEDURE Hypertension (Chronic) Neuropathy of both feet (Chronic) Charcot's joint of foot LEFT FOOT Depression with anxiety Nickie filter in place ? PE HX Hydronephrosis REASON FOR UPCOMING PROCEDURE Hypothyroidism Sleep apnea NO DEVICE Surgical History H/O colostomy H/O ileostomy (Acute) History of cholecystectomy S/P appendectomy History of renal stent Hx of cardiac cath 2001= NO STENTS History of breast biopsy "BENIGN" History of colectomy ACCIDENTAL LACERATION WITH SUBSEQUENT SURGICAL REPAIR/ILLEO-CONDUIT PLACEMENT History of cystoscopy History of herniorrhaphy VENTRAL History of hysterectomy History of ileal conduit 2/2 COMPLICATIONS OF BOWEL SURGERY Hx of tooth extraction Port-A-Cath in place Social History Preferred Language: [place] Communication Ability: Effective Visual Impairment: No Limitations Beliefs That Will Affect Care: None marital status: Current Living Situation: Spouse current occupational status: retired Other Information That Helps Us Care for You: No Feels Safe at Home: Yes Safety Concerns: Feels Safe At This Time Smoking Status: Never smoker Cigarettes Per Day: 0 Do You Dip or Chew Tobacco: No Second Hand Exposure: No Tobacco Cessation Education Requested by Patient: No Hx Alcohol Use: Yes Alcohol type: beer Hx Substance Use: Yes substance use type: does not use Review of Systems Review of Systems: Constitutional: Denies fevers, chills, focal weakness Eyes: Denies any visual loss or diplopia ENT: Denies any ear/nose/throat pain or difficulty speaking or swallowing Respiratory: Denies any dyspnea, cough, hemoptysis Cardiovascular: Denies any chest pain or feeling of edema Gastrointestinal: Denies any abdominal pain. Transient nausea and vomiting. Denies increased ostomy output. Musculoskeletal: Denies any acute extremity pains, myalgias, or focal weakness Skin: Denies any known acute rashes or lesions Neuro: See HPI. At present, denies any headache, acute focal weakness or numbness, or difficulties with speech or swallow. Physical Exam Physical Exam: GENERAL: Awake, alert, well-appearing and easily conversati onal, in no acute distress. HENT: Normocephalic, atraumatic. Oropharynx unremarkable. EYES: Normal conjunctiva. Sclera non-icteric. NECK: Inspection normal. Supple and full ROM. No nuchal rigidity. CARDIAC: +S1S2 RRR, no murmurs. Right upper chest port accessed. RESPIRATORY: Clear to auscultation. No wheezes or rales. Normal respiratory effort. GI: +BS, soft, non-distended. No tenderness to palpation. No rebound or guarding. Ostomy bag in place. EXTREMITIES: No pedal edema or calf tenderness. Moving all extremities naturally and easily. NEURO: No gross neuro deficits. While awake, patient is moving her legs about quite a bit. When resting, they remain still. Results & Data Vital Signs (Past 12 Hours) Vital Signs Temp Pulse Pulse Resp BP Pulse Ox 02/03/19 03:15 76 17 116/53 L 95 02/03/19 03:00 72 16 110/52 L 95 02/03/19 02:45 77 122/57 L 93 02/03/19 02:30 88 132/77 96 02/03/19 02:15 89 119/58 L 97 02/03/19 02:00 76 127/57 L 95 02/03/19 01:45 74 76 18 119/55 L 95 02/03/19 01:30 75 124/66 96 02/03/19 01:16 80 152/71 H 95 02/03/19 01:15 81 96 02/03/19 01:01 79 152/66 H 95 02/03/19 01:00 78 95 02/03/19 00:45 62 118/44 L 94 02/03/19 00:30 59 L 102/51 L 96 02/03/19 00:15 60 88/54 L 97 02/03/19 00:05 61 18 98 02/03/19 00:00 59 L 95/50 L 98 02/02/19 23:54 62 99/47 L 98 02/02/19 23:45 59 L 87/45 L 99 02/02/19 23:44 98 02/02/19 23:30 58 L 97/44 L 97 02/02/19 23:23 60 99 02/02/19 23:22 36.7 C 58 L 18 100/50 L 99 02/02/19 23:21 59 L 100/50 L 99 Laboratory Results 02/03/19 02/02/19 02/02/19 Range/Units 00:00 23:38 23:32 WBC (4.8-10.8) K/uL RBC (4.2-5.4) M/uL Hgb (12.0-16.0) g/dL POC Hgb 8.5 L (12.0-16.0) g/dl Hct (37-47) % POC Hct 25 L (37-47) % MCV (80-100) fL MCH (25-34) pg MCHC (32-36) g/dL RDW Std Deviation (36.4-46.3) fL RDW Coeff of Ethan (11.5-14.5) % Plt Count (130-400) K/uL MPV (7.4-10.4) fL Immature Gran % (Auto) % Neut % (Auto) % Lymph % (Auto) % [place] % (Auto) % Eos % (Auto) % Baso % (Auto) % Immature Gran # (Auto) (0.00-0.02) K/uL Neut # (Auto) (1.4-6.5) K/uL Lymph # (Auto) (1.2-3.4) K/uL [place] # (Auto) (0.11-0.59) K/uL Eos # (Auto) (0-0.5) K/uL Baso # (Auto) (0-0.2) K/uL Anisocytosis Echinocytes POC Sodium 141 (135-144) mEq/L Sodium (136-145) mmol/L POC Potassium 6.4 H* (3.3-5.0) mEq/L Potassium (3.5-5.1) mmol/L POC Chloride 116 H (101-112) mEq/L Chloride (98-107) mmol/L Carbon Dioxide (21-32) mmol/L POC Total CO2 17 L (24-31) mEq/l Anion Gap (3-11) POC Anion Gap 16.0 (16-25) mmol/L POC BUN 26 H (7-18) mg/dl BUN (7-18) mg/dl Creatinine (0.6-1.2) mg/dl POC Creatinine 3.2 H (0.6-1.3) mg/dl Est Cr Clr Drug Dosing ml/min Est GFR ( Amer) Est GFR (Non-Af Amer) BUN/Creatinine Ratio (10-20) Glucose (70-99) mg/dl POC Glucose (other) 116 H (70-99) mg/dl Calcium (8.5-10.1) mg/dl POC Ioniz Calcium Tito 0.96 L (1.12-1.32) mmol/l Magnesium (1.8-2.4) mg/dl Total Bilirubin (0.2-1) mg/dl AST (15-37) U/L ALT (12-78) U/L Alkaline Phosphatase (45-117) U/L Total Protein (6.4-8.2) gm/dl Albumin (3.4-5.0) gm/dl Globulin (2.5-4.0) gm/dl Albumin/Globulin Ratio (0.9-2) TSH (0.300-4.500) uIu/ml Free T4 (0.8-1.6) ng/dl Urine Color Yellow Urine Appearance Turbid A (Clear) Urine pH 6.0 (4.5-7.5) Ur Specific [place] 1.018 (1.000-1.030) Urine Protein 3+ H (Negative) Urine Glucose (UA) Negative (Negative) Urine Ketones Trace H (Negative) Urine Blood 3+ H (Negative) Urine Nitrite Positive A (Negative) Urine Bilirubin Negative (Negative) Urine Urobilinogen Negative (Negative) Ur Leukocyte Esterase 3+ H (Negative) Urine WBC (Auto) >30 H (0-5) /hpf Urine RBC (Auto) 0-4 (0-4) /hpf U Hyaline Cast (Auto) 1-5 (0-5) /lpf U Epithel Cells (Auto) >30 H (0-5) /lpf Urine Bacteria (Auto) 2+ H (Negative) Urine Yeast Budding w/ Hyphae A (None Prsent) Ethyl Alcohol mg/dL < 3.0 (0-3) mg/dl 02/02/19 02/02/19 Range/Units 23:32 23:32 WBC 11.32 H (4.8-10.8) K/uL RBC 2.86 L (4.2-5.4) M/uL Hgb 8.4 L (12.0-16.0) g/dL POC Hgb (12.0-16.0) g/dl Hct 27.5 L (37-47) % POC Hct (37-47) % MCV 96.2 (80-100) fL MCH 29.4 (25-34) pg MCHC 30.5 L (32-36) g/dL RDW Std Deviation 72.6 H (36.4-46.3) fL RDW Coeff of Ethan 20.5 H (11.5-14.5) % Plt Count 258 (130-400) K/uL MPV 9.2 (7.4-10.4) fL Immature Gran % (Auto) 1.8 % Neut % (Auto) 71.7 % Lymph % (Auto) 17.0 % [place] % (Auto) 6.5 % Eos % (Auto) 2.4 % Baso % (Auto) 0.6 % Immature Gran # (Auto) 0.20 H (0.00-0.02) K/uL Neut # (Auto) 8.12 H (1.4-6.5) K/uL Lymph # (Auto) 1.92 (1.2-3.4) K/uL [place] # (Auto) 0.74 H (0.11-0.59) K/uL Eos # (Auto) 0.27 (0-0.5) K/uL Baso # (Auto) 0.07 (0-0.2) K/uL Anisocytosis Present Echinocytes 1+ POC Sodium (135-144) mEq/L Sodium 144 (136-145) mmol/L POC Potassium (3.3-5.0) mEq/L Potassium 6.2 H* (3.5-5.1) mmol/L POC Chloride (101-112) mEq/L Chloride 118 H (98-107) mmol/L Carbon Dioxide 17 L (21-32) mmol/L POC Total CO2 (24-31) mEq/l Anion Gap 10.0 (3-11) POC Anion Gap (16-25) mmol/L POC BUN (7-18) mg/dl BUN 28 H (7-18) mg/dl Creatinine 2.75 H (0.6-1.2) mg/dl POC Creatinine (0.6-1.3) mg/dl Est Cr Clr Drug Dosing 16.5 ml/min Est GFR ( Amer) 18.9 Est GFR (Non-Af Amer) 16.3 BUN/Creatinine Ratio 10.1 (10-20) Glucose 116 H (70-99) mg/dl POC Glucose (other) (70-99) mg/dl Calcium 6.5 L (8.5-10.1) mg/dl POC Ioniz Calcium Tito (1.12-1.32) mmol/l Magnesium 2.2 (1.8-2.4) mg/dl Total Bilirubin 0.2 (0.2-1) mg/dl AST 12 L (15-37) U/L ALT 12 (12-78) U/L Alkaline Phosphatase 104 (45-117) U/L Total Protein 5.6 L (6.4-8.2) gm/dl Albumin 2.5 L (3.4-5.0) gm/dl Globulin 3.1 (2.5-4.0) gm/dl Albumin/Globulin Ratio 0.8 L (0.9-2) TSH 5.420 H (0.300-4.500) uIu/ml Free T4 0.84 (0.8-1.6) ng/dl Urine Color Urine Appearance (Clear) Urine pH (4.5-7.5) Ur Specific [place] (1.000-1.030) Urine Protein (Negative) Urine Glucose (UA) (Negative) Urine Ketones (Negative) Urine Blood (Negative) Urine Nitrite (Negative) Urine Bilirubin (Negative) Urine Urobilinogen (Negative) Ur Leukocyte Esterase (Negative) Urine WBC (Auto) (0-5) /hpf Urine RBC (Auto) (0-4) /hpf U Hyaline Cast (Auto) (0-5) /lpf U Epithel Cells (Auto) (0-5) /lpf Urine Bacteria (Auto) (Negative) Urine Yeast (None Prsent) Ethyl Alcohol mg/dL (0-3) mg/dl Medications Administered Sodium Chloride (Nss 1000ml) 1,000 mls @ 125 mls/hr IV .Q8H YUNI Stop: 03/04/19 23:29 Last Admin: 02/02/19 23:55 Dose: 125 mls/hr Documented by: [id number] Discontinued Medications Calcium Gluconate (Calcium Gluconate 10%) Confirm Administered Dose 1,000 mg IV .STK-MED ONE Stop: 02/03/19 00:14 Last Admin: 02/03/19 00:33 Dose: Not Given Documented by: [id number] Dextrose (Dextrose 50%) 50 ml IV NOW STA Stop: 02/03/19 00:08 Last Admin: 02/03/19 00:32 Dose: 50 ml Documented by: [id number] Diphenhydramine HCl (Benadryl) 25 mg IV NOW STA Stop: 02/03/19 02:05 Last Admin: 02/03/19 03:01 Dose: Not Given Documented by: [id number] Sodium Chloride (Nss 1000ml) 250 mls @ 999 mls/hr IV .Q16M ONE Stop: 02/02/19 23:40 Last Infusion: 02/02/19 23:55 Dose: 0 mls/hr Documented by: [id number] Admin: 02/02/19 23:38 Dose: 999 mls/hr Documented by: [id number] Calcium Gluconate 1,000 mg/ (Sodium Chloride) 60 mls @ 240 mls/hr IV NOW STA Stop: 02/03/19 00:21 Last Infusion: 02/03/19 01:05 Dose: 0 mls/hr Documented by: [id number] Admin: 02/03/19 00:32 Dose: 240 mls/hr Documented by: [id number] Ceftriaxone Sodium (Rocephin) 1,000 mg in 50 mls @ 100 mls/hr IV NOW STA Stop: 02/03/19 02:59 Last Infusion: 02/03/19 03:26 Dose: 0 mls/hr Documented by: [id number] Admin: 02/03/19 02:38 Dose: 100 mls/hr Documented by: [id number] Insulin Human Regular (Novolin R U-100 Per Unit) 10 units IV NOW STA Stop: 02/03/19 00:08 Last Admin: 02/03/19 00:32 Dose: 10 units Documented by: [id number] Cosigned by: [id number] Code Status & VTE Plan Code Status Full code VTE Prophylaxis Plan VTE Prophylaxis will be ordered: Yes Supervising Physician Co-Signing Physician Notes Attending addendum: I have physically seen this patient, have supervised the medical residents activities, and agree with the H&P unless as otherwise noted. Assessment and Plan: Unresponsive episode/dizziness/bradycardia/resolved hypotension/hyperkalemia- Feeling somewhat improved after treatment in ED consisting of calcium gluconate 1 g IV, D50 followed by 10 regular insulin IV, and initial normal saline 250 bolus and then following up at 125 mL's per hour. Continue IV fluid NSS at high 25 mL's per hour. Repeat laboratories now to assess potassium level and mild metabolic acidosis. Patient had a different alcoholic beverage than usual on her once a month basis. She knows and is advised to not do that again. Chronic kidney disease stage III- Creatinine is 2.75, minimally higher than usual. Will be following serially as noted above, after fluid rehydration. Remainder of orders and notations as noted. PG Care Time/CCT Total # of Minutes Spent Total Time Spent with Patient: Total time spent is greater than 50% in coordination of care (as documented) at patient's floor/unit and/or counseling patient: Resident Activity Tracking Resident Involvement: Resident Care Provided Care Provided: Adult Hospital Medicine (1) Hydronephrosis Hydronephrosis type: unspecified Qualified Code(s): N13.30 - Unspecified hydronephrosis (2) Hypothyroid Hypothyroidism type: acquired Qualified Code(s): E03.9 - Hypothyroidism, unspecified (3) HTN (hypertension) Hypertension type: essential hypertension Qualified Code(s): I10 - Essential (primary) hypertension
[2019-02-03] MEDS ORDERED: LORazepam 0.5 MG TAB PO PRN (05:20)
[2019-02-03] MEDS ORDERED: ACETAMINOPHEN 500 MG TAB PO PRN (05:20)
[2019-02-03] MEDS: SODIUM CHLORIDE 0.9% 1000ML 1,000 ML IV SCH ×2 (06:14→17:41)
[2019-02-03] MEDS: LEVOTHYROXINE SODIUM 75 MCG TABLET PO SCH (06:34)
[2019-02-03] MEDS: OXYCODONE/ACETAMINOPHEN 5mg/325mg TAB PO PRN ×2 (07:06→23:31)
--- NOTE | 2019-02-03 08:03 | Hospitalist Progress Note ---
Date of Service February 03, 2019 Assessment & Plan (1) Dizziness: 73-year-old female was admitted on 03 February 2019 for acute dizziness, unresponsiveness, bradycardia, and hyperkalemia. Dizziness, unresponsiveness, bradycardia, hypotension: Noted shortly after drinking a stronger beer than normal as well as having her evening lorazepam. Reportedly received epinephrine and atropine via EMS prior to arrival, though apparently she was responsive on EMS arrival to her home. HR as low as 30's and SBP as low as 60's. During H&P, dizziness and nausea have resolved. pCXR without acute abnormality. Complaints of experiencing palpitations could be associate with a tachyarrhythmia although initially bradycardic as listed continue to monitor Hyperkalemia: Admit potassium 6.4. EKG NSR 60 without peak T waves. In ED, treated with IVF, calcium gluconate, 10 units of insulin and D50. Potassium are currently elevated in the morning of 01/27 7 repeat treatment adding Kayexalate to her treatment however, will repeat potassium at 1500 hrs. CKD stage IV, recurrent UTIs: Admit creatinine 2.75, slightly higher than recent values. UA appears contaminated along with yeast. Urine culture sent (December 2018 [facility] grew E. coli resistant to ampicillin). Has been seen by ID on previous admissions. Patient says she never has urinary symptoms anymore due to history of ileal conduit diversion surgery. Urinary ultrasound does not show any significant obstructive changes - In ED, treated with ceftriaxone admittinng tream did not continue antibiotic or antifungal treatment. Hypocalcemia: Admit calcium 6.5, corrects to around 7.7 due to hypoalbuminemia. She received calcium as part of her hyperkalemia treatment. Hypertension: PMH same. HR and BP as above. Held her home metoprolol and nifedipine for the moment due to the bradycardia. Ongoing medical issues: - Colon cancer, short gut syndrome: Continue home dicyclomine and omeprazole - Neuropathy in feet: Continue home gabapentin. - Depression and anxiety, restless leg syndrome: Continue home amitriptyline and escitalopram. - Question of prior PE: History of [place] filter in her medical record. Continue home aspirin. - Hydronephrosis: Followed by urology. - Hypothyroidism: Admit TSH 5.4. Borderline low free T4. Continue home levothyroxine. - Obstructive sleep apnea: Patient says she does not use CPAP because "I have enough going on already." - Chronic anemia: Admit hemoglobin 8.4, normal MCV. Recent comparisons around the same range. Continue home iron. Code status: Full code. --- Please see palliative care note discussion on November 07, 2018. Diet: Heart healthy. DVT prophy: SCDs and early ambulation. PT/OT: Deferred. Disbo: Admit to MedSurg telemetry. (2) Bradycardia: (3) Hypotension: (4) Hyperkalemia: (5) Chronic kidney disease (CKD): (6) Recurrent UTI (urinary tract infection): (7) Hypocalcemia: (8) HTN (hypertension): (9) Colon cancer: (10) Short gut syndrome: (11) Neuropathy of both feet: (12) Depression with anxiety: (13) Hydronephrosis: (14) Hypothyroid: (15) Obstructive sleep apnea: (16) Chronic anemia: Subjective Patient was visited in the presence of her she is in no significant distress today. She does relate that when the initial symptoms of lightheadedness dizziness and and presyncope occurred she did associate this with a rapid heartbeat without chest pain. Patient has been recently discharged from hospitals in [facility] approximately 1 to 2 weeks ago where she had urological procedures performed she has a history of fungal and bacterial recurrent urinary tract infections in the 7 ileal pouch created as she has absent bladder Review of Systems Review of Systems: ROS: well nourished well developed. No double vision blurry vision No problems with speech or swallowing As mentioned in HPI she did experience palpitations not associated with chest pain or pressure preceding her presyncopal symptoms No Wheezing or breathing issues No abdominal pain nausea vomiting she had increased ostomy output with increased gas No burning urine urine frequency or changes in color No focal joint pain or muscle pain No skin rashes or oral lesions No unusual bruising or bleeding No focused back pain or numbness or loss of strength No changes in memory or confusion Physical Exam Physical Exam: The patient appeared well nourished and normally developed. No significant distress at this time Vital signs as documented. Head exam is unremarkable. normocephalic, atraumatic Neck is without jugular venous distension, thyromegaly, or lymphademopathy Lungs are clear to auscultation and percussion. Cardiac exam reveals Rhythm is regular. No significant heart murmur heard Abdominal exam reveals normal bowel sounds, no masses, no organomegaly both ileostomy and colostomy seem to be functioning well Extremities are nonedematous and both pedal pulses are present Neurologic exam is A&Ox3, no focal deficits, strength is equal bilateral Psychologically seems neither anxious or depressed Skin is warm Dry without bruises or lesions Results & Data Vital Signs (Past 12 Hours) Vital Signs Temp Pulse Pulse Resp BP BP Pulse Ox 02/03/19 07:58 76 02/03/19 07:52 36.8 C 75 16 145/73 H 95 02/03/19 06:20 73 02/03/19 05:21 37 C 70 20 153/7 H 96 02/03/19 05:20 02/03/19 05:02 78 16 142/64 H 98 02/03/19 04:45 77 16 95 02/03/19 04:30 74 133/65 95 02/03/19 04:15 74 123/87 91 02/03/19 04:00 73 17 123/68 98 02/03/19 03:45 73 119/89 97 02/03/19 03:30 76 125/67 97 02/03/19 03:15 76 17 116/53 L 95 02/03/19 03:00 72 16 110/52 L 95 02/03/19 02:45 77 122/57 L 93 02/03/19 02:30 88 132/77 96 02/03/19 02:15 89 119/58 L 97 02/03/19 02:00 76 127/57 L 95 02/03/19 01:45 74 76 18 119/55 L 95 02/03/19 01:30 75 124/66 96 02/03/19 01:16 80 152/71 H 95 02/03/19 01:15 81 96 02/03/19 01:01 79 152/66 H 95 02/03/19 01:00 78 95 02/03/19 00:45 62 118/44 L 94 02/03/19 00:30 59 L 102/51 L 96 02/03/19 00:15 60 88/54 L 97 02/03/19 00:05 61 18 98 02/03/19 00:00 59 L 95/50 L 98 02/02/19 23:54 62 99/47 L 98 02/02/19 23:45 59 L 87/45 L 99 02/02/19 23:44 98 02/02/19 23:30 58 L 97/44 L 97 02/02/19 23:23 60 99 02/02/19 23:22 36.7 C 58 L 18 100/50 L 99 02/02/19 23:21 59 L 100/50 L 99 Pulse Ox 02/03/19 07:58 02/03/19 07:52 02/03/19 06:20 02/03/19 05:21 02/03/19 05:20 96 02/03/19 05:02 02/03/19 04:45 02/03/19 04:30 02/03/19 04:15 02/03/19 04:00 02/03/19 03:45 02/03/19 03:30 02/03/19 03:15 02/03/19 03:00 02/03/19 02:45 02/03/19 02:30 02/03/19 02:15 02/03/19 02:00 02/03/19 01:45 02/03/19 01:30 02/03/19 01:16 02/03/19 01:15 02/03/19 01:01 02/03/19 01:00 02/03/19 00:45 02/03/19 00:30 02/03/19 00:15 02/03/19 00:05 02/03/19 00:00 02/02/19 23:54 02/02/19 23:45 02/02/19 23:44 02/02/19 23:30 02/02/19 23:23 02/02/19 23:22 02/02/19 23:21 PG Care Time/CCT Total # of Minutes Spent Total Time Spent with Patient: Total time spent is greater than 50% in coordination of care (as documented) at patient's floor/unit and/or counseling patient: (1) Hydronephrosis Hydronephrosis type: unspecified Qualified Code(s): N13.30 - Unspecified hydronephrosis (2) Hypothyroid Hypothyroidism type: acquired Qualified Code(s): E03.9 - Hypothyroidism, unspecified (3) HTN (hypertension) Hypertension type: essential hypertension Qualified Code(s): I10 - Essential (primary) hypertension
[2019-02-03] MEDS: CHOLECALCIFEROL 1,000 UNITS TAB PO SCH (08:24)
[2019-02-03] MEDS: ASPIRIN 325 MG ECTAB PO SCH (08:25)
[2019-02-03] MEDS: SODIUM BICARBONATE 650 MG TAB PO SCH ×2 (08:25→21:23)
[2019-02-03] MEDS: ASCORBIC ACID 500 MG TAB PO SCH (08:25)
[2019-02-03] MEDS: PANTOprazole 40 MG TAB PO SCH ×2 (08:25→21:22)
[2019-02-03] MEDS: MULTIVITAMIN TAB PO SCH (08:26)
[2019-02-03] MEDS: CALCIUM 600MG + VIT D 400 IU TAB PO SCH ×2 (08:26→21:21)
[2019-02-03] MEDS: FERROUS SULFATE 325 MG TAB PO SCH (08:26)
[2019-02-03] MEDS: DICYCLOMINE HCL 20 MG TAB PO SCH ×3 (08:26→21:20)
[2019-02-03] MEDS: LACTOBACILLUS ACIDOPHILUS (FLORANEX) TAB PO SCH (08:27)
[2019-02-03] MEDS: GABAPENTIN 300 MG CAP PO SCH ×2 (08:27→21:22)
[2019-02-03] MEDS: CYANOCOBALAMIN 500 MCG TABLET (VITAMIN B-12) PO SCH (08:27)
[2019-02-03] MEDS: ESCITALOPRAM OXALATE ORAL SOLN 5 MG/5 ML PO SCH (08:28)
[2019-02-03 09:15] LABS: BUN Creatinine Ratio 11.9 (10-20); Calcium 6.5 mg/dl (8.5-10.1); Creatinine Clr Calc Pharmacy 17.4 ml/min; Est GFR (African American) 22.9; Est GFR (Non-African American) 19.7; Potassium 6.5 mmol/L (3.5-5.1)
[2019-02-03] MEDS ORDERED: DEXTROSE 50% 50 ML SYRINGE IV ONE ×2 (09:39→10:00)
[2019-02-03] MEDS ORDERED: SODIUM POLYSTYRENE SULFONATE 15G/60ML SUSP PO STA (09:39)
[2019-02-03] MEDS ORDERED: CALCIUM GLUCONATE 10% 1,000 MG in SODIUM CHLORIDE 0.9% 50 ML IV SCH (10:15)
[2019-02-03] MEDS ORDERED: INSULIN HUMAN REGULAR PER UNIT 10 UNITS in SYRINGE 9.9 ML IV ONE (10:15)
--- NOTE | 2019-02-03 10:41 | Ultrasound Report ---
ULTRASOUND KIDNEYS AND BLADDER CLINICAL HISTORY: Renal insufficiency. COMPARISON STUDY: Abdominal CT dated 12/26/2018. TECHNIQUE: Real-time, grayscale, and color flow sonography of the kidneys and bladder is performed. I mages are reviewed in the transverse and longitudinal planes. FINDINGS: Kidneys: The kidneys are atrophic. The right kidney measures 8.1 x 4.5 x 4.5 cm and the left kidney m easures 6.4 x 4.4 x 4.0 cm. Bilateral ureteral stents are in place. There is fullness of the renal co llecting system bilaterally. There is no moderate to severe hydronephrosis. A 1.1 cm shadowing calcul us is noted in the right lower pole. There is no sonographic evidence of contour deforming renal mass lesion. No perinephric fluid is identified. Bladder: The bladder is surgically absent. No abnormality is identified in the pelvis. IMPRESSION: 1. The kidneys are atrophic. 2. There are bilateral ureteral stents in place with fullness of the renal collecting system bilatera lly. 3. Nonobstructing right renal calculus. 4. The bladder is surgically absent. Electronically signed by: Scottie Manuel M.D. 02/03/2019 10:40 AM
[2019-02-03 16:05] LABS: BUN Creatinine Ratio 10.9 (10-20); Calcium 7.1 mg/dl (8.5-10.1); Creatinine Clr Calc Pharmacy 17.4 ml/min; Est GFR (African American) 22.9; Est GFR (Non-African American) 19.7; Potassium 5.5 mmol/L (3.5-5.1)
[2019-02-03] MEDS ORDERED: AMITRIPTYLINE HCL 25 MG TAB PO SCH (21:00)
[2019-02-04] MEDS ORDERED: HEPARIN 100 UNIT/ML 5ML FLUSH FLUSH PRN (00:03)
[2019-02-04] MEDS: SODIUM CHLORIDE 0.9% 1000ML 1,000 ML IV SCH (05:31)
[2019-02-04] MEDS: LEVOTHYROXINE SODIUM 75 MCG TABLET PO SCH (05:33)
[2019-02-04 07:25] LABS: BUN Creatinine Ratio 10.2 (10-20); Calcium 6.4 mg/dl (8.5-10.1); Est GFR (African American) 25.5; Magnesium 1.6 mg/dl (1.8-2.4)
[2019-02-04] MEDS: CHOLECALCIFEROL 1,000 UNITS TAB PO SCH (07:53)
[2019-02-04] MEDS: CYANOCOBALAMIN 500 MCG TABLET (VITAMIN B-12) PO SCH (07:53)
[2019-02-04] MEDS: PANTOprazole 40 MG TAB PO SCH (07:54)
[2019-02-04] MEDS: DICYCLOMINE HCL 20 MG TAB PO SCH (07:54)
[2019-02-04] MEDS: CALCIUM 600MG + VIT D 400 IU TAB PO SCH (07:54)
[2019-02-04] MEDS: ASPIRIN 325 MG ECTAB PO SCH (07:54)
[2019-02-04] MEDS: MULTIVITAMIN TAB PO SCH (07:54)
[2019-02-04] MEDS: GABAPENTIN 300 MG CAP PO SCH (07:54)
[2019-02-04] MEDS: LACTOBACILLUS ACIDOPHILUS (FLORANEX) TAB PO SCH (07:54)
[2019-02-04] MEDS: ESCITALOPRAM OXALATE ORAL SOLN 5 MG/5 ML PO SCH (07:55)
[2019-02-04] MEDS: SODIUM BICARBONATE 650 MG TAB PO SCH (07:55)
[2019-02-04] MEDS: ASCORBIC ACID 500 MG TAB PO SCH (07:55)
[2019-02-04] MEDS: FERROUS SULFATE 325 MG TAB PO SCH (07:55)
[2019-02-04] MEDS ORDERED: MAGNESIUM SULFATE / D5W 1 GM/100 ML BAG IV ONE (08:30)
--- NOTE | 2019-02-04 16:24 | Discharge Summary ---
Date of Service February 04, 2019 Admission HPI Per Admitting Provider 73-year-old female is accompanied by her after being transferred to the ED by EMS for dizziness and a period of unresponsiveness. - Per the patient and (in the exam room), they had dinner as normal this evening but the patient did have a brunson beer. She says that she usually will drink a Arora Light about once per month and has no issues with this. However she thinks this beer was stronger than normal, as does her who also had one. Patient then recalls feeling quite dizzy upon getting home, having nausea and vomiting, and then passing out. Her called EMS. - On review of the ED chart and discussion with the ED nurse, by report the patient was conscious on their arrival. She had a heart rate in the 30s with a SBP in the 60s. She received 2 doses of epinephrine and 2 doses of atropine which improved her heart rate to the 50s and SBP to 80s. In the ED, lowest heart rate was high 50s with lowest blood pressure 87/45. -During this H&P, patient states that she is no longer dizzy or nauseous. She says that her only current complaint is her restless legs. She says she normally takes lorazepam for this, with her last dose around 7 PM. She denies any chest pain, shortness of breath, abdominal pain, or other acute concerns. - Past medical history includes hypertension, colon cancer, short gut syndrome, CKD stage IV, recurrent UTIs, feet neuropathy, depression, anxiety, restless leg syndrome, question of prior PE, hydronephrosis, hypothyroidism, obstructive sleep apnea, chronic anemia. - Past surgical history includes bilateral ureteral stents, colostomy, bladder removal, hysterectomy, ventral hernia repair, breast biopsy, appendectomy, cholecystectomy. - Social history includes denying ever smoking. Drinks a beer perhaps once per month. Lives at home with . Principal Diagnosis hyperkalemia Discharge Exam The patient appeared well nourished and normally developed. Vital signs as documented. Head exam is unremarkable. normocephalic, atraumatic Neck is without jugular venous distension, thyromegaly, or lymphademopathy Lungs are clear to auscultation and percussion. Cardiac exam reveals Rhythm is regular. First and second heart sounds normal. Discharge Data Allergies Allergy/AdvReac Type Severity Reaction Status Date / Time cephalexin Allergy Intermediate RASH,ITCHIN Verified 02/03/19 01:24 G,HIVES Cipro Allergy Intermediate RASH Verified 03/02/18 10:07 ciprofloxacin Allergy Intermediate RASH Verified 02/03/19 01:24 homatropine Allergy Intermediate RASH Verified 02/03/19 01:24 hydrocodone Allergy Intermediate RASH Verified 02/03/19 01:24 metronidazole Allergy Intermediate RASH Verified 02/03/19 01:24 piperacillin Allergy Intermediate RASH Verified 02/03/19 01:24 Sulfa (Sulfonamide Allergy Intermediate RASH Verified 02/03/19 01:24 Antibiotics) tazobactam Allergy Intermediate RASH Verified 02/03/19 01:24 vancomycin Allergy Intermediate HIVES Verified 02/03/19 01:24 levofloxacin Allergy Unknown unknown Verified 02/03/19 01:24 nitrofurantoin Allergy Unknown unknown Verified 02/03/19 01:24 Lwpcllm-Ico-Pex Reductase Allergy Unknown LIPITOR Verified 02/03/19 01:24 Inhibitor AND PRAVASTATIN doxycycline Allergy Rash Verified 02/03/19 01:24 hydromorphone [From Dilaudid] AdvReac Severe can not Verified 02/03/19 01:24 contol hands & feet cefepime [From Maxipime] AdvReac Intermediate Unknown Verified 02/03/19 01:24 Consultations 02/03/19 01:28 ED Decision to Admit Stat 02/03/19 05:32 Consult Case Management - Discharge Planning Routine 02/04/19 10:28 [facility] Routine Ordered Studies 02/03/19 09:44 US renal/blad retro comp Routine Hospital Course (1) Dizziness: 73-year-old female was admitted on 03 February 2019 for acute dizziness, unresponsiveness, bradycardia, and hyperkalemia. Resolved after treatment of hyperkalemia Dizziness, unresponsiveness, bradycardia, hypotension: Noted shortly after drinking a stronger beer than normal as well as having her evening lorazepam. Reportedly received epinephrine and atropine via EMS prior to arrival, though apparently she was responsive on EMS arrival to her home. HR as low as 30's and SBP as low as 60's. During H&P, dizziness and nausea have resolved. pCXR without acute abnormality. Complaints of experiencing palpitations could be associate with a tachyarrhythmia although initially bradycardic no arrhythmias seen on monitor Hyperkalemia: Admit potassium 6.4. EKG NSR 60 without peak T waves. In ED, treated with IVF, calcium gluconate, 10 units of insulin and D50. Potassium are currently elevated in the morning of 01/27 7 repeat treatment adding Kayexalate to her treatment CKD stage IV, recurrent UTIs: Admit creatinine 2.75, slightly higher than recent values. UA appears contaminated along with yeast. Urine culture sent (December 2018 [facility] grew E. coli resistant to ampicillin). Has been seen by ID on previous admissions. Patient says she never has urinary symptoms anymore due to history of ileal conduit diversion surgery. Urinary ultrasound does not show any significant obstructive changes, since will typically have bacteruria will not treat culture result unless she has infecitous symptoms, will have pt discuss with pcp if she should see ID again - In ED, treated with ceftriaxone admittinng team did not continue antibiotic or antifungal treatment. Hypocalcemia: Admit calcium 6.5, corrects to around 7.7 due to hypoalbuminemia. She received calcium as part of her hyperkalemia treatment. Hypertension: PMH same. HR and BP as above. Held her home metoprolol and nifedipine for the moment due to the bradycardia. Ongoing medical issues: - Colon cancer, short gut syndrome: Continue home dicyclomine and omeprazole - Neuropathy in feet: Continue home gabapentin. - Depression and anxiety, restless leg syndrome: Continue home amitriptyline and escitalopram. - Question of prior PE: History of [place] filter in her medical record. Continue home aspirin. - Hydronephrosis: Followed by urology. - Hypothyroidism: Admit TSH 5.4. Borderline low free T4. Continue home levothyroxine. - Obstructive sleep apnea: Patient says she does not use CPAP because "I have enough going on already." - Chronic anemia: Admit hemoglobin 8.4, normal MCV. Recent comparisons around the same range. Continue home iron. (2) Bradycardia: (3) Hypotension: (4) Hyperkalemia: (5) Chronic kidney disease (CKD): (6) Recurrent UTI (urinary tract infection): (7) Hypocalcemia: (8) HTN (hypertension): (9) Colon cancer: (10) Short gut syndrome: (11) Neuropathy of both feet: (12) Depression with anxiety: (13) Hydronephrosis: (14) Hypothyroid: (15) Obstructive sleep apnea: (16) Chronic anemia: Total Time Total Time Spent Total Time Spent (In Minutes): greater than 30 minutes were required to prepare discharge Discharge Plan Discharge Items Patient Disposition: Home - Self-Care Reason For Visit: BRADYCARDIA, HYPERKALEMIA Discharge Diagnosis: presycope Discharge Goals: Decrease discomfort, Diagnostic testing and Improve disease control Activity: Resume your previous activity Non-emergency contact: Primary Care Provider Call non-emergency contact if: you have any medication questions Follow-up/Referrals: Joe Alonso MD [Primary Care Provider] - Diet: Regular Addtl Provider Instructions: please drink plenty of liquids, follow up with Dr Ramirez PA to discuss your urinary bacteria Prescriptions: Continued ascorbic acid (vitamin C) [Vitamin C] 1,000 mg Tablet 1 g PO QAM RF: 0 acetaminophen [Tylenol Extra Strength] 500 mg Tablet 1,000 mg PO Q6H PRN (Reason: Pain) RF: 0 oxycodone-acetaminophen 5-325 mg Tablet 1 tab PO Q6H PRN (Reason: Pain) RF: 0 amitriptyline 25 mg Tablet 25 mg PO HS RF: 0 lorazepam 0.5 mg Tablet 0.5 mg PO TID PRN (Reason: Anxiety) RF: 0 dicyclomine 20 mg Tablet 20 mg PO TID RF: 0 sodium bicarbonate 650 mg Tablet 650 mg PO BID RF: 0 metoprolol tartrate 50 mg Tablet 50 mg PO BID RF: 0 gabapentin 300 mg Capsule 300 mg PO BID RF: 0 multivitamin Capsule 1 cap PO QAM RF: 0 calcium carbonate-vitamin D3 [Calcium 500 + D (D3)] 500 mg(1,250mg) -125 unit Tablet 1 tab PO BID RF: 0 omeprazole 20 mg Tablet,Delayed Release (Dr/Ec) 20 mg PO BID RF: 0 cholecalciferol (vitamin D3) 3,000 unit Tablet 5,000 unit PO QAM RF: 0 levothyroxine 75 mcg Capsule 75 mcg PO QAM RF: 0 cyanocobalamin (vitamin B-12) 5,000 mcg Tablet, Ir And Er, Biphasic 4,000 mcg PO QAM RF: 0 aspirin [Hanna Aspirin] 325 mg Tablet 325 mg PO QAM RF: 0 escitalopram oxalate 5 mg Tablet 7.5 mg PO QAM RF: 0 ferrous sulfate [iron] 325 mg (65 mg iron) Tablet 325 mg PO QAM RF: 0 Probiotic 3 billion cell Capsule 3,000 mmu cells PO QAM RF: 0 Discontinued nifedipine 60 mg Tablet Extended Release 60 mg PO QAM RF: 0 Stand-Alone Forms: [facility] Discharge Orders: Discharge Order (Routine); Ordered 02/04/19 Ordered By: Ebenezer Thompson Admission Data Admit Date/Time: 02/03/19 05:17 Attending Provider: Ebenezer Thompson Admit Provider: Juice Galvan Primary Care Provider: Joe Alonso Other Providers: Kameron Carranza Service: Telemetry Medical Other Interventions: Discharge Summary Assessment (RN) Last Done: 02/04/19 10:34 DC Date/Time DO NOT enter until pt leaves facility: 02/04/19 11:33
== END 2019-02-04 11:33 | disposition home or self-care (01) ==
LOC: ED 23:13 → 2N 23:13 → SUATTDRO 02-03 05:17